=== PATIENT | female | born 1940 | race Caucasian/White ===

== ENCOUNTER 2020-06-11 21:23 | Inpatient (IN) | payer MEDICARE, OTHER, SELFPAY ==
--- NOTE | 2020-06-11 | CT_ITS ---
EXAMINATION: CT HEAD WITHOUT CONTRAST (STROKE PROTOCOL) CLINICAL INFORMATION: Stroke protocol. Facial droop COMPARISON: 05/29/2020 TECHNIQUE: Contiguous axial imaging was performed from the skull base to vertex without intravenous administration of contrast. This CT examination was performed using dose optimization techniques as appropriate, variously including the following: *Automated exposure control *Adjustment of mA and/or kV according to patient size (this includes techniques or standardized protocols for targeted exams where dose is matched to indication/reason for exam; i.e. extremities or head) *Use of iterative reconstruction technique DLP: 617 mGy-cm FINDINGS: There is no intracranial hemorrhage, hematoma, or extra-axial fluid collection. The ventricles are normal in size. There is no hydrocephalus, edema, or mass effect. Churchill-white differentiation is maintained without evidence of acute large vessel territory ischemia.. There is no acute infarct or mass lesion. Again seen are multifocal areas of patchy periventricular and subcortical white matter, consistent with chronic microvascular ischemic changes. There are similar appearing chronic lacunar infarcts in the bilateral thalami and basal ganglia including the right caudate. Small left frontal convexity meningioma again seen, image 38/54. There are intracranial atherosclerotic vascular calcifications. Bilateral senescent basal ganglia calcifications The right mastoid air cells are underpneumatized. No acute sinusitis. Globes and orbits are normal. IMPRESSION: No acute intracranial pathology. Extensive chronic changes unchanged. This critical result was discussed with Veronica Richardson MD by telephone at 06/11/2020 9:45 PM and it was ascertained that the content and urgency of the report was understood at the time of direct communication.
--- NOTE | 2020-06-11 21:27 | ED.NEUROSD ---
HPI - Neuro Symptoms/Deficit General Chief Complaint: Stroke Stated Complaint: stroke Time Seen by Provider: 06/11/20 21:27 History of Present Illness HPI Narrative: This is an 79-year-old female who is brought in via EMS from long-term care facility and according to staff patient was noted to be sitting on the toilet with neurologic deficits last known well was 3:00 p.m. Patient is pleasant and denies any current pain, shortness of breath, chest pain / palpitations, nausea, vomiting, abdominal pain, diarrhea, urinary pain/ burning /frequency. Related Data Home Medications Medication Instructions Recorded Confirmed acetaminophen [Tylenol] 325 mg PO QID PRN 06/12/20 06/12/20 albuterol mcg INHALATION 06/12/20 amlodipine 5 mg PO DAILY 06/12/20 06/12/20 apixaban [Eliquis] 5 mg PO BID 06/12/20 06/12/20 atorvastatin 80 mg PO DAILY 06/12/20 06/12/20 fluticasone propion-salmeterol 1 inh INHALATION BID 06/12/20 06/12/20 [Advair Diskus] folic acid 1 mg PO DAILY 06/12/20 06/12/20 gabapentin PO TID 06/12/20 insulin asp prt-insulin aspart 25 unit SUBCUT BID 06/12/20 06/12/20 [Novolog Mix 70-30 U-100 Insuln] isosorbide mononitrate 60 mg PO DAILY 06/12/20 06/12/20 metoprolol succinate 100 mg PO DAILY 06/12/20 06/12/20 nitroglycerin 0.4 mg SUBLINGUAL Q5M PRN MDD 1.2 06/12/20 06/12/20 oxycodone 5 mg PO BID PRN MDD 15 06/12/20 06/12/20 pantoprazole 40 mg PO DAILY 06/12/20 06/12/20 ropinirole 0.25 mg PO DAILY 06/12/20 06/12/20 Allergies Allergy/AdvReac Type Severity Reaction Status Date / Time phenobarbital [PHENOBARBITAL] Allergy Mild HIVES Verified 06/11/20 21:44 fentanyl [FENTANYL] Allergy Unknown HALLUCINATI Verified 06/11/20 21:44 ONS insulin lispro [From HUMALOG] Allergy Unknown RASH Verified 06/11/20 21:44 morphine [MORPHINE] Allergy Unknown HALLUCINATI Verified 06/11/20 21:44 ON Sulfa (Sulfonamide Allergy Unknown Unknown Verified 06/11/20 21:44 Antibiotics) sulfamethoxazole Allergy Unknown UNKNOWN Verified 06/11/20 21:44 [From BACTRIM] trimethoprim [From BACTRIM] Allergy Unknown UNKNOWN Verified 06/11/20 21:44 diazepam [DIAZEPAM] AdvReac Unknown CRY Verified 06/11/20 21:44 Review of Systems Review of Systems: Pertinent positives and negatives as stated in HPI 10 point review of systems is otherwise negative. PMFSH Past Medical History Source: nursing notes reviewed Medical History (Updated 06/12/20 @ 04:52 by Leyda Aleman MD) Afib Bladder mass CAD (coronary artery disease) COPD (chronic obstructive pulmonary disease) CVA (cerebral vascular accident) Diabetes mellitus type 1 GERD (gastroesophageal reflux disease) Hypercholesteremia Hypertension Obesity Social History Social History Alcohol intake: former Smoking Status: Former smoker Smoked in Last 30 Days: No Advance Directives: No Advance Directives Information Provided: No Physical Exam Vital Signs and I&O and Narrative: Vital Signs and I&O: Vital Signs Temp 98.2 F 06/12/20 07:32 Pulse 81 06/12/20 07:32 Resp 18 06/12/20 07:32 BP 180/68 H 06/12/20 07:32 Pulse Ox 98 06/12/20 04:44 Intake & Output 06/11/20 06/12/20 06/12/20 18:59 06:59 18:59 Intake Total 1050 / 1230 Balance 1050 / 1230 Weight 56.415 kg Intake: Intake, IV Amoun t 1050 / 1050 cefTRIAXone so dium 2 gm In 0.9 50 / 50 % Sodium Chlor jeremiah 50 ml @ 100 mls/hr IV ONCE ONE Rx#: [id number] 0.9 % Sodium C hloride 1,000 ml 1000 / 1000 @ 999 mls/hr I VCONT .Q1H1M RODGER Rx#:[id number] Body Mass Index 25.1 VITAL SIGNS: Reviewed. GENERAL: Well developed, well nourished, in no acute distress. HEAD: Normocephalic/atraumatic, Posterior oropharynx was without edema, erythema or exudate. EYES: PERRLA, Pupils <>, EOMI intact without pain, no nystagmus/pallor/icterus noted EARS: Ext canals without abnormality, TMs non-bulging and non-erythematous NOSE: Nares patent bilateral OROPHARYNX: no oral lesions noted, posterior pharynx clear and non-erythematous without noted tonsillar enlargement/erythema/exudates NECK: Supple, no adenopathy LUNGS: Normal breath sounds. No adventitious sounds or accessory muscle use. SpO2<> CARDIOVASCULAR: Regular rate and rhythm without noted murmurs, no JVD or lower extremity edema. ABDOMEN: Soft, non-tender, non-distended with bowel sounds. No rigidity. No guarding. No palpable masses or hernias noted MUSCULOSKELETAL: No tenderness, deformities, or effusions noted on gross inspection. EXTREMITIES: No cyanosis, clubbing or edema. SKIN: Inspection of the skin reveals no rashes, ulcerations, jaundice, pallor, or petechiae. NEUROLOGIC: Alert and oriented x 3. Strength and sensation to light touch were grossly intact x 4, NIHSS- 1, possible left corner mouth droop, otherwise cranial nerves 2-12 were grossly intact without any pronator drift. Course Course Course Narrative: This is an 79-year-old female with history and clinical presentation unlikely to be acute intracranial ischemia and outside of the window for tPA with an NIH score of 1. Suspect patient may have underlying dehydration and possible infection, although patient is not meeting any SIRS criteria. On review of all lab work and imaging this CT head is negative for any acute findings and there is a mild leukocytosis. Review of urinalysis is significant for evidence of infection with gross pyuria noted on catheterization. Reevaluation(s) Reevaluation #1: There is a noted leukocytosis, however patient still does not meet SIRS criteria. The noted KAIN has likely secondary to observed pyuria that is suspected to be secondary to obstructive symptoms And taken together with CT scan which illustrate bladder mass this is most consistent with the source of the KAIN. The bladder mass is known and patient was schedule to be evaluated. Time: 21:47 Reevaluation #2: This case was discussed with the inpatient hospitalist team who is agreeable for admission. MDM - Neuro Symptoms/Deficit Lab Data Result diagrams: 06/12/20 05:42 06/12/20 05:42 Labs: Lab Results 06/11/20 06/11/2006/11/20 Range/Units 21:35 21:47 21:47 WBC 13.0 H (4.8-10.8) X10*3/uL RBC 3.60 L (4.20-5.50) X10*6/uL Hgb 10.1 L (12.0-16.0) g/dl Hct 31.0 L (37-47) % MCV 86.1 (80-98) fL MCH 28.1 (27.0-33.0) pg MCHC 32.6 (31.0-35.0) g/dl RDW 14.0 (11.0-16.0) % Plt Count 381 (160-400) X10*3/uL MPV 9.9 (9.4-12.3) fL Immature Gran % (Auto) 1.4 H (0.0-0.4) % Neut % (Auto) 75.8 H (45-73) % Lymph % (Auto) 7.2 L (20-40) % [place] % (Auto) 14.6 H (2-11) % Eos % (Auto) 0.5 (0-4) % Baso % (Auto) 0.5 (0-2) % Neut # (Auto) 9.8 H (2.0-8.3) X10*3/uL Lymph # (Auto) 0.9 L (1.2-4.9) X10*3/uL [place] # (Auto) 1.9 H (0.1-1.2) X10*3/uL Eos # (Auto) 0.1 (0.0-0.4) X10*3/uL Baso # (Auto) 0.1 (0.0-0.2) X10*3/uL Abs Immat Gran (auto) 0.18 H (0.00-0.03) X10*3/uL Absolute Nucleated RBC 0.000 (0.0-0.012) X10*3/uL Nucleated RBC % (auto) 0.0 (0.0-0.2) /100WBC Smear Tech's Comments VERIFIED PT (10.8-13.0) SEC INR (0.9-1.1) Sodium 129 L (135-145) mmol/L Potassium 4.2 (3.3-5.1) mmol/l Chloride 97 (96-108) mmol/L Carbon Dioxide 21 L (22-29) mmol/L Anion Gap 15 (12-20) BUN 31 H (9-16) mg/dL Creatinine 2.01 H (0.5-1.4) mg/dL Estim Creat Clear Calc 16.7 Estimated GFR 24 POC Glucose 100 (60-115) mg/dL Random Glucose 104 (60-115) mg/dL Calcium 8.4 (8.4-10.2) mg/dL Total Bilirubin 0.4 (0.0-1.0) mg/dL AST 65 H (5-31) U/L ALT 82 H (0-31) U/L Alkaline Phosphatase 95 (39-117) U/L Total Protein 6.2 L (6.5-8.0) g/dL Albumin 3.1 L (3.5-5.0) g/dL Urine Color Urine Appearance Urine pH (5.0-8.0) Ur Specific Sparkman (1.005-1.025) Urine Protein (NEG-TRACE) MG/DL Urine Glucose (UA) (NEG) MG/DL Urine Ketones (NEG) MG/DL Urine Blood (NEG) Urine Nitrite (NEG) Ur Leukocyte Esterase (NEG) Urine RBC (0) /HPF Urine WBC (0-4) /HPF Ur Squamous Epith Cells /LPF Urine Bacteria /LPF 06/11/20 06/11/20 Range/Units 21:59 22:17 WBC (4.8-10.8) X10*3/uL RBC (4.20-5.50) X10*6/uL Hgb (12.0-16.0) g/dl Hct (37-47) % MCV (80-98) fL MCH (27.0-33.0) pg MCHC (31.0-35.0) g/dl RDW (11.0-16.0) % Plt Count (160-400) X10*3/uL MPV (9.4-12.3) fL Immature Gran % (Auto) (0.0-0.4) % Neut % (Auto) (45-73) % Lymph % (Auto) (20-40) % [place] % (Auto) (2-11) % Eos % (Auto) (0-4) % Baso % (Auto) (0-2) % Neut # (Auto) (2.0-8.3) X10*3/uL Lymph # (Auto) (1.2-4.9) X10*3/uL [place] # (Auto) (0.1-1.2) X10*3/uL Eos # (Auto) (0.0-0.4) X10*3/uL Baso # (Auto) (0.0-0.2) X10*3/uL Abs Immat Gran (auto) (0.00-0.03) X10*3/uL Absolute Nucleated RBC (0.0-0.012) X10*3/uL Nucleated RBC % (auto) (0.0-0.2) /100WBC Smear Tech's Comments PT 24.7 H (10.8-13.0) SEC INR 2.1 H (0.9-1.1) Sodium (135-145) mmol/L Potassium (3.3-5.1) mmol/l Chloride (96-108) mmol/L Carbon Dioxide (22-29) mmol/L Anion Gap (12-20) BUN (9-16) mg/dL Creatinine (0.5-1.4) mg/dL Estim Creat Clear Calc Estimated GFR POC Glucose (60-115) mg/dL Random Glucose (60-115) mg/dL Calcium (8.4-10.2) mg/dL Total Bilirubin (0.0-1.0) mg/dL AST (5-31) U/L ALT (0-31) U/L Alkaline Phosphatase (39-117) U/L Total Protein (6.5-8.0) g/dL Albumin (3.5-5.0) g/dL Urine Color YELLOW Urine Appearance TURBID Urine pH 6.0 (5.0-8.0) Ur Specific [place] 1.020 (1.005-1.025) Urine Protein 2+ H (NEG-TRACE) MG/DL Urine Glucose (UA) NEG (NEG) MG/DL Urine Ketones NEG (NEG) MG/DL Urine Blood 2+ H (NEG) Urine Nitrite NEG (NEG) Ur Leukocyte Esterase 3+ H (NEG) Urine RBC 0 (0) /HPF Urine WBC TNTC H (0-4) /HPF Ur Squamous Epith Cells NONE /LPF Urine Bacteria TRACE /LPF NIH Stroke Scale Internal: Initial- Upon Arrival Level of Consciousness: Alert Level of Consciousness Questions: Answers both questions correctly Level of Consciousness Commands: Performs both tasks correctly Best Gaze: Normal ( 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
--- NOTE | 2020-06-11 21:31 | ECG_ITS ---
Test Reason : ALTERED MENTAL Blood Pressure : / mmHG Vent. Rate : 073 BPM Atrial Rate : 073 BPM P-R Int : 172 ms QRS Dur : 084 ms QT Int : 352 ms P-R-T Axes : 031 -32 119 degrees QTc Int : 387 ms Normal sinus rhythm Left axis deviation Left ventricular hypertrophy with repolarization abnormality Abnormal ECG When compared with ECG of 29-MAY-2020 18:10, Sinus rhythm has replaced Atrial fibrillation Referred By: Veronica Richardson Electronically Signed By:DIAZ VOGT
--- NOTE | 2020-06-11 21:31 | XR_ITS ---
EXAMINATION: XR CHEST CLINICAL INFORMATION: Cough COMPARISON: CT abdomen pelvis 05/29/[address] chest 05/29/2020 TECHNIQUE: Frontal view of the chest was obtained. FINDINGS: The heart and pulmonary vessels appear normal. No infiltrates, effusions or lung masses are seen. A left atrial clip is present. There is no evidence of CHF. IMPRESSION: No acute intrathoracic disease
[2020-06-11 21:36] VITALS: BP 130/71; BP 139/50; PULSE 73; PULSE 76; RESP 18; TEMP 36.9; O2SAT 95; BMI 25.1
[2020-06-11 22:03] LABS: Basophils Absolute Auto 0.1 X10*3/uL (0.0-0.2); Basophils Percent Auto 0.5 % (0-2); Eosinophils Absolute Auto 0.1 X10*3/uL (0.0-0.4); Eosinophils Percent Auto 0.5 % (0-4); Hemoglobin 10.1 g/dl (12.0-16.0); Imm Gran Abs Auto 0.18 X10*3/uL (0.00-0.03); Imm Gran Pct Auto 1.4 % (0.0-0.4); Lymphocytes Absolute Auto 0.9 X10*3/uL (1.2-4.9); Lymphocytes Percent Auto 7.2 % (20-40); MANUAL DIFF FLAG SCAN; Mean Corpuscular HGB Conc 32.6 g/dl (31.0-35.0); Mean Corpuscular Hemoglobin 28.1 pg (27.0-33.0); Mean Corpuscular Volume 86.1 fL (80-98); Mean Platelet Volume 9.9 fL (9.4-12.3); Monocytes Absolute Auto 1.9 X10*3/uL (0.1-1.2); Monocytes Percent Auto 14.6 % (2-11); Neutrophils Absolute Auto 9.8 X10*3/uL (2.0-8.3); Neutrophils Percent Auto 75.8 % (45-73); Platelet Count 381 X10*3/uL (160-400); SCAN SMEAR FLAG 1
[2020-06-11 22:17] LABS: INTERNATIONAL NORM RATIO 2.1 (0.9-1.1); Prothrombin Time 24.7 SEC (10.8-13.0)
--- NOTE | 2020-06-11 22:17 | PC.NURSE ---
Pt found laying in bed, awake, with garbled speech. Blood work obtained and sent. nurse tech at bedside obtaining EKG. UA obtained via straight cath and sent for analysis. Pt resting in bed, continue to monitor.
[2020-06-11 22:26] LABS: SLIDE REVIEW VERIFIED
[2020-06-11 22:30] LABS: Glucose, Whole Blood 100 mg/dL (60-115)
[2020-06-11 22:32] LABS: Alanine Aminotransferase 82 U/L (0-31); Albumin Level 3.1 g/dL (3.5-5.0); Alkaline Phosphatase 95 U/L (39-117); Anion Gap 15 (12-20); Aspartate Amino Transferase 65 U/L (5-31); Bilirubin Total 0.4 mg/dL (0.0-1.0); Blood Urea Nitrogen 31 mg/dL (9-16); Calcium 8.4 mg/dL (8.4-10.2); Carbon Dioxide 21 mmol/L (22-29); Chloride 97 mmol/L (96-108); Creatinine Clr Calc Pharmacy 16.7; Estimated Glomerular Filt Rate 24; Glucose Random 104 mg/dL (60-115); Potassium 4.2 mmol/l (3.3-5.1); Sodium 129 mmol/L (135-145); Total Protein 6.2 g/dL (6.5-8.0)
[2020-06-11 22:38] LABS: Glucose Urine UA NEG (NEG); Leukocyte Esterase Urine 3+ (NEG); Nitrite Urine NEG (NEG); Urine Blood 2+ (NEG); Urine Ketones NEG (NEG); Urine Protein 2+ MG/DL (NEG-TRACE)
[2020-06-11 22:41] VITALS: BP 134/53; PULSE 75; RESP 16; TEMP 37.7; O2SAT 96
[2020-06-11 22:44] LABS: Appearance Urine TURBID; Color Urine YELLOW
--- NOTE | 2020-06-11 22:44 | PC.NURSE ---
Per MD, BCX and lactic not needed prior to ABX admin. Pt medicated per EMAR. VSS. Continue to monitor.
[2020-06-11] MEDS: cefTRIAXone sodium 2 GM in 0.9 % Sodium Chloride 50 ML IV (22:45)
[2020-06-11 22:47] LABS: RBC Urine 0 /HPF (0); WBC Urine TNTC /HPF (0-4)
[2020-06-11 22:48] LABS: Bacteria Urine TRACE /LPF
--- NOTE | 2020-06-11 23:30 | PC.NURSE ---
This RN calling facility attempting to obtain a Med Rec. Per staff, pt is listed as family filled and they do not have a Med Rec on file. Facility trying to obtain a Med Rec, given fax number.
[2020-06-11] MEDS: 0.9 % Sodium Chloride 1,000 ML 999 ML IVCONT (23:34)
--- NOTE | 2020-06-11 23:34 | CT_ITS ---
EXAMINATION: CT ABDOMEN AND PELVIS WITHOUT CONTRAST CLINICAL INFORMATION: Polyuria with acute kidney insufficiency COMPARISON: CT abdomen pelvis 05/29/2020 TECHNIQUE: Multidetector volumetric imaging was performed from the superior aspect of the liver through the pubic symphysis. Sagittal and coronal reformatted images were obtained on the technologist's workstation. This CT examination was performed using dose optimization techniques as appropriate, variously including the following: *Automated exposure control *Adjustment of mA and/or kV according to patient size (this includes techniques or standardized protocols for targeted exams where dose is matched to indication/reason for exam; i.e. extremities or head) *Use of iterative reconstruction technique DLP: 1178 mGy-cm FINDINGS: LUNG BASES: A left atrial clip is present. Bibasilar atelectasis is seen. LIVER, GALLBLADDER, AND BILIARY TREE: Air is present in the biliary tree. Patient status post cholecystectomy. No focal liver mass is seen. PANCREAS: Pancreas is atrophic. SPLEEN: Unremarkable. ADRENAL GLANDS: Unremarkable. KIDNEYS AND URETERS: Again seen is marked right-sided hydroureteronephrosis down to the level of the ureterovesical junction. Compared to the prior study, the collecting system appears slightly more dilated. For example, the ureter at the level of the mid pelvis measures 1.4 cm whereas previously it measured 1.2 cm (series 3 image 61). No renal mass is seen. The left kidney is unremarkable aside from the presence of 2 lower pole renal cysts. No renal calculi are seen on either side. No left-sided hydronephrosis is present. BLADDER: A large lobular soft tissue mass is seen on the right side of the bladder presumably producing the hydronephrosis. The mass measures 8.5 x 3.7 x 6.8 cm. No calculi are seen in the bladder. GASTROINTESTINAL TRACT: The small and large bowel are unremarkable. The appendix is unremarkable. ABDOMINAL WALL: No significant hernia is appreciated. LYMPH NODES: No retroperitoneal lymphadenopathy. VASCULAR: There are very extensive aortoiliofemoral calcific atherosclerotic changes along with marked disease in the SMA origin as well as the renal arteries. PELVIC VISCERA: An anteverted uterus is present with some calcifications suggestive of possible old fibroids. OSSEOUS STRUCTURES: Mild degenerative changes in the spine. IMPRESSION: 1. Marked slightly worsening right-sided hydronephrosis down to the ureterovesical junction where there is a large bladder mass. 2. Air in the biliary tree status post cholecystectomy.
[2020-06-12] VITALS (16 sets, daily range): BP systolic 123–191; BP diastolic 55–94; PULSE 67–82; RESP 16–26; TEMP 36.4–37.4; O2SAT 95–99
--- NOTE | 2020-06-12 01:54 | PC.NURSE ---
This RN again contacting facility regarding med list and an accurate history. Per RN Shannan, , [place] [facility] by [place] due to weakness, pt was unable to get up from the toilet. RN denies fall, states she was lowered to the floor as it is a no lift facility. Per RN, pt has a history of a bladder mass. Daughter was supposed to bring pt for a f/u r/t bladder mass on 06/12. RN unsure what doctor or office is treating pt. Per RN, pt is new to their facility, has only been there less than 2 weeks. RN unsure when bladder mass was diagnosed or by whom. Med list obtained from RN. This RN unable to reach daughter after multiple attempts. MD aware of updates regarding pt condition and history.
--- NOTE | 2020-06-12 02:39 | PC.NURSE ---
Med Rec and history completed via list obtained by RN at facility. Pt sleeping in bed at this time, VSS. Awaiting room assignment. Continue to monitor.
--- NOTE | 2020-06-12 02:59 | PC.NURSE ---
This RN calling [facility] regarding admission.
--- NOTE | 2020-06-12 03:16 | PC.NURSE ---
Report given to HOLLEY Corral. Pt being prepared for transport floor.
--- NOTE | 2020-06-12 04:19 | PM.IMHP ---
History of Present Illness Date of Service: 06/12/20 Chief Complaint: suspected stroke 79 y/o female with an extensive PMHX who presented from assisted living facility due to suspected stroke . Per history provided by ED/Assisted living facility patient was noted to be weak which started around 3 pm, the symptoms described are inespecific. On presentation patient is c/o generalized weakness but no neurologic deficit is identified on evaluation. CT head done by ED showed no evidence of any acute intracranial pathology. This is the second presentation to the ED in 1 month due to same symptoms. On previous admission patient had extensive work up done for a similar presentation and weakness was attribuated to UTI for what was treated accordingly. Now presents with recurrent UTI, Hyponatremia of 129 [address] KAIN of 2.0. [address] abdomen shows known bladder mass with right hydronephrosis which was present on previous admission. Patient was supposed to get cytoscopy done by private urologist Dr Ramirez. In the ED patient was given one dose of Rocephin per ED attending. Decision for admission given. Patient seen and examined at the bedside. ROS unable to be obtained given mental status. Physical exam positive for mild abdominal tenderness in hypogastric region, delirium. Past Medical History: Anemia, Angina, Arthritis, afib, CAD, CHF, COPD, CVA, Dementia, GERD, Headaches, Hiatal hernia, HTN, DM, Sleep apnea, TB PP+ Review of Systems Constitutional: Constitutional: Reports other Comments: unable to be obtained given mental status [facility] Medical History (Updated 06/12/20 @ 04:52 by Leyda Aleman MD) Afib Bladder mass CAD (coronary artery disease) COPD (chronic obstructive pulmonary disease) CVA (cerebral vascular accident) Diabetes mellitus type 1 GERD (gastroesophageal reflux disease) Hypercholesteremia Hypertension Obesity Functional capacity: independent ambulation Family history: reviewed and not pertinent Social History Alcohol intake: former Smoking Status: Former smoker Smoked in Last 30 Days: No Advance Directives: No Advance Directives Information Provided: No Meds Allergies Allergy/AdvReac Type Severity Reaction Status Date / Time phenobarbital [PHENOBARBITAL] Allergy Mild HIVES Verified 06/11/20 21:44 fentanyl [FENTANYL] Allergy Unknown HALLUCINATI Verified 06/11/20 21:44 ONS insulin lispro [From HUMALOG] Allergy Unknown RASH Verified 06/11/20 21:44 morphine [MORPHINE] Allergy Unknown HALLUCINATI Verified 06/11/20 21:44 ON Sulfa (Sulfonamide Allergy Unknown Unknown Verified 06/11/20 21:44 Antibiotics) sulfamethoxazole Allergy Unknown UNKNOWN Verified 06/11/20 21:44 [From BACTRIM] trimethoprim [From BACTRIM] Allergy Unknown UNKNOWN Verified 06/11/20 21:44 diazepam [DIAZEPAM] AdvReac Unknown CRY Verified 06/11/20 21:44 Home Medications Medication Instructions Recorded Confirmed Type acetaminophen [Tylenol] 325 mg PO QID PRN 06/12/20 06/12/20 History albuterol mcg INHALATION 06/12/20 History amlodipine 5 mg PO DAILY 06/12/20 06/12/20 History apixaban [Eliquis] 5 mg PO BID 06/12/20 06/12/20 History atorvastatin 80 mg PO DAILY 06/12/20 06/12/20 History fluticasone propion-salmeterol 1 inh INHALATION BID 06/12/20 06/12/20 History [Advair Diskus] folic acid 1 mg PO DAILY 06/12/20 06/12/20 History gabapentin PO TID 06/12/20 History insulin asp prt-insulin aspart 25 unit SUBCUT BID 06/12/20 06/12/20 History [Novolog Mix 70-30 U-100 Insuln] isosorbide mononitrate 60 mg PO DAILY 06/12/20 06/12/20 History metoprolol succinate 100 mg PO DAILY 06/12/20 06/12/20 History nitroglycerin 0.4 mg SUBLINGUAL Q5M PRN MDD 1.2 06/12/20 06/12/20 History oxycodone 5 mg PO BID PRN MDD 15 06/12/20 06/12/20 History pantoprazole 40 mg PO DAILY 06/12/20 06/12/20 History ropinirole 0.25 mg PO DAILY 06/12/20 06/12/20 History Physical Exam Vital Signs and Narrative: Vital Signs: Last Vital Signs Temp 98.5 F 06/12/20 02:09 Pulse 69 06/12/20 02:39 Resp 16 06/12/20 02:39 BP 148/61 H 06/12/20 02:39 Pulse Ox 96 10/06/20 02:39 Body Mass Index 25.1 Const: General: cooperative and comfortable Orientation/consciousness: oriented to person HENMT: Head: Yes normal to inspection Eyes: General: appearance normal, both eyes and all related structures Neck: Yes normal visual inspection, Yes full ROM and Yes no JVD Chest: Chest palpation & inspection: normal inspection of the chest Resp: Effort & Inspection: normal respiratory effort Cardio: Jugular venous distension: no JVD Rhythm: regular rhythm Heart sounds: S1 normal heart sound present and S2 normal heart sound present GI: Rectal Exam - Female: other (mild tenderness in hypogastric region) Skin: General skin exam: no rashes or lesions noted Neuro: General: oriented to person Psych: Appearance: disheveled Speech and movement: Normal speech and movement present Attitude: cooperative Results Labs Labs: Laboratory Tests 06/11/20 06/11/20 06/11/20 21:35 21:47 21:47 WBC 13.0 H RBC 3.60 L Hgb 10.1 L Hct 31.0 L MCV 86.1 MCH 28.1 MCHC 32.6 RDW 14.0 Plt Count 381 MPV 9.9 Immature Gran % (Auto) 1.4 H Neut % (Auto) 75.8 H Lymph % (Auto) 7.2 L [place] % (Auto) 14.6 H Eos % (Auto) 0.5 Baso % (Auto) 0.5 Neut # (Auto) 9.8 H Lymph # (Auto) 0.9 L [place] # (Auto) 1.9 H Eos # (Auto) 0.1 Baso # (Auto) 0.1 Abs Immat Gran (auto) 0.18 H Absolute Nucleated RBC 0.000 Nucleated RBC % (auto) 0.0 Smear Tech's Comments VERIFIED PT INR Sodium 129 L Potassium 4.2 Chloride 97 Carbon Dioxide 21 L Anion Gap 15 BUN 31 H Creatinine 2.01 H Estim Creat Clear Calc 16.7 Estimated GFR 24 POC Glucose 100 Random Glucose 104 Calcium 8.4 Total Bilirubin 0.4 AST 65 H ALT 82 H Alkaline Phosphatase 95 Total Protein 6.2 L Albumin 3.1 L Urine Color Urine Appearance Urine pH Ur Specific [place] Urine Protein Urine Glucose (UA) Urine Ketones Urine Blood Urine Nitrite Ur Leukocyte Esterase Urine RBC Urine WBC Ur Squamous Epith Cells Urine Bacteria 06/11/20 06/11/20 21:59 22:17 WBC RBC Hgb Hct MCV MCH MCHC RDW Plt Count MPV Immature Gran % (Auto) Neut % (Auto) Lymph % (Auto) [place] % (Auto) Eos % (Auto) Baso % (Auto) Neut # (Auto) Lymph # (Auto) [place] # (Auto) Eos # (Auto) Baso # (Auto) Abs Immat Gran (auto) Absolute Nucleated RBC Nucleated RBC % (auto) Smear Tech's Comments PT 24.7 H INR 2.1 H Sodium Potassium Chloride Carbon Dioxide Anion Gap BUN Creatinine Estim Creat Clear Calc Estimated GFR POC Glucose Random Glucose Calcium Total Bilirubin AST ALT Alkaline Phosphatase Total Protein Albumin Urine Color YELLOW Urine Appearance TURBID Urine pH 6.0 Ur Specific [place] 1.020 Urine Protein 2+ H Urine Glucose (UA) NEG Urine Ketones NEG Urine Blood 2+ H Urine Nitrite NEG Ur Leukocyte Esterase 3+ H Urine RBC 0 Urine WBC TNTC H Ur Squamous Epith Cells NONE Urine Bacteria TRACE Assessment and Plan (1) AMS (altered mental status): Status: Acute likely a combination of underlying dementia with metabolic encephalopathy due to recurrent UTI Continue with IV Rocephin for gram negative coverage Follow up Bcx and Ucx as ordered per ED and monitor mental status closely (2) Urinary tract infection with pyuria: Status: Acute continue with rocephin for gram neg coverage follow up Bcx and Ucx (3) Bladder mass: Status: Acute Causing obstructive uropathy, hydronephrosis in the right Private urologist Dr Ramirez to be contacted in the am in regards to cytoscopy patient was scheduled to have as an outpatient after discharged from previous admission Nephrology consult in am as well as urology consult (4) KAIN (acute kidney injury): Status: Acute creatinine now of 2.0 likely due to obstructive uropathy monitor as of now and monitor electrolytes closely urology consult in am (5) Hyponatremia: Status: Acute Na of 129 which might be in part causing patient's weakness in combination with recurrent UTI IV gently hydration for now Follow up repeat BMP for electrolytes (6) CAD (coronary artery disease): Status: Acute continue with statin home dose (7) Afib: Status: Acute continue with metoprolol home dose for rate control continue with eliquis home dose for anticoagulation (8) Hypertension: Status: Acute continue with amlodipine home dose (9) Diabetes mellitus type 1: Status: Acute Insulin regimen as ordered Diabetic diet (10) GERD (gastroesophageal reflux disease): Status: Acute continue with PPI home dose (11) Parkinson disease: Status: Acute continue with ropirinole home dose
[2020-06-12] MEDS: Heparin Sodium,Porcine 5,000 UNIT/ML VIAL 5000 UNIT SUBCUT (06:27)
[2020-06-12] MEDS: Omeprazole 20 MG CAPSULE.DR PO (06:29)
[2020-06-12 06:50] LABS: Basophils Absolute Auto 0.1 X10*3/uL (0.0-0.2); Basophils Percent Auto 0.4 % (0-2); Eosinophils Absolute Auto 0.1 X10*3/uL (0.0-0.4); Eosinophils Percent Auto 0.7 % (0-4); Hematocrit 32.7 % (37-47); Hemoglobin 10.4 g/dl (12.0-16.0); Imm Gran Abs Auto 0.24 X10*3/uL (0.00-0.03); Imm Gran Pct Auto 1.5 % (0.0-0.4); Lymphocytes Absolute Auto 1.1 X10*3/uL (1.2-4.9); Lymphocytes Percent Auto 6.5 % (20-40); MANUAL DIFF FLAG SCAN; Mean Corpuscular HGB Conc 31.8 g/dl (31.0-35.0); Mean Corpuscular Volume 87.9 fL (80-98); Mean Platelet Volume 10.4 fL (9.4-12.3); Monocytes Absolute Auto 2.3 X10*3/uL (0.1-1.2); Monocytes Percent Auto 14.3 % (2-11); Neutrophils Absolute Auto 12.4 X10*3/uL (2.0-8.3); Neutrophils Percent Auto 76.6 % (45-73); Platelet Count 376 X10*3/uL (160-400); Red Blood Count 3.72 X10*6/uL (4.20-5.50); SCAN SMEAR FLAG 1; White Blood Count 16.1 X10*3/uL (4.8-10.8)
--- NOTE | 2020-06-12 06:52 | PC.NURSE ---
ADMIT TO 453-1--AWAKE...ALERT...VAGUE RESPONSES BUT CONVERSATIONAL...RESPIRATIONS EASY..MONITOR NSR..HR 70'S...INCONTINANT URINE POST-ARRIVAL...DAUGHTER CALLED THIS AM...STATES PATIENT ALLERGIC TO HUMALOG INSULIN AND WILL BRING PATIENTS INSULIN IN FOR PHARMACY...DAUGHTER STATED RECENTLY FOUND BLADDER TUMOR WAS TO BE EVALUATED TODAY IN [place] VIA CYSTOSCOPY..FOLLOWED BY DR ALVARENGA AT [address] IN [place]..PATIENT DENIES/OFFERS NO COMPLAINTS...SWALLOWED AM MED/H20 W/O DIFFICULTY FOLLOWED
[2020-06-12 07:27] LABS: Anion Gap 15 (12-20); Blood Urea Nitrogen 28 mg/dL (9-16); Calcium 8.2 mg/dL (8.4-10.2); Carbon Dioxide 24 mmol/L (22-29); Chloride 100 mmol/L (96-108); Estimated Glomerular Filt Rate 28; Glucose Random 102 mg/dL (60-115); Potassium 4.8 mmol/l (3.3-5.1); Sodium 134 mmol/L (135-145)
[2020-06-12 08:48] LABS: Glucose, Whole Blood 124 mg/dL (60-115)
[2020-06-12] MEDS: Isosorbide Mononitrate 60 MG TAB.ER.24H PO (10:23)
[2020-06-12] MEDS: Metoprolol Succinate ER 100 MG TAB.ER.24H PO ×2 (10:24→20:10)
[2020-06-12] MEDS: Apixaban 5 MG TABLET 2.5 MG PO ×2 (10:24→20:10)
[2020-06-12] MEDS: 0.9 % Sodium Chloride Flush 3 ML SYRINGE 2 ML IVFLUSH ×2 (10:25→20:10)
--- NOTE | 2020-06-12 11:10 | PM.CNNEP ---
History of Present Illness Reason for Consult Consult date: 06/12/20 Reason for consult: KAIN Chief Complaint Chief complaint: stroke History of Present Illness Narrative: PT unable to give info ..info was obtained from EMR notes Readm to hosp fro AMS and gen weakness Noted pyuria c/w UTI KAIN with incr SCr Last adm noted R hydro with renal mass ( repeat CT noted again) ad she was suppose to get urol eval in [place] with her usu urol PMFSH Past Medical History Medical History (Updated 06/12/20 @ 04:52 by Leyda Aleman MD) Afib Bladder mass CAD (coronary artery disease) COPD (chronic obstructive pulmonary disease) CVA (cerebral vascular accident) Diabetes mellitus type 1 GERD (gastroesophageal reflux disease) Hypercholesteremia Hypertension Obesity Functional capacity: independent ambulation Family History Family history: reviewed and not pertinent Social History Social History Alcohol intake: former Smoking Status: Former smoker Smoked in Last 30 Days: No Advance Directives: No Advance Directives Information Provided: No service: No Meds Allergies Allergy/AdvReac Type Severity Reaction Status Date / Time phenobarbital [PHENOBARBITAL] Allergy Mild HIVES Verified 06/11/20 21:44 fentanyl [FENTANYL] Allergy Unknown HALLUCINATI Verified 06/11/20 21:44 ONS insulin lispro [From HUMALOG] Allergy Unknown RASH Verified 06/11/20 21:44 morphine [MORPHINE] Allergy Unknown HALLUCINATI Verified 06/11/20 21:44 ON Sulfa (Sulfonamide Allergy Unknown Unknown Verified 06/11/20 21:44 Antibiotics) sulfamethoxazole Allergy Unknown UNKNOWN Verified 06/11/20 21:44 [From BACTRIM] trimethoprim [From BACTRIM] Allergy Unknown UNKNOWN Verified 06/11/20 21:44 diazepam [DIAZEPAM] AdvReac Unknown CRY Verified 06/11/20 21:44 Home Medications Medication Instructions Recorded Confirmed Type Novolin 70-30 FlexPen U-100 28 units SUBCUT DAILY@1700 06/12/20 06/12/20 History Novolog Mix 70-30FlexPen U-100 24 unit SUBCUT QAM 06/12/20 06/12/20 History acetaminophen [Tylenol] 325 mg PO QID PRN 06/12/20 06/12/20 History albuterol mcg INHALATION 06/12/20 History amlodipine 5 mg PO DAILY 06/12/20 06/12/20 History apixaban [Eliquis] 5 mg PO BID 06/12/20 06/12/20 History atorvastatin 80 mg PO DAILY 06/12/20 06/12/20 History fluticasone propion-salmeterol 1 inh INHALATION BID 06/12/20 06/12/20 History [Advair Diskus] folic acid 1 mg PO DAILY 06/12/20 06/12/20 History gabapentin PO TID 06/12/20 History insulin asp prt-insulin aspart 25 unit SUBCUT BID 06/12/20 06/12/20 History [Novolog Mix 70-30 U-100 Insuln] isosorbide mononitrate 60 mg PO DAILY 06/12/20 06/12/20 History metoprolol succinate 100 mg PO DAILY 06/12/20 06/12/20 History nitroglycerin 0.4 mg SUBLINGUAL Q5M PRN MDD 1.2 06/12/20 06/12/20 History oxycodone 5 mg PO BID PRN MDD 15 06/12/20 06/12/20 History pantoprazole 40 mg PO DAILY 06/12/20 06/12/20 History ropinirole 0.25 mg PO DAILY 06/12/20 06/12/20 History Physical Exam Vital Signs and I&O: Vital Signs Temp 98.2 F 06/12/20 08:00 Pulse 80 06/12/20 10:24 Resp 18 06/12/20 08:00 BP 157/62 H 06/12/20 10:24 Pulse Ox 97 06/12/20 08:00 Intake & Output 06/11/20 06/12/20 06/12/20 18:59 06:59 18:59 Intake Total 1230 / 1230 Balance 1230 / 1230 Weight 56.415 kg Intake: Intake, Oral Amount 180 / 180 Intake, IV Amount 1050 / 1050 cefTRIAXone sodium 2 gm In 0.9 50 / 50 % Sodium Chloride 50 ml @ 100 mls/hr IV ONCE ONE Rx#: [id number] 0.9 % Sodium Chloride 1,000 ml 1000 / 1000 @ 999 mls/hr IVCONT .Q1H1M RODGER Rx#:[id number] Other: Number of Incontinent Voids 1 Body Mass Index 25.1 Laboratory Tests 10/06/19 06/11/20 06/12/20 20:40 21:47 05:42 Creatinine 1.43 H 2.01 H 1.77 H VITAL SIGNS: Reviewed. GENERAL: Well developed, well nourished, in no acute distress. HEAD: Normocephalic/atraumatic, Posterior oropharynx was without edema, erythema or exudate. EYES: PERRLA, Pupils <>, EOMI intact without pain, no nystagmus/pallor/icterus noted EARS: Ext canals without abnormality, TMs non-bulging and non-erythematous NOSE: Nares patent bilateral OROPHARYNX: no oral lesions noted, posterior pharynx clear and non-erythematous without noted tonsillar enlargement/erythema/exudates NECK: Supple, no adenopathy LUNGS: Normal breath sounds. No adventitious sounds or accessory muscle use. SpO2<> CARDIOVASCULAR: Regular rate and rhythm without noted murmurs, no JVD or lower extremity edema. ABDOMEN: Soft, non-tender, non-distended with bowel sounds. No rigidity. No guarding. No palpable masses or hernias noted MUSCULOSKELETAL: No tenderness, deformities, or effusions noted on gross inspection. EXTREMITIES: No cyanosis, clubbing or edema. SKIN: Inspection of the skin reveals no rashes, ulcerations, jaundice, pallor, or petechiae. NEUROLOGIC: Alert and oriented x 3. Strength and sensation to light touch were grossly intact x 4, NIHSS- 1, possible left corner mouth droop, otherwise cranial nerves 2-12 were grossly intact without any pronator drift. Const General: cooperative and comfortable Orientation/consciousness: oriented to person [facility] Head: Yes normal to inspection Eyes General: appearance normal, both eyes and all related structures Neck Neck: Yes normal visual inspection, Yes full ROM and Yes no JVD Chest Chest palpation & inspection: normal inspection of the chest Resp Effort & Inspection: normal respiratory effort Cardio Jugular venous distension: no JVD Rhythm: regular rhythm Heart sounds: S1 normal heart sound present and S2 normal heart sound present GI Rectal Exam - Female: other (mild tenderness in hypogastric region) Skin General skin exam: no rashes or lesions noted Neuro General: oriented to person Psych Appearance: disheveled Speech and movement: Normal speech and movement present Attitude: cooperative Results Lab Results Result Diagrams: 06/12/20 05:42 06/12/20 05:42 Lab results: Chemistry 06/11/20 06/12/20 21:47 05:42 Sodium 129 L 134 L Potassium 4.2 4.8 Carbon Dioxide 21 L 24 BUN 31 H 28 H Creatinine 2.01 H 1.77 H Calcium 8.4 8.2 L Hematology 06/11/20 06/12/20 21:47 05:42 WBC 13.0 H 16.1 H Hgb 10.1 L 10.4 L Plt Count 381 376 Urinalysis 06/11/20 22:17 Urine Color YELLOW Urine Appearance TURBID Urine pH 6.0 Ur Specific [place] 1.020 Urine Protein 2+ H Urine Glucose (UA) NEG Urine Ketones NEG Urine Blood 2+ H Urine Nitrite NEG Ur Leukocyte Esterase 3+ H Urine RBC 0 Urine WBC TNTC H Ur Squamous Epith Cells NONE Laboratory Tests 10/06/19 06/11/20 06/12/20 20:40 21:47 05:42 Creatinine 1.43 H 2.01 H 1.77 H 1. Marked slightly worsening right-sided hydronephrosis down to the ureterovesical junction where there is a large bladder mass. Assessment and Plan (1) Hyponatremia: Status: Acute (2) KAIN (acute kidney injury): Status: Acute (3) Bladder mass: Status: Acute (4) Urinary tract infection with pyuria: Status: Acute (5) AMS (altered mental status): Status: Acute 1. KAIN: multifact including UTI and ? prog R Kidney Obs; SCr grad imporved over past 24 hrs 2. CKD 3: bsl SCr 1.5 3. R hydro w Obs at level of bladder CT scan shows........ Marked slightly worsening right-sided hydronephrosis down to the ureterovesical junction where there is a large bladder mass. 4. DM 5. AMS: multifact with UTI 6. UTI: at risk for Obs pyleo on R kidnye REC: cont IV ABx; avoid NToxins; Urol consult re blader mass and R hydro as may need R PCN tbe and anteiro stenting by IR ( urol to sort out best options) will follow with team
--- NOTE | 2020-06-12 11:20 | MHC.CM.PN ---
met with pts daughter who explins that pt is from the [facility] where in the past she had been receiving servbceis thru [facility] daughter is agreea ble to str if indicated by a physicaltherapy eval she is requestungpt not go to [facility] as hr father there referrals will be made
[2020-06-12 11:33] LABS: Glucose, Whole Blood 209 mg/dL (60-115)
--- NOTE | 2020-06-12 16:54 | P.PNIM_ITS ---
Subjective Subjective Date of Service: 06/12/20 Interval History: Seen and examined reports not feeling well, but unable to state exactly what she means Review of Systems ROS unreliable Physical Exam Vital Signs and I&O and Narrative: Vital Signs and I&O: Vital Signs Temp 98.6 F 06/12/20 15:17 Pulse 74 06/12/20 15:17 Resp 20 06/12/20 15:17 BP 161/84 H 06/12/20 15:17 Pulse Ox 97 06/12/20 15:17 Intake & Output 06/11/20 06/12/20 06/12/20 18:59 06:59 18:59 Intake Total 1230 / 1230 480 / 480 Balance 1230 / 1230 480 / 480 Weight 56.415 kg Intake: Intake, Oral Bel unt 180 / 180 480 / 480 Intake, IV Amoun t 1050 / 1050 cefTRIAXone so dium 2 gm In 0.9 50 / 50 % Sodium Chlor jeremiah 50 ml @ 100 mls/hr IV ONCE ONE Rx#: [id number] 0.9 % Sodium C hloride 1,000 ml 1000 / 1000 @ 999 mls/hr I VCONT .Q1H1M RODGER Rx#:[id number] Other: Number of Incont inent Voids 1 Body Mass Index 25.1 General - no acute distress, appears comfortable Cardiovascular - regular rate and rhythm, S1-S2 Lungs - normal respiratory effort, clear to auscultation bilaterally, no wheez ing Abdomen - soft, nontender, no rebound regarding Extremities - no edema bilaterally Neuro - awake and alert, no focal deficits Objective Data Current Medications Generic Name Dose Route Start Last Admin Trade Name Sony PRN Reason Stop Dose Admin Amlodipine Besylate 5 mg 06/12/20 09:00 06/12/20 10:26 Amlodipine Besylate 5 Mg Tablet PO Not Given DAILY [facility] Protocol Apixaban 2.5 mg 06/12/20 09:00 06/12/20 10:24 Apixaban 5 Mg Tablet PO 2.5 mg BID [facility] Administration Atorvastatin Calcium 80 mg 06/12/20 21:00 Atorvastatin Calcium 80 Mg Tablet PO DAILY@1999 [facility] Fluticasone/Vilanterol 1 puff 06/12/20 09:00 Fluticasone/Vilanterol 100/25 Blst.W.Dev INHALE DAILY [facility] Folic Acid 1 mg 06/13/20 15:00 Folic Acid 1 Mg Tablet PO DAILY@1500 [facility] Ceftriaxone Sodium 1 gm/ 50 mls @ 100 mls/hr 06/12/20 22:00 Sodium Chloride IV Q24H [facility] Isosorbide Mononitrate 60 mg 06/13/20 08:00 Isosorbide Mononitrate 60 Mg Tab.Er.24h PO DAILY@0800 [facility] Protocol Metoprolol Succinate 100 mg 06/12/20 20:00 Metoprolol Succinate Er 100 Mg Tab.Er.24h PO DAILY@2000 [facility] Protocol Nitroglycerin 0.4 mg 06/12/20 03:14 Nitroglycerin 0.4 Mg Tab.Subl SUBLINGUAL Q5M PRN Chest Pain Non-Formulary Medication 20 units 06/12/20 17:00 Novolin 70-30 Flexpen U-100 SUBCUT DAILY@1700 [facility] Omeprazole 20 mg 06/12/20 06:30 06/12/20 06:29 Omeprazole 20 Mg Capsule.Dr PO 20 mg DAILY@0630 [facility] Administration Ropinirole HCl 0.25 mg 06/12/20 20:00 Ropinirole Hcl 0.25 Mg Tablet PO DAILY@1999 [facility] Sodium Chloride 2 ml 06/12/20 08:00 06/12/20 10:25 0.9 % Sodium Chloride Flush 3 Ml Syringe IVFLUSH 2 ml QSHIFT [facility] Administration Labs CBC & Chem 7: 06/12/20 05:42 06/12/20 05:42 Labs: Laboratory Results - last 24 hr 06/11/20 06/11/20 06/11/20 21:35 21:47 21:47 MCV 86.1 MCH 28.1 MCHC 32.6 RDW 14.0 Plt Count 381 MPV 9.9 Immature Gran % (Auto) 1.4 H Neut % (Auto) 75.8 H Lymph % (Auto) 7.2 L [place] % (Auto) 14.6 H Eos % (Auto) 0.5 Baso % (Auto) 0.5 Neut # (Auto) 9.8 H Lymph # (Auto) 0.9 L [place] # (Auto) 1.9 H Eos # (Auto) 0.1 Baso # (Auto) 0.1 Abs Immat Gran (auto) 0.18 H Absolute Nucleated RBC 0.000 Nucleated RBC % (auto) 0.0 Smear Tech's Comments VERIFIED PT INR Anion Gap 15 Estim Creat Clear Calc 16.7 Estimated GFR 24 POC Glucose 100 Random Glucose 104 Calcium 8.4 Total Bilirubin 0.4 AST 65 H ALT 82 H Alkaline Phosphatase 95 Total Protein 6.2 L Albumin 3.1 L Urine Color Urine Appearance Urine pH Ur Specific [place] Urine Protein Urine Glucose (UA) Urine Ketones Urine Blood Urine Nitrite Ur Leukocyte Esterase Urine RBC Urine WBC Ur Squamous Epith Cells Urine Bacteria 06/11/20 06/11/20 06/12/20 21:59 22:17 05:42 MCV 87.9 MCH 28.0 MCHC 31.8 RDW 14.0 Plt Count 376 MPV 10.4 Immature Gran % (Auto) 1.5 H Neut % (Auto) 76.6 H Lymph % (Auto) 6.5 L [place] % (Auto) 14.3 H Eos % (Auto) 0.7 Baso % (Auto) 0.4 Neut # (Auto) 12.4 H Lymph # (Auto) 1.1 L [place] # (Auto) 2.3 H Eos # (Auto) 0.1 Baso # (Auto) 0.1 Abs Immat Gran (auto) 0.24 H Absolute Nucleated RBC 0.000 Nucleated RBC % (auto) 0.0 Smear Tech's Comments PT 24.7 H INR 2.1 H Anion Gap Estim Creat Clear Calc Estimated GFR POC Glucose Random Glucose Calcium Total Bilirubin AST ALT Alkaline Phosphatase Total Protein Albumin Urine Color YELLOW Urine Appearance TURBID Urine pH 6.0 Ur Specific [place] 1.020 Urine Protein 2+ H Urine Glucose (UA) NEG Urine Ketones NEG Urine Blood 2+ H Urine Nitrite NEG Ur Leukocyte Esterase 3+ H Urine RBC 0 Urine WBC TNTC H Ur Squamous Epith Cells NONE Urine Bacteria TRACE 06/12/20 06/12/20 06/12/20 05:42 08:44 11:30 MCV MCH MCHC RDW Plt Count MPV Immature Gran % (Auto) Neut % (Auto) Lymph % (Auto) [place] % (Auto) Eos % (Auto) Baso % (Auto) Neut # (Auto) Lymph # (Auto) [place] # (Auto) Eos # (Auto) Baso # (Auto) Abs Immat Gran (auto) Absolute Nucleated RBC Nucleated RBC % (auto) Smear Tech's Comments PT INR Anion Gap 15 Estim Creat Clear Calc 19.0 Estimated GFR 28 POC Glucose 124 H 209 H Random Glucose 102 Calcium 8.2 L Total Bilirubin AST ALT Alkaline Phosphatase Total Protein Albumin Urine Color Urine Appearance Urine pH Ur Specific [place] Urine Protein Urine Glucose (UA) Urine Ketones Urine Blood Urine Nitrite Ur Leukocyte Esterase Urine RBC Urine WBC Ur Squamous Epith Cells Urine Bacteria Microbiology Microbiology Results: Microbiology 06/11/20 Unknown Urine Catheterized - Straight Catheter Urine Culture - Final Progress Note: A&P (1) Bladder mass: Status: Acute (2) Urinary tract infection with pyuria: Status: Acute Assessment and Plan: This is an 79 yo F who is admitted to the hospital for acute toxic/metabolic encephalopathy secondary to UTI and probable bladder cancer 1. Toxic/Metabolic Encephalopathy multifactorial 2. UTI rocephin 3. KAIN on CKD multifatorial sl. improvement with hydration nephrology on board 4. Bladder Mass urology on board -- d/w Dr. Guadarrama, outpatient w/u likely given acute infe ction 5. DM Novolog 70/30 20 units qPM POC qidac DNR/DNI (as reported by patients daughter) d/w/ the daughter this AM and this afternoon, updates given
[2020-06-12] MEDS: rOPINIRole HCL 0.25 MG TABLET PO (20:09)
[2020-06-12] MEDS: Atorvastatin Calcium 80 MG TABLET PO (20:09)
[2020-06-12 20:45] LABS: Glucose, Whole Blood 243 mg/dL (60-115)
[2020-06-12] MEDS: cefTRIAXone sodium 1 GM in 0.9 % Sodium Chloride 50 ML IV (21:38)
[2020-06-13] VITALS (13 sets, daily range): BP systolic 149–191; BP diastolic 64–84; PULSE 69–82; RESP 17–20; TEMP 36.6–37.1; O2SAT 95–98
[2020-06-13] MEDS: Omeprazole 20 MG CAPSULE.DR PO (06:00)
[2020-06-13 06:54] LABS: Basophils Absolute Auto 0.1 X10*3/uL (0.0-0.2); Basophils Percent Auto 0.5 % (0-2); Eosinophils Percent Auto 0.2 % (0-4); Hematocrit 32.5 % (37-47); Hemoglobin 10.6 g/dl (12.0-16.0); Imm Gran Abs Auto 0.21 X10*3/uL (0.00-0.03); Imm Gran Pct Auto 1.6 % (0.0-0.4); Lymphocytes Absolute Auto 0.9 X10*3/uL (1.2-4.9); Lymphocytes Percent Auto 6.5 % (20-40); MANUAL DIFF FLAG SCAN; Mean Corpuscular HGB Conc 32.6 g/dl (31.0-35.0); Mean Platelet Volume 10.4 fL (9.4-12.3); Monocytes Absolute Auto 1.5 X10*3/uL (0.1-1.2); Monocytes Percent Auto 11.6 % (2-11); Neutrophils Absolute Auto 10.4 X10*3/uL (2.0-8.3); Neutrophils Percent Auto 79.6 % (45-73); Platelet Count 344 X10*3/uL (160-400); Red Blood Count 3.78 X10*6/uL (4.20-5.50); Red Cell Distribution Width 13.7 % (11.0-16.0); SCAN SMEAR FLAG 1; White Blood Count 13.1 X10*3/uL (4.8-10.8)
[2020-06-13 07:11] LABS: Anion Gap 14 (12-20); Blood Urea Nitrogen 23 mg/dL (9-16); Calcium 8.1 mg/dL (8.4-10.2); Carbon Dioxide 22 mmol/L (22-29); Chloride 100 mmol/L (96-108); Creatinine Clr Calc Pharmacy 21.3; Estimated Glomerular Filt Rate 31; Glucose Fasting 195 mg/dL (60-99); Potassium 4.1 mmol/l (3.3-5.1); Sodium 132 mmol/L (135-145)
[2020-06-13 07:21] LABS: SLIDE REVIEW VERIFIED
[2020-06-13 07:36] LABS: Glucose, Whole Blood 180 mg/dL (60-115)
[2020-06-13] MEDS: 0.9 % Sodium Chloride Flush 3 ML SYRINGE 2 ML IVFLUSH ×2 (07:54→16:01)
[2020-06-13] MEDS: amLODIPine Besylate 5 MG TABLET PO (07:56)
[2020-06-13] MEDS: Apixaban 5 MG TABLET 2.5 MG PO ×2 (07:56→20:03)
[2020-06-13] MEDS: Isosorbide Mononitrate 60 MG TAB.ER.24H PO (07:57)
--- NOTE | 2020-06-13 10:51 | PM.PNNEP ---
Subjective Subjective Interval history: Seen and examined Daughter at bedside Physical Exam Vital Signs and I&O and Narrative: Vital Signs and I&O: Vital Signs Temp 98.8 F 06/13/20 07:35 Pulse 76 06/13/20 07:57 Resp 18 06/13/20 07:35 BP 150/68 H 06/13/20 07:57 Pulse Ox 96 06/13/20 07:35 Intake & Output 06/12/20 06/13/20 06/13/20 18:59 06:59 18:59 Intake Total 480 / 890 410 / 890 240 / 240 Output Total 400 / 400 Balance 480 / 490 10 / 490 240 / 240 Urine Output (Aver age ml/kg/hr) 0.59 0.59 Intake: Intake, Oral Oto unt 480 / 840 360 / 840 240 / 240 Intake, IV Amoun t 50 / 50 cefTRIAXone so dium 1 gm In 0.9 50 / 50 % Sodium Chlor jeremiah 50 ml @ 100 mls/hr IV Q24H [facility] Rx#: [id number] Output: Output, Urine Am ount 400 / 400 Other: Meal Refused No NPO No Breakfast % Eate n 25% Dinner % Eaten 50% Number of Incont inent Voids 1 Number of Bowel Movements 1 Number of Incont inent Bowel 1 Movements Last Bowel Movem ent 06/13/20 Stool Bedpan Stool Color Brown Brown Stool Consistenc y Soft Liquid Body Mass Index 25.1 Laboratory Tests 05/29/20 06/11/20 06/12/20 17:06 21:47 05:42 Creatinine 1.59 H 2.01 H 1.77 H 06/13/20 05:43 Creatinine 1.58 H VITAL SIGNS: Reviewed. GENERAL: Well developed, well nourished, in no acute distress. HEAD: Normocephalic/atraumatic, Posterior oropharynx was without edema, erythema or exudate. EYES: PERRLA, Pupils <>, EOMI intact without pain, no nystagmus/pallor/icterus noted EARS: Ext canals without abnormality, TMs non-bulging and non-erythematous NOSE: Nares patent bilateral OROPHARYNX: no oral lesions noted, posterior pharynx clear and non-erythematous without noted tonsillar enlargement/erythema/exudates NECK: Supple, no adenopathy LUNGS: Normal breath sounds. No adventitious sounds or accessory muscle use. SpO2<> CARDIOVASCULAR: Regular rate and rhythm without noted murmurs, no JVD or lower extremity edema. ABDOMEN: Soft, non-tender, non-distended with bowel sounds. No rigidity. No guarding. No palpable masses or hernias noted MUSCULOSKELETAL: No tenderness, deformities, or effusions noted on gross inspection. EXTREMITIES: No cyanosis, clubbing or edema. SKIN: Inspection of the skin reveals no rashes, ulcerations, jaundice, pallor, or petechiae. NEUROLOGIC: Alert and oriented x 3. Strength and sensation to light touch were grossly intact x 4, NIHSS- 1, possible left corner mouth droop, otherwise cranial nerves 2-12 were grossly intact without any pronator drift. Const: General: cooperative and comfortable Orientation/consciousness: oriented to person HENMT: Head: Yes normal to inspection Eyes: General: appearance normal, both eyes and all related structures Neck: Neck: Yes normal visual inspection, Yes full ROM and Yes no JVD Chest: Chest palpation & inspection: normal inspection of the chest Resp: Effort & Inspection: normal respiratory effort Cardio: Jugular venous distension: no JVD Rhythm: regular rhythm Heart sounds: S1 normal heart sound present and S2 normal heart sound present GI: Rectal Exam - Female: other (mild tenderness in hypogastric region) Skin: General skin exam: no rashes or lesions noted Neuro: General: oriented to person Psych: Appearance: disheveled Speech and movement: Normal speech and movement present Attitude: cooperative Assessment & Plan Assessment and plan (1) Hyponatremia: Status: Deleted (2) KAIN (acute kidney injury): Status: Resolved (3) Bladder mass: Status: Acute (4) Urinary tract infection with pyuria: Status: Resolved (5) AMS (altered mental status): Status: Resolved Assessment and Plan: 1. KAIN: multifact including UTI and ? prog R Kidney Obs; SCr cont grad imporved over past 24 hrs 2. CKD 3: bsl SCr 1.5 3. R hydro w Obs at level of bladder CT scan shows........ Marked slightly worsening right-sided hydronephrosis down to the ureterovesical junction where there is a large bladder mass. 4. DM 5. AMS: multifact with UTI 6. UTI: at risk for Obs pyleo on R kidnye REC: cont IV ABx; avoid NToxins; Urol consult re bladder mass and R hydro as may need R PCN tbe and anteiro stenting by IR ( urol to sort out best options)...may want to wait until infection clears before intervention will follow with team Time Spent With Patient Time: Total time spent is greater than 50% in coordination of care (as documented) at patient's floor/unit and/or counseling patient:
--- NOTE | 2020-06-13 13:05 | MHC.CM.PN ---
per rounds possible dc pt being followed by alma hines
[2020-06-13] MEDS: Folic Acid 1 MG TABLET PO (14:08)
[2020-06-13 17:05] LABS: Glucose, Whole Blood 199 mg/dL (60-115)
--- NOTE | 2020-06-13 17:47 | PM.IMPN ---
Subjective Subjective Date of Service: 06/13/20 Interval History: seen and examined reports not feeling well, unable to say exactly what -- just that shes tired denies flank pain Review of Systems unable to ROS Physical Exam Vital Signs and I&O and Narrative: Vital Signs and I&O: Vital Signs Temp 98 F 06/13/20 15:29 Pulse 78 06/13/20 15:29 Resp 18 06/13/20 15:29 BP 149/72 H 06/13/20 15:29 Pulse Ox 96 06/13/20 15:29 Intake & Output 06/12/20 06/13/20 06/13/20 18:59 06:59 18:59 Intake Total 480 / 890 410 / 890 240 / 240 Output Total 400 / 400 150 / 150 Balance 480 / 490 10 / 490 90 / 90 Urine Output (Aver age ml/kg/hr) 0.59 0.22 Intake: Intake, Oral Bel unt 480 / 840 360 / 840 240 / 240 Intake, IV Amoun t 50 / 50 cefTRIAXone so dium 1 gm In 0.9 50 / 50 % Sodium Chlor jeremiah 50 ml @ 100 mls/hr IV Q24H [facility] Rx#: [id number] Output: Output, Urine Am ount 400 / 400 150 / 150 Other: Meal Refused No NPO No Breakfast % Eate n 25% Dinner % Eaten 50% Number of Incont inent Voids 1 Number of Bowel Movements 1 Number of Incont inent Bowel 1 Movements Urine PUREWICK Urine Color Yellow Last Bowel Movem ent 06/13/20 Stool Bedpan Stool Color Brown Brown Stool Consistenc y Soft Liquid Body Mass Index 25.1 General - no acute distress, appears comfortable Cardiovascular - regular rate and rhythm, S1-S2 Lungs - normal respiratory effort, clear to auscultation bilaterally, no wheezing Abdomen - soft, nontender, no rebound regarding Extremities - no edema bilaterally Neuro - awake and alert, no focal deficits Objective Data Current Medications Generic Name Dose Route Start Last Admin Trade Name Freq PRN Reason Stop Dose Admin Amlodipine Besylate 5 mg 06/12/20 09:00 06/13/20 07:56 Amlodipine Besylate 5 Mg Tablet PO 5 mg DAILY RODGER Administration Protocol Apixaban 2.5 mg 06/12/20 09:00 06/13/20 07:56 Apixaban 5 Mg Tablet PO 2.5 mg BID RODGER Administration Atorvastatin Calcium 80 mg 06/12/20 21:00 06/12/20 20:09 Atorvastatin Calcium 80 Mg Tablet PO 80 mg DAILY@1999 [facility] Administration Fluticasone/Vilanterol 1 puff 06/12/20 09:00 06/12/20 17:46 Fluticasone/Vilanterol 100/25 Blst.W.Dev INHALE Not Given DAILY [facility] Folic Acid 1 mg 06/13/20 15:00 06/13/20 14:08 Folic Acid 1 Mg Tablet PO 1 mg DAILY@1500 [facility] Administration Ceftriaxone Sodium 1 gm/ 50 mls @ 100 mls/hr 06/12/20 22:00 06/12/20 22:30 Sodium Chloride IV Infused Q24H [facility] Infusion Isosorbide Mononitrate 60 mg 06/13/20 08:00 06/13/20 07:57 Isosorbide Mononitrate 60 Mg Tab.Er.24h PO 60 mg DAILY@0800 [facility] Administration Protocol Metoprolol Succinate 100 mg 06/12/20 20:00 06/12/20 20:10 Metoprolol Succinate Er 100 Mg Tab.Er.24h PO 100 mg DAILY@1999 [facility] Administration Protocol Nitroglycerin 0.4 mg 06/12/20 03:14 Nitroglycerin 0.4 Mg Tab.Subl SUBLINGUAL Q5M PRN Chest Pain Pt Own Novolog Mix 0 each 06/13/20 17:30 06/13/20 17:12 70/30 Flexpen SUBCUT 20 each DAILY@1730 [facility] Administration Omeprazole 20 mg 06/12/20 06:30 06/13/20 06:00 Omeprazole 20 Mg Capsule.Dr PO 20 mg DAILY@629 [facility] Administration Ropinirole HCl 0.25 mg 06/12/20 20:00 06/12/20 20:09 Ropinirole Hcl 0.25 Mg Tablet PO 0.25 mg DAILY@1999 [facility] Administration Sodium Chloride 2 ml 06/12/20 08:00 06/13/20 16:01 0.9 % Sodium Chloride Flush 3 Ml Syringe IVFLUSH 2 ml QSHIFT [facility] Administration Labs CBC & Chem 7: 06/13/20 05:43 06/13/20 05:43 Labs: Laboratory Results - last 24 hr 06/12/20 06/13/20 06/13/20 20:39 05:43 05:43 MCV 86.0 MCH 28.0 MCHC 32.6 RDW 13.7 Plt Count 344 MPV 10.4 Immature Gran % (Auto) 1.6 H Neut % (Auto) 79.6 H Lymph % (Auto) 6.5 L [place] % (Auto) 11.6 H Eos % (Auto) 0.2 Baso % (Auto) 0.5 Neut # (Auto) 10.4 H Lymph # (Auto) 0.9 L [place] # (Auto) 1.5 H Eos # (Auto) 0.0 Baso # (Auto) 0.1 Abs Immat Gran (auto) 0.21 H Absolute Nucleated RBC 0.000 Nucleated RBC % (auto) 0.0 Smear Tech's Comments VERIFIED Anion Gap 14 Estim Creat Clear Calc 21.3 Estimated GFR 31 POC Glucose 243 H Fasting Glucose 195 H Calcium 8.1 L 06/13/20 06/13/20 07:33 16:59 MCV MCH MCHC RDW Plt Count MPV Immature Gran % (Auto) Neut % (Auto) Lymph % (Auto) [place] % (Auto) Eos % (Auto) Baso % (Auto) Neut # (Auto) Lymph # (Auto) [place] # (Auto) Eos # (Auto) Baso # (Auto) Abs Immat Gran (auto) Absolute Nucleated RBC Nucleated RBC % (auto) Smear Tech's Comments Anion Gap Estim Creat Clear Calc Estimated GFR POC Glucose 180 H 199 H Fasting Glucose Calcium Microbiology Microbiology Results: Microbiology 06/11/20 Unknown Urine Catheterized - Straight Catheter Urine Culture - Final Progress Note: A&P (1) Bladder mass: Status: Acute (2) Urinary tract infection with pyuria: Status: Acute Assessment and Plan: This is an 79 yo F who is admitted to the hospital for acute toxic/metabolic encephalopathy secondary to UTI and probable bladder cancer 1. Toxic/Metabolic Encephalopathy multifactorial significantly improved 2. UTI c&s mixed rocephin, ceftin upon d/c 3. KAIN on CKD improving with hydration, close to baseline 4. Bladder Mass urology on board -- d/w Dr. Guadarrama, outpatient w/u likely given acute infection 5. DM Novolog 70/30 20 units qPM POC qidac 6. asthenia pt eval, may need str DNR/DNI (as reported by patients daughter) d/w daughter bedside during AM rounds
[2020-06-13 18:57] LABS: Glucose, Whole Blood 165 mg/dL (60-115)
[2020-06-13] MEDS: Atorvastatin Calcium 80 MG TABLET PO (19:58)
[2020-06-13] MEDS: Metoprolol Succinate ER 100 MG TAB.ER.24H PO (19:58)
[2020-06-13] MEDS: rOPINIRole HCL 0.25 MG TABLET PO (19:59)
[2020-06-13] MEDS: cefTRIAXone sodium 1 GM in 0.9 % Sodium Chloride 50 ML IV (21:02)
[2020-06-13 21:13] LABS: Glucose, Whole Blood 179 mg/dL (60-115)
--- NOTE | 2020-06-13 23:39 | PC.NURSE ---
blood sugar 182 at dinner time, dr Grossman was contacted and was clarified with him that ok to administer Novolog mix 70/30 20 un its sq. Insulin was administered, pt had < 50 % of her dinner. repeat POC at 7 pm 165. No s/s of hypoglycemia
[2020-06-14] MEDS: 0.9 % Sodium Chloride Flush 3 ML SYRINGE 2 ML IVFLUSH ×3 (00:09→16:03)
[2020-06-14 03:52] VITALS: BP 168/72; PULSE 79; RESP 19; TEMP 36.8; O2SAT 97
[2020-06-14] MEDS: Omeprazole 20 MG CAPSULE.DR PO (05:18)
[2020-06-14 06:56] LABS: Basophils Absolute Auto 0.1 X10*3/uL (0.0-0.2); Basophils Percent Auto 0.4 % (0-2); Eosinophils Absolute Auto 0.1 X10*3/uL (0.0-0.4); Eosinophils Percent Auto 0.4 % (0-4); Hemoglobin 10.8 g/dl (12.0-16.0); Imm Gran Pct Auto 1.5 % (0.0-0.4); Lymphocytes Absolute Auto 0.8 X10*3/uL (1.2-4.9); MANUAL DIFF FLAG SCAN; Mean Corpuscular HGB Conc 32.7 g/dl (31.0-35.0); Mean Corpuscular Hemoglobin 27.7 pg (27.0-33.0); Mean Corpuscular Volume 84.6 fL (80-98); Mean Platelet Volume 10.3 fL (9.4-12.3); Monocytes Absolute Auto 1.6 X10*3/uL (0.1-1.2); Monocytes Percent Auto 11.3 % (2-11); Neutrophils Absolute Auto 11.1 X10*3/uL (2.0-8.3); Neutrophils Percent Auto 80.4 % (45-73); Platelet Count 404 X10*3/uL (160-400); Red Cell Distribution Width 13.3 % (11.0-16.0); SCAN SMEAR FLAG 1; White Blood Count 13.8 X10*3/uL (4.8-10.8)
[2020-06-14 07:20] LABS: Anion Gap 15 (12-20); Blood Urea Nitrogen 18 mg/dL (9-16); Calcium 8.5 mg/dL (8.4-10.2); Carbon Dioxide 23 mmol/L (22-29); Chloride 100 mmol/L (96-108); Creatinine Clr Calc Pharmacy 24.4; Estimated Glomerular Filt Rate 37; Glucose Fasting 155 mg/dL (60-99); Potassium 3.6 mmol/l (3.3-5.1); Sodium 134 mmol/L (135-145)
[2020-06-14 07:27] VITALS: BP 142/78; PULSE 118; RESP 18; TEMP 36.3; O2SAT 95
[2020-06-14 07:54] VITALS: BP 169/62; PULSE 60; O2SAT 94
[2020-06-14 08:08] LABS: Glucose, Whole Blood 172 mg/dL (60-115)
[2020-06-14] MEDS: Apixaban 5 MG TABLET 2.5 MG PO (08:31)
[2020-06-14 08:32] VITALS: BP 142/78; PULSE 118
[2020-06-14] MEDS: amLODIPine Besylate 5 MG TABLET PO (08:32)
[2020-06-14] MEDS: Isosorbide Mononitrate 60 MG TAB.ER.24H PO (08:32)
[2020-06-14 08:38] LABS: SLIDE REVIEW VERIFIED
[2020-06-14] MEDS: Fluticasone/Vilanterol 100/25 BLST.W.DEV 1 PUFF INHALE ×2 (10:19→10:20)
--- NOTE | 2020-06-14 12:14 | PM.PNNEP ---
Subjective Subjective Interval history: seen and examined overall feeling better Physical Exam Vital Signs and I&O and Narrative: Vital Signs and I&O: Vital Signs Temp 97.3 F 06/14/20 07:27 Pulse 118 H 06/14/20 08:32 Resp 18 06/14/20 07:27 BP 142/78 H 06/14/20 08:32 Pulse Ox 94 06/14/20 07:54 Intake & Output 06/13/20 06/14/20 06/14/20 18:59 06:59 18:59 Intake Total 240 / 820.25 580.25 / 820.25 210 / 210 Output Total 150 / 150 2 / 2 Balance 90 / 670.25 580.25 / 670.25 208 / 208 Urine Output (Aver age ml/kg/hr) 0.22 0.22 0.22 Intake: Intake, Oral Bel unt 240 / 720 480 / 720 210 / 210 Intake, IV Amoun t 100.25 / 100.25 Promethazine H CL 6.25 mg In 0.9 50.25 / 50.25 % Sodium Chlor jeremiah 50 ml @ 201 mls/hr IV ONCE ONE Rx#: [id number] cefTRIAXone so dium 1 gm In 0.9 50 / 50 % Sodium Chlor jeremiah 50 ml @ 100 mls/hr IV Q24H [facility] Rx#: [id number] Output: Output, Urine Am ount 150 / 150 Output, Stool Am ount 1 / 1 Output, Urine/St ool Mix Amount 1 / 1 Other: Meal Refused No NPO No Breakfast % Eate n 25% 50% Dinner % Eaten 50% Number of Incont inent Voids 1 2 1 Number of Unmeas ured Voids 2 Number of Bowel Movements 1 Number of Incont inent Bowel 1 1 1 Movements Urine PUREWICK Bedpan Urine Color Yellow Cloudy Last Bowel Movem ent 06/13/20 Stool Bedpan Stool Color Brown Brown Yellow Stool Consistenc y Liquid Loose Loose Body Mass Index 25.1 VITAL SIGNS: Reviewed. GENERAL: Well developed, well nourished, in no acute distress. HEAD: Normocephalic/atraumatic, Posterior oropharynx was without edema, erythema or exudate. EYES: PERRLA, Pupils <>, EOMI intact without pain, no nystagmus/pallor/icterus noted EARS: Ext canals without abnormality, TMs non-bulging and non-erythematous NOSE: Nares patent bilateral OROPHARYNX: no oral lesions noted, posterior pharynx clear and non-erythematous without noted tonsillar enlargement/erythema/exudates NECK: Supple, no adenopathy LUNGS: Normal breath sounds. No adventitious sounds or accessory muscle use. SpO2<> CARDIOVASCULAR: Regular rate and rhythm without noted murmurs, no JVD or lower extremity edema. ABDOMEN: Soft, non-tender, non-distended with bowel sounds. No rigidity. No guarding. No palpable masses or hernias noted MUSCULOSKELETAL: No tenderness, deformities, or effusions noted on gross inspection. EXTREMITIES: No cyanosis, clubbing or edema. SKIN: Inspection of the skin reveals no rashes, ulcerations, jaundice, pallor, or petechiae. NEUROLOGIC: Alert and oriented x 3. Strength and sensation to light touch were grossly intact x 4, NIHSS- 1, possible left corner mouth droop, otherwise cranial nerves 2-12 were grossly intact without any pronator drift. Const: General: cooperative and comfortable Orientation/consciousness: oriented to person HENMT: Head: Yes normal to inspection Eyes: General: appearance normal, both eyes and all related structures Neck: Neck: Yes normal visual inspection, Yes full ROM and Yes no JVD Chest: Chest palpation & inspection: normal inspection of the chest Resp: Effort & Inspection: normal respiratory effort Cardio: Jugular venous distension: no JVD Rhythm: regular rhythm Heart sounds: S1 normal heart sound present and S2 normal heart sound present GI: Rectal Exam - Female: other (mild tenderness in hypogastric region) Skin: General skin exam: no rashes or lesions noted Neuro: General: oriented to person Psych: Appearance: disheveled Speech and movement: Normal speech and movement present Attitude: cooperative Assessment & Plan Assessment and plan (1) Hyponatremia: Status: Acute (2) KAIN (acute kidney injury): Status: Acute (3) Bladder mass: Status: Acute (4) Urinary tract infection with pyuria: Status: Acute (5) AMS (altered mental status): Status: Acute Assessment and Plan: 1. KAIN: resolving w SCr 1.38 today despite OBs R kidney 2. CKD 3: bsl SCr 1.5 3. R hydro w Obs at level of bladder CT scan shows........ Marked slightly worsening right-sided hydronephrosis down to the ureterovesical junction where there is a large bladder mass. 4. DM 5. AMS: multifact with UTI 6. UTI: at risk for Obs pyleo on R kidnye REC: cont IV ABx; avoid NToxins; Urol consult re bladder mass and R hydro as may need R PCN tbe and anteiro stenting by IR vs cysto and Bx and stent ( urol iis to eval as outpt ) will follow with team Time Spent With Patient Time: Total time spent is greater than 50% in coordination of care (as documented) at patient's floor/unit and/or counseling patient:
[2020-06-14 12:53] VITALS: BP 159/83; PULSE 114; RESP 18; TEMP 36.2; O2SAT 95
--- NOTE | 2020-06-14 14:56 | P.DS_ITS ---
DS: Providers Provider Date of admission: 06/12/20 04:17 Primary care physician: Unknown Physician Consults: Urology Nephrology DS: Diagnosis Discharge Diagnosis (1) Urinary tract infection with pyuria: Status: Acute (2) KAIN (acute kidney injury): Status: Acute (3) Toxic metabolic encephalopathy: Status: Inactive (4) Bladder mass: Status: Acute DS: Summary Hospital Course Hospital Course: From the admission H&P -- HPI: 79 y/o female with an extensive PMHX who presented from assisted living facility due to suspected stroke . Per history provided by ED/Assisted living facility patient was noted to be weak which started around 3 pm, the symptoms described are inespecific. On presentation patient is c/o generalized weakness but no neurologic deficit is identified on evaluation. CT head done by ED showed no evidence of any acute intracranial pathology. This is the second presentation to the ED in 1 month due to same symptoms. On previous admission patient had extensive work up done for a similar presentation and weakness was attribuated to UTI for what was treated accordingly. Now presents with recurrent UTI, Hyponatremia of 129 [address] K[address] of 2.0. [address] abdomen shows known bladder mass with right hydronephrosis which was present on previous admission. Patient was supposed to get cytoscopy done by private urologist Dr Ramirez. In the ED patient was given one dose of Rocephin per ED attending. Decision for admission given. Patient seen and examined at the bedside. ROS unable to be obtained given mental status. Physical exam positive for mild abdominal tenderness in hypogastric region, delirium. Patient was treated with gentle hydration and IV antibiotics for her acute on chronic kidney disease and presumed urinary tract infection. With these measures, patient's renal function improved and her encephalopathy did as well. In regards to the patient's bladder mass and hydronephrosis, she was evaluated by Urology who recommended close outpatient follow-up and no intervention in the hospital due to her acute infection. Patient will be seen by Dr. Chiara MALONE ( per preference of the patient's daughter and patient herself) in his office about 1 week after discharge. A bone scan has also been ordered at the request of Dr. Chiara MALONE as there is a high chance of her bladder mass being invasive bladder cancer. Lastly, in regards to the patient's insulin regiment -- she is typically on 70 30 NovoLog twice daily. this has been changed to 20 units with supper once a day. Can be increased to b.i.d. as her diet improved. Patient is seen examined of discharge. Is bedside and has given its above. Time Spent with Patient Time attestation: Total time spent providing and/or coordinating discharge services: Physical Exam Vital Signs and I&O and Narrative: Vital Signs and I&O: Vital Signs Temp 97.1 F 06/14/20 12:53 Pulse 114 H 06/14/20 12:53 Resp 18 06/14/20 12:53 BP 159/83 H 06/14/20 12:53 Pulse Ox 95 06/14/20 12:53 Intake & Output 06/13/20 06/14/20 06/14/20 18:59 06:59 18:59 Intake Total 240 / 820.25 580.25 / 820.25 210 / 210 Output Total 150 / 150 152 / 152 Balance 90 / 670.25 580.25 / 670.25 58 / 58 Urine Output (Aver age ml/kg/hr) 0.22 0.22 0.22 Intake: Intake, Oral [place] unt 240 / 720 480 / 720 210 / 210 Intake, IV Amoun t 100.25 / 100.25 Promethazine H CL 6.25 mg In 0.9 50.25 / 50.25 % Sodium Chlor jeremiah 50 ml @ 201 mls/hr IV ONCE ONE Rx#: [id number] cefTRIAXone so dium 1 gm In 0.9 50 / 50 % Sodium Chlor jeremiah 50 ml @ 100 mls/hr IV Q24H [facility] Rx#: [id number] Output: Output, Urine Am ount 150 / 150 150 / 150 Output, Stool Am ount 1 / 1 Output, Urine/St ool Mix Amount 1 / 1 Other: Meal Refused No NPO No Breakfast % Eate n 25% 50% Dinner % Eaten 50% Number of Incont inent Voids 1 2 1 Number of Unmeas ured Voids 2 Number of Bowel Movements 1 Number of Incont inent Bowel 1 1 1 Movements Urine PUREWICK Bedpan Urine Color Yellow Cloudy Last Bowel Movem ent 06/13/20 Stool Bedpan Stool Color Brown Brown Yellow Stool Consistenc y Liquid Loose Loose Body Mass Index 25.1 General - no acute distress, appears comfortable Cardiovascular - regular rate and rhythm, S1-S2 Lungs - normal respiratory effort, clear to auscultation bilaterally, no wheezing Abdomen - soft, nontender, no rebound regarding Extremities - no edema bilaterally Neuro - awake and alert, no focal deficits DS: Data Data Completed and Pending Labs on day of discharge: Labs from last 24 hours 06/14/20 06/14/20 06/14/20 Unknown 08:04 05:52 WBC RBC Hgb Hct MCV MCH MCHC RDW Plt Count MPV Immature Gran % (Auto) Neut % (Auto) Lymph % (Auto) [place] % (Auto) Eos % (Auto) Baso % (Auto) Lymph # (Auto) [place] # (Auto) Eos # (Auto) Baso # (Auto) Abs Immat Gran (auto) Absolute Neuts (auto) Absolute Nucleated RBC Nucleated RBC % (auto) Smear Tech's Comments Sodium 134 L Potassium 3.6 Chloride 100 Carbon Dioxide 23 Anion Gap 15 BUN 18 H Creatinine 1.38 Estim Creat Clear Calc 24.4 Estimated GFR 37 POC Glucose 172 H Fasting Glucose 155 H Calcium 8.5 Coronavirus (PCR) Pending 06/14/20 06/13/20 06/13/20 05:52 21:09 18:54 WBC 13.8 H RBC 3.90 L Hgb 10.8 L Hct 33.0 L MCV 84.6 MCH 27.7 MCHC 32.7 RDW 13.3 Plt Count 404 H MPV 10.3 Immature Gran % (Auto) 1.5 H Neut % (Auto) 80.4 H Lymph % (Auto) 6.0 L [place] % (Auto) 11.3 H Eos % (Auto) 0.4 Baso % (Auto) 0.4 Lymph # (Auto) 0.8 L [place] # (Auto) 1.6 H Eos # (Auto) 0.1 Baso # (Auto) 0.1 Abs Immat Gran (auto) 0.20 H Absolute Neuts (auto) 11.1 H Absolute Nucleated RBC 0.000 Nucleated RBC % (auto) 0.0 Smear Tech's Comments VERIFIED Sodium Potassium Chloride Carbon Dioxide Anion Gap BUN Creatinine Estim Creat Clear Calc Estimated GFR POC Glucose 179 H 165 H Fasting Glucose Calcium Coronavirus (PCR) 06/13/20 16:59 WBC RBC Hgb Hct MCV MCH MCHC RDW Plt Count MPV Immature Gran % (Auto) Neut % (Auto) Lymph % (Auto) [place] % (Auto) Eos % (Auto) Baso % (Auto) Lymph # (Auto) [place] # (Auto) Eos # (Auto) Baso # (Auto) Abs Immat Gran (auto) Absolute Neuts (auto) Absolute Nucleated RBC Nucleated RBC % (auto) Smear Tech's Comments Sodium Potassium Chloride Carbon Dioxide Anion Gap BUN Creatinine Estim Creat Clear Calc Estimated GFR POC Glucose 199 H Fasting Glucose Calcium Coronavirus (PCR) Discharge Plan Discharge Patient Disposition: er [facility] Referrals: Blair Guadarrama III, MD [Physician] - (for bladder mass. Call clinic and schedule appt for 06/19/2020 or 06/20/2020) Physician,Unknown [Primary Care Provider] - Discharge Medications: New cefuroxime axetil 250 mg tablet 250 mg PO BID Qty: 8 RF: 0 insulin asp prt-insulin aspart [Novolog Mix 70-30 U-100 Insuln] 100 unit/mL (70-30) solution 20 unit subcut QPM Qty: 1 RF: 0 Continued metoprolol succinate 100 mg Tablet Extended Release 24 Hr 100 mg PO DAILY RF: 0 gabapentin 300 mg Capsule 300 mg PO TID RF: 0 atorvastatin 80 mg Tablet 80 mg PO DAILY RF: 0 acetaminophen [Tylenol] 325 mg Tablet 325 mg PO QID PRN (Reason: Pain) RF: 0 amlodipine 5 mg Tablet 5 mg PO Q2D RF: 0 isosorbide mononitrate 60 mg Tablet Extended Release 24 Hr 60 mg PO DAILY RF: 0 ropinirole 0.25 mg Tablet 0.25 mg PO DAILY RF: 0 pantoprazole 40 mg Tablet,Delayed Release (Dr/Ec) 40 mg PO DAILY RF: 0 folic acid 1 mg Tablet 1 mg PO DAILY RF: 0 Eliquis 5 mg Tablet 5 mg PO BID RF: 0 nitroglycerin 0.4 mg Tablet, Sublingual 0.4 mg SUBLINGUAL Q5M MDD 1.2 PRN (Reason: Chest Pain) RF: 0 albuterol 90 mcg/actuation Aerosol 1 mcg INHALATION Q4H PRN (Reason: Shortness Of Breath) RF: 0 fluticasone propion-salmeterol [Advair Diskus] 100-50 mcg/dose Blister With Device 1 inh INHALATION BID RF: 0 Novolog Mix 70-30FlexPen U-100 pen injector 24 unit subcut QAM RF: 0 amlodipine 2.5 mg Tablet 2.5 mg PO Q2D RF: 0 multivitamin Tablet 1 tab PO DAILY RF: 0 cyanocobalamin (vitamin B-12) [Vitamin B-12] 1,000 mcg Tablet 1,000 mcg PO DAILY RF: 0 cholecalciferol (vitamin D3) 50 mcg (2,000 unit) Tablet 50 mcg PO DAILY RF: 0 prednisolone acetate 1 % Drops,Suspension 1 drp ophthalmic-Right TID RF: 0 methenamine hippurate 1 gram Tablet 1 g PO BID RF: 0 Combivent Respimat 20-100 mcg/actuation Mist 1 puff INHALATION QID PRN (Reason: Shortness Of Breath) RF: 0 Novolog Mix 70-30FlexPen U-100 28 units subcut QPM RF: 0 oxycodone 5 mg Capsule 5 mg PO BID MDD 15 PRN (Reason: Pain) Qty: 20 RF: 0 Discontinued insulin asp prt-insulin aspart [Novolog Mix 70-30 U-100 Insuln] 100 unit/mL (70-30) Solution 25 unit SUBCUT BID RF: 0 cefpodoxime 100 mg Tablet 50 mg PO QAM RF: 0 Discharge Orders: Discharge Order (Routine); Ordered 06/14/20 Ordered By: Carmelo Grossman Diet: advance to your usual diet Activity on Discharge: As tolerated Other Ambulatory Orders: NM bone scan whole body (Routine) Timeframe: [id number] Facility: [facility] - Location: Nuclear Medicine Ordered By: Carmelo Grossman Visit Report Forms: Patient Portal Discharge page Care Plan Goals: To get work up for bladder mass. Health Concerns: Bladder Mnass Plan of Treatment: Follow up with Dr. Guadarrama at [facility] for further management of your bladder mass. You also need to do a bone scan on Thursday06/18/2020 At [facility]. For UTI -- finish antibiotics.
[2020-06-14 15:07] LABS: SARS COV2 PCR INHOUSE NEGATIVE (Negative)
[2020-06-14] MEDS: Folic Acid 1 MG TABLET PO (16:03)
== END 2020-06-14 17:51 | disposition skilled nursing facility (03) | DRG 689 ==
LOC: HO.ED 06-12 03:13 → HO.IMC 06-12 04:32
PROVIDERS: Admitting Provider Internal Medicine; Emergency Provider Student in an Organized Health Care Education/Training Program; Visit Provider Family Medicine
DX: N13.6 Pyonephrosis (principal); G92 Toxic encephalopathy; N17.9 Acute kidney failure, unspecified; I25.10 Atherosclerotic heart disease of native coronary artery without angina pectoris; K21.9 Gastro-esophageal reflux disease without esophagitis; E78.00 Pure hypercholesterolemia, unspecified; E86.0 Dehydration; I12.9 Hypertensive chronic kidney disease with stage 1 through stage 4 chronic kidney disease, or unspecified chronic kidney disease; N18.30 Chronic kidney disease, stage 3 unspecified; R53.1 Weakness; G20 Parkinson's disease; E10.22 Type 1 diabetes mellitus with diabetic chronic kidney disease; C67.9 Malignant neoplasm of bladder, unspecified; Z20.828 Contact with and (suspected) exposure to other viral communicable diseases; Z87.891 Personal history of nicotine dependence; Z88.2 Allergy status to sulfonamides; Z79.51 Long term (current) use of inhaled steroids; Z79.891 Long term (current) use of opiate analgesic; Z79.899 Other long term (current) drug therapy; Z66 Do not resuscitate
CPT/HCPCS: 36415; 70450; 71045; 74176; 80048; 80053; 81001; 82947; 85025; 85610; 87086; 87635; 93005; 93010; 96360; 97162; 99233; 99284; 99285

== ENCOUNTER 2020-06-20 13:37 | Inpatient (IN) | payer MEDICARE, OTHER, SELFPAY ==
[2020-06-20 13:47] VITALS: BP 147/63; BP 157/78; PULSE 80; PULSE 85; RESP 20; TEMP 37.5; O2SAT 98; BMI 28.2
--- NOTE | 2020-06-20 13:57 | ECG_ITS ---
Test Reason : CHEST PAIN Blood Pressure : / mmHG Vent. Rate : 082 BPM Atrial Rate : 082 BPM P-R Int : 162 ms QRS Dur : 084 ms QT Int : 378 ms P-R-T Axes : -14 -34 075 degrees QTc Int : 441 ms Normal sinus rhythm Left axis deviation Moderate voltage criteria for LVH, may be normal variant Nonspecific ST and T wave abnormality Abnormal ECG When compared with ECG of 11-JUN-2020 22:03, No significant changes seen Referred By: Cathi Fernando Electronically Signed By:EZRA FRITZ MD
--- NOTE | 2020-06-20 13:57 | XR_ITS ---
EXAMINATION: XR CHEST CLINICAL INFORMATION: Chest pain COMPARISON: Chest x-ray of 06/11/2020 and multiple previous chest x-rays dated back to 03/02/2019. Chest CT of 05/29/2020 TECHNIQUE: Frontal view of the chest was obtained. FINDINGS: The cardiomediastinal silhouette is stable with mild cardiomegaly. Left atrial appendage clip is unchanged in position. Scattered aortic wall calcifications are noted. The lungs are mildly hypoexpanded with bronchovascular crowding. No focal consolidation, changes of overt pulmonary edema or pneumothorax. No significant pleural effusions. IMPRESSION: No evidence of acute intrathoracic process. No significant interval change is noted compared to last chest x-ray of 5 06/11/2020
--- NOTE | 2020-06-20 13:59 | ED_ITS ---
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 Per EMS patient had an N/V after Nitro. Patient denies CP at present. Patient reports abdominal pain. Patient unreliable historian, most of history obtained from daughter due to dementia MD complaint: chest pain Related Data Home Medications Medication Instructions Recorded Confirmed Combivent Respimat 1 puff INHALATION QID PRN 06/12/20 06/12/20 Eliquis 5 mg PO BID 06/12/20 06/12/20 Novolog Mix 70-30FlexPen U-100 24 unit SUBCUT QAM 06/12/20 06/12/20 Novolog Mix 70-30FlexPen U-100 28 units SUBCUT QPM 06/12/20 06/12/20 acetaminophen [Tylenol] 325 mg PO QID PRN 06/12/20 06/12/20 albuterol 1 mcg INHALATION Q4H PRN 06/12/20 06/12/20 amlodipine 2.5 mg PO Q2D 06/12/20 06/12/20 amlodipine 5 mg PO Q2D 06/12/20 06/12/20 atorvastatin 80 mg PO DAILY 06/12/20 06/12/20 cholecalciferol (vitamin D3) 50 mcg PO DAILY 06/12/20 06/12/20 cyanocobalamin (vitamin B-12) 1,000 mcg PO DAILY 06/12/20 06/12/20 [Vitamin B-12] fluticasone propion-salmeterol 1 inh INHALATION BID 06/12/20 06/12/20 [Advair Diskus] folic acid 1 mg PO DAILY 06/12/20 06/12/20 gabapentin 300 mg PO TID 06/12/20 06/12/20 isosorbide mononitrate 60 mg PO DAILY 06/12/20 06/12/20 methenamine hippurate 1 g PO BID 06/12/20 06/12/20 metoprolol succinate 100 mg PO DAILY 06/12/20 06/12/20 multivitamin 1 tab PO DAILY 06/12/20 06/12/20 nitroglycerin 0.4 mg SUBLINGUAL Q5M PRN MDD 1.2 06/12/20 06/12/20 pantoprazole 40 mg PO DAILY 06/12/20 06/12/20 prednisolone acetate 1 drp OPHTHALMIC-RIGHT TID 06/12/20 06/12/20 ropinirole 0.25 mg PO DAILY 06/12/20 06/12/20 Previous Rx's Medication Instructions Recorded cefuroxime axetil 250 mg PO BID #8 tab 06/14/20 insulin asp prt-insulin aspart 20 unit SUBCUT QPM #1 ml 06/14/20 [Novolog Mix 70-30 U-100 Insuln] oxycodone 5 mg PO BID PRN #20 cap MDD 15 06/14/20 nitrofurantoin macrocrystal 100 mg 100 mg PO BEDTIME #30 cap 06/19/20 capsule Allergies Allergy/AdvReac Type Severity Reaction Status Date / Time phenobarbital [PHENOBARBITAL] Allergy Mild HIVES Verified 06/11/20 21:44 fentanyl [FENTANYL] Allergy Unknown HALLUCINATI Verified 06/11/20 21:44 ONS insulin lispro [From HUMALOG] Allergy Unknown RASH Verified 06/11/20 21:44 morphine [MORPHINE] Allergy Unknown HALLUCINATI Verified 06/11/20 21:44 ON Sulfa (Sulfonamide Allergy Unknown Unknown Verified 06/11/20 21:44 Antibiotics) sulfamethoxazole Allergy Unknown UNKNOWN Verified 06/11/20 21:44 [From BACTRIM] trimethoprim [From BACTRIM] Allergy Unknown UNKNOWN Verified 06/11/20 21:44 diazepam [DIAZEPAM] AdvReac Unknown CRY Verified 06/11/20 21:44 Review of Systems Review of Systems: Constitutional: No Weight loss, No Fever, No Chills Cardiovascular: + Chest Pain, + SOB Respiratory: No Cough, No Sputum Gastrointestinal: + Nausea, + Vomiting, + Abdominal pain Skin: No Skin Lesions, No rash history limited due to dementia Yes all other systems are reviewed and are negative PMFSH Past Medical History Source: old records reviewed, obtained from family and nursing notes reviewed Medical History Afib Bladder mass CAD (coronary artery disease) COPD (chronic obstructive pulmonary disease) CVA (cerebral vascular accident) Diabetes mellitus type 1 GERD (gastroesophageal reflux disease) Hypercholesteremia Hypertension Leg swelling Obesity Toxic metabolic encephalopathy Social History Social History Alcohol intake: former Smoking Status: Former smoker Smoked in Last 30 Days: No Use of substances other than those prescribed or required for medical reasons: No Advance Directives: No Advance Directives Information Provided: Yes service: No Physical Exam Vital Signs: Vital Signs: Vital Signs Temp Pulse Resp BP 06/20/20 13:47 99.5 F 85 20 147/63 H Body Mass Index 28.2 Const: General: cooperative and healthy appearing Orientation/consciousness: oriented to person and oriented to place Limitations: no limitations HENMT: Head: Yes normal to inspection Ears: hearing grossly normal bilaterally General nose exam: Normal external nose present Face and sinus: Yes normal facial exam Eyes: General: appearance normal, both eyes and all related structures EOM: EOMs intact bilaterally Neck: Neck: Yes normal visual inspection Resp: Effort & Inspection: normal respiratory effort Auscultation: clear to auscultation bilaterally, no crackles and no rales Cardio: Rate: regular rate Heart sounds: S1 normal heart sound present and S2 normal heart sound present GI: Inspection: Yes normal to inspection Palpation (GI): Soft to palpation, nontender, no guarding and not rigid Skin: Rashes: no rashes Wounds: no wounds Neuro: General: oriented to person and oriented to place Extrem: General: Yes normal to inspection Course Course Course Narrative: -1540-- leukocytosis of 17.8 (low concern for severe sepsis), sodium low 130, KAIN with creatinine 1.83 > likely from dehydration, magnesium low 1.2> IV repletion ordered - troponin 25.5> chronically elevated, BNP 223 - CXR without evidence of acute intrathoracic disease. No interval change Plan for admission MDM - Chest Pain MDM Narrative Medical decision making narrative: 79-year-old female with a past medical history anemia, angina, triple bypass, arthritis, AFib, CAD, CHF, COPD, CVA, dementia, GERD, hiatal hernia, HTN, dm, sleep apnea, recently diagnosed with UTI secondary to bladder mass currently on Macrobid BIBA from SNF for sudden onset chest pain that was relieved with 2 sublingual nitroglycerins PROFESSOR OF COMMUNICATION. On exam VSS, NAD, denies CP at present. Concern for ACS. Rule out infectious etiology. Lower concern for PE/ CHF/ COPD Plan: EKG, labs, CXR, admission Differential Diagnosis Differential diagnosis: Likely stable angina, unstable angina pectoris, atypical chest pain, st elevation myocardial infarction and chest pain Lab Data Result diagrams: 06/20/20 14:31 06/20/20 14:31 Labs: Lab Results 06/20/20 06/20/20 06/20/20 Range/Units 14:31 14:31 14:31 WBC 17.8 H (4.8-10.8) X10*3/uL RBC 3.48 L (4.20-5.50) X10*6/uL Hgb 9.7 L (12.0-16.0) g/dl Hct 29.8 L (37-47) % MCV 85.6 (80-98) fL MCH 27.9 (27.0-33.0) pg MCHC 32.6 (31.0-35.0) g/dl RDW 13.9 (11.0-16.0) % Plt Count 309 (160-400) X10*3/uL MPV 10.1 (9.4-12.3) fL Immature Gran % (Auto) 0.8 H (0.0-0.4) % Neut % (Auto) 87.8 H (45-73) % Lymph % (Auto) 2.8 L (20-40) % [place] % (Auto) 8.3 (2-11) % Eos % (Auto) 0.1 (0-4) % Baso % (Auto) 0.2 (0-2) % Lymph # (Auto) 0.5 L (1.2-4.9) X10*3/uL [place] # (Auto) 1.5 H (0.1-1.2) X10*3/uL Eos # (Auto) 0.0 (0.0-0.4) X10*3/uL Baso # (Auto) 0.0 (0.0-0.2) X10*3/uL Abs Immat Gran (auto) 0.14 H (0.00-0.03) X10*3/uL Absolute Neuts (auto) 15.7 H (2.0-8.3) X10*3/uL Absolute Nucleated RBC 0.000 (0.0-0.012) X10*3/uL Nucleated RBC % (auto) 0.0 (0.0-0.2) /100WBC Smear Tech's Comments VERIFIED Hold Blue Top SEE NOTE Sodium 130 L (135-145) mmol/L Potassium 4.0 (3.3-5.1) mmol/l Chloride 100 (96-108) mmol/L Carbon Dioxide 20 L (22-29) mmol/L Anion Gap 14 (12-20) BUN 23 H (9-16) mg/dL Creatinine 1.83 H (0.5-1.4) mg/dL Estim Creat Clear Calc 18.6 Estimated GFR 26 Random Glucose 361 H* (60-115) mg/dL Calcium 7.9 L (8.4-10.2) mg/dL Magnesium 1.2 L* (1.6-2.6) mg/dL Total Bilirubin 0.6 (0.0-1.0) mg/dL Direct Bilirubin 0.2 (0.0-0.5) mg/dL AST 21 D (5-31) U/L ALT 39 H (0-31) U/L Alkaline Phosphatase 98 (39-117) U/L Troponin I High Sens (<3.5-17.0) ng/L B-Natriuretic Peptide (<100) pg/mL Total Protein 5.8 L (6.5-8.0) g/dL Albumin 2.8 L (3.5-5.0) g/dL Lipase 10 (8-78) U/L 06/20/20 Range/Units 14:31 WBC (4.8-10.8) X10*3/uL RBC (4.20-5.50) X10*6/uL Hgb (12.0-16.0) g/dl Hct (37-47) % MCV (80-98) fL MCH (27.0-33.0) pg MCHC (31.0-35.0) g/dl RDW (11.0-16.0) % Plt Count (160-400) X10*3/uL MPV (9.4-12.3) fL Immature Gran % (Auto) (0.0-0.4) % Neut % (Auto) (45-73) % Lymph % (Auto) (20-40) % [place] % (Auto) (2-11) % Eos % (Auto) (0-4) % Baso % (Auto) (0-2) % Lymph # (Auto) (1.2-4.9) X10*3/uL [place] # (Auto) (0.1-1.2) X10*3/uL Eos # (Auto) (0.0-0.4) X10*3/uL Baso # (Auto) (0.0-0.2) X10*3/uL Abs Immat Gran (auto) (0.00-0.03) X10*3/uL Absolute Neuts (auto) (2.0-8.3) X10*3/uL Absolute Nucleated RBC (0.0-0.012) X10*3/uL Nucleated RBC % (auto) (0.0-0.2) /100WBC Smear Tech's Comments Hold Blue Top Sodium (135-145) mmol/L Potassium (3.3-5.1) mmol/l Chloride (96-108) mmol/L Carbon Dioxide (22-29) mmol/L Anion Gap (12-20) BUN (9-16) mg/dL Creatinine (0.5-1.4) mg/dL Estim Creat Clear Calc Estimated GFR Random Glucose (60-115) mg/dL Calcium (8.4-10.2) mg/dL Magnesium (1.6-2.6) mg/dL Total Bilirubin (0.0-1.0) mg/dL Direct Bilirubin (0.0-0.5) mg/dL AST (5-31) U/L ALT (0-31) U/L Alkaline Phosphatase (39-117) U/L Troponin I High Sens 25.5 H (<3.5-17.0) ng/L B-Natriuretic Peptide 223 H (<100) pg/mL Total Protein (6.5-8.0) g/dL Albumin (3.5-5.0) g/dL Lipase (8-78) U/L Discharge Plan Discharge Clinical Impression: Hypomagnesemia, KAIN (acute kidney injury), Chest pain Patient Disposition: Admitted As Inpatient Prescriptions: No Action metoprolol succinate 100 mg Tablet Extended Release 24 Hr 100 mg PO DAILY RF: 0 gabapentin 300 mg Capsule 300 mg PO TID RF: 0 atorvastatin 80 mg Tablet 80 mg PO DAILY RF: 0 acetaminophen [Tylenol] 325 mg Tablet 325 mg PO QID PRN (Reason: Pain) RF: 0 amlodipine 5 mg Tablet 5 mg PO Q2D RF: 0 isosorbide mononitrate 60 mg Tablet Extended Release 24 Hr 60 mg PO DAILY RF: 0 ropinirole 0.25 mg Tablet 0.25 mg PO DAILY RF: 0 pantoprazole 40 mg Tablet,Delayed Release (Dr/Ec) 40 mg PO DAILY RF: 0 folic acid 1 mg Tablet 1 mg PO DAILY RF: 0 Eliquis 5 mg Tablet 5 mg PO BID RF: 0 nitroglycerin 0.4 mg Tablet, Sublingual 0.4 mg SUBLINGUAL Q5M MDD 1.2 PRN (Reason: Chest Pain) RF: 0 albuterol 90 mcg/actuation Aerosol 1 mcg INHALATION Q4H PRN (Reason: Shortness Of Breath) RF: 0 fluticasone propion-salmeterol [Advair Diskus] 100-50 mcg/dose Blister With Device 1 inh INHALATION BID RF: 0 Novolog Mix 70-30FlexPen U-100 pen injector 24 unit subcut QAM RF: 0 amlodipine 2.5 mg Tablet 2.5 mg PO Q2D RF: 0 multivitamin Tablet 1 tab PO DAILY RF: 0 cyanocobalamin (vitamin B-12) [Vitamin B-12] 1,000 mcg Tablet 1,000 mcg PO DAILY RF: 0 cholecalciferol (vitamin D3) 50 mcg (2,000 unit) Tablet 50 mcg PO DAILY RF: 0 prednisolone acetate 1 % Drops,Suspension 1 drp ophthalmic-Right TID RF: 0 methenamine hippurate 1 gram Tablet 1 g PO BID RF: 0 Combivent Respimat 20-100 mcg/actuation Mist 1 puff INHALATION QID PRN (Reason: Shortness Of Breath) RF: 0 Novolog Mix 70-30FlexPen U-100 28 units subcut QPM RF: 0 cefuroxime axetil 250 mg tablet 250 mg PO BID Qty: 8 RF: 0 insulin asp prt-insulin aspart [Novolog Mix 70-30 U-100 Insuln] 100 unit/mL (70-30) solution 20 unit subcut QPM Qty: 1 RF: 0 oxycodone 5 mg Capsule 5 mg PO BID MDD 15 PRN (Reason: Pain) Qty: 20 RF: 0 nitrofurantoin macrocrystal [Macrodantin] 100 mg capsule 100 mg PO BEDTIME Qty: 30 RF: 0
[2020-06-20 14:44] LABS: Basophils Percent Auto 0.2 % (0-2); Eosinophils Percent Auto 0.1 % (0-4); Hematocrit 29.8 % (37-47); Hemoglobin 9.7 g/dl (12.0-16.0); Imm Gran Abs Auto 0.14 X10*3/uL (0.00-0.03); Imm Gran Pct Auto 0.8 % (0.0-0.4); Lymphocytes Absolute Auto 0.5 X10*3/uL (1.2-4.9); Lymphocytes Percent Auto 2.8 % (20-40); MANUAL DIFF FLAG SCAN; Mean Corpuscular HGB Conc 32.6 g/dl (31.0-35.0); Mean Corpuscular Hemoglobin 27.9 pg (27.0-33.0); Mean Corpuscular Volume 85.6 fL (80-98); Mean Platelet Volume 10.1 fL (9.4-12.3); Monocytes Absolute Auto 1.5 X10*3/uL (0.1-1.2); Monocytes Percent Auto 8.3 % (2-11); Neutrophils Absolute Auto 15.7 X10*3/uL (2.0-8.3); Neutrophils Percent Auto 87.8 % (45-73); Platelet Count 309 X10*3/uL (160-400); Red Blood Count 3.48 X10*6/uL (4.20-5.50); Red Cell Distribution Width 13.9 % (11.0-16.0); SCAN SMEAR FLAG 1; White Blood Count 17.8 X10*3/uL (4.8-10.8)
[2020-06-20 15:11] LABS: SLIDE REVIEW VERIFIED
[2020-06-20 15:25] LABS: B Type Natriuretic Peptide 223 pg/mL (<100); Troponin-I High Sensitivity 25.5 ng/L (<3.5-17.0)
[2020-06-20 15:27] LABS: Alanine Aminotransferase 39 U/L (0-31); Albumin Level 2.8 g/dL (3.5-5.0); Alkaline Phosphatase 98 U/L (39-117); Anion Gap 14 (12-20); Aspartate Amino Transferase 21 U/L (5-31); Bilirubin Direct 0.2 mg/dL (0.0-0.5); Bilirubin Total 0.6 mg/dL (0.0-1.0); Blood Urea Nitrogen 23 mg/dL (9-16); Calcium 7.9 mg/dL (8.4-10.2); Carbon Dioxide 20 mmol/L (22-29); Chloride 100 mmol/L (96-108); Creatinine Clr Calc Pharmacy 18.6; Estimated Glomerular Filt Rate 26; Glucose Random 361 mg/dL (60-115); Lipase 10 U/L (8-78); Magnesium 1.2 mg/dL (1.6-2.6); Sodium 130 mmol/L (135-145); Total Protein 5.8 g/dL (6.5-8.0)
[2020-06-20] MEDS: 0.9 % Sodium Chloride 1,000 ML 999 ML IVCONT (16:17)
[2020-06-20] MEDS: Magnesium Sulfate/H2O 2 GM/50 ML PIGGYBACK IV (16:17)
[2020-06-20 16:24] VITALS: PULSE 75
--- NOTE | 2020-06-20 16:52 | PC.NURSE ---
hospitalist at [facility]
--- NOTE | 2020-06-20 17:13 | P.HPIM_ITS ---
History of Present Illness Date of Service: 06/20/20 Chief Complaint: chest pain 79-year-old female presented with chest pain. Patient was recently admitted for urinary tract infection found to have likely bladder mass causing right hydronephrosis. At that time outside some mild acute kidney injury which improv ed at discharge. Patient was discharged to longterm facility and completed a course of antibiotics, yesterday she was started on Macrobid for prophylaxis of urinary tract infection. At longterm facility patient complained of midsternal chest pain, she was given nitroglycerin which did not improve symptoms. At time of exam patient is resting comfortably and is not in pain. Patient does have a significant coronary history, she is status post CABG, she had a mildly positive stress test about 1 year ago. Initial troponin was on elevated from previous. EKG unremarkable. creatinine is now elevated again. Review of Systems Review of Systems: Constitutional: Chills Eyes: denies blurry vision ENT: denies sore throat CVS: chest pain Respiratory: Denies dyspnea GI: no abdominal pain : denies dysuria MSK: denies neck pain Skin: denies rash Neuro: denies specific motor weakness Psych: denies suicidal ideation Endocrine: denies heat/cold intoleratnce Hematologic: denies easy bleeding Allergy: denies hives [facility] Medical History Afib Bladder mass CAD (coronary artery disease) COPD (chronic obstructive pulmonary disease) CVA (cerebral vascular accident) Diabetes mellitus type 1 GERD (gastroesophageal reflux disease) Hypercholesteremia Hypertension Leg swelling Obesity Toxic metabolic encephalopathy Social History Alcohol intake: former Smoking Status: Former smoker Smoked in Last 30 Days: No Use of substances other than those prescribed or required for medical reasons: No Advance Directives: No Advance Directives Information Provided: Yes service: No Meds Allergies Allergy/AdvReac Type Severity Reaction Status Date / Time phenobarbital [PHENOBARBITAL] Allergy Mild HIVES Verified 06/11/20 21:44 fentanyl [FENTANYL] Allergy Unknown HALLUCINATI Verified 06/11/20 21:44 ONS insulin lispro [From HUMALOG] Allergy Unknown RASH Verified 06/11/20 21:44 morphine [MORPHINE] Allergy Unknown HALLUCINATI Verified 06/11/20 21:44 ON Sulfa (Sulfonamide Allergy Unknown Unknown Verified 06/11/20 21:44 Antibiotics) sulfamethoxazole Allergy Unknown UNKNOWN Verified 06/11/20 21:44 [From BACTRIM] trimethoprim [From BACTRIM] Allergy Unknown UNKNOWN Verified 06/11/20 21:44 diazepam [DIAZEPAM] AdvReac Unknown CRY Verified 06/11/20 21:44 Home Medications Medication Instructions Recorded Confirmed Type Combivent Respimat 1 puff INHALATION QID PRN 06/12/20 06/20/20 History Eliquis 5 mg PO BID 06/12/20 06/20/20 History Novolog Mix 70-30FlexPen U-100 20 units SUBCUT QPM 06/12/20 06/20/20 History acetaminophen [Tylenol] 325 mg PO QID PRN 06/12/20 06/20/20 History albuterol 1 mcg INHALATION Q4H PRN 06/12/20 06/20/20 History amlodipine 2.5 mg PO Q2D 06/12/20 06/20/20 History amlodipine 5 mg PO Q2D 06/12/20 06/20/20 History atorvastatin 80 mg PO DAILY 06/12/20 06/20/20 History cholecalciferol (vitamin D3) 50 mcg PO DAILY 06/12/20 06/20/20 History cyanocobalamin (vitamin B-12) 1,000 mcg PO DAILY 06/12/20 06/20/20 History [Vitamin B-12] fluticasone propion-salmeterol 1 inh INHALATION BID 06/12/20 06/20/20 History [Advair Diskus] folic acid 1 mg PO DAILY 06/12/20 06/20/20 History gabapentin 300 mg PO TID 06/12/20 06/20/20 History isosorbide mononitrate 60 mg PO DAILY 06/12/20 06/20/20 History methenamine hippurate 1 g PO BID 06/12/20 06/20/20 History metoprolol succinate 100 mg PO DAILY 06/12/20 06/20/20 History multivitamin 1 tab PO DAILY 06/12/20 06/20/20 History nitroglycerin 0.4 mg SUBLINGUAL Q5M PRN MDD 1.2 06/12/20 06/20/20 History pantoprazole 40 mg PO DAILY 06/12/20 06/20/20 History prednisolone acetate 1 drp OPHTHALMIC-RIGHT TID 06/12/20 06/20/20 History ropinirole 0.25 mg PO DAILY 06/12/20 06/20/20 History Physical Exam Vital Signs and Narrative: Vital Signs: Last Vital Signs Temp 99.5 F 06/20/20 13:47 Pulse 85 06/20/20 13:47 Resp 20 06/20/20 13:47 BP 147/63 H 06/20/20 13:47 Body Mass Index 28.2 General: no acute distress HEENT: atraumatic Neck: normal to visual inspection CVS: S1, S2, RRR Resp: CTA bilateral Chest: non tender GI: soft, non tender, non distended : no CVA tenderness Skin: no rashes Extremities: no edema Neuro: Oriented X3, grossly intact Psych: cooperative, Results Labs Labs: Laboratory Tests 06/20/20 06/20/20 06/20/20 14:31 14:31 14:31 WBC 17.8 H RBC 3.48 L Hgb 9.7 L Hct 29.8 L MCV 85.6 MCH 27.9 MCHC 32.6 RDW 13.9 Plt Count 309 MPV 10.1 Immature Gran % (Auto) 0.8 H Neut % (Auto) 87.8 H Lymph % (Auto) 2.8 L [place] % (Auto) 8.3 Eos % (Auto) 0.1 Baso % (Auto) 0.2 Lymph # (Auto) 0.5 L [place] # (Auto) 1.5 H Eos # (Auto) 0.0 Baso # (Auto) 0.0 Abs Immat Gran (auto) 0.14 H Absolute Neuts (auto) 15.7 H Absolute Nucleated RBC 0.000 Nucleated RBC % (auto) 0.0 Smear Tech's Comments VERIFIED Hold Blue Top SEE NOTE Sodium 130 L Potassium 4.0 Chloride 100 Carbon Dioxide 20 L Anion Gap 14 BUN 23 H Creatinine 1.83 H Estim Creat Clear Calc 18.6 Estimated GFR 26 Random Glucose 361 H* Calcium 7.9 L Magnesium 1.2 L* Total Bilirubin 0.6 Direct Bilirubin 0.2 AST 21 D ALT 39 H Alkaline Phosphatase 98 Troponin I High Sens B-Natriuretic Peptide Total Protein 5.8 L Albumin 2.8 L Lipase 10 06/20/20 14:31 WBC RBC Hgb Hct MCV MCH MCHC RDW Plt Count MPV Immature Gran % (Auto) Neut % (Auto) Lymph % (Auto) [place] % (Auto) Eos % (Auto) Baso % (Auto) Lymph # (Auto) [place] # (Auto) Eos # (Auto) Baso # (Auto) Abs Immat Gran (auto) Absolute Neuts (auto) Absolute Nucleated RBC Nucleated RBC % (auto) Smear Tech's Comments Hold Blue Top Sodium Potassium Chloride Carbon Dioxide Anion Gap BUN Creatinine Estim Creat Clear Calc Estimated GFR Random Glucose Calcium Magnesium Total Bilirubin Direct Bilirubin AST ALT Alkaline Phosphatase Troponin I High Sens 25.5 H B-Natriuretic Peptide 223 H Total Protein Albumin Lipase Assessment and Plan (1) Hypomagnesemia: Status: Acute (2) KAIN (acute kidney injury): Status: Acute (3) Chest pain: Qualifiers: Chest pain type: unspecified Qualified Code(s): R07.9 - Chest pain, unspecified Status: Acute (4) Hydronephrosis: Problem details: patient only TURBT after Q problems results, can be done as an outpatient Status: Acute (5) Diabetes mellitus type 1: Status: Acute (6) CAD (coronary artery disease): Status: Acute (7) Afib: Status: Acute (8) Hyponatremia: Status: Acute 79F presented with chest pain chest pain in the setting on known CAD and chronic systolic chf follow up repeat troponin continue eliquis, statin, nitrate, beta vish KAIN IVF, monitor hypomagnesemia replace monitor DM lantus for now, allergy to human insulin, will need novolog from home afib eliquis (decrease to 2.5 due to age and renal function), metoprolol htn amlodipine bladder mass o/p follow up, check urine, will hold macrobid nad restart cephalosporing for now
[2020-06-20] MEDS: Insulin Glargine,Hum.rec.anlog 100 UNIT/ML 10 ML VIAL 20 UNIT SUBCUT (17:40)
[2020-06-20 18:12] VITALS: BP 136/78; PULSE 74; RESP 14; TEMP 36.8; O2SAT 96
--- NOTE | 2020-06-20 18:36 | PC.NURSE ---
report given to [facility]
[2020-06-20 19:22] VITALS: BP 156/64; PULSE 83; RESP 22; TEMP 37.6; O2SAT 94
[2020-06-20 20:23] LABS: Troponin-I High Sensitivity 23.6 ng/L (<3.5-17.0)
[2020-06-20 21:05] LABS: Glucose, Whole Blood 249 mg/dL (60-115)
[2020-06-20] MEDS: 0.9 % Sodium Chloride 1,000 ML 75 ML IVCONT (22:42)
[2020-06-20] MEDS: Gabapentin 300 MG CAPSULE PO (22:43)
[2020-06-20] MEDS: Apixaban 5 MG TABLET 2.5 MG PO (22:43)
[2020-06-20] MEDS: prednisoLONE Acetate 1 % Oph Susp 5 ML DRPBTL 1 DROP EYE-RIGHT (22:43)
[2020-06-20] MEDS: 0.9 % Sodium Chloride Flush 3 ML SYRINGE IVFLUSH (22:43)
[2020-06-20] MEDS: Insulin Glargine,Hum.rec.anlog 100 UNIT/ML 10 ML VIAL 7 UNIT SUBCUT (23:12)
[2020-06-20 23:23] VITALS: BP 169/72; PULSE 95; RESP 20; TEMP 37.7; O2SAT 98
[2020-06-21] VITALS (10 sets, daily range): BP systolic 133–177; BP diastolic 60–82; PULSE 71–92; RESP 18–20; TEMP 36.7–37.8; O2SAT 96–98; BMI 31.0
--- NOTE | 2020-06-21 | XR_ITS ---
EXAMINATION: XR CHEST CLINICAL INFORMATION: Shortness of breath COMPARISON: 06/20/2020 TECHNIQUE: Frontal view of the chest was obtained. FINDINGS: Left atrial appendage clip. Cardiac leads overlie the chest. The lungs are well expanded. No consolidation, edema, or effusion. Mild bronchial wall thickening noted. No pneumothorax. The cardiomediastinal silhouette remains prominent, with a calcified aorta. IMPRESSION: No consolidation. Bronchial wall thickening can be seen with a small airways process such as asthma or atypical/viral infection.
[2020-06-21] MEDS: Acetaminophen 325 MG TABLET PO (03:52)
[2020-06-21 05:03] LABS: Basophils Percent Auto 0.3 % (0-2); Eosinophils Percent Auto 0.1 % (0-4); Hematocrit 31.3 % (37-47); Hemoglobin 10.1 g/dl (12.0-16.0); Imm Gran Abs Auto 0.15 X10*3/uL (0.00-0.03); Imm Gran Pct Auto 1.1 % (0.0-0.4); Lymphocytes Absolute Auto 0.7 X10*3/uL (1.2-4.9); Lymphocytes Percent Auto 4.9 % (20-40); MANUAL DIFF FLAG SCAN; Mean Corpuscular HGB Conc 32.3 g/dl (31.0-35.0); Mean Corpuscular Hemoglobin 27.4 pg (27.0-33.0); Mean Corpuscular Volume 85.1 fL (80-98); Mean Platelet Volume 10.4 fL (9.4-12.3); Monocytes Absolute Auto 1.4 X10*3/uL (0.1-1.2); Monocytes Percent Auto 10.9 % (2-11); Neutrophils Absolute Auto 10.9 X10*3/uL (2.0-8.3); Neutrophils Percent Auto 82.7 % (45-73); Platelet Count 310 X10*3/uL (160-400); Red Blood Count 3.68 X10*6/uL (4.20-5.50); Red Cell Distribution Width 13.8 % (11.0-16.0); SCAN SMEAR FLAG 1; White Blood Count 13.2 X10*3/uL (4.8-10.8)
[2020-06-21 05:38] LABS: Anion Gap 13 (12-20); Blood Urea Nitrogen 20 mg/dL (9-16); Calcium 8.1 mg/dL (8.4-10.2); Carbon Dioxide 22 mmol/L (22-29); Chloride 103 mmol/L (96-108); Creatinine Clr Calc Pharmacy 21.2; Estimated Glomerular Filt Rate 29; Glucose Random 179 mg/dL (60-115); Magnesium 1.9 mg/dL (1.6-2.6); Potassium 3.9 mmol/l (3.3-5.1); Sodium 134 mmol/L (135-145)
[2020-06-21 05:40] LABS: SLIDE REVIEW VERIFIED
[2020-06-21] MEDS: Omeprazole 40 MG CAPSULE.DR PO (05:49)
[2020-06-21 05:54] LABS: Glucose Urine UA 100 MG/DL (NEG); Leukocyte Esterase Urine 1+ (NEG); Nitrite Urine POS (NEG); PH 5.5 (5.0-8.0); Specific Gravity - Urine >= 1.030 (1.005-1.025); Urine Blood 3+ (NEG); Urine Ketones NEG (NEG); Urine Protein 3+ MG/DL (NEG-TRACE)
[2020-06-21 05:55] LABS: Appearance Urine CLOUDY; Color Urine YELLOW
[2020-06-21 06:23] LABS: Bacteria Urine 4+ /LPF; RBC Urine 0-2 /HPF (0); Squamous Epithelial Cell Urine 1+ /LPF; WBC Clumps Urine NOTED
[2020-06-21 07:21] LABS: Glucose, Whole Blood 156 mg/dL (60-115)
[2020-06-21] MEDS: cefTRIAXone sodium 1 GM in 0.9 % Sodium Chloride 50 ML IV (08:14)
[2020-06-21] MEDS: amLODIPine Besylate 5 MG TABLET PO (08:21)
[2020-06-21] MEDS: Metoprolol Succinate ER 100 MG TAB.ER.24H PO (08:22)
[2020-06-21] MEDS: Folic Acid 1 MG TABLET PO (08:22)
[2020-06-21] MEDS: Cholecalciferol (Vitamin D3) 25 MCG TABLET 50 MCG PO (08:22)
[2020-06-21] MEDS: rOPINIRole HCL 0.25 MG TABLET PO (08:22)
[2020-06-21] MEDS: Multivitamin TABLET 1 TAB PO (08:23)
[2020-06-21] MEDS: Cyanocobalamin (Vitamin B-12) 1,000 MCG TABLET 1000 MCG PO (08:23)
[2020-06-21] MEDS: Gabapentin 300 MG CAPSULE PO ×3 (08:23→21:25)
[2020-06-21] MEDS: Apixaban 5 MG TABLET 2.5 MG PO ×2 (08:23→21:25)
[2020-06-21] MEDS: Isosorbide Mononitrate 60 MG TAB.ER.24H PO (08:23)
[2020-06-21] MEDS: Atorvastatin Calcium 80 MG TABLET PO (08:23)
[2020-06-21] MEDS: 0.9 % Sodium Chloride Flush 3 ML SYRINGE IVFLUSH ×3 (08:24→21:26)
[2020-06-21] MEDS: prednisoLONE Acetate 1 % Oph Susp 5 ML DRPBTL 1 DROP EYE-RIGHT ×3 (08:43→21:25)
[2020-06-21] MEDS: 0.9 % Sodium Chloride 1,000 ML 75 ML IVCONT (08:45)
--- NOTE | 2020-06-21 09:57 | MHC.CM.PN ---
IMM 06/21/20 FEMALE 79 DX CHEST PAIN. Pt HX UTI Bladder Mass. Multiple admissions within a year. Pt has recently moved to an [facility], [facility]. Last admit to [facility], Pt was DC to STR [facility].. pt returns to [facility] for Chest pain. Met with Pt and Dtr to discuss DP. Pt will not return to [facility].. A referral was made to [facility] at PT/DTR request. The Pt has been to the facility in the past for STR. Pt will return to [facility] after DC from [facility]. HCP Molst and POA on file. CM will follow.
--- NOTE | 2020-06-21 10:43 | HO.PM.IMPN ---
Subjective Subjective Date of Service: 06/21/20 Interval History: no compalints, chest pain resolved Cardiovascular Cardiovascular: Reports no additional cardiovascular complaints Respiratory Respiratory: Reports no additional respiratory complaints Physical Exam Vital Signs: Vital Signs: Vital Signs Temp Pulse Resp BP Pulse Ox 06/21/20 08:23 73 168/70 H 06/21/20 08:22 73 168/70 H 06/21/20 08:21 73 168/70 H 06/21/20 07:07 98.5 F 73 18 168/70 H 96 06/21/20 03:24 100.1 F 06/21/20 03:11 99.2 F 92 20 152/80 H 97 06/20/20 23:23 99.8 F 95 20 169/72 H 98 06/20/20 19:22 99.6 F 83 22 H 156/64 H 94 06/20/20 18:12 98.3 F 74 14 136/78 96 06/20/20 13:47 99.5 F 85 20 147/63 H Body Mass Index 31.0 General: confused, no acute distress Resp: CTA bilateral CVS: S1,S2,RRR GI: soft, non tender, non distended Neuro: motor grossly intact Psych: impaired insight Objective Data Current Medications Generic Name Dose Route Start Last Admin Trade Name Freq PRN Reason Stop Dose Admin Acetaminophen 325 mg 06/20/20 19:52 06/21/20 03:52 Acetaminophen 325 Mg Tablet PO 325 mg QID PRN Administration Pain Albuterol Sulfate 1 puff 06/20/20 20:18 Albuterol Sulfate 90 Mcg 18 Gm Inhaler INHALE Q4H PRN Shortness Of Breath Amlodipine Besylate 5 mg 06/21/20 09:00 06/21/20 08:21 Amlodipine Besylate 5 Mg Tablet PO 5 mg Q2D@0900 [facility] Administration Protocol Apixaban 2.5 mg 06/20/20 21:00 06/21/20 08:23 Apixaban 5 Mg Tablet PO 2.5 mg BID [facility] Administration Atorvastatin Calcium 80 mg 06/21/20 09:00 06/21/20 08:23 Atorvastatin Calcium 80 Mg Tablet PO 80 mg DAILY [facility] Administration Cyanocobalamin 1,000 mcg 06/21/20 09:00 06/21/20 08:23 Cyanocobalamin (Vitamin B-12) 1,000 Mcg Tablet PO 1,000 mcg DAILY [facility] Administration Fluticasone/Vilanterol 1 puff 06/21/20 08:00 06/21/20 10:22 Fluticasone/Vilanterol 100/25 Blst.W.Dev INHALE Not Given RDAILY [facility] Folic Acid 1 mg 06/21/20 09:00 06/21/20 08:22 Folic Acid 1 Mg Tablet PO 1 mg DAILY [facility] Administration Gabapentin 300 mg 06/20/20 21:00 06/21/20 08:23 Gabapentin 300 Mg Capsule PO 300 mg TID [facility] Administration Sodium Chloride 1,000 mls @ 75 mls/hr 06/20/20 19:52 06/21/20 08:45 Ns IVCONT 75 mls/hr .[id number] [facility] Administration Ceftriaxone Sodium 1 gm/ 50 mls @ 100 mls/hr 06/21/20 10:00 06/21/20 08:47 Sodium Chloride IV Infused Q24H [facility] Infusion Insulin Glargine 7 unit 06/20/20 23:00 06/20/20 23:12 Insulin Glargine,Hum.Rec.Anlog 100 Unit/Ml 10 Ml Vial SUBCUT 7 unit BEDTIME [facility] Administration Isosorbide Mononitrate 60 mg 06/21/20 09:00 06/21/20 08:23 Isosorbide Mononitrate 60 Mg Tab.Er.24h PO 60 mg DAILY [facility] Administration Protocol Methenamine Hippurate 1 gm 06/21/20 09:00 Methenamine Hippurate 1 Gm Tablet PO BID [facility] Metoprolol Succinate 100 mg 06/21/20 09:00 06/21/20 08:22 Metoprolol Succinate Er 100 Mg Tab.Er.24h PO 100 mg DAILY [facility] Administration Protocol Multivitamins/Vitamin C 1 tab 06/21/20 09:00 06/21/20 08:23 Multivitamin Tablet PO 1 tab DAILY [facility] Administration Nitroglycerin 0.4 mg 06/20/20 19:52 Nitroglycerin 0.4 Mg Tab.Subl SUBLINGUAL Q5M PRN Chest Pain Non-Formulary Medication 20 units 06/21/20 17:00 Novolog Mix 70-30flexpen U-100 SUBCUT DAILY@1700 [facility] Omeprazole 40 mg 06/21/20 06:30 06/21/20 05:49 Omeprazole 40 Mg Capsule.Dr PO 40 mg DAILY@0630 [facility] Administration Oxycodone HCl 5 mg 06/20/20 20:27 Oxycodone Hcl Immed Release 5 Mg Tablet PO BID PRN Pain Pharmacy Consult 1 each 06/20/20 16:44 Consult Rx Perform Med Rec MISCELLANE ONCE PRN Consult order Prednisolone Acetate 1 drop 06/20/20 21:00 06/21/20 08:43 Prednisolone Acetate 1 % Oph Susp 5 Ml Drpbtl EYE-RIGHT 1 drop TID [facility] Administration Ropinirole HCl 0.25 mg 06/21/20 09:00 06/21/20 08:22 Ropinirole Hcl 0.25 Mg Tablet PO 0.25 mg DAILY [facility] Administration Sodium Chloride 3 ml 06/21/20 00:00 06/21/20 08:24 0.9 % Sodium Chloride Flush 3 Ml Syringe IVFLUSH 3 ml QSHIFT [facility] Administration Vitamin D 50 mcg 06/21/20 09:00 06/21/20 08:22 Cholecalciferol (Vitamin D3) 25 Mcg Tablet PO 50 mcg DAILY [facility] Administration Labs CBC & Chem 7: 06/21/20 04:31 06/21/20 04:31 Assessment and Plan (1) Hypomagnesemia: Status: Acute (2) KAIN (acute kidney injury): Status: Acute (3) Chest pain: Status: Acute (4) Hydronephrosis: Problem details: patient only TURBT after Q problems results, can be done as an outpatient Status: Acute (5) Diabetes mellitus type 1: Status: Acute (6) CAD (coronary artery disease): Status: Acute (7) Afib: Status: Acute (8) Hyponatremia: Status: Acute Assessment and Plan: 79F presented with chest pain chest pain in the setting on known CAD and chronic systolic chf with recovered EF repeat troponin stable continue medical management, eliquis, statin, nitrate, beta vish KAIN IVF, monitor, some improvement hypomagnesemia replaced DM lantus for now, allergy to human insulin, novolog from home afib eliquis (decrease to 2.5 due to age and renal function), metoprolol htn amlodipine UTI ceftriazone, follow up culture bladder mass daughter requesting inpatient follow up from urology
[2020-06-21 11:27] LABS: Glucose, Whole Blood 173 mg/dL (60-115)
--- NOTE | 2020-06-21 11:57 | MHC.CM.PN ---
Spoke with Pts DTR [place] via phone. Informed Enid that Dr Pack has been consulted as requested. She is seeking treatment for Bladder Mass during this hospitalization. A Family meeting is requested pending further assessment. Enid was also notified that [facility] will accept Pt pending Bed availability. Emotional support and encouragement provided.CM will follow.
[2020-06-21 16:57] LABS: Glucose, Whole Blood 262 mg/dL (60-115)
[2020-06-21 21:55] LABS: Glucose, Whole Blood 165 mg/dL (60-115)
[2020-06-22] VITALS (9 sets, daily range): BP systolic 129–190; BP diastolic 60–88; PULSE 62–85; RESP 16–20; TEMP 36.6–37.2; O2SAT 95–97
[2020-06-22] MEDS: Omeprazole 40 MG CAPSULE.DR PO (05:57)
[2020-06-22 06:55] LABS: Eosinophils Percent Auto 0.5 % (0-4); Hematocrit 30.6 % (37-47); Hemoglobin 10.1 g/dl (12.0-16.0); Lymphocytes Percent Auto 7.7 % (20-40); Mean Corpuscular Hemoglobin 28.1 pg (27.0-33.0); Mean Corpuscular Volume 85.2 fL (80-98); Mean Platelet Volume 10.6 fL (9.4-12.3); Monocytes Percent Auto 13.8 % (2-11); Neutrophils Percent Auto 76.6 % (45-73); Platelet Count 293 X10*3/uL (160-400); Red Blood Count 3.59 X10*6/uL (4.20-5.50); Red Cell Distribution Width 13.8 % (11.0-16.0); White Blood Count 11.2 X10*3/uL (4.8-10.8)
[2020-06-22 06:56] LABS: Basophils Absolute Auto 0.1 X10*3/uL (0.0-0.2); Basophils Percent Auto 0.4 % (0-2); Eosinophils Absolute Auto 0.1 X10*3/uL (0.0-0.4); Imm Gran Abs Auto 0.11 X10*3/uL (0.00-0.03); Lymphocytes Absolute Auto 0.9 X10*3/uL (1.2-4.9); MANUAL DIFF FLAG SCAN; Monocytes Absolute Auto 1.5 X10*3/uL (0.1-1.2); Neutrophils Absolute Auto 8.6 X10*3/uL (2.0-8.3); SCAN SMEAR FLAG 1
[2020-06-22 07:12] LABS: Anion Gap 13 (12-20); Blood Urea Nitrogen 20 mg/dL (9-16); Calcium 8.1 mg/dL (8.4-10.2); Carbon Dioxide 19 mmol/L (22-29); Chloride 104 mmol/L (96-108); Creatinine Clr Calc Pharmacy 22.3; Estimated Glomerular Filt Rate 31; Glucose Fasting 105 mg/dL (60-99); Potassium 3.4 mmol/l (3.3-5.1); Sodium 133 mmol/L (135-145)
[2020-06-22] MEDS: 0.9 % Sodium Chloride Flush 3 ML SYRINGE IVFLUSH ×2 (07:37→15:52)
[2020-06-22] MEDS: oxyCODONE HCl Immed Release 5 MG TABLET PO ×2 (07:49→21:04)
[2020-06-22 07:53] LABS: SLIDE REVIEW VERIFIED
[2020-06-22 08:03] LABS: Glucose, Whole Blood 124 mg/dL (60-115)
[2020-06-22] MEDS: Fluticasone/Vilanterol 100/25 BLST.W.DEV 1 PUFF INHALE (08:21)
[2020-06-22] MEDS: Apixaban 5 MG TABLET 2.5 MG PO ×2 (08:35→21:04)
[2020-06-22] MEDS: Metoprolol Succinate ER 100 MG TAB.ER.24H PO (08:36)
[2020-06-22] MEDS: Folic Acid 1 MG TABLET PO (08:37)
[2020-06-22] MEDS: Cyanocobalamin (Vitamin B-12) 1,000 MCG TABLET 1000 MCG PO (08:37)
[2020-06-22] MEDS: Cholecalciferol (Vitamin D3) 25 MCG TABLET 50 MCG PO (08:37)
[2020-06-22] MEDS: rOPINIRole HCL 0.25 MG TABLET PO (08:37)
[2020-06-22] MEDS: amLODIPine Besylate 5 MG TABLET PO (08:38)
[2020-06-22] MEDS: Gabapentin 300 MG CAPSULE PO ×2 (08:38→21:04)
[2020-06-22] MEDS: Isosorbide Mononitrate 60 MG TAB.ER.24H PO (08:38)
[2020-06-22] MEDS: Atorvastatin Calcium 80 MG TABLET PO (08:39)
[2020-06-22] MEDS: Multivitamin TABLET 1 TAB PO (08:39)
--- NOTE | 2020-06-22 08:41 | MHC.CM.PN ---
Fax received from [place], PTs DTR/HCP/POA. Copies made and placed on chart. Dr Laboy notified of FAX from dtr. The info provided is known to care team. Enid called this am. She is requesting consults with ONCOLOGY and ID. She also stated that her mother is in pain, and needs to be medicated. Reported all to the Clinical Coordinator, CALI BABB. She stated that she would F/U with Kasia BABB Pts nurse. Also Dr Martini notified of Enid's requests. He stated that he would F/U w Dr Cast. CM will follow for dc needs.
[2020-06-22] MEDS: prednisoLONE Acetate 1 % Oph Susp 5 ML DRPBTL 1 DROP EYE-RIGHT ×3 (08:42→21:08)
[2020-06-22] MEDS: cefTRIAXone sodium 1 GM in 0.9 % Sodium Chloride 50 ML IV (10:31)
[2020-06-22 11:19] LABS: Glucose, Whole Blood 266 mg/dL (60-115)
--- NOTE | 2020-06-22 11:23 | HO.PM.IMPN ---
Subjective Subjective Date of Service: 06/22/20 Interval History: feels well, no chest pain Cardiovascular Cardiovascular: Reports no additional cardiovascular complaints Respiratory Respiratory: Reports no additional respiratory complaints Physical Exam Vital Signs: Vital Signs: Vital Signs Temp Pulse Resp BP Pulse Ox 06/22/20 08:38 71 176/83 H 06/22/20 08:36 71 176/83 H 06/22/20 07:30 98.9 F 73 20 190/88 H 96 06/22/20 04:39 97.8 F 85 18 180/79 H 96 06/22/20 01:03 160/60 H 06/21/20 23:15 98.8 F 78 18 177/82 H 96 06/21/20 19:10 98.4 F 71 18 148/70 H 97 06/21/20 15:24 98.3 F 77 18 133/60 97 Body Mass Index 31.0 General: alert, confused, no acute distress Resp: CTA bilateral CVS: S1,S2,RRR GI: soft, non tender, non distended Neuro: motor grossly intact Psych: impaired insight Objective Data Current Medications Generic Name Dose Route Start Last Admin Trade Name Freq PRN Reason Stop Dose Admin Acetaminophen 325 mg 06/20/20 19:52 06/21/20 03:52 Acetaminophen 325 Mg Tablet PO 325 mg QID PRN Administration Pain Albuterol Sulfate 1 puff 06/20/20 20:18 Albuterol Sulfate 90 Mcg 18 Gm Inhaler INHALE Q4H PRN Shortness Of Breath Amlodipine Besylate 5 mg 06/22/20 09:00 06/22/20 08:38 Amlodipine Besylate 5 Mg Tablet PO 5 mg DAILY [facility] Administration Protocol Apixaban 2.5 mg 06/20/20 21:00 06/22/20 08:35 Apixaban 5 Mg Tablet PO 2.5 mg BID [facility] Administration Atorvastatin Calcium 80 mg 06/21/20 09:00 06/22/20 08:39 Atorvastatin Calcium 80 Mg Tablet PO 80 mg DAILY [facility] Administration Cyanocobalamin 1,000 mcg 06/21/20 09:00 06/22/20 08:37 Cyanocobalamin (Vitamin B-12) 1,000 Mcg Tablet PO 1,000 mcg DAILY [facility] Administration Fluticasone/Vilanterol 1 puff 06/21/20 08:00 06/22/20 08:21 Fluticasone/Vilanterol 100/25 Blst.W.Dev INHALE 1 puff RDAILY [facility] Administration Folic Acid 1 mg 06/21/20 09:00 06/22/20 08:37 Folic Acid 1 Mg Tablet PO 1 mg DAILY [facility] Administration Gabapentin 300 mg 06/20/20 21:00 06/22/20 08:38 Gabapentin 300 Mg Capsule PO 300 mg TID [facility] Administration Ceftriaxone Sodium 1 gm/ 50 mls @ 100 mls/hr 06/21/20 10:00 06/22/20 11:05 Sodium Chloride IV Infused Q24H [facility] Infusion Insulin Glargine 7 unit 06/20/20 23:00 06/21/20 21:37 Insulin Glargine,Hum.Rec.Anlog 100 Unit/Ml 10 Ml Vial SUBCUT Not Given BEDTIME [facility] Isosorbide Mononitrate 60 mg 06/21/20 09:00 06/22/20 08:38 Isosorbide Mononitrate 60 Mg Tab.Er.24h PO 60 mg DAILY [facility] Administration Protocol Methenamine Hippurate 1 gm 06/21/20 09:00 Methenamine Hippurate 1 Gm Tablet PO BID [facility] Metoprolol Succinate 100 mg 06/21/20 09:00 06/22/20 08:36 Metoprolol Succinate Er 100 Mg Tab.Er.24h PO 100 mg DAILY [facility] Administration Protocol Multivitamins/Vitamin C 1 tab 06/21/20 09:00 06/22/20 08:39 Multivitamin Tablet PO 1 tab DAILY [facility] Administration Nitroglycerin 0.4 mg 06/20/20 19:52 Nitroglycerin 0.4 Mg Tab.Subl SUBLINGUAL Q5M PRN Chest Pain Patient Own 20 each 06/21/20 17:00 06/21/20 17:01 Medication Novolog SUBCUT 20 each Mix 70/30 DAILY@1700 [facility] Administration Omeprazole 40 mg 06/21/20 06:30 06/22/20 05:57 Omeprazole 40 Mg Capsule.Dr PO 40 mg DAILY@0630 [facility] Administration Oxycodone HCl 5 mg 06/20/20 20:27 06/22/20 07:49 Oxycodone Hcl Immed Release 5 Mg Tablet PO 5 mg BID PRN Administration Pain Pharmacy Consult 1 each 06/20/20 16:44 Consult Rx Perform Med Rec MISCELLANE ONCE PRN Consult order Prednisolone Acetate 1 drop 06/20/20 21:00 06/22/20 08:42 Prednisolone Acetate 1 % Oph Susp 5 Ml Drpbtl EYE-RIGHT 1 drop TID [facility] Administration Ropinirole HCl 0.25 mg 06/21/20 09:00 06/22/20 08:37 Ropinirole Hcl 0.25 Mg Tablet PO 0.25 mg DAILY [facility] Administration Sodium Chloride 3 ml 06/21/20 00:00 06/22/20 07:37 0.9 % Sodium Chloride Flush 3 Ml Syringe IVFLUSH 3 ml QSHIFT [facility] Administration Vitamin D 50 mcg 06/21/20 09:00 06/22/20 08:37 Cholecalciferol (Vitamin D3) 25 Mcg Tablet PO 50 mcg DAILY [facility] Administration Labs CBC & Chem 7: 06/22/20 05:50 06/22/20 05:50 Microbiology Microbiology Results: Microbiology 06/21/20 Unknown Urine clean catch - Clean Catch Midstream Urine Culture - Preliminary Gram negative idlan Assessment and Plan (1) Hypomagnesemia: Status: Acute (2) KAIN (acute kidney injury): Status: Acute (3) Chest pain: Status: Acute (4) Hydronephrosis: Problem details: patient only TURBT after Q problems results, can be done as an outpatient Status: Acute (5) Diabetes mellitus type 1: Status: Deleted (6) CAD (coronary artery disease): (7) Afib: (8) Hyponatremia: Status: Deleted Assessment and Plan: 79F presented with chest pain chest pain in the setting on known CAD and chronic systolic chf with recovered EF repeat troponin stable continue medical management, eliquis, statin, nitrate, beta vish KAIN on CKD improved hypomagnesemia replaced DM lantus for now, allergy to human insulin, novolog from home afib eliquis (decrease to 2.5 due to age and renal function), metoprolol htn amlodipine UTI ceftriaxone, follow up culture bladder mass plan for biopsy in 2 weeks
--- NOTE | 2020-06-22 14:32 | MHC.CM.PN ---
Claribel Rasheed came to front services agent. She had medical records with her. She requested a meeting. Lory BABB and this assembly instructions writer spoke with [place] in the patients room. Kasia BABB and Dr Cast came into the room. Pts careplan and out patient follow up were reviewed.
[2020-06-22 16:47] LABS: Glucose, Whole Blood 238 mg/dL (60-115)
--- NOTE | 2020-06-22 18:44 | PC.NURSE ---
PATIENTS DAUGHTER ASKED TO SPEAK TO MD ABOUT CARE, HOSPITALIST BEDSIDE. CASE MANAGEMENT, ÁNGELA RN, PRIMARY RN, AND CLINICAL COORDINATOR ALSO BEDSIDE AND SPOKE WITH DAUGHTER. PT VERBALIZED WANTING INFECTIOUS DISEASE AND RENAL INVOLVED IN CARE. CONSULTS CALLED IN BY THIS RN.
[2020-06-22 20:53] LABS: Glucose, Whole Blood 223 mg/dL (60-115)
[2020-06-23] VITALS (10 sets, daily range): BP systolic 115–163; BP diastolic 70–82; PULSE 63–71; RESP 16–20; TEMP 36.3–36.7; O2SAT 95–100
[2020-06-23] MEDS: 0.9 % Sodium Chloride Flush 3 ML SYRINGE IVFLUSH ×4 (00:12→21:39)
[2020-06-23] MEDS: Omeprazole 40 MG CAPSULE.DR PO (06:13)
[2020-06-23 06:32] LABS: MANUAL DIFF FLAG NO
[2020-06-23 06:53] LABS: Basophils Absolute Auto 0.1 X10*3/uL (0.0-0.2); Basophils Percent Auto 0.5 % (0-2); Eosinophils Absolute Auto 0.1 X10*3/uL (0.0-0.4); Eosinophils Percent Auto 1.2 % (0-4); Hematocrit 31.8 % (37-47); Hemoglobin 10.5 g/dl (12.0-16.0); Imm Gran Abs Auto 0.08 X10*3/uL (0.00-0.03); Imm Gran Pct Auto 0.8 % (0.0-0.4); Lymphocytes Percent Auto 9.5 % (20-40); Mean Corpuscular Hemoglobin 27.9 pg (27.0-33.0); Mean Corpuscular Volume 84.6 fL (80-98); Mean Platelet Volume 10.3 fL (9.4-12.3); Monocytes Absolute Auto 1.4 X10*3/uL (0.1-1.2); Monocytes Percent Auto 13.6 % (2-11); Neutrophils Absolute Auto 7.5 X10*3/uL (2.0-8.3); Neutrophils Percent Auto 74.4 % (45-73); Platelet Count 299 X10*3/uL (160-400); Red Blood Count 3.76 X10*6/uL (4.20-5.50); Red Cell Distribution Width 13.7 % (11.0-16.0); White Blood Count 10.1 X10*3/uL (4.8-10.8)
[2020-06-23 07:15] LABS: Anion Gap 13 (12-20); Blood Urea Nitrogen 24 mg/dL (9-16); Calcium 8.3 mg/dL (8.4-10.2); Carbon Dioxide 21 mmol/L (22-29); Chloride 103 mmol/L (96-108); Creatinine Clr Calc Pharmacy 22.4; Estimated Glomerular Filt Rate 31; Glucose Fasting 102 mg/dL (60-99); Potassium 3.6 mmol/l (3.3-5.1); Sodium 133 mmol/L (135-145)
[2020-06-23 07:21] LABS: Glucose, Whole Blood 111 mg/dL (60-115)
[2020-06-23] MEDS: Fluticasone/Vilanterol 100/25 BLST.W.DEV 1 PUFF INHALE (09:01)
--- NOTE | 2020-06-23 09:13 | P.PNIM_ITS ---
Subjective Subjective Date of Service: 06/23/20 Interval History: appears comfortable only complaining about food being bland Cardiovascular Cardiovascular: Reports no additional cardiovascular complaints Respiratory Respiratory: Reports no additional respiratory complaints Physical Exam Vital Signs: Vital Signs: Vital Signs Temp Pulse Resp BP Pulse Ox 06/23/20 07:12 98.0 F 70 18 160/82 H 95 06/23/20 04:17 69 06/23/20 04:00 97.4 F 16 115/75 100 06/22/20 23:50 98.2 F 77 16 178/80 H 97 06/22/20 19:15 62 16 129/72 96 06/22/20 15:41 98.1 F 65 18 138/63 95 06/22/20 11:41 67 20 133/77 95 Body Mass Index 31.0 General: confused, alert no acute distress Resp: CTA bilateral CVS: S1,S2,RRR GI: soft, non tender, non distended Neuro: motor grossly intact Psych: impaired insight Objective Data Current Medications Generic Name Dose Route Start Last Admin Trade Name Freq PRN Reason Stop Dose Admin Acetaminophen 325 mg 06/20/20 19:52 06/21/20 03:52 Acetaminophen 325 Mg Tablet PO 325 mg QID PRN Administration Pain Albuterol Sulfate 1 puff 06/20/20 20:18 Albuterol Sulfate 90 Mcg 18 Gm Inhaler INHALE Q4H PRN Shortness Of Breath Amlodipine Besylate 5 mg 06/23/20 20:00 Amlodipine Besylate 5 Mg Tablet PO DAILY@1999 [facility] Protocol Apixaban 2.5 mg 06/22/20 20:00 06/22/20 21:04 Apixaban 5 Mg Tablet PO 2.5 mg BID@0800,1999 [facility] Administration Atorvastatin Calcium 80 mg 06/23/20 20:00 Atorvastatin Calcium 80 Mg Tablet PO DAILY@1999 [facility] Cyanocobalamin 2,000 mcg 06/23/20 15:00 Cyanocobalamin (Vitamin B-12) 1,000 Mcg Tablet PO DAILY@1500 [facility] Fluticasone/Vilanterol 1 puff 06/21/20 08:00 06/23/20 09:01 Fluticasone/Vilanterol 100/25 Blst.W.Dev INHALE 1 puff RDAILY [facility] Administration Folic Acid 1 mg 06/23/20 15:00 Folic Acid 1 Mg Tablet PO DAILY@1500 [facility] Gabapentin 300 mg 06/22/20 20:00 06/22/20 21:04 Gabapentin 300 Mg Capsule PO 300 mg TID@08,1499,1999 [facility] Administration Ceftriaxone Sodium 1 gm/ 50 mls @ 100 mls/hr 06/21/20 10:00 06/22/20 11:05 Sodium Chloride IV Infused Q24H [facility] Infusion Insulin Glargine 7 unit 06/20/20 23:00 06/22/20 21:13 Insulin Glargine,Hum.Rec.Anlog 100 Unit/Ml 10 Ml Vial SUBCUT Not Given BEDTIME [facility] Isosorbide Mononitrate 60 mg 06/23/20 08:00 Isosorbide Mononitrate 60 Mg Tab.Er.24h PO DAILY@08 [facility] Protocol Methenamine Hippurate 1 gm 06/21/20 09:00 Methenamine Hippurate 1 Gm Tablet PO BID@ [facility] Metoprolol Succinate 100 mg 06/23/20 20:00 Metoprolol Succinate Er 100 Mg Tab.Er.24h PO DAILY@1999 [facility] Protocol Multivitamins/Vitamin C 1 tab 06/23/20 15:00 Multivitamin Tablet PO DAILY@1499 [facility] Nitroglycerin 0.4 mg 06/20/20 19:52 Nitroglycerin 0.4 Mg Tab.Subl SUBLINGUAL Q5M PRN Chest Pain Patient Own 20 each 06/21/20 17:00 06/22/20 17:04 Medication Novolog SUBCUT 20 each Mix 70/30 DAILY@1700 [facility] Administration Omeprazole 40 mg 06/21/20 06:30 06/23/20 06:13 Omeprazole 40 Mg Capsule.Dr PO 40 mg DAILY@0630 [facility] Administration Oxycodone HCl 5 mg 06/22/20 15:30 06/22/20 21:04 Oxycodone Hcl Immed Release 5 Mg Tablet PO 5 mg BID@ PRN Administration Pain Pharmacy Consult 1 each 06/20/20 16:44 Consult Rx Perform Med Rec MISCELLANE ONCE PRN Consult order Prednisolone Acetate 1 drop 06/20/20 21:00 06/22/20 21:08 Prednisolone Acetate 1 % Oph Susp 5 Ml Drpbtl EYE-RIGHT 1 drop TID [facility] Administration Ropinirole HCl 0.25 mg 06/23/20 20:00 Ropinirole Hcl 0.25 Mg Tablet PO DAILY@1999 [facility] Sodium Chloride 3 ml 06/21/20 00:00 06/23/20 00:12 0.9 % Sodium Chloride Flush 3 Ml Syringe IVFLUSH 3 ml QSHIFT [facility] Administration Vitamin D 50 mcg 06/23/20 15:00 Cholecalciferol (Vitamin D3) 25 Mcg Tablet PO DAILY@1500 [facility] Vitamin D 50 mcg 06/23/20 15:00 Cholecalciferol (Vitamin D3) 25 Mcg Tablet PO DAILY@1500 [facility] Labs CBC & Chem 7: 06/23/20 06:22 06/23/20 06:22 Microbiology Microbiology Results: Microbiology 06/21/20 Unknown Urine clean catch - Clean Catch Midstream Urine Culture - Preliminary Gram negative dilan Assessment and Plan (1) Hypomagnesemia: Status: Acute (2) KAIN (acute kidney injury): Status: Acute (3) Chest pain: Status: Acute (4) Hydronephrosis: Problem details: patient only TURBT after Q problems results, can be done as an outpatient Status: Acute (5) Diabetes mellitus type 1: Status: Deleted (6) CAD (coronary artery disease): (7) Afib: (8) Hyponatremia: Status: Deleted Assessment and Plan: 79F presented with chest pain chest pain in the setting on known CAD and chronic systolic chf with recovered EF repeat troponin stable continue medical management, eliquis, statin, nitrate, beta vish KAIN on CKD improved, nephro eval hypomagnesemia replaced DM lantus for now, allergy to human insulin, novolog from home afib eliquis (decrease to 2.5 due to age and renal function), metoprolol htn amlodipine UTI ceftriaxone, follow up culture bladder mass plan for biopsy in 2 weeks
[2020-06-23] MEDS: Apixaban 5 MG TABLET 2.5 MG PO ×2 (09:50→20:07)
[2020-06-23] MEDS: Isosorbide Mononitrate 60 MG TAB.ER.24H PO (09:50)
[2020-06-23] MEDS: cefTRIAXone sodium 1 GM in 0.9 % Sodium Chloride 50 ML IV (09:51)
[2020-06-23] MEDS: Gabapentin 300 MG CAPSULE PO ×3 (09:57→20:15)
[2020-06-23] MEDS: prednisoLONE Acetate 1 % Oph Susp 5 ML DRPBTL 1 DROP EYE-RIGHT ×3 (09:57→21:36)
[2020-06-23] MEDS: oxyCODONE HCl Immed Release 5 MG TABLET PO (10:01)
[2020-06-23 11:27] LABS: Glucose, Whole Blood 289 mg/dL (60-115)
[2020-06-23] MEDS: Cyanocobalamin (Vitamin B-12) 1,000 MCG TABLET 2000 MCG PO (15:10)
[2020-06-23] MEDS: Multivitamin TABLET 1 TAB PO (15:11)
[2020-06-23] MEDS: Folic Acid 1 MG TABLET PO (15:11)
[2020-06-23] MEDS: Cholecalciferol (Vitamin D3) 25 MCG TABLET 50 MCG PO (15:11)
[2020-06-23] MEDS: Acetaminophen 325 MG TABLET PO (15:11)
[2020-06-23 16:21] LABS: Glucose, Whole Blood 282 mg/dL (60-115)
--- NOTE | 2020-06-23 16:43 | W.PM.IDCN ---
History of Present Illness Data of Consult Service Date: 06/23/20 Requesting physician: Rolando Cast Primary Care Provider: Micah Guerrier MD HPI Reason for consult: chronic pyuria She presents to hospital with SSCP with no nausea,vomiting or diarrhea. Symptoms lasted few minutes according to patient She also although poor historian reported vague abdominal suprapubic discomfort and dysuria She has bladder mass found due to CT for hematuria since at least April when it was 5.6 x 3.4 x5 cm She had urine culture mixed bandar on Jun 11 On June 20 she started with weakness and fatigue and was given Macrobid at [facility] I do not see urine or bladder cultures Now urine is gram negative,culture and sensitivity pending She was started on Ceftriaxone and there is appointment for cystoscopy with Dr Guadarrama Review of Systems Review of Systems: Yes all other systems are reviewed and are negative Gastrointestinal: Comments: [facility] Past Medical History Medical History (Updated 06/23/20 @ 16:52 by Mavis Hoang MD) Afib Bacteriuria Bacteriuria Bladder mass CAD (coronary artery disease) COPD (chronic obstructive pulmonary disease) CVA (cerebral vascular accident) GERD (gastroesophageal reflux disease) Hypercholesteremia Hypertension Leg swelling Obesity Toxic metabolic encephalopathy Social History Social History Alcohol intake: former Smoking Status: Former smoker service: No Current occupational status: retired Meds Allergies Allergy/AdvReac Type Severity Reaction Status Date / Time phenobarbital [PHENOBARBITAL] Allergy Mild HIVES Verified 06/11/20 21:44 fentanyl [FENTANYL] Allergy Unknown HALLUCINATI Verified 06/11/20 21:44 ONS insulin lispro [From HUMALOG] Allergy Unknown RASH Verified 06/11/20 21:44 morphine [MORPHINE] Allergy Unknown HALLUCINATI Verified 06/11/20 21:44 ON Sulfa (Sulfonamide Allergy Unknown Unknown Verified 06/11/20 21:44 Antibiotics) sulfamethoxazole Allergy Unknown UNKNOWN Verified 06/11/20 21:44 [From BACTRIM] trimethoprim [From BACTRIM] Allergy Unknown UNKNOWN Verified 06/11/20 21:44 diazepam [DIAZEPAM] AdvReac Unknown CRY Verified 06/11/20 21:44 Home Medications Medication Instructions Recorded Confirmed Type Combivent Respimat 1 puff INHALATION QID PRN 06/12/20 06/20/20 History Eliquis 5 mg PO BID@0800,199906/12/20 06/22/20 History Novolog Mix 70-30FlexPen U-100 24 units SUBCUT BEDTIME 06/12/20 06/22/20 History acetaminophen [Tylenol] 325 mg PO QID PRN 06/12/20 06/20/20 History albuterol 1 mcg INHALATION Q4H PRN 06/12/20 06/20/20 History amlodipine 2.5 mg PO Q2D@199906/12/20 06/22/20 History amlodipine 5 mg PO Q2D@199906/12/20 06/22/20 History atorvastatin 80 mg PO DAILY@199906/12/20 06/22/20 History cholecalciferol (vitamin D3) 50 mcg PO DAILY@149906/12/20 06/22/20 History cyanocobalamin (vitamin B-12) 2,000 mcg PO DAILY@149906/12/20 06/22/20 History [Vitamin B-12] fluticasone propion-salmeterol 1 inh INHALATION BID 06/12/20 06/20/20 History [Advair Diskus] gabapentin 300 mg PO TID@0800,1500,199906/12/20 06/22/20 History isosorbide mononitrate 60 mg PO DAILY@0800 06/12/20 06/22/20 History methenamine hippurate 1 g PO BID@0800,199906/12/20 06/22/20 History metoprolol succinate 100 mg PO DAILY@199906/12/20 06/22/20 History multivitamin 1 tab PO DAILY@1500 06/12/20 06/22/20 History pantoprazole 40 mg PO DAILY@0630 06/12/20 06/22/20 History prednisolone acetate 1 drp OPHTHALMIC-RIGHT TID 06/12/20 06/20/20 History ropinirole 0.25 mg PO DAILY@199906/12/20 06/22/20 History cefpodoxime 50 mg PO DAILY 06/22/20 06/22/20 History folic acid 0.4 mg PO DAILY@1500 06/22/20 06/22/20 History insulin asp prt-insulin aspart 26 unit SUBCUT DAILY 06/22/20 06/22/20 History [Novolog Mix 70-30FlexPen U-100] oxycodone 5 mg PO BID@0800,199906/22/20 06/22/20 History Physical Exam Vital Signs: Vital Signs: Vital Signs Temp Pulse Resp BP Pulse Ox 06/23/20 15:34 98 F 68 18 163/74 H 97 06/23/20 12:00 97.7 F 70 18 145/71 H 97 06/23/20 09:50 70 160/82 H 06/23/20 07:12 98.0 F 70 18 160/82 H 95 06/23/20 04:17 69 06/23/20 04:00 97.4 F 16 115/75 100 06/22/20 23:50 98.2 F 77 16 178/80 H 97 06/22/20 19:15 62 16 129/72 96 Body Mass Index 31.0 Const: General: cooperative Orientation/consciousness: oriented to person, oriented to place and oriented to time HENMT: Head: Yes normal to inspection Eyes: General: appearance normal, both eyes and all related structures Resp: Effort & Inspection: normal respiratory effort Cardio: Rate: regular rate Rhythm: regular rhythm GI: Inspection: Yes normal to inspection Palpation (GI): No hepatosplenomegaly present : General: Yes no CVA tenderness Back/Spine/Pelvis: Back: no CVA tenderness Skin: General skin exam: no rashes or lesions noted Neuro: General: oriented to person, oriented to place and oriented to time Extrem: Right upper extremity: normal to inspection Right lower extremity: normal to inspection Left lower extremity: normal to inspection Assessment and Plan (1) Bacteriuria: Problem details: She has had bacteriuria Daughter is wondering what to do about this This admission is for chest pain Status: Acute Would continue Ceftriaxone,await urinary culture and blood culture She has been on Macrobid She may likely have bacteriuria associated with bladder mass which will not likely clear until bladder mass addressed so will continue antibiotic Sometimes bacteriuria persists and is not treated unless symptomatic/septic but will treat here as bladder mass workup pending,but dont expect cure or resolution of problems until that is addressed by Urology (2) KAIN (acute kidney injury): Status: Acute (3) Bladder mass: Status: Acute (4) Hydronephrosis: Problem details: patient only TURBT after Q problems results, can be done as an outpatient Status: Acute Results Labs CBC & Chem 7: 06/23/20 06:22 06/23/20 06:22 Labs: Short CBC 06/23/20 Range/Units 06:22 WBC 10.1 (4.8-10.8) X10*3/uL Hgb 10.5 L (12.0-16.0) g/dl Hct 31.8 L (37-47) % Plt Count 299 (160-400) X10*3/uL BMP 06/23/20 06:22 Sodium 133 L Potassium 3.6 Chloride 103 Carbon Dioxide 21 L BUN 24 H Creatinine 1.60 H Calcium 8.3 L Microbiology Microbiology Results: Microbiology 06/21/20 Unknown Urine clean catch - Clean Catch Midstream Urine Culture - Preliminary Gram negative dilan
[2020-06-23] MEDS: ondansetron HCL 4 MG/2 ML VIAL IVPUSH (18:11)
[2020-06-23] MEDS: amLODIPine Besylate 5 MG TABLET PO (20:05)
[2020-06-23] MEDS: Metoprolol Succinate ER 100 MG TAB.ER.24H PO (20:06)
[2020-06-23] MEDS: Atorvastatin Calcium 80 MG TABLET PO (20:06)
[2020-06-23] MEDS: rOPINIRole HCL 0.25 MG TABLET PO (20:07)
[2020-06-23 21:12] LABS: Glucose, Whole Blood 236 mg/dL (60-115)
[2020-06-23] MEDS: Insulin Glargine,Hum.rec.anlog 100 UNIT/ML 10 ML VIAL 7 UNIT SUBCUT (21:34)
--- NOTE | 2020-06-23 23:03 | CONS_ITS ---
DATE OF SERVICE: 06/23/2020 HISTORY OF PRESENT ILLNESS: Karuna is an 79-year-old patient who recently had been an inpatient with urinary tract infection. She was found to have bladder mass causing right hydronephrosis . She had a mild acute kidney injury at that time, which had improved at discharge. She was discharged to a [facility] facility where she completed a course of antibiotics. She was started on Macrobid for prophylaxis for urinary tract infection. At the [facility] facility she developed midsternal chest pain which did not improve with nitroglycerin and was sent over to hospital for further evaluation. Her serum creatinine has gone up marginally from her baseline. Nephrology has been consulted to assist in her clinical care during her current hospital stay. PAST MEDICAL HISTORY: Atrial fibrillation, bladder mass, coronary artery disease, COPD, CVA, diabetes mellitus, GERD, dyslipidemia, hypertension, leg swelling, obesity, toxic metabolic encephalopathy. MEDICATIONS: All her current inpatient medications were reviewed. ALLERGIES: REVIEWED. FAMILY HISTORY: There is no family history of any renal disease. SOCIAL HISTORY: She has been a resident of [facility] facility prior to this hospital admission. She is a former smoker. REVIEW OF SYSTEMS: All other systems have been reviewed and were negative except as mentioned in HPI. PHYSICAL EXAMINATION: GENERAL: Karuna was lying comfortably in bed. VITAL SIGNS: Stable. HEENT: Her head appeared atraumatic and normocephalic. Her oral mucous membranes appear moist. NECK: Supple. LUNG: Air entry was reduced at the bases. HEART: First and second heart sounds were normal. She was normal sinus rhythm. ABDOMEN: Soft and nontender. EXTREMITIES: She did not have any pedal edema. NEUROLOGICAL: She was alert and awake. She was moving all extremities. LABORATORY DATA: Sodium 133, potassium 3.6, chloride 103, BUN 24, creatinine 1.6. ASSESSMENT AND PLAN: Chronic kidney disease. Karuna has baseline chronic kidney disease with a serum creatinine close to 1.5. She has had mild acute kidney injury at the recent hospitalization which resolved prior to her hospital discharge. She presents to hospital with chest pain. Her serum creatinine is currently 1.6. She has been taking antibiotics. Differential diagnosis includes tubular injury as well as interstitial nephritis. Acute interstitial nephritis is unlikely. She is getting antibiotics for urinary tract infection. Her serum creatinine is currently stable. She has a bladder mass and right hydronephrosis. Urology services have seen her and is following her closely. She is due to undergo surgery for the same. Hopefully just with continuing supportive care her serum creatinine will remain stable during her current hospital stay. We will closely monitor, manage her along with our colleagues for optimal continued care. Thank you for giving us an opportunity to participate in the medical management of this patient. MD MIRI Llamas/AVNI / [id number] MTDD
[2020-06-24] VITALS (7 sets, daily range): BP systolic 129–159; BP diastolic 62–87; PULSE 65–83; RESP 18–20; TEMP 36.3–36.8; O2SAT 96–98
[2020-06-24] MEDS: Omeprazole 40 MG CAPSULE.DR PO (05:41)
[2020-06-24 06:26] LABS: MANUAL DIFF FLAG NO
[2020-06-24 06:46] LABS: Basophils Absolute Auto 0.1 X10*3/uL (0.0-0.2); Basophils Percent Auto 0.6 % (0-2); Eosinophils Absolute Auto 0.2 X10*3/uL (0.0-0.4); Eosinophils Percent Auto 1.7 % (0-4); Hematocrit 30.5 % (37-47); Hemoglobin 9.8 g/dl (12.0-16.0); Imm Gran Pct Auto 0.9 % (0.0-0.4); Lymphocytes Absolute Auto 0.9 X10*3/uL (1.2-4.9); Lymphocytes Percent Auto 8.1 % (20-40); Mean Corpuscular HGB Conc 32.1 g/dl (31.0-35.0); Mean Corpuscular Hemoglobin 27.6 pg (27.0-33.0); Mean Corpuscular Volume 85.9 fL (80-98); Mean Platelet Volume 10.5 fL (9.4-12.3); Monocytes Absolute Auto 1.2 X10*3/uL (0.1-1.2); Monocytes Percent Auto 10.8 % (2-11); Neutrophils Absolute Auto 8.4 X10*3/uL (2.0-8.3); Neutrophils Percent Auto 77.9 % (45-73); Platelet Count 291 X10*3/uL (160-400); Red Blood Count 3.55 X10*6/uL (4.20-5.50); Red Cell Distribution Width 13.7 % (11.0-16.0); White Blood Count 10.8 X10*3/uL (4.8-10.8)
[2020-06-24 07:19] LABS: Anion Gap 12 (12-20); Blood Urea Nitrogen 26 mg/dL (9-16); Calcium 8.1 mg/dL (8.4-10.2); Carbon Dioxide 23 mmol/L (22-29); Chloride 103 mmol/L (96-108); Creatinine Clr Calc Pharmacy 20.9; Estimated Glomerular Filt Rate 29; Glucose Fasting 139 mg/dL (60-99); Potassium 3.8 mmol/l (3.3-5.1); Sodium 134 mmol/L (135-145)
[2020-06-24 07:44] LABS: Glucose, Whole Blood 138 mg/dL (60-115)
[2020-06-24] MEDS: Apixaban 5 MG TABLET 2.5 MG PO ×2 (08:01→21:11)
[2020-06-24] MEDS: Isosorbide Mononitrate 60 MG TAB.ER.24H PO (08:02)
[2020-06-24] MEDS: prednisoLONE Acetate 1 % Oph Susp 5 ML DRPBTL 1 DROP EYE-RIGHT ×3 (08:06→21:21)
[2020-06-24] MEDS: Gabapentin 300 MG CAPSULE PO ×3 (08:06→21:21)
[2020-06-24] MEDS: 0.9 % Sodium Chloride Flush 3 ML SYRINGE IVFLUSH ×3 (08:10→23:30)
[2020-06-24] MEDS: oxyCODONE HCl Immed Release 5 MG TABLET PO (09:36)
[2020-06-24] MEDS: Fluticasone/Vilanterol 100/25 BLST.W.DEV 1 PUFF INHALE (09:37)
[2020-06-24] MEDS: cefTRIAXone sodium 1 GM in 0.9 % Sodium Chloride 50 ML IV (09:39)
--- NOTE | 2020-06-24 10:03 | HO.PM.IMPN ---
Subjective Subjective Date of Service: 06/24/20 Interval History: no complaints, had suprapubic pain reported yesterday, but today denies. Cardiovascular Cardiovascular: Reports no additional cardiovascular complaints Respiratory Respiratory: Reports no additional respiratory complaints Physical Exam Vital Signs: Vital Signs: Vital Signs Temp Pulse Resp BP Pulse Ox 06/24/20 08:02 68 159/87 H 06/24/20 07:40 97.7 F 68 18 159/87 H 97 06/24/20 03:29 98.2 F 65 20 150/62 H 97 06/23/20 23:35 97.9 F 71 20 148/71 H 98 06/23/20 20:06 63 161/70 H 06/23/20 20:05 63 161/70 H 06/23/20 19:18 97.7 F 63 20 161/70 H 97 06/23/20 15:34 98 F 68 18 163/74 H 97 06/23/20 12:00 97.7 F 70 18 145/71 H 97 Body Mass Index 31.0 General: confused, alert no acute distress Resp: CTA bilateral CVS: S1,S2,RRR GI: soft, non tender, non distended Neuro: motor grossly intact Psych: impaired insight Objective Data Current Medications Generic Name Dose Route Start Last Admin Trade Name Freq PRN Reason Stop Dose Admin Acetaminophen 325 mg 06/20/20 19:52 06/23/20 15:11 Acetaminophen 325 Mg Tablet PO 325 mg QID PRN Administration Pain Albuterol Sulfate 1 puff 06/20/20 20:18 Albuterol Sulfate 90 Mcg 18 Gm Inhaler INHALE Q4H PRN Shortness Of Breath Amlodipine Besylate 5 mg 06/23/20 20:00 06/23/20 20:05 Amlodipine Besylate 5 Mg Tablet PO 5 mg DAILY@1999 [facility] Administration Protocol Apixaban 2.5 mg 06/22/20 20:00 06/24/20 08:01 Apixaban 5 Mg Tablet PO 2.5 mg BID@08 [facility] Administration Atorvastatin Calcium 80 mg 06/23/20 20:00 06/23/20 20:06 Atorvastatin Calcium 80 Mg Tablet PO 80 mg DAILY@1999 [facility] Administration Cyanocobalamin 2,000 mcg 06/23/20 15:00 06/23/20 15:10 Cyanocobalamin (Vitamin B-12) 1,000 Mcg Tablet PO 2,000 mcg DAILY@1500 [facility] Administration Fluticasone/Vilanterol 1 puff 06/21/20 08:00 06/24/20 09:37 Fluticasone/Vilanterol 100/25 Blst.W.Dev INHALE 1 puff RDAILY [facility] Administration Folic Acid 1 mg 06/23/20 15:00 06/23/20 15:11 Folic Acid 1 Mg Tablet PO 1 mg DAILY@1500 [facility] Administration Gabapentin 300 mg 06/22/20 20:00 06/24/20 08:06 Gabapentin 300 Mg Capsule PO 300 mg TID@0800,1499,1999 [facility] Administration Meropenem 1 gm/ Sodium 100 mls @ 100 mls/hr 06/24/20 10:00 Chloride IV Q12H [facility] Insulin Glargine 7 unit 06/20/20 23:00 06/23/20 21:34 Insulin Glargine,Hum.Rec.Anlog 100 Unit/Ml 10 Ml Vial SUBCUT 7 unit BEDTIME [facility] Administration Isosorbide Mononitrate 60 mg 06/23/20 08:00 06/24/20 08:02 Isosorbide Mononitrate 60 Mg Tab.Er.24h PO 60 mg DAILY@0800 [facility] Administration Protocol Methenamine Hippurate 1 gm 06/21/20 09:00 Methenamine Hippurate 1 Gm Tablet PO BID@799,1999 [facility] Metoprolol Succinate 100 mg 06/23/20 20:00 06/23/20 20:06 Metoprolol Succinate Er 100 Mg Tab.Er.24h PO 100 mg DAILY@1999 [facility] Administration Protocol Multivitamins/Vitamin C 1 tab 06/23/20 15:00 06/23/20 15:11 Multivitamin Tablet PO 1 tab DAILY@1500 [facility] Administration Nitroglycerin 0.4 mg 06/20/20 19:52 Nitroglycerin 0.4 Mg Tab.Subl SUBLINGUAL Q5M PRN Chest Pain Patient Own 20 each 06/21/20 17:00 06/23/20 16:40 Medication Novolog SUBCUT 20 each Mix 70/30 DAILY@1700 [facility] Administration Omeprazole 40 mg 06/21/20 06:30 06/24/20 05:41 Omeprazole 40 Mg Capsule.Dr PO 40 mg DAILY@0630 [facility] Administration Ondansetron HCl 4 mg 06/23/20 17:43 06/23/20 18:11 Ondansetron Hcl 4 Mg/2 Ml Vial IVPUSH 4 mg Q6H PRN Administration nausea Oxycodone HCl 5 mg 06/22/20 15:30 06/24/20 09:36 Oxycodone Hcl Immed Release 5 Mg Tablet PO 5 mg BID@0800,1999 PRN Administration Pain Pharmacy Consult 1 each 06/20/20 16:44 Consult Rx Perform Med Rec MISCELLANE ONCE PRN Consult order Prednisolone Acetate 1 drop 06/20/20 21:00 06/24/20 08:06 Prednisolone Acetate 1 % Oph Susp 5 Ml Drpbtl EYE-RIGHT 1 drop TID [facility] Administration Ropinirole HCl 0.25 mg 06/23/20 20:00 06/23/20 20:07 Ropinirole Hcl 0.25 Mg Tablet PO 0.25 mg DAILY@2000 [facility] Administration Sodium Chloride 3 ml 06/21/20 00:00 06/24/20 08:10 0.9 % Sodium Chloride Flush 3 Ml Syringe IVFLUSH 3 ml QSHIFT [facility] Administration Vitamin D 50 mcg 06/23/20 15:00 06/23/20 15:11 Cholecalciferol (Vitamin D3) 25 Mcg Tablet PO 50 mcg DAILY@1500 [facility] Administration Labs CBC & Chem 7: 06/24/20 06:00 06/24/20 06:00 Microbiology Microbiology Results: Microbiology 06/21/20 Unknown Urine clean catch - Clean Catch Midstream Urine Culture - Final Escherichia coli Assessment and Plan (1) Hypomagnesemia: Status: Acute (2) KAIN (acute kidney injury): Status: Acute (3) Chest pain: Status: Acute (4) Hydronephrosis: Problem details: patient only TURBT after Q problems results, can be done as an outpatient Status: Acute (5) Diabetes mellitus type 1: Status: Deleted (6) CAD (coronary artery disease): (7) Afib: (8) Hyponatremia: Status: Deleted Assessment and Plan: 79F presented with chest pain chest pain in the setting on known CAD and chronic systolic chf with recovered EF repeat troponin stable continue medical management, eliquis, statin, nitrate, beta vish KAIN on CKD improved, nephro appreciated, close to baseline hypomagnesemia replaced DM lantus for now, allergy to human insulin, novolog from home afib eliquis (decreased to 2.5 due to age and renal function), metoprolol htn amlodipine UTI urine culture growing ESBL ecoli, changed to meropenem today, follow up ID, follow up Bcx, plan for picc and 10day course bladder mass plan for biopsy in 2 weeks
--- NOTE | 2020-06-24 11:17 | PM.PNNEP ---
Subjective Subjective Interval history: no complaints, had suprapubic pain reported yesterday, but today denies. Physical Exam Vital Signs: Vital Signs: Vital Signs Temp Pulse Resp BP Pulse Ox 06/24/20 08:02 68 159/87 H 06/24/20 07:40 97.7 F 68 18 159/87 H 97 06/24/20 03:29 98.2 F 65 20 150/62 H 97 06/23/20 23:35 97.9 F 71 20 148/71 H 98 06/23/20 20:06 63 161/70 H 06/23/20 20:05 63 161/70 H 06/23/20 19:18 97.7 F 63 20 161/70 H 97 06/23/20 15:34 98 F 68 18 163/74 H 97 06/23/20 12:00 97.7 F 70 18 145/71 H 97 Body Mass Index 31.0 Const: General: no acute distress Neck: Neck: Yes no JVD Resp: Auscultation: diminished lung sounds Cardio: Heart sounds: S1 normal heart sound present and S2 normal heart sound present GI: Palpation (GI): Soft to palpation Neuro: General: moves all extremities Assessment & Plan Assessment and plan (1) KAIN (acute kidney injury): Problem details: Serum creatinine close to baseline Needs re imaging of kidney if creatinine goes up Continue current supportive care for now Urology closely following Status: Acute (2) Bladder mass: Status: Acute (3) Hydronephrosis: Problem details: patient only TURBT after Q problems results, can be done as an outpatient Status: Acute Time Spent With Patient Time: Total time spent is greater than 50% in coordination of care (as documented) at patient's floor/unit and/or counseling patient:
[2020-06-24 11:20] LABS: Glucose, Whole Blood 274 mg/dL (60-115)
[2020-06-24] MEDS: Acetaminophen 325 MG TABLET PO (12:39)
[2020-06-24] MEDS: Cyanocobalamin (Vitamin B-12) 1,000 MCG TABLET 2000 MCG PO (15:36)
[2020-06-24] MEDS: Cholecalciferol (Vitamin D3) 25 MCG TABLET 50 MCG PO (15:36)
[2020-06-24] MEDS: Folic Acid 1 MG TABLET PO (15:36)
[2020-06-24] MEDS: Multivitamin TABLET 1 TAB PO (15:36)
[2020-06-24 16:53] LABS: Glucose, Whole Blood 345 mg/dL (60-115)
[2020-06-24 21:09] LABS: Glucose, Whole Blood 230 mg/dL (60-115)
[2020-06-24] MEDS: amLODIPine Besylate 5 MG TABLET PO (21:11)
[2020-06-24] MEDS: Insulin Glargine,Hum.rec.anlog 100 UNIT/ML 10 ML VIAL 7 UNIT SUBCUT (21:11)
[2020-06-24] MEDS: Atorvastatin Calcium 80 MG TABLET PO (21:12)
[2020-06-24] MEDS: rOPINIRole HCL 0.25 MG TABLET PO (21:12)
[2020-06-24] MEDS: Metoprolol Succinate ER 100 MG TAB.ER.24H PO (21:12)
[2020-06-25] VITALS (10 sets, daily range): BP systolic 142–172; BP diastolic 63–75; PULSE 69–81; RESP 18–20; TEMP 36.4–37; O2SAT 94–98
[2020-06-25] MEDS: Omeprazole 40 MG CAPSULE.DR PO (05:43)
[2020-06-25 06:39] LABS: MANUAL DIFF FLAG NO
[2020-06-25 07:14] LABS: Basophils Absolute Auto 0.1 X10*3/uL (0.0-0.2); Basophils Percent Auto 0.4 % (0-2); Eosinophils Absolute Auto 0.2 X10*3/uL (0.0-0.4); Eosinophils Percent Auto 1.1 % (0-4); Hematocrit 30.2 % (37-47); Hemoglobin 9.6 g/dl (12.0-16.0); Imm Gran Abs Auto 0.12 X10*3/uL (0.00-0.03); Imm Gran Pct Auto 0.9 % (0.0-0.4); Lymphocytes Absolute Auto 0.8 X10*3/uL (1.2-4.9); Lymphocytes Percent Auto 5.5 % (20-40); Mean Corpuscular HGB Conc 31.8 g/dl (31.0-35.0); Mean Corpuscular Hemoglobin 27.4 pg (27.0-33.0); Mean Corpuscular Volume 86.3 fL (80-98); Mean Platelet Volume 10.8 fL (9.4-12.3); Monocytes Absolute Auto 1.1 X10*3/uL (0.1-1.2); Monocytes Percent Auto 8.2 % (2-11); Neutrophils Absolute Auto 11.6 X10*3/uL (2.0-8.3); Neutrophils Percent Auto 83.9 % (45-73); Platelet Count 308 X10*3/uL (160-400); Red Cell Distribution Width 13.8 % (11.0-16.0); White Blood Count 13.9 X10*3/uL (4.8-10.8)
[2020-06-25 07:31] LABS: Anion Gap 15 (12-20); Blood Urea Nitrogen 31 mg/dL (9-16); Calcium 8.1 mg/dL (8.4-10.2); Carbon Dioxide 20 mmol/L (22-29); Chloride 101 mmol/L (96-108); Creatinine Clr Calc Pharmacy 19.9; Estimated Glomerular Filt Rate 27; Glucose Fasting 238 mg/dL (60-99); Potassium 3.5 mmol/l (3.3-5.1); Sodium 132 mmol/L (135-145)
[2020-06-25 07:48] LABS: Glucose, Whole Blood 258 mg/dL (60-115)
[2020-06-25] MEDS: Apixaban 5 MG TABLET 2.5 MG PO ×2 (07:50→20:45)
[2020-06-25] MEDS: Gabapentin 300 MG CAPSULE PO ×3 (07:50→21:06)
[2020-06-25] MEDS: Isosorbide Mononitrate 60 MG TAB.ER.24H PO (07:50)
[2020-06-25] MEDS: 0.9 % Sodium Chloride Flush 3 ML SYRINGE IVFLUSH ×3 (07:51→23:53)
[2020-06-25] MEDS: prednisoLONE Acetate 1 % Oph Susp 5 ML DRPBTL 1 DROP EYE-RIGHT ×3 (07:51→21:57)
--- NOTE | 2020-06-25 08:51 | PM.PNNEP ---
Subjective Subjective Interval history: complains of bilateral hypogastric discomfort, no flank pain; no hematuria Physical Exam Vital Signs: Vital Signs: Vital Signs Temp Pulse Resp BP Pulse Ox 06/25/20 07:50 75 168/67 H 06/25/20 05:02 172/69 H 06/25/20 03:12 98.0 F 81 18 97 06/24/20 23:52 97.8 F 76 18 146/73 H 96 06/24/20 19:04 97.4 F 83 18 129/68 98 06/24/20 15:44 97.4 F 72 18 132/66 97 06/24/20 11:19 98.2 F 69 18 137/63 98 Body Mass Index 31.0 General: confused, alert no acute distress Resp: CTA bilateral CVS: S1,S2,RRR GI: soft, non tender, non distended Neuro: motor grossly intact Psych: impaired insight Const: General: cooperative, healthy appearing, comfortable and no acute distress Nutritional Appearance: average body habitus Orientation/consciousness: oriented to person, oriented to place and oriented to time Limitations: no limitations HENMT: Head: Yes normal to inspection Ears: hearing grossly normal bilaterally General nose exam: Normal external nose present Face and sinus: Yes normal facial exam Eyes: General: appearance normal, both eyes and all related structures EOM: EOMs intact bilaterally Neck: Neck: Yes normal visual inspection and Yes no JVD Chest: Chest palpation & inspection: normal inspection of the chest Resp: Effort & Inspection: normal respiratory effort Auscultation: clear to auscultation bilaterally, no crackles, no rales and diminished lung sounds Cardio: Rate: regular rate Rhythm: regular rhythm Heart sounds: S1 normal heart sound present and S2 normal heart sound present GI: Inspection: Yes normal to inspection Palpation (GI): Soft to palpation, nontender, no guarding, not rigid and No hepatosplenomegaly present : General: Yes no CVA tenderness Back/Spine/Pelvis: Back: no CVA tenderness Skin: General skin exam: no rashes or lesions noted Rashes: no rashes Wounds: no wounds Hair: normal Neuro: General: oriented to person, oriented to place, oriented to time and moves all extremities Extrem: General: Yes normal to inspection Right upper extremity: normal to inspection Right lower extremity: normal to inspection Left lower extremity: normal to inspection Assessment & Plan Assessment and plan (1) KAIN (acute kidney injury): Problem details: KAIN on CKD with unilateral hydronephrosis due to bladder tumor obstructing at Uv junction. If hydronephrosis persists and is new, recommend PCN on that side until tumor can be treated to regain renal function. Hyponatremia: monitor; would hold diuretics Mild metabolic acidosis: monitor for now off bicarb Bladder tumor Recommend: Renal US today: if hydro persists, discuss with urology and IR getting PCN tube placed Status: Acute (2) Bladder mass: Status: Acute (3) Hydronephrosis: Problem details: Obstructing tumor-repeat US and consider PCN tube placement-discuss with urology Status: Acute
[2020-06-25] MEDS: Fluticasone/Vilanterol 100/25 BLST.W.DEV 1 PUFF INHALE (10:34)
[2020-06-25] MEDS: oxyCODONE HCl Immed Release 5 MG TABLET PO (10:50)
[2020-06-25 11:48] LABS: Glucose, Whole Blood 234 mg/dL (60-115)
--- NOTE | 2020-06-25 13:23 | PM.IDPN ---
Subjective Subjective Date of Service: 06/25/20 Interval History: she has no complaints she is eating she has no Samuel Objective Data Labs CBC & Chem 7: 06/25/20 05:55 06/25/20 05:55 Labs: Laboratory Results - last 24 hr 06/24/20 06/24/20 06/25/20 16:42 20:59 05:55 WBC 13.9 H RBC 3.50 L Hgb 9.6 L Hct 30.2 L MCV 86.3 MCH 27.4 MCHC 31.8 RDW 13.8 Plt Count 308 MPV 10.8 Immature Gran % (Auto) 0.9 H Neut % (Auto) 83.9 H Lymph % (Auto) 5.5 L Mellette % (Auto) 8.2 Eos % (Auto) 1.1 Baso % (Auto) 0.4 Lymph # (Auto) 0.8 L Mellette # (Auto) 1.1 Eos # (Auto) 0.2 Baso # (Auto) 0.1 Abs Immat Gran (auto) 0.12 H Absolute Neuts (auto) 11.6 H Absolute Nucleated RBC 0.000 Nucleated RBC % (auto) 0.0 Sodium Potassium Chloride Carbon Dioxide Anion Gap BUN Creatinine Estim Creat Clear Calc Estimated GFR POC Glucose 345 H 230 H Fasting Glucose Calcium 06/25/20 06/25/20 06/25/20 05:55 07:39 11:41 WBC RBC Hgb Hct MCV MCH MCHC RDW Plt Count MPV Immature Gran % (Auto) Neut % (Auto) Lymph % (Auto) Mellette % (Auto) Eos % (Auto) Baso % (Auto) Lymph # (Auto) Mellette # (Auto) Eos # (Auto) Baso # (Auto) Abs Immat Gran (auto) Absolute Neuts (auto) Absolute Nucleated RBC Nucleated RBC % (auto) Sodium 132 L Potassium 3.5 Chloride 101 Carbon Dioxide 20 L Anion Gap 15 BUN 31 H Creatinine 1.80 H Estim Creat Clear Calc 19.9 Estimated GFR 27 POC Glucose 258 H 234 H Fasting Glucose 238 H D Calcium 8.1 L Microbiology Microbiology Results: Microbiology 06/23/20 17:16 Blood - Venous Blood Culture - Preliminary No growth after 24 hours. 06/23/20 17:10 Blood - Venous Blood Culture - Preliminary No growth after 24 hours. 06/21/20 Unknown Urine clean catch - Clean Catch Midstream Urine Culture - Final Escherichia coli Physical Exam Vital Signs: Vital Signs: Vital Signs Temp Pulse Resp BP Pulse Ox 06/25/20 11:23 97.6 F 70 20 168/66 H 95 06/25/20 08:00 97.6 F 75 20 168/67 H 96 06/25/20 07:50 75 168/67 H 06/25/20 05:02 172/69 H 06/25/20 03:12 98.0 F 81 18 97 06/24/20 23:52 97.8 F 76 18 146/73 H 96 06/24/20 19:04 97.4 F 83 18 129/68 98 06/24/20 15:44 97.4 F 72 18 132/66 97 Body Mass Index 31.0 Const: General: healthy appearing Orientation/consciousness: oriented to person and oriented to place HENMT: Head: Yes normal to inspection Eyes: General: appearance normal, both eyes and all related structures Resp: Effort & Inspection: normal respiratory effort Cardio: Rate: regular rate Rhythm: regular rhythm GI: Inspection: Yes normal to inspection : General: Yes no CVA tenderness Back/Spine/Pelvis: Back: no CVA tenderness Skin: General skin exam: no rashes or lesions noted Neuro: General: oriented to person and oriented to place Assessment and Plan Assessment and plan (1) UTI due to extended-spectrum beta lactamase (ESBL) producing Escherichia coli: Problem details: She has resistant UTI She has current symptoms of discomfort and lethargy but is improving Status: Acute Assessment and Plan: Would continue as outpatient Merem or preferably Ertapenem if covered for 14 days IV .5 mg IV Ertapenem No urinary recheck as may remain colonized Time Spent With Patient Time: Total time spent is greater than 50% in coordination of care (as documented) at patient's floor/unit and/or counseling patient: Time with patient: 15 - 24 minutes
--- NOTE | 2020-06-25 13:30 | P.PNIM_ITS ---
Subjective Subjective Date of Service: 06/25/20 Interval History: patient seen and examined at bedside patient reported being tired and patient is confused Physical Exam Vital Signs: Vital Signs: Vital Signs Temp Pulse Resp BP Pulse Ox 06/25/20 11:23 97.6 F 70 20 168/66 H 95 06/25/20 08:00 97.6 F 75 20 168/67 H 96 06/25/20 07:50 75 168/67 H 06/25/20 05:02 172/69 H 06/25/20 03:12 98.0 F 81 18 97 06/24/20 23:52 97.8 F 76 18 146/73 H 96 06/24/20 19:04 97.4 F 83 18 129/68 98 06/24/20 15:44 97.4 F 72 18 132/66 97 Body Mass Index 31.0 General: confused, alert no acute distress Resp: CTA bilateral CVS: S1,S2,RRR GI: soft, non tender, non distended Neuro: motor grossly intact Psych: impaired insight Objective Data Current Medications Generic Name Dose Route Start Last Admin Trade Name Freq PRN Reason Stop Dose Admin Acetaminophen 325 mg 06/20/20 19:52 06/24/20 12:39 Acetaminophen 325 Mg Tablet PO 325 mg QID PRN Administration Pain Albuterol Sulfate 1 puff 06/20/20 20:18 Albuterol Sulfate 90 Mcg 18 Gm Inhaler INHALE Q4H PRN Shortness Of Breath Amlodipine Besylate 5 mg 06/23/20 20:00 06/24/20 21:11 Amlodipine Besylate 5 Mg Tablet PO 5 mg DAILY@1999 [facility] Administration Protocol Apixaban 2.5 mg 06/22/20 20:00 06/25/20 07:50 Apixaban 5 Mg Tablet PO 2.5 mg BID@0800,1999 [facility] Administration Atorvastatin Calcium 80 mg 06/23/20 20:00 06/24/20 21:12 Atorvastatin Calcium 80 Mg Tablet PO 80 mg DAILY@1999 [facility] Administration Cyanocobalamin 2,000 mcg 06/23/20 15:00 06/24/20 15:36 Cyanocobalamin (Vitamin B-12) 1,000 Mcg Tablet PO 2,000 mcg DAILY@1500 [facility] Administration Fluticasone/Vilanterol 1 puff 06/21/20 08:00 06/25/20 10:34 Fluticasone/Vilanterol 100/25 Blst.W.Dev INHALE 1 puff RDAILY [facility] Administration Folic Acid 1 mg 06/23/20 15:00 06/24/20 15:36 Folic Acid 1 Mg Tablet PO 1 mg DAILY@1500 [facility] Administration Gabapentin 300 mg 06/22/20 20:00 06/25/20 07:50 Gabapentin 300 Mg Capsule PO 300 mg TID@0800,1499,1999 [facility] Administration Meropenem 500 mg/ Sodium 100 mls @ 200 mls/hr 06/24/20 11:00 06/25/20 11:53 Chloride IV Infused Q12H [facility] Infusion Insulin Glargine 7 unit 06/20/20 23:00 06/24/20 21:11 Insulin Glargine,Hum.Rec.Anlog 100 Unit/Ml 10 Ml Vial SUBCUT 7 unit BEDTIME [facility] Administration Isosorbide Mononitrate 60 mg 06/23/20 08:00 06/25/20 07:50 Isosorbide Mononitrate 60 Mg Tab.Er.24h PO 60 mg DAILY@08 [facility] Administration Protocol Methenamine Hippurate 1 gm 06/21/20 09:00 Methenamine Hippurate 1 Gm Tablet PO BID@799,1999 [facility] Metoprolol Succinate 100 mg 06/23/20 20:00 06/24/20 21:12 Metoprolol Succinate Er 100 Mg Tab.Er.24h PO 100 mg DAILY@1999 [facility] Administration Protocol Multivitamins/Vitamin C 1 tab 06/23/20 15:00 06/24/20 15:36 Multivitamin Tablet PO 1 tab DAILY@1500 [facility] Administration Nitroglycerin 0.4 mg 06/20/20 19:52 Nitroglycerin 0.4 Mg Tab.Subl SUBLINGUAL Q5M PRN Chest Pain Patient Own 20 each 06/21/20 17:00 06/24/20 16:47 Medication Novolog SUBCUT 20 each Mix 70/30 DAILY@1700 [facility] Administration Non-Formulary Medication 24 unit 06/25/20 16:30 Insulin Asp Prt-Insulin Aspart [Novolog Mix 70-30flexpen U-100] SUBCUT BIDAC [facility] Omeprazole 40 mg 06/21/20 06:30 06/25/20 05:43 Omeprazole 40 Mg Capsule.Dr PO 40 mg DAILY@0630 [facility] Administration Ondansetron HCl 4 mg 06/23/20 17:43 06/23/20 18:11 Ondansetron Hcl 4 Mg/2 Ml Vial IVPUSH 4 mg Q6H PRN Administration nausea Oxycodone HCl 5 mg 06/22/20 15:30 06/25/20 10:50 Oxycodone Hcl Immed Release 5 Mg Tablet PO 5 mg BID@0800,2000 PRN Administration Pain Pharmacy Consult 1 each 06/20/20 16:44 Consult Rx Perform Med Rec MISCELLANE ONCE PRN Consult order Prednisolone Acetate 1 drop 06/20/20 21:00 06/25/20 07:51 Prednisolone Acetate 1 % Oph Susp 5 Ml Drpbtl EYE-RIGHT 1 drop TID [facility] Administration Ropinirole HCl 0.25 mg 06/23/20 20:00 06/24/20 21:12 Ropinirole Hcl 0.25 Mg Tablet PO 0.25 mg DAILY@2000 [facility] Administration Sodium Chloride 3 ml 06/21/20 00:00 06/25/20 07:51 0.9 % Sodium Chloride Flush 3 Ml Syringe IVFLUSH 3 ml QSHIFT [facility] Administration Vitamin D 50 mcg 06/23/20 15:00 06/24/20 15:36 Cholecalciferol (Vitamin D3) 25 Mcg Tablet PO 50 mcg DAILY@1500 [facility] Administration Labs CBC & Chem 7: 06/25/20 05:55 06/25/20 05:55 Microbiology Microbiology Results: Microbiology 06/23/20 17:16 Blood - Venous Blood Culture - Preliminary No growth after 24 hours. 06/23/20 17:10 Blood - Venous Blood Culture - Preliminary No growth after 24 hours. 06/21/20 Unknown Urine clean catch - Clean Catch Midstream Urine Culture - Final Escherichia coli Assessment and Plan (1) Hypomagnesemia: Status: Acute (2) KAIN (acute kidney injury): Problem details: KAIN on CKD with unilateral hydronephrosis due to bladder tumor obstructing at Uv junction. If hydronephrosis persists and is new, recommend PCN on that side until tumor can be treated to regain renal function. Hyponatremia: monitor; would hold diuretics Mild metabolic acidosis: monitor for now off bicarb Bladder tumor Recommend: Renal US today: if hydro persists, discuss with urology and IR getting PCN tube placed Status: Acute (3) Chest pain: Status: Acute (4) Hydronephrosis: Problem details: Obstructing tumor-repeat US and consider PCN tube placement-discuss with urology Status: Acute (5) Diabetes mellitus type 1: Status: Deleted (6) Hyponatremia: Status: Deleted Assessment and Plan: 79F presented with chest pain UTI urine culture growing ESBL ecoli blood culture pending continue IV meropenem id follow-up requested chest pain in the setting on known CAD and chronic systolic chf with recovered E F no chest pain now repeat troponin stable continue medical management, eliquis, statin, nitrate, beta vish KAIN on CKD improved, nephro appreciated, close to baseline hypomagnesemia replaced DM continue home novalog 70/30 bid 24 units afib eliquis (decreased to 2.5 due to age and renal function), metoprolol htn amlodipine bladder mass plan for biopsy in 2 weeks will get whole body scan to rule out metastatic since DVT prophylaxis Eliquis
[2020-06-25] MEDS: Folic Acid 1 MG TABLET PO (15:23)
[2020-06-25] MEDS: Cyanocobalamin (Vitamin B-12) 1,000 MCG TABLET 2000 MCG PO (15:23)
[2020-06-25] MEDS: Cholecalciferol (Vitamin D3) 25 MCG TABLET 50 MCG PO (15:23)
[2020-06-25] MEDS: Multivitamin TABLET 1 TAB PO (15:23)
--- NOTE | 2020-06-25 16:10 | MHC.CM.PN ---
DP [facility] Care [facility]. CM will follow. transport will be [facility]
[2020-06-25 16:31] LABS: Glucose, Whole Blood 334 mg/dL (60-115)
[2020-06-25] MEDS: Albuterol/Iprat 2.5/0.5MG 3 ML AMPUL.NEB INHALE (17:16)
--- NOTE | 2020-06-25 17:21 | PC.NURSE ---
1630- PT NOTED TO BE MORE SOB. BREAK IN SPEECH WHEN TALKING. LUNG SOUNDS DIMINISHED WITH FINE CRACKLES IN BASES. 02 94% RA. DR. ARZATE MADE AWARE. NEBULIZER TREATMENTS ORDERED. PT GIVEN TREATMENT AT 1720. WILL CONTINUE TO MONITOR.
[2020-06-25] MEDS: Atorvastatin Calcium 80 MG TABLET PO (20:45)
[2020-06-25] MEDS: amLODIPine Besylate 5 MG TABLET PO (20:46)
[2020-06-25] MEDS: rOPINIRole HCL 0.25 MG TABLET PO (20:46)
[2020-06-25 20:49] LABS: Glucose, Whole Blood 305 mg/dL (60-115)
[2020-06-25] MEDS: Metoprolol Succinate ER 100 MG TAB.ER.24H PO (20:50)
[2020-06-25] MEDS: Insulin Glargine,Hum.rec.anlog 100 UNIT/ML 10 ML VIAL 7 UNIT SUBCUT (20:52)
[2020-06-26] VITALS (8 sets, daily range): BP systolic 122–169; BP diastolic 60–79; PULSE 67–96; RESP 16–20; TEMP 35.9–37.3; O2SAT 94–97
[2020-06-26] MEDS: Omeprazole 40 MG CAPSULE.DR PO (06:21)
[2020-06-26] MEDS: Isosorbide Mononitrate 60 MG TAB.ER.24H PO (07:16)
[2020-06-26] MEDS: oxyCODONE HCl Immed Release 5 MG TABLET PO (07:18)
[2020-06-26] MEDS: Gabapentin 300 MG CAPSULE PO ×3 (07:18→22:40)
[2020-06-26 07:22] LABS: Glucose, Whole Blood 154 mg/dL (60-115)
[2020-06-26] MEDS: 0.9 % Sodium Chloride Flush 3 ML SYRINGE IVFLUSH ×3 (07:24→23:34)
[2020-06-26] MEDS: prednisoLONE Acetate 1 % Oph Susp 5 ML DRPBTL 1 DROP EYE-RIGHT ×3 (07:25→22:40)
[2020-06-26] MEDS: Fluticasone/Vilanterol 100/25 BLST.W.DEV 1 PUFF INHALE (07:30)
--- NOTE | 2020-06-26 09:48 | NM_ITS ---
EXAMINATION: NM BONE SCAN OF THE WHOLE BODY CLINICAL INFORMATION: Bladder cancer. COMPARISON: No previous bone scan is available for comparison. A radiograph of the chest dated 06/21/2020 is available for comparison. The diagnostic CT scan of the abdomen and pelvis, dated 06/11/2020, is available for comparison. TECHNIQUE: Multiple gamma scintillation camera images of the whole body were performed 3 hours following the intravenous administration of 25 mCi Tc-99m MDP. FINDINGS: In the head, no significant abnormalities are present. In the thoracic cage and upper extremities, there is minimally increased activity acromioclavicular and sternoclavicular joints bilaterally. In the spine, no significant abnormalities are present. In the pelvis, no significant abnormalities are present. In the lower extremities, there is mildly increased activity in both knees, most prominently in the medial compartment of the right knee. No other definite bony abnormalities are noted. The urinary bladder and faint visualization of both kidneys are noted. The urinary bladder is distorted consistent with a large bladder mass visible on the 06/11/2020 CT scan. IMPRESSION: A few mild nonspecific abnormalities are noted as described above and these are all likely arthritic or traumatic in etiology. None of these abnormalities is strongly suspicious for metastatic disease.
[2020-06-26 10:06] LABS: Anion Gap 12 (12-20); Blood Urea Nitrogen 31 mg/dL (9-16); Carbon Dioxide 22 mmol/L (22-29); Chloride 104 mmol/L (96-108); Creatinine Clr Calc Pharmacy 19.4; Estimated Glomerular Filt Rate 26; Glucose Random 204 mg/dL (60-115); Potassium 3.8 mmol/l (3.3-5.1); Sodium 134 mmol/L (135-145)
[2020-06-26 11:33] LABS: Glucose, Whole Blood 339 mg/dL (60-115)
--- NOTE | 2020-06-26 12:21 | P.CDIC_ITS ---
CDI Concurrent Query Service Date: 06/26/20 Documentation Clarification: Please clarify if you are treating a proba ble/suspected/likely or confirmed: CKD, please specify stage 1 - 5 ESRD Provider Response: CKD Stage 3 PLEASE DO NOT DELETE/MODIFY EXISTING CONTENT Additional information is needed in order to code to the highest accuracy and appropriate Severity of Illness (SOI). Please clarify the information noted below in your progress notes and discharge summary. Risk Factors/Clinical Indicators/Treatments 79 year old female admitted with chest pain Admission BUN/Creatinine: 23/1.83 Seen by Nephrology and has baseline CKD Per prior Nephrology note on 06/12/20, CKD stage 3 Plan for Bladder Mass is biopsy in 2 weeks, and body scan CDS: Estelle Velazquez RN Contact Number: [phone] Please Review the information above and exercise your independent professional judgment in responding to the query. If you concur, pleas document in the PROGRESS NOTES and DISCHARGE SUMMARY. If you do not agree with the query, please document in the query above. THIS QUERY IS PART OF THE PERMANENT MEDICAL RECORD
--- NOTE | 2020-06-26 13:54 | HO.PM.IMPN ---
Subjective Subjective Date of Service: 06/26/20 Interval History: Patient seen and examined at bedside patient reported a rash in the groin Constitutional Constitutional: Reports weakness Cardiovascular Cardiovascular: Reports dyspnea Respiratory Respiratory: Reports dyspnea Neurologic Neurologic: Reports weakness Physical Exam Vital Signs: Vital Signs: Vital Signs Temp Pulse Resp BP Pulse Ox 06/26/20 12:03 97.1 F 72 20 169/79 H 97 06/26/20 08:11 96.7 F L 67 20 122/62 97 06/26/20 07:16 67 06/26/20 03:44 98.4 F 96 20 157/67 H 94 06/25/20 23:43 98.6 F 72 18 142/63 H 97 06/25/20 20:50 72 157/75 H 06/25/20 20:46 72 157/75 H 06/25/20 19:35 98.1 F 75 18 145/69 H 98 06/25/20 15:07 97.9 F 69 20 145/67 H 94 Body Mass Index 31.0 General: confused, alert no acute distress Resp: CTA bilateral CVS: S1,S2,RRR GI: soft, non tender, non distended Neuro: motor grossly intact Psych: impaired insight Objective Data Current Medications Generic Name Dose Route Start Last Admin Trade Name Freq PRN Reason Stop Dose Admin Acetaminophen 325 mg 06/20/20 19:52 06/24/20 12:39 Acetaminophen 325 Mg Tablet PO 325 mg QID PRN Administration Pain Albuterol Sulfate 1 puff 06/20/20 20:18 Albuterol Sulfate 90 Mcg 18 Gm Inhaler INHALE Q4H PRN Shortness Of Breath Albuterol/Ipratropium 3 ml 06/25/20 16:37 06/25/20 17:16 Albuterol/Iprat 2.5/0.5mg 3 Ml Ampul.Neb INHALE 3 ml RQ6H PRN Administration Shortness of Breath/Wheezing Amlodipine Besylate 5 mg 06/23/20 20:00 06/25/20 20:46 Amlodipine Besylate 5 Mg Tablet PO 5 mg DAILY@1999 [facility] Administration Protocol Atorvastatin Calcium 80 mg 06/23/20 20:00 06/25/20 20:45 Atorvastatin Calcium 80 Mg Tablet PO 80 mg DAILY@1999 [facility] Administration Cyanocobalamin 2,000 mcg 06/23/20 15:00 06/25/20 15:23 Cyanocobalamin (Vitamin B-12) 1,000 Mcg Tablet PO 2,000 mcg DAILY@1500 [facility] Administration Fluticasone/Vilanterol 1 puff 06/21/20 08:00 06/26/20 07:30 Fluticasone/Vilanterol 100/25 Blst.W.Dev INHALE 1 puff RDAILY [facility] Administration Folic Acid 1 mg 06/23/20 15:00 06/25/20 15:23 Folic Acid 1 Mg Tablet PO 1 mg DAILY@1500 [facility] Administration Gabapentin 300 mg 06/22/20 20:00 06/26/20 07:18 Gabapentin 300 Mg Capsule PO 300 mg TID@0800,1499,1999 [facility] Administration Meropenem 500 mg/ Sodium 100 mls @ 200 mls/hr 06/24/20 11:00 06/26/20 13:29 Chloride IV Infused Q12H [facility] Infusion Isosorbide Mononitrate 60 mg 06/23/20 08:00 06/26/20 07:16 Isosorbide Mononitrate 60 Mg Tab.Er.24h PO 60 mg DAILY@0800 [facility] Administration Protocol Metoprolol Succinate 100 mg 06/23/20 20:00 06/25/20 20:50 Metoprolol Succinate Er 100 Mg Tab.Er.24h PO 100 mg DAILY@1999 [facility] Administration Protocol Multivitamins/Vitamin C 1 tab 06/23/20 15:00 06/25/20 15:23 Multivitamin Tablet PO 1 tab DAILY@1500 [facility] Administration Nitroglycerin 0.4 mg 06/20/20 19:52 Nitroglycerin 0.4 Mg Tab.Subl SUBLINGUAL Q5M PRN Chest Pain Patient Own 24 each 06/25/20 17:00 06/26/20 07:21 Medication Novolog SUBCUT 24 each Mix 70/30 DAILY@0800,1700 [facility] Administration Omeprazole 40 mg 06/21/20 06:30 06/26/20 06:21 Omeprazole 40 Mg Capsule.Dr PO 40 mg DAILY@0630 [facility] Administration Ondansetron HCl 4 mg 06/23/20 17:43 06/23/20 18:11 Ondansetron Hcl 4 Mg/2 Ml Vial IVPUSH 4 mg Q6H PRN Administration nausea Oxycodone HCl 5 mg 06/22/20 15:30 06/26/20 07:18 Oxycodone Hcl Immed Release 5 Mg Tablet PO 5 mg BID@0800,1999 PRN Administration Pain Pharmacy Consult 1 each 06/20/20 16:44 Consult Rx Perform Med Rec MISCELLANE ONCE PRN Consult order Prednisolone Acetate 1 drop 06/20/20 21:00 06/26/20 07:25 Prednisolone Acetate 1 % Oph Susp 5 Ml Drpbtl EYE-RIGHT 1 drop TID [facility] Administration Ropinirole HCl 0.25 mg 06/23/20 20:00 06/25/20 20:46 Ropinirole Hcl 0.25 Mg Tablet PO 0.25 mg DAILY@1999 [facility] Administration Sodium Chloride 3 ml 06/21/20 00:00 06/26/20 07:24 0.9 % Sodium Chloride Flush 3 Ml Syringe IVFLUSH 3 ml QSHIFT [facility] Administration Vitamin D 50 mcg 06/23/20 15:00 06/25/20 15:23 Cholecalciferol (Vitamin D3) 25 Mcg Tablet PO 50 mcg DAILY@1500 [facility] Administration Labs CBC & Chem 7: 06/25/20 05:55 06/26/20 09:10 Microbiology Microbiology Results: Microbiology 06/23/20 17:16 Blood - Venous Blood Culture - Preliminary No growth after 48 hours. 06/23/20 17:10 Blood - Venous Blood Culture - Preliminary No growth after 48 hours. 06/21/20 Unknown Urine clean catch - Clean Catch Midstream Urine Culture - Final Escherichia coli Assessment and Plan (1) Hypomagnesemia: Status: Acute (2) KAIN (acute kidney injury): Problem details: Status: Acute (3) Chest pain: Status: Acute (4) Hydronephrosis: Status: Acute (5) Diabetes mellitus type 1: Status: Deleted (6) Hyponatremia: Status: Deleted Assessment and Plan: 79F presented with chest pain UTI urine culture growing ESBL ecoli blood culture pending continue IV meropenem id follow-up requested chest pain in the setting on known CAD and chronic systolic chf with recovered EF no chest pain now repeat troponin stable continue medical management, statin, nitrate, beta vish KAIN on CKD improved, nephro appreciated, close to baseline hypomagnesemia replaced and resolved DM continue home novalog 70/30 bid 24 units afib continue metoprolol hold Eliquis for TURP on htn amlodipine bladder mass with hydronephrosis seen by Urology plan for TURP on DVT prophylaxis Eliquis on hold for surgery on will start patient on Venodyne boot
[2020-06-26] MEDS: Multivitamin TABLET 1 TAB PO (15:15)
[2020-06-26] MEDS: Cholecalciferol (Vitamin D3) 25 MCG TABLET 50 MCG PO (15:15)
[2020-06-26] MEDS: Folic Acid 1 MG TABLET PO (15:15)
[2020-06-26] MEDS: Cyanocobalamin (Vitamin B-12) 1,000 MCG TABLET 2000 MCG PO (15:15)
--- NOTE | 2020-06-26 16:05 | MHC.CM.PN ---
RASHAD Met with AKILAH Rossi. Bone scan scheduled for today. Urological procedure 06/28/20. Update sent to [facility].
[2020-06-26 16:16] LABS: Glucose, Whole Blood 358 mg/dL (60-115)
--- NOTE | 2020-06-26 20:08 | PM.PNNEP ---
Subjective Subjective Interval history: Patient seen and examined at bedside No specific c/o's Physical Exam Vital Signs: Vital Signs: Vital Signs Temp Pulse Resp BP Pulse Ox 06/26/20 19:37 97.3 F 76 16 140/65 H 96 06/26/20 15:41 97.1 F 71 16 130/60 96 06/26/20 12:03 97.1 F 72 20 169/79 H 97 06/26/20 08:11 96.7 F L 67 20 122/62 97 06/26/20 07:16 67 06/26/20 03:44 98.4 F 96 20 157/67 H 94 06/25/20 23:43 98.6 F 72 18 142/63 H 97 06/25/20 20:50 72 157/75 H 06/25/20 20:46 72 157/75 H Body Mass Index 31.0 General: confused, alert no acute distress Resp: CTA bilateral CVS: S1,S2,RRR GI: soft, non tender, non distended Neuro: motor grossly intact Psych: impaired insight Const: General: cooperative, healthy appearing, comfortable and no acute distress Nutritional Appearance: average body habitus Orientation/consciousness: oriented to person, oriented to place and oriented to time Limitations: no limitations HENMT: Head: Yes normal to inspection Ears: hearing grossly normal bilaterally General nose exam: Normal external nose present Face and sinus: Yes normal facial exam Eyes: General: appearance normal, both eyes and all related structures EOM: EOMs intact bilaterally Neck: Neck: Yes normal visual inspection and Yes no JVD Chest: Chest palpation & inspection: normal inspection of the chest Resp: Effort & Inspection: normal respiratory effort Auscultation: clear to auscultation bilaterally, no crackles, no rales and diminished lung sounds Cardio: Rate: regular rate Rhythm: regular rhythm Heart sounds: S1 normal heart sound present and S2 normal heart sound present GI: Inspection: Yes normal to inspection Palpation (GI): Soft to palpation, nontender, no guarding, not rigid and No hepatosplenomegaly present : General: Yes no CVA tenderness Back/Spine/Pelvis: Back: no CVA tenderness Skin: General skin exam: no rashes or lesions noted Rashes: no rashes Wounds: no wounds Hair: normal Neuro: General: oriented to person, oriented to place, oriented to time and moves all extremities Extrem: General: Yes normal to inspection Right upper extremity: normal to inspection Right lower extremity: normal to inspection Left lower extremity: normal to inspection Assessment & Plan Assessment and plan (1) Hypomagnesemia: Status: Acute (2) KAIN (acute kidney injury): Problem details: Status: Acute (3) Chest pain: Status: Acute (4) Hydronephrosis: Status: Acute (5) Diabetes mellitus type 1: Status: Deleted (6) Hyponatremia: Status: Deleted Assessment and Plan: 79F presented with chest pain and CKD 3/4 in setting of chronic R hydro with bladder mass KAIN: c/w OBs R kidney ..suspect at new bsl CKD 3/4: Obs and recurrent KAIN and Obs of R kidney UTI: on Abx R Obs with bladder mass: scheduled cysto; unclear if R Obs can be unobstructed from cysto vs need for R Ntube/antegrade stentiing HTN REC: cont tot track renal func/UOP; avoid NToxins Time Spent With Patient Time: Total time spent is greater than 50% in coordination of care (as documented) at patient's floor/unit and/or counseling patient:
[2020-06-26 21:04] LABS: Glucose, Whole Blood 246 mg/dL (60-115)
[2020-06-26] MEDS: Metoprolol Succinate ER 100 MG TAB.ER.24H PO (22:35)
[2020-06-26] MEDS: amLODIPine Besylate 5 MG TABLET PO (22:35)
[2020-06-26] MEDS: Atorvastatin Calcium 80 MG TABLET PO (22:36)
[2020-06-26] MEDS: rOPINIRole HCL 0.25 MG TABLET PO (22:36)
[2020-06-27] VITALS (8 sets, daily range): BP systolic 126–167; BP diastolic 60–78; PULSE 70–77; RESP 16–20; TEMP 36.6–37.3; O2SAT 96–98
[2020-06-27] MEDS: Omeprazole 40 MG CAPSULE.DR PO (05:52)
[2020-06-27 06:28] LABS: MANUAL DIFF FLAG NO
[2020-06-27 06:45] LABS: Basophils Absolute Auto 0.1 X10*3/uL (0.0-0.2); Basophils Percent Auto 0.6 % (0-2); Eosinophils Absolute Auto 0.2 X10*3/uL (0.0-0.4); Eosinophils Percent Auto 1.6 % (0-4); Hemoglobin 9.4 g/dl (12.0-16.0); Imm Gran Abs Auto 0.22 X10*3/uL (0.00-0.03); Imm Gran Pct Auto 1.6 % (0.0-0.4); Lymphocytes Absolute Auto 1.2 X10*3/uL (1.2-4.9); Lymphocytes Percent Auto 8.8 % (20-40); Mean Corpuscular HGB Conc 32.4 g/dl (31.0-35.0); Mean Corpuscular Hemoglobin 27.6 pg (27.0-33.0); Mean Platelet Volume 10.7 fL (9.4-12.3); Monocytes Absolute Auto 1.4 X10*3/uL (0.1-1.2); Monocytes Percent Auto 9.6 % (2-11); Neutrophils Percent Auto 77.8 % (45-73); Platelet Count 340 X10*3/uL (160-400); Red Blood Count 3.41 X10*6/uL (4.20-5.50); Red Cell Distribution Width 13.9 % (11.0-16.0); White Blood Count 14.1 X10*3/uL (4.8-10.8)
[2020-06-27 07:37] LABS: Glucose, Whole Blood 142 mg/dL (60-115)
[2020-06-27] MEDS: Isosorbide Mononitrate 60 MG TAB.ER.24H PO (07:39)
[2020-06-27] MEDS: prednisoLONE Acetate 1 % Oph Susp 5 ML DRPBTL 1 DROP EYE-RIGHT ×3 (07:40→21:09)
[2020-06-27] MEDS: Gabapentin 300 MG CAPSULE PO ×3 (07:40→21:11)
[2020-06-27] MEDS: Acetaminophen 325 MG TABLET PO ×2 (08:50→21:25)
[2020-06-27] MEDS: Fluticasone/Vilanterol 100/25 BLST.W.DEV 1 PUFF INHALE (09:08)
[2020-06-27 11:33] LABS: Glucose, Whole Blood 236 mg/dL (60-115)
--- NOTE | 2020-06-27 12:45 | MHC.CM.PN ---
Patient has not yet been medically cleared for dc. The goal for dc is STR @ [facility]. will continue to follow.
[2020-06-27] MEDS: 0.9 % Sodium Chloride Flush 3 ML SYRINGE IVFLUSH ×2 (13:07→15:49)
[2020-06-27] MEDS: Cyanocobalamin (Vitamin B-12) 1,000 MCG TABLET 2000 MCG PO (14:08)
[2020-06-27] MEDS: Cholecalciferol (Vitamin D3) 25 MCG TABLET 50 MCG PO (14:08)
[2020-06-27] MEDS: Multivitamin TABLET 1 TAB PO (14:08)
[2020-06-27] MEDS: Folic Acid 1 MG TABLET PO (14:08)
--- NOTE | 2020-06-27 14:57 | P.PNIM_ITS ---
Subjective Subjective Interval History: Patient seen and examined at bedside patient reported weakness Constitutional Constitutional: Reports weakness Cardiovascular Cardiovascular: Reports no additional cardiovascular complaints Neurologic Neurologic: Reports weakness Physical Exam Vital Signs: Vital Signs: Vital Signs Temp Pulse Resp BP Pulse Ox 06/27/20 11:18 98.2 F 70 19 130/60 97 06/27/20 07:12 98.1 F 74 19 146/66 H 98 06/27/20 04:00 98.9 F 74 20 126/74 96 06/26/20 23:27 99.2 F 72 20 148/70 H 94 06/26/20 22:35 80 06/26/20 19:37 97.3 F 76 16 140/65 H 96 06/26/20 15:41 97.1 F 71 16 130/60 96 Body Mass Index 31.0 General: confused, alert no acute distress Resp: CTA bilateral CVS: S1,S2,RRR GI: soft, non tender, non distended Neuro: motor grossly intact Psych: impaired insight Objective Data Current Medications Generic Name Dose Route Start Last Admin Trade Name Freq PRN Reason Stop Dose Admin Acetaminophen 325 mg 06/20/20 19:52 06/27/20 08:50 Acetaminophen 325 Mg Tablet PO 325 mg QID PRN Administration Pain Albuterol Sulfate 1 puff 06/20/20 20:18 Albuterol Sulfate 90 Mcg 18 Gm Inhaler INHALE Q4H PRN Shortness Of Breath Albuterol/Ipratropium 3 ml 06/25/20 16:37 06/25/20 17:16 Albuterol/Iprat 2.5/0.5mg 3 Ml Ampul.Neb INHALE 3 ml RQ6H PRN Administration Shortness of Breath/Wheezing Amlodipine Besylate 5 mg 06/23/20 20:00 06/26/20 22:35 Amlodipine Besylate 5 Mg Tablet PO 5 mg DAILY@1999 [facility] Administration Protocol Atorvastatin Calcium 80 mg 06/23/20 20:00 06/26/20 22:36 Atorvastatin Calcium 80 Mg Tablet PO 80 mg DAILY@1999 [facility] Administration Cyanocobalamin 2,000 mcg 06/23/20 15:00 06/27/20 14:08 Cyanocobalamin (Vitamin B-12) 1,000 Mcg Tablet PO 2,000 mcg DAILY@1500 [facility] Administration Fluticasone/Vilanterol 1 puff 06/21/20 08:00 06/27/20 09:08 Fluticasone/Vilanterol 100/25 Blst.W.Dev INHALE 1 puff RDAILY [facility] Administration Folic Acid 1 mg 06/23/20 15:00 06/27/20 14:08 Folic Acid 1 Mg Tablet PO 1 mg DAILY@1500 [facility] Administration Gabapentin 300 mg 06/22/20 20:00 06/27/20 14:10 Gabapentin 300 Mg Capsule PO 300 mg TID@0800,1499,1999 [facility] Administration Meropenem 500 mg/ Sodium 100 mls @ 200 mls/hr 06/24/20 11:00 06/27/20 12:56 Chloride IV Infused Q12H [facility] Infusion Isosorbide Mononitrate 60 mg 06/23/20 08:00 06/27/20 07:39 Isosorbide Mononitrate 60 Mg Tab.Er.24h PO 60 mg DAILY@08 [facility] Administration Protocol Metoprolol Succinate 100 mg 06/23/20 20:00 06/26/20 22:35 Metoprolol Succinate Er 100 Mg Tab.Er.24h PO 100 mg DAILY@1999 [facility] Administration Protocol Multivitamins/Vitamin C 1 tab 06/23/20 15:00 06/27/20 14:08 Multivitamin Tablet PO 1 tab DAILY@1500 [facility] Administration Nitroglycerin 0.4 mg 06/20/20 19:52 Nitroglycerin 0.4 Mg Tab.Subl SUBLINGUAL Q5M PRN Chest Pain Patient Own 24 each 06/25/20 17:00 06/27/20 08:52 Medication Novolog SUBCUT 24 each Mix 70/30 DAILY@0800,1700 [facility] Administration Nystatin 1 appl 06/27/20 21:00 Nystatin Ointment 15 Gm Tube TOPICAL BID [facility] Protocol Omeprazole 40 mg 06/21/20 06:30 06/27/20 05:52 Omeprazole 40 Mg Capsule.Dr PO 40 mg DAILY@0630 [facility] Administration Ondansetron HCl 4 mg 06/23/20 17:43 06/23/20 18:11 Ondansetron Hcl 4 Mg/2 Ml Vial IVPUSH 4 mg Q6H PRN Administration nausea Oxycodone HCl 5 mg 06/22/20 15:30 06/26/20 07:18 Oxycodone Hcl Immed Release 5 Mg Tablet PO 5 mg BID@799,1999 PRN Administration Pain Pharmacy Consult 1 each 06/20/20 16:44 Consult Rx Perform Med Rec MISCELLANE ONCE PRN Consult order Prednisolone Acetate 1 drop 06/20/20 21:00 06/27/20 14:09 Prednisolone Acetate 1 % Oph Susp 5 Ml Drpbtl EYE-RIGHT 1 drop TID [facility] Administration Ropinirole HCl 0.25 mg 06/23/20 20:00 06/26/20 22:36 Ropinirole Hcl 0.25 Mg Tablet PO 0.25 mg DAILY@2000 [facility] Administration Sodium Chloride 3 ml 06/21/20 00:00 06/27/20 13:07 0.9 % Sodium Chloride Flush 3 Ml Syringe IVFLUSH 3 ml QSHIFT [facility] Administration Vitamin D 50 mcg 06/23/20 15:00 06/27/20 14:08 Cholecalciferol (Vitamin D3) 25 Mcg Tablet PO 50 mcg DAILY@1500 [facility] Administration Labs CBC & Chem 7: 06/27/20 05:46 06/26/20 09:10 Microbiology Microbiology Results: Microbiology 06/23/20 17:16 Blood - Venous Blood Culture - Preliminary No growth after 48 hours. 06/23/20 17:10 Blood - Venous Blood Culture - Preliminary No growth after 48 hours. 06/21/20 Unknown Urine clean catch - Clean Catch Midstream Urine Culture - Final Escherichia coli Assessment and Plan (1) Hypomagnesemia: Status: Acute (2) KAIN (acute kidney injury): Problem details: Status: Acute (3) Chest pain: Status: Acute (4) Hydronephrosis: Status: Acute (5) Diabetes mellitus type 1: Status: Deleted (6) Hyponatremia: Status: Deleted Assessment and Plan: 79F presented with chest pain UTI urine culture growing ESBL ecoli blood culture pending continue IV meropenem D 12/15 id follow-up requested chest pain in the setting on known CAD and chronic systolic chf with recovered EF no chest pain now repeat troponin stable continue medical management, statin, nitrate, beta vish KAIN on CKD improved, nephro appreciated, close to baseline hypomagnesemia replaced and resolved DM continue home novalog 70/30 bid 24 units afib continue metoprolol hold Eliquis for TURP on htn amlodipine bladder mass with hydronephrosis seen by Urology plan for TURP on Will get Cardiology consult for preop clearance per urology DVT prophylaxis Eliquis on hold for surgery on will start patient on Venodyne boot
[2020-06-27 16:27] LABS: Glucose, Whole Blood 189 mg/dL (60-115)
--- NOTE | 2020-06-27 18:11 | P.PNNP_ITS ---
Subjective Subjective Interval history: Patient seen and examined at bedside gen weakness Physical Exam Vital Signs: Vital Signs: Vital Signs Temp Pulse Resp BP Pulse Ox 06/27/20 15:24 99.1 F 70 16 155/68 H 96 06/27/20 11:18 98.2 F 70 19 130/60 97 06/27/20 07:12 98.1 F 74 19 146/66 H 98 06/27/20 04:00 98.9 F 74 20 126/74 96 06/26/20 23:27 99.2 F 72 20 148/70 H 94 06/26/20 22:35 80 06/26/20 19:37 97.3 F 76 16 140/65 H 96 Body Mass Index 31.0 General: confused, alert no acute distress Resp: CTA bilateral CVS: S1,S2,RRR GI: soft, non tender, non distended Neuro: motor grossly intact Psych: impaired insight Const: General: cooperative, healthy appearing, comfortable and no acute distress Nutritional Appearance: average body habitus Or ientation/consciousness: oriented to person, oriented to place and oriented to time Limitations: no limitations HENMT: Head: Yes normal to inspection Ears: hearing grossly normal bilaterally General nose exam: Normal external nose present Face and sinus: Yes normal facial exam Eyes: General: appearance normal, both eyes and all related structures EOM: EOMs intact bilaterally Neck: Neck: Yes normal visual inspection and Yes no JVD Chest: Chest palpation & inspection: normal inspection of the chest Resp: Effort & Inspection: normal respiratory effort Auscultation: clear to auscultation bilaterally, no crackles, no rales and diminished lung sounds Cardio: Rate: regular rate Rhythm: regular rhythm Heart sounds: S1 normal heart sound present and S2 normal heart sound present GI: Inspection: Yes normal to inspection Palpation (GI): Soft to palpation, nontender, no guarding, not rigid and No hepatosplenomegaly present : General: Yes no CVA tenderness Back/Spine/Pelvis: Back: no CVA tenderness Skin: General skin exam: no rashes or lesions noted Rashes: no rashes Wounds: no wounds Hair: normal Neuro: General: oriented to person, oriented to place, oriented to time and moves all extremities Extrem: General: Yes normal to inspection Right upper extremity: normal to inspection Right lower extremity: normal to inspection Left lower extremity: normal to inspection Assessment & Plan Assessment and plan (1) Hypomagnesemia: Status: Acute (2) KAIN (acute kidney injury): Problem details: Status: Acute (3) Chest pain: Status: Acute (4) Hydronephrosis: Status: Acute (5) Diabetes mellitus type 1: Status: Deleted (6) Hyponatremia: Status: Deleted Assessment and Plan: 79F presented with chest pain and CKD 3/4 in setting of chronic R hydro with bladder mass KAIN: c/w OBs R kidney ..suspect at new bsl CKD 3/4: Obs and recurrent KAIN and Obs of R kidney UTI: on Abx R Obs with bladder mass: scheduled cysto; unclear if R Obs can be unobstructed from cysto vs need for R Ntube/antegrade stentiing HTN REC: cont to track renal func/UOP; avoid NToxins; if renal func worsens may need to re-eval pros/cons intervention to unobstruct R Kidney Time Spent With Patient Time: Total time spent is greater than 50% in coordination of care (as documented) at patient's floor/unit and/or counseling patient:
[2020-06-27 20:04] LABS: Glucose, Whole Blood 173 mg/dL (60-115)
[2020-06-27] MEDS: amLODIPine Besylate 5 MG TABLET PO (21:07)
[2020-06-27] MEDS: Atorvastatin Calcium 80 MG TABLET PO (21:08)
[2020-06-27] MEDS: Metoprolol Succinate ER 100 MG TAB.ER.24H PO (21:08)
[2020-06-27] MEDS: rOPINIRole HCL 0.25 MG TABLET PO (21:09)
[2020-06-27] MEDS: Nystatin Ointment 15 GM TUBE 1 APPL TOPICAL (21:09)
[2020-06-27] MEDS: oxyCODONE HCl Immed Release 5 MG TABLET PO (21:49)
[2020-06-28] VITALS (10 sets, daily range): BP systolic 126–184; BP diastolic 62–79; PULSE 62–90; RESP 18–20; TEMP 36.1–37.1; O2SAT 94–99
[2020-06-28] MEDS: 0.9 % Sodium Chloride Flush 3 ML SYRINGE IVFLUSH ×3 (01:16→20:00)
[2020-06-28 07:47] LABS: Glucose, Whole Blood 98 mg/dL (60-115)
[2020-06-28] MEDS: Fluticasone/Vilanterol 100/25 BLST.W.DEV 1 PUFF INHALE (07:49)
[2020-06-28] MEDS: Isosorbide Mononitrate 60 MG TAB.ER.24H PO (08:41)
--- NOTE | 2020-06-28 08:42 | PM.UROPN ---
Subjective Subjective Patient reports: no new complaints Interval history: seen Doing fine Planning on TURBT this afternoon Physical Exam Vital Signs: Vital Signs: Vital Signs Temp Pulse Resp BP Pulse Ox 06/28/20 08:25 98.7 F 63 18 126/62 95 06/28/20 03:46 97.8 F 62 18 170/75 H 95 06/27/20 23:43 98.7 F 73 18 167/73 H 97 06/27/20 21:08 77 139/78 06/27/20 21:07 77 139/78 06/27/20 18:59 97.8 F 77 16 139/78 96 06/27/20 15:24 99.1 F 70 16 155/68 H 96 06/27/20 11:18 98.2 F 70 19 130/60 97 Body Mass Index 31.0 Const: General: cooperative, healthy appearing, comfortable and no acute distress Nutritional Appearance: average body habitus Orientation/consciousness: oriented to person, oriented to place and oriented to time Eyes: General: appearance normal, both eyes and all related structures Chest: Chest palpation & inspection: normal inspection of the chest Resp: Effort & Inspection: normal respiratory effort Cardio: Rate: regular rate GI: Inspection: Yes normal to inspection Skin: Hair: normal Neuro: General: oriented to person, oriented to place and oriented to time Extrem: General: Yes normal to inspection Progress Note: A&P Assessment and plan (1) Bladder mass: Status: Acute Assessment and Plan: plan for OR today. TURBT with possible stenting. Fall Risk Details Current Medications: Current Medications Generic Name Dose Route Start Last Admin Trade Name Freq PRN Reason Stop Dose Admin Acetaminophen 325 mg 06/20/20 19:52 06/27/20 21:25 Acetaminophen 325 Mg Tablet PO 325 mg QID PRN Administration Pain Albuterol Sulfate 1 puff 06/20/20 20:18 Albuterol Sulfate 90 Mcg 18 Gm Inhaler INHALE Q4H PRN Shortness Of Breath Albuterol/Ipratropium 3 ml 06/25/20 16:37 06/25/20 17:16 Albuterol/Iprat 2.5/0.5mg 3 Ml Ampul.Neb INHALE 3 ml RQ6H PRN Administration Shortness of Breath/Wheezing Amlodipine Besylate 5 mg 06/23/20 20:00 06/27/20 21:07 Amlodipine Besylate 5 Mg Tablet PO 5 mg DAILY@1999 [facility] Administration Protocol Atorvastatin Calcium 80 mg 06/23/20 20:00 06/27/20 21:08 Atorvastatin Calcium 80 Mg Tablet PO 80 mg DAILY@1999 [facility] Administration Cyanocobalamin 2,000 mcg 06/23/20 15:00 06/27/20 14:08 Cyanocobalamin (Vitamin B-12) 1,000 Mcg Tablet PO 2,000 mcg DAILY@1500 [facility] Administration Fluticasone/Vilanterol 1 puff 06/21/20 08:00 06/28/20 07:49 Fluticasone/Vilanterol 100/25 Blst.W.Dev INHALE 1 puff RDAILY [facility] Administration Folic Acid 1 mg 06/23/20 15:00 06/27/20 14:08 Folic Acid 1 Mg Tablet PO 1 mg DAILY@1500 [facility] Administration Gabapentin 300 mg 06/22/20 20:00 06/27/20 21:11 Gabapentin 300 Mg Capsule PO 300 mg TID@0800,1499,1999 [facility] Administration Meropenem 500 mg/ Sodium 100 mls @ 200 mls/hr 06/24/20 11:00 06/28/20 01:16 Chloride IV Infused Q12H [facility] Infusion Isosorbide Mononitrate 60 mg 06/23/20 08:00 06/27/20 07:39 Isosorbide Mononitrate 60 Mg Tab.Er.24h PO 60 mg DAILY@08 [facility] Administration Protocol Metoprolol Succinate 100 mg 06/23/20 20:00 06/27/20 21:08 Metoprolol Succinate Er 100 Mg Tab.Er.24h PO 100 mg DAILY@1999 [facility] Administration Protocol Multivitamins/Vitamin C 1 tab 06/23/20 15:00 06/27/20 14:08 Multivitamin Tablet PO 1 tab DAILY@1500 [facility] Administration Nitroglycerin 0.4 mg 06/20/20 19:52 Nitroglycerin 0.4 Mg Tab.Subl SUBLINGUAL Q5M PRN Chest Pain Patient Own 24 each 06/25/20 17:00 06/27/20 16:53 Medication Novolog SUBCUT 24 each Mix 70/30 DAILY@0800,1700 [facility] Administration Nystatin 1 appl 06/27/20 21:00 06/27/20 21:09 Nystatin Ointment 15 Gm Tube TOPICAL 1 appl BID [facility] Administration Protocol Omeprazole 40 mg 06/21/20 06:30 06/28/20 06:32 Omeprazole 40 Mg Capsule.Dr PO Not Given DAILY@0630 [facility] Ondansetron HCl 4 mg 06/23/20 17:43 06/23/20 18:11 Ondansetron Hcl 4 Mg/2 Ml Vial IVPUSH 4 mg Q6H PRN Administration nausea Pharmacy Consult 1 each 06/20/20 16:44 Consult Rx Perform Med Rec MISCELLANE ONCE PRN Consult order Prednisolone Acetate 1 drop 06/20/20 21:00 06/27/20 21:09 Prednisolone Acetate 1 % Oph Susp 5 Ml Drpbtl EYE-RIGHT 1 drop TID [facility] Administration Ropinirole HCl 0.25 mg 06/23/20 20:00 06/27/20 21:09 Ropinirole Hcl 0.25 Mg Tablet PO 0.25 mg DAILY@2000 [facility] Administration Sodium Chloride 3 ml 06/21/20 00:00 06/28/20 01:16 0.9 % Sodium Chloride Flush 3 Ml Syringe IVFLUSH 3 ml QSHIFT [facility] Administration Vitamin D 50 mcg 06/23/20 15:00 06/27/20 14:08 Cholecalciferol (Vitamin D3) 25 Mcg Tablet PO 50 mcg DAILY@1500 [facility] Administration Time Spent With Patient Time: Total time spent is greater than 50% in coordination of care (as documented) at patient's floor/unit and/or counseling patient: Time with patient: less than 15 minutes
[2020-06-28] MEDS: Nystatin Ointment 15 GM TUBE 1 APPL TOPICAL ×2 (08:43→20:02)
[2020-06-28] MEDS: Gabapentin 300 MG CAPSULE PO ×2 (08:43→19:57)
[2020-06-28] MEDS: prednisoLONE Acetate 1 % Oph Susp 5 ML DRPBTL 1 DROP EYE-RIGHT ×2 (08:44→20:02)
--- NOTE | 2020-06-28 09:58 | PM.CNCAR ---
History of Present Illness History of Present Illness Date of Consult: June 28, 2020 Requesting physician: Luis Fernando Frias Chief complaint: perioperative cardiovascular risk assessment Narrative: 79-year-old female who has a background history of coronary artery disease with coronary artery bypass surgery x3. She had bypass surgery in February [address] Smith and had MITCHELL to LAD and saphenous vein graft to RPDA and OM 1. she also had left atrial appendage clip ligation. She has atrial fibrillation and has been on chronic Eliquis. She also has hypertension, hyperlipidemia, diabetes, bilateral carotid stenosis, stroke and frequent UTIs. 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 she is here with the ESBL UTI and has been found to have a mass in the bladder. She is being assessed for TURBT. She is quite confused currently and could not give much history. She is denying chest discomfort, shortness of breath. Her main complaint right now is lower abdominal pain. No other symptoms right now. Review of Systems Review of Systems: Abdominal pain Yes all other systems are reviewed and are negative Constitutional: Constitutional: Reports weakness Neurologic: Reports weakness [facility] Past Medical History Medical History (Updated 06/28/20 @ 10:08 by Aleksandar Strauss MD) Afib Bacteriuria Bacteriuria Bladder mass CAD (coronary artery disease) Chronic diastolic heart failure COPD (chronic obstructive pulmonary disease) CVA (cerebral vascular accident) GERD (gastroesophageal reflux disease) Hypercholesteremia Hypertension Leg swelling Obesity Toxic metabolic encephalopathy Social History Social History Alcohol intake: former Smoking Status: Former smoker service: No Current occupational status: retired Meds Allergies Allergy/AdvReac Type Severity Reaction Status Date / Time phenobarbital [PHENOBARBITAL] Allergy Mild HIVES Verified 06/11/20 21:44 fentanyl [FENTANYL] Allergy Unknown HALLUCINATI Verified 06/11/20 21:44 ONS insulin lispro [From HUMALOG] Allergy Unknown RASH Verified 06/11/20 21:44 morphine [MORPHINE] Allergy Unknown HALLUCINATI Verified 06/11/20 21:44 ON Sulfa (Sulfonamide Allergy Unknown Unknown Verified 06/11/20 21:44 Antibiotics) sulfamethoxazole Allergy Unknown UNKNOWN Verified 06/11/20 21:44 [From BACTRIM] trimethoprim [From BACTRIM] Allergy Unknown UNKNOWN Verified 06/11/20 21:44 diazepam [DIAZEPAM] AdvReac Unknown CRY Verified 06/11/20 21:44 Home Medications Medication Instructions Recorded Confirmed Type Combivent Respimat 1 puff INHALATION QID PRN 06/12/20 06/20/20 History Eliquis 5 mg PO BID@0800,199906/12/20 06/22/20 History Novolog Mix 70-30FlexPen U-100 24 units SUBCUT BEDTIME 06/12/20 06/22/20 History acetaminophen [Tylenol] 325 mg PO QID PRN 06/12/20 06/20/20 History albuterol 1 mcg INHALATION Q4H PRN 06/12/20 06/20/20 History amlodipine 2.5 mg PO Q2D@199906/12/20 06/22/20 History amlodipine 5 mg PO Q2D@199906/12/20 06/22/20 History atorvastatin 80 mg PO DAILY@199906/12/20 06/22/20 History cholecalciferol (vitamin D3) 50 mcg PO DAILY@149906/12/20 06/22/20 History cyanocobalamin (vitamin B-12) 2,000 mcg PO DAILY@149906/12/20 06/22/20 History [Vitamin B-12] fluticasone propion-salmeterol 1 inh INHALATION BID 06/12/20 06/20/20 History [Advair Diskus] gabapentin 300 mg PO TID@0800,1499,199906/12/20 06/22/20 History isosorbide mononitrate 60 mg PO DAILY@0800 06/12/20 06/22/20 History methenamine hippurate 1 g PO BID@0800,199906/12/20 06/22/20 History metoprolol succinate 100 mg PO DAILY@199906/12/20 06/22/20 History multivitamin 1 tab PO DAILY@149906/12/20 06/22/20 History pantoprazole 40 mg PO DAILY@0630 06/12/20 06/22/20 History prednisolone acetate 1 drp OPHTHALMIC-RIGHT TID 06/12/20 06/20/20 History ropinirole 0.25 mg PO DAILY@199906/12/20 06/22/20 History cefpodoxime 50 mg PO DAILY 06/22/20 06/22/20 History folic acid 0.4 mg PO DAILY@1500 06/22/20 06/22/20 History insulin asp prt-insulin aspart 26 unit SUBCUT DAILY 06/22/20 06/22/20 History [Novolog Mix 70-30FlexPen U-100] oxycodone 5 mg PO BID@0800,2000 06/22/20 06/22/20 History Physical Exam Vital Signs: Vital Signs: Vital Signs Temp Pulse Resp BP Pulse Ox 06/28/20 08:25 98.7 F 63 18 126/62 95 06/28/20 03:46 97.8 F 62 18 170/75 H 95 06/27/20 23:43 98.7 F 73 18 167/73 H 97 06/27/20 21:08 77 139/78 06/27/20 21:07 77 139/78 06/27/20 18:59 97.8 F 77 16 139/78 96 06/27/20 15:24 99.1 F 70 16 155/68 H 96 06/27/20 11:18 98.2 F 70 19 130/60 97 Body Mass Index 31.0 GENERAL APPEARANCE: somewhat distressed due to abdominal pain, frail, confused. HEENT: unremarkable. HEAD: normocephalic, atraumatic. NECK/THYROID: no jugular venous distention. SKIN: no suspicious lesions, warm and dry. HEART: no murmurs, S1, S2 normal. LUNGS: clear to auscultation bilaterally. ABDOMEN: normal, suprapubic tenderness. EXTREMITIES: no clubbing, cyanosis, or edema. PERIPHERAL PULSES: equal. NEUROLOGIC: Oriented to self. Following simple commands. PSYCH: mood/affect full range. Results Labs and Meds Result diagrams: 06/27/20 05:46 06/26/20 09:10 Lab results: Laboratory Results - last 24 hr 06/27/20 06/27/20 06/27/20 11:21 16:21 19:55 POC Glucose 236 H 189 H 173 H 06/28/20 07:38 POC Glucose 98 Cardiology Testing Echo: report reviewed ( Echocardiogram report from July 2017 reviewed which showed normal left ventricular systolic function between 55-60% and grade 2 diastolic dysfunction.) EKG Interpretation EKG Comments: ECG from 06/20/2020 showing sinus rhythm, left axis deviation, left ventricular hypertrophy, QTC of 441 milliseconds Assessment and Plan (1) Chronic diastolic heart failure: Status: Acute (2) Hydronephrosis: Status: Acute (3) Bladder mass: Status: Acute (4) Afib: Problem details: Eliquis Status: Inactive (5) Preoperative cardiovascular examination: Status: Acute pleasant 79-year-old female who presented with the UTI and is growing ESBL in the urine. She also has been found to have a mass in the bladder. She is being assessed for TURBT. We have been asked to assess her perioperative cardiovascular risk. The patient is currently confused but is denying any chest discomfort or shortness of breath. Her cardiac enzymes on admission did not show any upward trend. EKG did not show any ischemic changes. Clinically she is not in heart failure. She does have known coronary artery disease with previous bypass surgery. Currently she does not have any anginal complaints or dyspnea and her main complaint is abdominal pain. I think she is intermediate risk for perioperative cardiovascular complications. She is on Eliquis for atrial fibrillation. As she goes to the procedure and if there are no bleeding concerns then Eliquis should be resumed as soon as possible. Currently euvolemic by my exam but we will keep a close eye on her after the procedure to make sure she does not go into heart failure. Thank you for allowing me to participate in the care of your patient. Please feel free to contact me if you have any questions.
[2020-06-28 11:05] LABS: MANUAL DIFF FLAG NO
[2020-06-28 11:10] LABS: Basophils Absolute Auto 0.1 X10*3/uL (0.0-0.2); Basophils Percent Auto 0.8 % (0-2); Eosinophils Absolute Auto 0.2 X10*3/uL (0.0-0.4); Eosinophils Percent Auto 1.5 % (0-4); Hematocrit 31.3 % (37-47); Imm Gran Abs Auto 0.25 X10*3/uL (0.00-0.03); Lymphocytes Absolute Auto 1.4 X10*3/uL (1.2-4.9); Mean Corpuscular HGB Conc 31.9 g/dl (31.0-35.0); Mean Corpuscular Hemoglobin 27.4 pg (27.0-33.0); Mean Corpuscular Volume 85.8 fL (80-98); Mean Platelet Volume 10.2 fL (9.4-12.3); Monocytes Absolute Auto 1.3 X10*3/uL (0.1-1.2); Monocytes Percent Auto 10.6 % (2-11); Neutrophils Absolute Auto 9.2 X10*3/uL (2.0-8.3); Neutrophils Percent Auto 74.1 % (45-73); Platelet Count 399 X10*3/uL (160-400); Red Blood Count 3.65 X10*6/uL (4.20-5.50); Red Cell Distribution Width 14.2 % (11.0-16.0); White Blood Count 12.4 X10*3/uL (4.8-10.8)
[2020-06-28 11:13] LABS: Glucose, Whole Blood 99 mg/dL (60-115)
[2020-06-28 11:39] LABS: Anion Gap 16 (12-20); Blood Urea Nitrogen 28 mg/dL (9-16); Carbon Dioxide 22 mmol/L (22-29); Chloride 103 mmol/L (96-108); Creatinine Clr Calc Pharmacy 23.5; Estimated Glomerular Filt Rate 33; Glucose Random 98 mg/dL (60-115); Potassium 4.5 mmol/l (3.3-5.1); Sodium 136 mmol/L (135-145)
[2020-06-28 11:50] LABS: Calcium 8.8 mg/dL (8.4-10.2)
--- NOTE | 2020-06-28 12:04 | MHC.CLN ---
F/U PO INTAKE 75% AVG DIET RX: NPO PT IN SURGERY TODAY RECOMMEND 1500 2GM NA WHEN DIET RESUMED FOLLOWING
--- NOTE | 2020-06-28 13:47 | HO.PM.IMPN ---
Subjective Subjective Interval History: Patient seen and examined at bedside patient denies any complain Physical Exam Vital Signs: Vital Signs: Vital Signs Temp Pulse Resp BP Pulse Ox 06/28/20 12:20 97.0 F 90 18 164/75 H 94 06/28/20 08:25 98.7 F 63 18 126/62 95 06/28/20 03:46 97.8 F 62 18 170/75 H 95 06/27/20 23:43 98.7 F 73 18 167/73 H 97 06/27/20 21:08 77 139/78 06/27/20 21:07 77 139/78 06/27/20 18:59 97.8 F 77 16 139/78 96 06/27/20 15:24 99.1 F 70 16 155/68 H 96 Body Mass Index 31.0 General: confused, alert no acute distress Resp: CTA bilateral CVS: S1,S2,RRR GI: soft, non tender, non distended Neuro: motor grossly intact Psych: impaired insight Objective Data Current Medications Generic Name Dose Route Start Last Admin Trade Name Freq PRN Reason Stop Dose Admin Acetaminophen 325 mg 06/20/20 19:52 06/27/20 21:25 Acetaminophen 325 Mg Tablet PO 325 mg QID PRN Administration Pain Albuterol Sulfate 1 puff 06/20/20 20:18 Albuterol Sulfate 90 Mcg 18 Gm Inhaler INHALE Q4H PRN Shortness Of Breath Albuterol/Ipratropium 3 ml 06/25/20 16:37 06/25/20 17:16 Albuterol/Iprat 2.5/0.5mg 3 Ml Ampul.Neb INHALE 3 ml RQ6H PRN Administration Shortness of Breath/Wheezing Amlodipine Besylate 5 mg 06/23/20 20:00 06/27/20 21:07 Amlodipine Besylate 5 Mg Tablet PO 5 mg DAILY@1999 [facility] Administration Protocol Atorvastatin Calcium 80 mg 06/23/20 20:00 06/27/20 21:08 Atorvastatin Calcium 80 Mg Tablet PO 80 mg DAILY@1999 [facility] Administration Cyanocobalamin 2,000 mcg 06/23/20 15:00 06/28/20 13:21 Cyanocobalamin (Vitamin B-12) 1,000 Mcg Tablet PO Not Given DAILY@1500 [facility] Fluticasone/Vilanterol 1 puff 06/21/20 08:00 06/28/20 07:49 Fluticasone/Vilanterol 100/25 Blst.W.Dev INHALE 1 puff RDAILY [facility] Administration Folic Acid 1 mg 06/23/20 15:00 06/28/20 13:21 Folic Acid 1 Mg Tablet PO Not Given DAILY@1500 [facility] Gabapentin 300 mg 06/22/20 20:00 06/28/20 13:21 Gabapentin 300 Mg Capsule PO Not Given TID@0800,1500,1999 [facility] Meropenem 500 mg/ Sodium 100 mls @ 200 mls/hr 06/24/20 11:00 06/28/20 13:22 Chloride IV Infused Q12H [facility] Infusion Isosorbide Mononitrate 60 mg 06/23/20 08:00 06/28/20 08:41 Isosorbide Mononitrate 60 Mg Tab.Er.24h PO 60 mg DAILY@0800 [facility] Administration Protocol Metoprolol Succinate 100 mg 06/23/20 20:00 06/27/20 21:08 Metoprolol Succinate Er 100 Mg Tab.Er.24h PO 100 mg DAILY@2000 [facility] Administration Protocol Multivitamins/Vitamin C 1 tab 06/23/20 15:00 06/28/20 13:22 Multivitamin Tablet PO Not Given DAILY@1500 [facility] Nitroglycerin 0.4 mg 06/20/20 19:52 Nitroglycerin 0.4 Mg Tab.Subl SUBLINGUAL Q5M PRN Chest Pain Patient Own 24 each 06/25/20 17:00 06/28/20 10:25 Medication Novolog SUBCUT Not Given Mix 70/30 DAILY@0800,1700 [facility] Nystatin 1 appl 06/27/20 21:00 06/28/20 08:43 Nystatin Ointment 15 Gm Tube TOPICAL 1 appl BID [facility] Administration Protocol Omeprazole 40 mg 06/21/20 06:30 06/28/20 06:32 Omeprazole 40 Mg Capsule.Dr PO Not Given DAILY@0630 [facility] Ondansetron HCl 4 mg 06/23/20 17:43 06/23/20 18:11 Ondansetron Hcl 4 Mg/2 Ml Vial IVPUSH 4 mg Q6H PRN Administration nausea Pharmacy Consult 1 each 06/20/20 16:44 Consult Rx Perform Med Rec MISCELLANE ONCE PRN Consult order Prednisolone Acetate 1 drop 06/20/20 21:00 06/28/20 08:44 Prednisolone Acetate 1 % Oph Susp 5 Ml Drpbtl EYE-RIGHT 1 drop TID [facility] Administration Ropinirole HCl 0.25 mg 06/23/20 20:00 06/27/20 21:09 Ropinirole Hcl 0.25 Mg Tablet PO 0.25 mg DAILY@2000 [facility] Administration Sodium Chloride 3 ml 06/21/20 00:00 06/28/20 08:41 0.9 % Sodium Chloride Flush 3 Ml Syringe IVFLUSH 3 ml QSHIFT [facility] Administration Vitamin D 50 mcg 06/23/20 15:00 06/28/20 13:21 Cholecalciferol (Vitamin D3) 25 Mcg Tablet PO Not Given DAILY@1500 [facility] Labs CBC & Chem 7: 06/28/20 10:49 06/28/20 10:49 Microbiology Microbiology Results: Microbiology 06/23/20 17:16 Blood - Venous Blood Culture - Preliminary No growth after 48 hours. 06/23/20 17:10 Blood - Venous Blood Culture - Preliminary No growth after 48 hours. 06/21/20 Unknown Urine clean catch - Clean Catch Midstream Urine Culture - Final Escherichia coli Assessment and Plan (1) Hypomagnesemia: Status: Acute (2) KAIN (acute kidney injury): Problem details: Status: Acute (3) Chest pain: Status: Acute (4) Hydronephrosis: Status: Acute (5) Diabetes mellitus type 1: Status: Deleted (6) Hyponatremia: Status: Deleted Assessment and Plan: 79F presented with chest pain UTI urine culture growing ESBL ecoli blood culture pending continue IV meropenem D 5/10 id following Bladder mass with hydronephrosis seen by Urology plan for TURBT today per Cardiology patient intermediate risk for the procedure chest pain in the setting on known CAD and chronic systolic chf with recovered EF no chest pain now repeat troponin stable continue medical management, statin, nitrate, beta vish KAIN on CKD improved, nephro appreciated, close to baseline hypomagnesemia replaced and resolved DM on novalog 70/30 bid 24 units blood sugar on lower side morning dose of NovoLog was held monitor blood glucose afib continue metoprolol hold Eliquis for TURPBT htn amlodipine DVT prophylaxis Eliquis on hold for surgery on will start patient on Venodyne boot
--- NOTE | 2020-06-28 16:17 | MHC.SHP ---
Pre-Procedural Eval Section A The patient is an INPATIENT: Yes Changes since office visit: No Cold of Flu in the past 2 weeks, No New Medical Problems, No Changes in Medication and No Patient answered all questions The History & Physical has been completed within 30 days and I have reviewed it.: Yes Section B Chief Complaint: perioperative cardiovascular risk assessment Allergies: Allergies Allergy/AdvReac Type Severity Reaction Status Date / Time phenobarbital [PHENOBARBITAL] Allergy Mild HIVES Verified 06/11/20 21:44 fentanyl [FENTANYL] Allergy Unknown HALLUCINATI Verified 06/11/20 21:44 ONS insulin lispro [From HUMALOG] Allergy Unknown RASH Verified 06/11/20 21:44 morphine [MORPHINE] Allergy Unknown HALLUCINATI Verified 06/11/20 21:44 ON Sulfa (Sulfonamide Allergy Unknown Unknown Verified 06/11/20 21:44 Antibiotics) sulfamethoxazole Allergy Unknown UNKNOWN Verified 06/11/20 21:44 [From BACTRIM] trimethoprim [From BACTRIM] Allergy Unknown UNKNOWN Verified 06/11/20 21:44 diazepam [DIAZEPAM] AdvReac Unknown CRY Verified 06/11/20 21:44 Plan Patient has been examined and remains a candidate for the planned procedure
[2020-06-28 16:26] LABS: Glucose, Whole Blood 92 mg/dL (60-115)
--- NOTE | 2020-06-28 17:28 | PM.OP ---
Brief Operative Note Date of procedure: 06/28/20 Pre-op diagnosis: bladder mass Post-op diagnosis: same Procedure: TURBT large Surgeon: Roni Gray MD Anesthesia: GLMA Estimated blood loss (mL): 0 Pathology: other (bladder) Condition: stable Disposition: floor
--- NOTE | 2020-06-28 17:33 | W.PM.OPN ---
Operative Note Operative Note Narrative: PreOperative Diagnosis: Bladder cancer Post Operative Diagnosis: bladder cancer- extensive right side, obliterating right ureteric orifice Procedure: TURBT large Surgeon: Dr Roni Gray Anesthesia: general Indications for procedure: 79-year-old female. [address] in right bladder pelvis. Hydronephrosis on right side. The daughter is aware probably invasive. This has been discussed. Procedure: After informed consent was verified patient brought to the operating room placed in a supine position. Anesthesia administered per protocol. Safety pause time-out, antibiotics have been given. Patient prepped and draped in a sterile fashion. Resection cystoscope inserted per urethra. There was a large amount of debris from bladder tumor on the right side wall. Bladder was irrigated to remove all of debris. Resection was performed to shape the wall. It was clear there was invasive bladder cancer into the sidewall. The sidewall contained bladder cancer running from the 7 o'clock position up to the 11 o'clock position. The right ureteric orifice was never seen. Upon resection mucinous material extruded into the bladder. The left ureteric orifices in normal position. The tumor was cleaned up. It was a large tumor. Debris was sent for analysis. At the completion of the procedure Samuel catheter was placed She tolerated the procedure and was transferred in stable condition to the recovery area Specimens as above bladder cancer Case was discussed with daughter. Emphasis was placed on invasive nature. CT scan was reviewed and it does seem to be confined at this point in time. PCN tube recommended for right side.
[2020-06-28] MEDS: amLODIPine Besylate 5 MG TABLET PO (19:54)
[2020-06-28] MEDS: Ketorolac Tromethamine 15 MG/ML VIAL IVPUSH (19:54)
[2020-06-28] MEDS: rOPINIRole HCL 0.25 MG TABLET PO (19:54)
[2020-06-28] MEDS: Atorvastatin Calcium 80 MG TABLET PO (19:54)
[2020-06-28] MEDS: amLODIPine Besylate 2.5 MG TABLET PO (19:55)
[2020-06-28] MEDS: Metoprolol Succinate ER 100 MG TAB.ER.24H PO (19:55)
[2020-06-28 21:23] LABS: Glucose, Whole Blood 130 mg/dL (60-115)
[2020-06-29] VITALS (12 sets, daily range): BP systolic 136–179; BP diastolic 63–81; PULSE 65–80; RESP 16–19; TEMP 35.9–37.1; O2SAT 95–100
--- NOTE | 2020-06-29 | IR_ITS ---
EXAMINATION: FLUOROSCOPY NEPHROSTOGRAM CLINICAL INFORMATION: Right-sided bladder tumor with right hydronephrosis and hydroureter. COMPARISON: CT scan of 06/11/2020 TECHNIQUE: Nephroureteral stent placement with ultrasound and fluoroscopy. FINDINGS: Informed consent was obtained from the patient's daughter prior to the procedure. During this process, the procedure and potential alternatives were explained, along with the intended outcome and benefits. The risks of the procedure, as well as the risk of not doing the procedure, were discussed. The patient's daughter was given the opportunity to ask questions regarding the procedure and appeared competent to make medical decisions. A signed consent form which documents this discussion was placed in the medical record. Using ultrasound guidance and sterile technique a 22-gauge needle was directed from a posterolateral approach into a posterior mid pole calyx. Guidewire was then directed down into the right ureter and AccuStick catheter placed with tip lying within the proximal right ureter. Following this a stiff Glidewire was placed through the catheter and following multiple manipulations the Glidewire eventually passed into the urinary bladder. At this point over the guidewire a 9 Spanish peel-away sheath was placed and through the peel-away sheath over guidewire a 5 Spanish glide hockey-stick catheter was directed down into the urinary bladder. The Glidewire was removed and an Amplatz superstiff wire was coiled within the urinary bladder. An 8.5 Spanish x 26 cm nephroureteral stent was then placed with distal loop formed in the urinary bladder and proximal loop formed within the right upper collecting system. A sample of urine was obtained for culture due to its being purulent in appearance. Patient tolerated procedure without difficulty. FLUOROSCOPY TIME: 4.2 minutes DOSE AREA PRODUCT: 1227 cGy-cm2 (microgray-meter squared) IR/IR nephrostomy IMPRESSION: Placement of right 8 Spanish by 26 cm nephroureteral stent which was left to external drainage and recommended to keep on external drainage until clot's clear and urinary tract infection is improved.
[2020-06-29 02:48] LABS: Magnesium 1.6 mg/dL (1.6-2.6)
[2020-06-29] MEDS: Magnesium Sulfate/D5W 1 GM/100 ML PIGGYBACK IV (03:06)
--- NOTE | 2020-06-29 03:19 | PC.NURSE ---
15 BEAT VTACH OVERNIGHT. ASYMPTOMATIC. MAG DRAWN=1.6. MD AWARE. 1GM IV MAG ADMINISTERED.
[2020-06-29 05:38] LABS: Glucose, Whole Blood 128 mg/dL (60-115)
[2020-06-29 06:16] LABS: MANUAL DIFF FLAG NO
[2020-06-29 06:30] LABS: Basophils Absolute Auto 0.1 X10*3/uL (0.0-0.2); Basophils Percent Auto 0.7 % (0-2); Eosinophils Absolute Auto 0.1 X10*3/uL (0.0-0.4); Eosinophils Percent Auto 0.9 % (0-4); Hematocrit 29.8 % (37-47); Hemoglobin 9.7 g/dl (12.0-16.0); Imm Gran Abs Auto 0.21 X10*3/uL (0.00-0.03); Lymphocytes Percent Auto 9.6 % (20-40); Mean Corpuscular HGB Conc 32.6 g/dl (31.0-35.0); Mean Corpuscular Hemoglobin 27.9 pg (27.0-33.0); Mean Corpuscular Volume 85.6 fL (80-98); Mean Platelet Volume 10.3 fL (9.4-12.3); Monocytes Absolute Auto 1.1 X10*3/uL (0.1-1.2); Monocytes Percent Auto 10.5 % (2-11); Neutrophils Percent Auto 76.3 % (45-73); Platelet Count 383 X10*3/uL (160-400); Red Blood Count 3.48 X10*6/uL (4.20-5.50); Red Cell Distribution Width 14.2 % (11.0-16.0); White Blood Count 10.5 X10*3/uL (4.8-10.8)
[2020-06-29 06:55] LABS: Anion Gap 14 (12-20); Blood Urea Nitrogen 28 mg/dL (9-16); Calcium 8.3 mg/dL (8.4-10.2); Carbon Dioxide 23 mmol/L (22-29); Chloride 102 mmol/L (96-108); Creatinine Clr Calc Pharmacy 23.4; Estimated Glomerular Filt Rate 33; Glucose Random 130 mg/dL (60-115); Potassium 4.4 mmol/l (3.3-5.1); Sodium 135 mmol/L (135-145)
[2020-06-29 07:33] LABS: Glucose, Whole Blood 92 mg/dL (60-115)
[2020-06-29 08:05] LABS: Glucose, Whole Blood 119 mg/dL (60-115)
[2020-06-29] MEDS: Isosorbide Mononitrate 60 MG TAB.ER.24H PO (08:33)
[2020-06-29] MEDS: 0.9 % Sodium Chloride Flush 3 ML SYRINGE IVFLUSH ×2 (08:33→16:08)
[2020-06-29] MEDS: prednisoLONE Acetate 1 % Oph Susp 5 ML DRPBTL 1 DROP EYE-RIGHT ×3 (08:33→21:25)
[2020-06-29] MEDS: Nystatin Ointment 15 GM TUBE 1 APPL TOPICAL ×2 (08:33→21:25)
[2020-06-29] MEDS: Gabapentin 300 MG CAPSULE PO ×3 (08:35→21:25)
--- NOTE | 2020-06-29 08:35 | P.PNNP_ITS ---
Subjective Subjective Interval history: patient seen and examined at bedside patient reported weakness scheduled NTube today Physical Exam Vital Signs: Vital Signs: Vital Signs Temp Pulse Resp BP Pulse Ox 06/29/20 23:00 98.7 F 76 19 138/63 96 06/29/20 21:23 80 150/64 H 06/29/20 21:22 80 150/64 H 06/29/20 18:50 96.6 F L 76 19 148/63 H 95 06/29/20 17:31 97 06/29/20 17:00 98.3 F 74 18 154/68 H 95 06/29/20 16:00 97.6 F 66 16 136/63 99 06/29/20 15:42 97.6 F 66 16 136/63 99 06/29/20 15:08 98.1 F 06/29/20 08:33 69 179/81 H 06/29/20 08:00 98.2 F 65 18 175/72 H 100 06/29/20 03:07 97.7 F 69 18 179/81 H 96 Body Mass Index 31.0 General: confused, alert no acute distress Resp: CTA bilateral CVS: S1,S2,RRR GI: soft, non tender, non distended Neuro: motor grossly intact Psych: impaired insight Const: General: cooperative, healthy appearing, comfortable and no acute distress Nutritional Appearance: average body habitus Orientation/consciousness: oriented to person, oriented to place and oriented to time Limitations: no limitations HENMT: Head: Yes normal to inspection Ears: hearing grossly normal bilaterally General nose exam: Normal external nose present Face and sinus: Yes normal facial exam Eyes: General: appearance normal, both eyes and all related structures EOM: EOMs intact bilaterally Neck: Neck: Yes normal visual inspection and Yes no JVD Chest: Chest palpation & inspection: normal inspection of the chest Resp: Effort & Inspection: normal respiratory effort Auscultation: clear to auscultation bilaterally, no crackles, no rales and diminished lung sounds Cardio: Rate: regular rate Rhythm: regular rhythm Heart sounds: S1 norm al heart sound present and S2 normal heart sound present GI: Inspection: Yes normal to inspection Palpation (GI): Soft to palpation, nontender, no guarding, not rigid and No hepatosplenomegaly present : General: Yes no CVA tenderness Back/Spine/Pelvis: Back: no CVA tenderness Skin: General skin exam: no rashes or lesions noted Rashes: no rashes Wounds: no wounds Hair: normal Neuro: General: oriented to person, oriented to place, oriented to time and moves all extremities Extrem: General: Yes normal to inspection Right upper extremity: normal to inspection Right lower extremity: normal to inspection Left lower extremit y: normal to inspection Assessment & Plan Assessment and plan (1) Hypomagnesemia: Status: Acute (2) KAIN (acute kidney injury): Problem details: Status: Acute (3) Chest pain: Status: Acute (4) Hydronephrosis: Status: Acute Assessment and Plan: 79F presented with chest pain and CKD 3 in setting of chronic R hydro with bladder mass KAIN: c/w OBs R kidney ..suspect at new bsl CKD 3: Obs and recurrent KAIN and Obs of R kidney,s/p cysto and now schdueked R Ntube UTI: on Abx R Obs with bladder mass: HTN REC: cont to track renal func/UOP; avoid NToxins Time Spent With Patient Time: Total time spent is greater than 50% in coordination of care (as documented) at patient's floor/unit and/or counseling patient:
[2020-06-29] MEDS: Acetaminophen 325 MG TABLET PO (09:55)
[2020-06-29 10:24] LABS: INTERNATIONAL NORM RATIO 1.3 (0.9-1.1); Prothrombin Time 15.6 SEC (10.8-13.0)
[2020-06-29] MEDS: oxyCODONE HCl Immed Release 5 MG TABLET PO ×4 (10:55→19:35)
--- NOTE | 2020-06-29 11:30 | HO.ANESPROP2 ---
HPI - Anesthesia Eval Consult details Narrative: Here for Right nephrostomy tube placement PMFSH Past Medical History Medical History (Updated 06/29/20 @ 12:34 by Ernestina Wilkinson) Afib Bladder mass CAD (coronary artery disease) Chronic diastolic heart failure COPD (chronic obstructive pulmonary disease) CVA (cerebral vascular accident) GERD (gastroesophageal reflux disease) Hypercholesteremia Hypertension Leg swelling Obesity Toxic metabolic encephalopathy Cognitive capacity: Memory deficit Functional capacity: uses cane/walker Family History Family history of problems with anesthesia: No Surgical History History of Problems with Anesthesia: Yes (?hallucinations with fentanyl) Social History Social History Alcohol intake: former Smoking Status: Former smoker Advance Directives: Yes Advance Directives Information Provided: No Advance Directives on File: Yes Advance Directives Date on File: 06/28/20 service: No Current occupational status: retired Meds Allergies Allergy/AdvReac Type Severity Reaction Status Date / Time phenobarbital [PHENOBARBITAL] Allergy Mild HIVES Verified 06/11/20 21:44 fentanyl [FENTANYL] Allergy Unknown HALLUCINATI Verified 06/11/20 21:44 ONS insulin lispro [From HUMALOG] Allergy Unknown RASH Verified 06/11/20 21:44 morphine [MORPHINE] Allergy Unknown HALLUCINATI Verified 06/11/20 21:44 ON Sulfa (Sulfonamide Allergy Unknown Unknown Verified 06/11/20 21:44 Antibiotics) sulfamethoxazole Allergy Unknown UNKNOWN Verified 06/11/20 21:44 [From BACTRIM] trimethoprim [From BACTRIM] Allergy Unknown UNKNOWN Verified 06/11/20 21:44 diazepam [DIAZEPAM] AdvReac Unknown CRY Verified 06/11/20 21:44 Home Medications Medication Instructions Recorded Confirmed Type Combivent Respimat 1 puff INHALATION QID PRN 06/12/20 06/20/20 History Eliquis 5 mg PO BID@0800,199906/12/20 06/22/20 History Novolog Mix 70-30FlexPen U-100 24 units SUBCUT BEDTIME 06/12/20 06/22/20 History acetaminophen [Tylenol] 325 mg PO QID PRN 06/12/20 06/20/20 History albuterol 1 mcg INHALATION Q4H PRN 06/12/20 06/20/20 History amlodipine 2.5 mg PO Q2D@199906/12/20 06/22/20 History amlodipine 5 mg PO Q2D@199906/12/20 06/22/20 History atorvastatin 80 mg PO DAILY@199906/12/20 06/22/20 History cholecalciferol (vitamin D3) 50 mcg PO DAILY@1500 06/12/20 06/22/20 History cyanocobalamin (vitamin B-12) 2,000 mcg PO DAILY@1500 06/12/20 06/22/20 History [Vitamin B-12] fluticasone propion-salmeterol 1 inh INHALATION BID 06/12/20 06/20/20 History [Advair Diskus] gabapentin 300 mg PO TID@0800,1500,199906/12/20 06/22/20 History isosorbide mononitrate 60 mg PO DAILY@0800 06/12/20 06/22/20 History methenamine hippurate 1 g PO BID@0800,199906/12/20 06/22/20 History metoprolol succinate 100 mg PO DAILY@199906/12/20 06/22/20 History multivitamin 1 tab PO DAILY@149906/12/20 06/22/20 History pantoprazole 40 mg PO DAILY@0630 06/12/20 06/22/20 History prednisolone acetate 1 drp OPHTHALMIC-RIGHT TID 06/12/20 06/20/20 History ropinirole 0.25 mg PO DAILY@199906/12/20 06/22/20 History cefpodoxime 50 mg PO DAILY 06/22/20 06/22/20 History folic acid 0.4 mg PO DAILY@149906/22/20 06/22/20 History insulin asp prt-insulin aspart 26 unit SUBCUT DAILY 06/22/20 06/22/20 History [Novolog Mix 70-30FlexPen U-100] oxycodone 5 mg PO BID@0800,199906/22/20 06/22/20 History Exam Exam Date and Time: June 29, 2020 1130 Height,Weight and Vital Signs: Vital Signs Temp Pulse Resp BP Pulse Ox 06/29/20 08:33 69 179/81 H 06/29/20 08:00 98.2 F 65 18 175/72 H 100 06/29/20 03:07 97.7 F 69 18 179/81 H 96 06/28/20 23:32 98.2 F 70 18 170/75 H 99 06/28/20 22:00 97.9 F 78 18 160/70 H 98 06/28/20 21:00 97.5 F 74 18 164/68 H 98 06/28/20 20:00 84 20 184/79 H 96 06/28/20 19:55 84 184/79 H 06/28/20 19:54 84 184/79 H 06/28/20 19:30 84 20 184/79 H 96 06/28/20 12:20 97.0 F 90 18 164/75 H 94 Height 4 ft 10 in Weight 67.4 kg Last Vital Signs Temp 98.2 F 06/29/20 08:00 Pulse 69 06/29/20 08:33 Resp 18 06/29/20 08:00 BP 179/81 H 06/29/20 08:33 Pulse Ox 100 06/29/20 08:00 Pertinent Lab Results Pertinent Lab Results: Lab Results 06/20/20 06/20/20 06/20/20 Range/Units 14:31 14:31 14:31 WBC 17.8 H (4.8-10.8) X10*3/uL RBC 3.48 L (4.20-5.50) X10*6/uL Hgb 9.7 L (12.0-16.0) g/dl Hct 29.8 L (37-47) % MCV 85.6 (80-98) fL MCH 27.9 (27.0-33.0) pg MCHC 32.6 (31.0-35.0) g/dl RDW 13.9 (11.0-16.0) % Plt Count 309 (160-400) X10*3/uL MPV 10.1 (9.4-12.3) fL Immature Gran % (Auto) 0.8 H (0.0-0.4) % Neut % (Auto) 87.8 H (45-73) % Lymph % (Auto) 2.8 L (20-40) % [place] % (Auto) 8.3 (2-11) % Eos % (Auto) 0.1 (0-4) % Baso % (Auto) 0.2 (0-2) % Lymph # (Auto) 0.5 L (1.2-4.9) X10*3/uL [place] # (Auto) 1.5 H (0.1-1.2) X10*3/uL Eos # (Auto) 0.0 (0.0-0.4) X10*3/uL Baso # (Auto) 0.0 (0.0-0.2) X10*3/uL Abs Immat Gran (auto) 0.14 H (0.00-0.03) X10*3/uL Absolute Neuts (auto) 15.7 H (2.0-8.3) X10*3/uL Absolute Nucleated RBC 0.000 (0.0-0.012) X10*3/uL Nucleated RBC % (auto) 0.0 (0.0-0.2) /100WBC Smear Tech's Comments VERIFIED PT (10.8-13.0) SEC INR (0.9-1.1) Hold Blue Top SEE NOTE Sodium 130 L (135-145) mmol/L Potassium 4.0 (3.3-5.1) mmol/l Chloride 100 (96-108) mmol/L Carbon Dioxide 20 L (22-29) mmol/L Anion Gap 14 (12-20) BUN 23 H (9-16) mg/dL Creatinine 1.83 H (0.5-1.4) mg/dL Estim Creat Clear Calc 18.6 Estimated GFR 26 POC Glucose (60-115) mg/dL Random Glucose 361 H* (60-115) mg/dL Fasting Glucose (60-99) mg/dL Calcium 7.9 L (8.4-10.2) mg/dL Magnesium 1.2 L* (1.6-2.6) mg/dL Total Bilirubin 0.6 (0.0-1.0) mg/dL Direct Bilirubin 0.2 (0.0-0.5) mg/dL AST 21 D (5-31) U/L ALT 39 H (0-31) U/L Alkaline Phosphatase 98 (39-117) U/L Troponin I High Sens (<3.5-17.0) ng/L B-Natriuretic Peptide (<100) pg/mL Total Protein 5.8 L (6.5-8.0) g/dL Albumin 2.8 L (3.5-5.0) g/dL Lipase 10 (8-78) U/L Urine Color Urine Appearance Urine pH (5.0-8.0) Ur Specific [place] (1.005-1.025) Urine Protein (NEG-TRACE) MG/DL Urine Glucose (UA) (NEG) MG/DL Urine Ketones (NEG) MG/DL Urine Blood (NEG) Urine Nitrite (NEG) Ur Leukocyte Esterase (NEG) Urine RBC (0) /HPF Urine WBC (0-4) /HPF Urine WBC Clumps Ur Squamous Epith Cells /LPF Urine Bacteria /LPF 06/20/20 06/20/20 06/20/20 Range/Units 14:31 19:32 21:02 WBC (4.8-10.8) X10*3/uL RBC (4.20-5.50) X10*6/uL Hgb (12.0-16.0) g/dl Hct (37-47) % MCV (80-98) fL MCH (27.0-33.0) pg MCHC (31.0-35.0) g/dl RDW (11.0-16.0) % Plt Count (160-400) X10*3/uL MPV (9.4-12.3) fL Immature Gran % (Auto) (0.0-0.4) % Neut % (Auto) (45-73) % Lymph % (Auto) (20-40) % [place] % (Auto) (2-11) % Eos % (Auto) (0-4) % Baso % (Auto) (0-2) % Lymph # (Auto) (1.2-4.9) X10*3/uL [place] # (Auto) (0.1-1.2) X10*3/uL Eos # (Auto) (0.0-0.4) X10*3/uL Baso # (Auto) (0.0-0.2) X10*3/uL Abs Immat Gran (auto) (0.00-0.03) X10*3/uL Absolute Neuts (auto) (2.0-8.3) X10*3/uL Absolute Nucleated RBC (0.0-0.012) X10*3/uL Nucleated RBC % (auto) (0.0-0.2) /100WBC Smear Tech's Comments PT (10.8-13.0) SEC INR (0.9-1.1) Hold Blue Top Sodium (135-145) mmol/L Potassium (3.3-5.1) mmol/l Chloride (96-108) mmol/L Carbon Dioxide (22-29) mmol/L Anion Gap (12-20) BUN (9-16) mg/dL Creatinine (0.5-1.4) mg/dL Estim Creat Clear Calc Estimated GFR POC Glucose 249 H (60-115) mg/dL Random Glucose (60-115) mg/dL Fasting Glucose (60-99) mg/dL Calcium (8.4-10.2) mg/dL Magnesium (1.6-2.6) mg/dL Total Bilirubin (0.0-1.0) mg/dL Direct Bilirubin (0.0-0.5) mg/dL AST (5-31) U/L ALT (0-31) U/L Alkaline Phosphatase (39-117) U/L Troponin I High Sens 25.5 H 23.6 H (<3.5-17.0) ng/L B-Natriuretic Peptide 223 H (<100) pg/mL Total Protein (6.5-8.0) g/dL Albumin (3.5-5.0) g/dL Lipase (8-78) U/L Urine Color Urine Appearance Urine pH (5.0-8.0) Ur Specific [place] (1.005-1.025) Urine Protein (NEG-TRACE) MG/DL Urine Glucose (UA) (NEG) MG/DL Urine Ketones (NEG) MG/DL Urine Blood (NEG) Urine Nitrite (NEG) Ur Leukocyte Esterase (NEG) Urine RBC (0) /HPF Urine WBC (0-4) /HPF Urine WBC Clumps Ur Squamous Epith Cells /LPF Urine Bacteria /LPF 06/21/20 06/21/20 06/21/20 Range/Units 04:31 04:31 05:35 WBC 13.2 H (4.8-10.8) X10*3/uL RBC 3.68 L (4.20-5.50) X10*6/uL Hgb 10.1 L (12.0-16.0) g/dl Hct 31.3 L (37-47) % MCV 85.1 (80-98) fL MCH 27.4 (27.0-33.0) pg MCHC 32.3 (31.0-35.0) g/dl RDW 13.8 (11.0-16.0) % Plt Count 310 (160-400) X10*3/uL MPV 10.4 (9.4-12.3) fL Immature Gran % (Auto) 1.1 H (0.0-0.4) % Neut % (Auto) 82.7 H (45-73) % Lymph % (Auto) 4.9 L (20-40) % [place] % (Auto) 10.9 (2-11) % Eos % (Auto) 0.1 (0-4) % Baso % (Auto) 0.3 (0-2) % Lymph # (Auto) 0.7 L (1.2-4.9) X10*3/uL [place] # (Auto) 1.4 H (0.1-1.2) X10*3/uL Eos # (Auto) 0.0 (0.0-0.4) X10*3/uL Baso # (Auto) 0.0 (0.0-0.2) X10*3/uL Abs Immat Gran (auto) 0.15 H (0.00-0.03) X10*3/uL Absolute Neuts (auto) 10.9 H (2.0-8.3) X10*3/uL Absolute Nucleated RBC 0.000 (0.0-0.012) X10*3/uL Nucleated RBC % (auto) 0.0 (0.0-0.2) /100WBC Smear Tech's Comments VERIFIED PT (10.8-13.0) SEC INR (0.9-1.1) Hold Blue Top Sodium 134 L (135-145) mmol/L Potassium 3.9 (3.3-5.1) mmol/l Chloride 103 (96-108) mmol/L Carbon Dioxide 22 (22-29) mmol/L Anion Gap 13 (12-20) BUN 20 H (9-16) mg/dL Creatinine 1.69 H (0.5-1.4) mg/dL Estim Creat Clear Calc 21.2 Estimated GFR 29 POC Glucose (60-115) mg/dL Random Glucose 179 H D (60-115) mg/dL Fasting Glucose (60-99) mg/dL Calcium 8.1 L (8.4-10.2) mg/dL Magnesium 1.9 (1.6-2.6) mg/dL Total Bilirubin (0.0-1.0) mg/dL Direct Bilirubin (0.0-0.5) mg/dL AST (5-31) U/L ALT (0-31) U/L Alkaline Phosphatase (39-117) U/L Troponin I High Sens (<3.5-17.0) ng/L B-Natriuretic Peptide (<100) pg/mL Total Protein (6.5-8.0) g/dL Albumin (3.5-5.0) g/dL Lipase (8-78) U/L Urine Color YELLOW Urine Appearance CLOUDY Urine pH 5.5 (5.0-8.0) Ur Specific [place] >= 1.030 H (1.005-1.025) Urine Protein 3+ H (NEG-TRACE) MG/DL Urine Glucose (UA) 100 H (NEG) MG/DL Urine Ketones NEG (NEG) MG/DL Urine Blood 3+ H (NEG) Urine Nitrite POS H (NEG) Ur Leukocyte Esterase 1+ H (NEG) Urine RBC 0-2 (0) /HPF Urine WBC 76-150 H (0-4) /HPF Urine WBC Clumps NOTED Ur Squamous Epith Cells 1+ /LPF Urine Bacteria 4+ /LPF 06/21/20 06/21/20 06/21/20 Range/Units 07:09 11:14 16:53 WBC (4.8-10.8) X10*3/uL RBC (4.20-5.50) X10*6/uL Hgb (12.0-16.0) g/dl Hct (37-47) % MCV (80-98) fL MCH (27.0-33.0) pg MCHC (31.0-35.0) g/dl RDW (11.0-16.0) % Plt Count (160-400) X10*3/uL MPV (9.4-12.3) fL Immature Gran % (Auto) (0.0-0.4) % Neut % (Auto) (45-73) % Lymph % (Auto) (20-40) % [place] % (Auto) (2-11) % Eos % (Auto) (0-4) % Baso % (Auto) (0-2) % Lymph # (Auto) (1.2-4.9) X10*3/uL [place] # (Auto) (0.1-1.2) X10*3/uL Eos # (Auto) (0.0-0.4) X10*3/uL Baso # (Auto) (0.0-0.2) X10*3/uL Abs Immat Gran (auto) (0.00-0.03) X10*3/uL Absolute Neuts (auto) (2.0-8.3) X10*3/uL Absolute Nucleated RBC (0.0-0.012) X10*3/uL Nucleated RBC % (auto) (0.0-0.2) /100WBC Smear Tech's Comments PT (10.8-13.0) SEC INR (0.9-1.1) Hold Blue Top Sodium (135-145) mmol/L Potassium (3.3-5.1) mmol/l Chloride (96-108) mmol/L Carbon Dioxide (22-29) mmol/L Anion Gap (12-20) BUN (9-16) mg/dL Creatinine (0.5-1.4) mg/dL Estim Creat Clear Calc Estimated GFR POC Glucose 156 H 173 H 262 H (60-115) mg/dL Random Glucose (60-115) mg/dL Fasting Glucose (60-99) mg/dL Calcium (8.4-10.2) mg/dL Magnesium (1.6-2.6) mg/dL Total Bilirubin (0.0-1.0) mg/dL Direct Bilirubin (0.0-0.5) mg/dL AST (5-31) U/L ALT (0-31) U/L Alkaline Phosphatase (39-117) U/L Troponin I High Sens (<3.5-17.0) ng/L B-Natriuretic Peptide (<100) pg/mL Total Protein (6.5-8.0) g/dL Albumin (3.5-5.0) g/dL Lipase (8-78) U/L Urine Color Urine Appearance Urine pH (5.0-8.0) Ur Specific [place] (1.005-1.025) Urine Protein (NEG-TRACE) MG/DL Urine Glucose (UA) (NEG) MG/DL Urine Ketones (NEG) MG/DL Urine Blood (NEG) Urine Nitrite (NEG) Ur Leukocyte Esterase (NEG) Urine RBC (0) /HPF Urine WBC (0-4) /HPF Urine WBC Clumps Ur Squamous Epith Cells /LPF Urine Bacteria /LPF 06/21/20 06/22/20 06/22/20 Range/Units 21:05 05:50 05:50 WBC 11.2 H (4.8-10.8) X10*3/uL RBC 3.59 L (4.20-5.50) X10*6/uL Hgb 10.1 L (12.0-16.0) g/dl Hct 30.6 L (37-47) % MCV 85.2 (80-98) fL MCH 28.1 (27.0-33.0) pg MCHC 33.0 (31.0-35.0) g/dl RDW 13.8 (11.0-16.0) % Plt Count 293 (160-400) X10*3/uL MPV 10.6 (9.4-12.3) fL Immature Gran % (Auto) 1.0 H (0.0-0.4) % Neut % (Auto) 76.6 H (45-73) % Lymph % (Auto) 7.7 L (20-40) % [place] % (Auto) 13.8 H (2-11) % Eos % (Auto) 0.5 (0-4) % Baso % (Auto) 0.4 (0-2) % Lymph # (Auto) 0.9 L (1.2-4.9) X10*3/uL [place] # (Auto) 1.5 H (0.1-1.2) X10*3/uL Eos # (Auto) 0.1 (0.0-0.4) X10*3/uL Baso # (Auto) 0.1 (0.0-0.2) X10*3/uL Abs Immat Gran (auto) 0.11 H (0.00-0.03) X10*3/uL Absolute Neuts (auto) 8.6 H (2.0-8.3) X10*3/uL Absolute Nucleated RBC 0.000 (0.0-0.012) X10*3/uL Nucleated RBC % (auto) 0.0 (0.0-0.2) /100WBC Smear Tech's Comments VERIFIED PT (10.8-13.0) SEC INR (0.9-1.1) Hold Blue Top Sodium 133 L (135-145) mmol/L Potassium 3.4 (3.3-5.1) mmol/l Chloride 104 (96-108) mmol/L Carbon Dioxide 19 L (22-29) mmol/L Anion Gap 13 (12-20) BUN 20 H (9-16) mg/dL Creatinine 1.61 H (0.5-1.4) mg/dL Estim Creat Clear Calc 22.3 Estimated GFR 31 POC Glucose 165 H (60-115) mg/dL Random Glucose (60-115) mg/dL Fasting Glucose 105 H (60-99) mg/dL Calcium 8.1 L (8.4-10.2) mg/dL Magnesium (1.6-2.6) mg/dL Total Bilirubin (0.0-1.0) mg/dL Direct Bilirubin (0.0-0.5) mg/dL AST (5-31) U/L ALT (0-31) U/L Alkaline Phosphatase (39-117) U/L Troponin I High Sens (<3.5-17.0) ng/L B-Natriuretic Peptide (<100) pg/mL Total Protein (6.5-8.0) g/dL Albumin (3.5-5.0) g/dL Lipase (8-78) U/L Urine Color Urine Appearance Urine pH (5.0-8.0) Ur Specific [place] (1.005-1.025) Urine Protein (NEG-TRACE) MG/DL Urine Glucose (UA) (NEG) MG/DL Urine Ketones (NEG) MG/DL Urine Blood (NEG) Urine Nitrite (NEG) Ur Leukocyte Esterase (NEG) Urine RBC (0) /HPF Urine WBC (0-4) /HPF Urine WBC Clumps Ur Squamous Epith Cells /LPF Urine Bacteria /LPF 06/22/20 06/22/20 06/22/20 Range/Units 07:38 11:04 16:42 WBC (4.8-10.8) X10*3/uL RBC (4.20-5.50) X10*6/uL Hgb (12.0-16.0) g/dl Hct (37-47) % MCV (80-98) fL MCH (27.0-33.0) pg MCHC (31.0-35.0) g/dl RDW (11.0-16.0) % Plt Count (160-400) X10*3/uL MPV (9.4-12.3) fL Immature Gran % (Auto) (0.0-0.4) % Neut % (Auto) (45-73) % Lymph % (Auto) (20-40) % [place] % (Auto) (2-11) % Eos % (Auto) (0-4) % Baso % (Auto) (0-2) % Lymph # (Auto) (1.2-4.9) X10*3/uL [place] # (Auto) (0.1-1.2) X10*3/uL Eos # (Auto) (0.0-0.4) X10*3/uL Baso # (Auto) (0.0-0.2) X10*3/uL Abs Immat Gran (auto) (0.00-0.03) X10*3/uL Absolute Neuts (auto) (2.0-8.3) X10*3/uL Absolute Nucleated RBC (0.0-0.012) X10*3/uL Nucleated RBC % (auto) (0.0-0.2) /100WBC Smear Tech's Comments PT (10.8-13.0) SEC INR (0.9-1.1) Hold Blue Top Sodium (135-145) mmol/L Potassium (3.3-5.1) mmol/l Chloride (96-108) mmol/L Carbon Dioxide (22-29) mmol/L Anion Gap (12-20) BUN (9-16) mg/dL Creatinine (0.5-1.4) mg/dL Estim Creat Clear Calc Estimated GFR POC Glucose 124 H 266 H 238 H (60-115) mg/dL Random Glucose (60-115) mg/dL Fasting Glucose (60-99) mg/dL Calcium (8.4-10.2) mg/dL Magnesium (1.6-2.6) mg/dL Total Bilirubin (0.0-1.0) mg/dL Direct Bilirubin (0.0-0.5) mg/dL AST (5-31) U/L ALT (0-31) U/L Alkaline Phosphatase (39-117) U/L Troponin I High Sens (<3.5-17.0) ng/L B-Natriuretic Peptide (<100) pg/mL Total Protein (6.5-8.0) g/dL Albumin (3.5-5.0) g/dL Lipase (8-78) U/L Urine Color Urine Appearance Urine pH (5.0-8.0) Ur Specific [place] (1.005-1.025) Urine Protein (NEG-TRACE) MG/DL Urine Glucose (UA) (NEG) MG/DL Urine Ketones (NEG) MG/DL Urine Blood (NEG) Urine Nitrite (NEG) Ur Leukocyte Esterase (NEG) Urine RBC (0) /HPF Urine WBC (0-4) /HPF Urine WBC Clumps Ur Squamous Epith Cells /LPF Urine Bacteria /LPF 06/22/20 06/23/20 06/23/20 Range/Units 20:50 06:22 06:22 WBC 10.1 (4.8-10.8) X10*3/uL RBC 3.76 L (4.20-5.50) X10*6/uL Hgb 10.5 L (12.0-16.0) g/dl Hct 31.8 L (37-47) % MCV 84.6 (80-98) fL MCH 27.9 (27.0-33.0) pg MCHC 33.0 (31.0-35.0) g/dl RDW 13.7 (11.0-16.0) % Plt Count 299 (160-400) X10*3/uL MPV 10.3 (9.4-12.3) fL Immature Gran % (Auto) 0.8 H (0.0-0.4) % Neut % (Auto) 74.4 H (45-73) % Lymph % (Auto) 9.5 L (20-40) % [place] % (Auto) 13.6 H (2-11) % Eos % (Auto) 1.2 (0-4) % Baso % (Auto) 0.5 (0-2) % Lymph # (Auto) 1.0 L (1.2-4.9) X10*3/uL [place] # (Auto) 1.4 H (0.1-1.2) X10*3/uL Eos # (Auto) 0.1 (0.0-0.4) X10*3/uL Baso # (Auto) 0.1 (0.0-0.2) X10*3/uL Abs Immat Gran (auto) 0.08 H (0.00-0.03) X10*3/uL Absolute Neuts (auto) 7.5 (2.0-8.3) X10*3/uL Absolute Nucleated RBC 0.000 (0.0-0.012) X10*3/uL Nucleated RBC % (auto) 0.0 (0.0-0.2) /100WBC Smear Tech's Comments PT (10.8-13.0) SEC INR (0.9-1.1) Hold Blue Top Sodium 133 L (135-145) mmol/L Potassium 3.6 (3.3-5.1) mmol/l Chloride 103 (96-108) mmol/L Carbon Dioxide 21 L (22-29) mmol/L Anion Gap 13 (12-20) BUN 24 H (9-16) mg/dL Creatinine 1.60 H (0.5-1.4) mg/dL Estim Creat Clear Calc 22.4 Estimated GFR 31 POC Glucose 223 H (60-115) mg/dL Random Glucose (60-115) mg/dL Fasting Glucose 102 H (60-99) mg/dL Calcium 8.3 L (8.4-10.2) mg/dL Magnesium (1.6-2.6) mg/dL Total Bilirubin (0.0-1.0) mg/dL Direct Bilirubin (0.0-0.5) mg/dL AST (5-31) U/L ALT (0-31) U/L Alkaline Phosphatase (39-117) U/L Troponin I High Sens (<3.5-17.0) ng/L B-Natriuretic Peptide (<100) pg/mL Total Protein (6.5-8.0) g/dL Albumin (3.5-5.0) g/dL Lipase (8-78) U/L Urine Color Urine Appearance Urine pH (5.0-8.0) Ur Specific [place] (1.005-1.025) Urine Protein (NEG-TRACE) MG/DL Urine Glucose (UA) (NEG) MG/DL Urine Ketones (NEG) MG/DL Urine Blood (NEG) Urine Nitrite (NEG) Ur Leukocyte Esterase (NEG) Urine RBC (0) /HPF Urine WBC (0-4) /HPF Urine WBC Clumps Ur Squamous Epith Cells /LPF Urine Bacteria /LPF 06/23/20 06/23/20 06/23/20 Range/Units 07:10 11:23 16:12 WBC (4.8-10.8) X10*3/uL RBC (4.20-5.50) X10*6/uL Hgb (12.0-16.0) g/dl Hct (37-47) % MCV (80-98) fL MCH (27.0-33.0) pg MCHC (31.0-35.0) g/dl RDW (11.0-16.0) % Plt Count (160-400) X10*3/uL MPV (9.4-12.3) fL Immature Gran % (Auto) (0.0-0.4) % Neut % (Auto) (45-73) % Lymph % (Auto) (20-40) % [place] % (Auto) (2-11) % Eos % (Auto) (0-4) % Baso % (Auto) (0-2) % Lymph # (Auto) (1.2-4.9) X10*3/uL [place] # (Auto) (0.1-1.2) X10*3/uL Eos # (Auto) (0.0-0.4) X10*3/uL Baso # (Auto) (0.0-0.2) X10*3/uL Abs Immat Gran (auto) (0.00-0.03) X10*3/uL Absolute Neuts (auto) (2.0-8.3) X10*3/uL Absolute Nucleated RBC (0.0-0.012) X10*3/uL Nucleated RBC % (auto) (0.0-0.2) /100WBC Smear Tech's Comments PT (10.8-13.0) SEC INR (0.9-1.1) Hold Blue Top Sodium (135-145) mmol/L Potassium (3.3-5.1) mmol/l Chloride (96-108) mmol/L Carbon Dioxide (22-29) mmol/L Anion Gap (12-20) BUN (9-16) mg/dL Creatinine (0.5-1.4) mg/dL Estim Creat Clear Calc Estimated GFR POC Glucose 111 289 H 282 H (60-115) mg/dL Random Glucose (60-115) mg/dL Fasting Glucose (60-99) mg/dL Calcium (8.4-10.2) mg/dL Magnesium (1.6-2.6) mg/dL Total Bilirubin (0.0-1.0) mg/dL Direct Bilirubin (0.0-0.5) mg/dL AST (5-31) U/L ALT (0-31) U/L Alkaline Phosphatase (39-117) U/L Troponin I High Sens (<3.5-17.0) ng/L B-Natriuretic Peptide (<100) pg/mL Total Protein (6.5-8.0) g/dL Albumin (3.5-5.0) g/dL Lipase (8-78) U/L Urine Color Urine Appearance Urine pH (5.0-8.0) Ur Specific [place] (1.005-1.025) Urine Protein (NEG-TRACE) MG/DL Urine Glucose (UA) (NEG) MG/DL Urine Ketones (NEG) MG/DL Urine Blood (NEG) Urine Nitrite (NEG) Ur Leukocyte Esterase (NEG) Urine RBC (0) /HPF Urine WBC (0-4) /HPF Urine WBC Clumps Ur Squamous Epith Cells /LPF Urine Bacteria /LPF 06/23/20 06/24/20 06/24/20 Range/Units 21:06 06:00 06:00 WBC 10.8 (4.8-10.8) X10*3/uL RBC 3.55 L (4.20-5.50) X10*6/uL Hgb 9.8 L (12.0-16.0) g/dl Hct 30.5 L (37-47) % MCV 85.9 (80-98) fL MCH 27.6 (27.0-33.0) pg MCHC 32.1 (31.0-35.0) g/dl RDW 13.7 (11.0-16.0) % Plt Count 291 (160-400) X10*3/uL MPV 10.5 (9.4-12.3) fL Immature Gran % (Auto) 0.9 H (0.0-0.4) % Neut % (Auto) 77.9 H (45-73) % Lymph % (Auto) 8.1 L (20-40) % [place] % (Auto) 10.8 (2-11) % Eos % (Auto) 1.7 (0-4) % Baso % (Auto) 0.6 (0-2) % Lymph # (Auto) 0.9 L (1.2-4.9) X10*3/uL [place] # (Auto) 1.2 (0.1-1.2) X10*3/uL Eos # (Auto) 0.2 (0.0-0.4) X10*3/uL Baso # (Auto) 0.1 (0.0-0.2) X10*3/uL Abs Immat Gran (auto) 0.10 H (0.00-0.03) X10*3/uL Absolute Neuts (auto) 8.4 H (2.0-8.3) X10*3/uL Absolute Nucleated RBC 0.000 (0.0-0.012) X10*3/uL Nucleated RBC % (auto) 0.0 (0.0-0.2) /100WBC Smear Tech's Comments PT (10.8-13.0) SEC INR (0.9-1.1) Hold Blue Top Sodium 134 L (135-145) mmol/L Potassium 3.8 (3.3-5.1) mmol/l Chloride 103 (96-108) mmol/L Carbon Dioxide 23 (22-29) mmol/L Anion Gap 12 (12-20) BUN 26 H (9-16) mg/dL Creatinine 1.71 H (0.5-1.4) mg/dL Estim Creat Clear Calc 20.9 Estimated GFR 29 POC Glucose 236 H (60-115) mg/dL Random Glucose (60-115) mg/dL Fasting Glucose 139 H D (60-99) mg/dL Calcium 8.1 L (8.4-10.2) mg/dL Magnesium (1.6-2.6) mg/dL Total Bilirubin (0.0-1.0) mg/dL Direct Bilirubin (0.0-0.5) mg/dL AST (5-31) U/L ALT (0-31) U/L Alkaline Phosphatase (39-117) U/L Troponin I High Sens (<3.5-17.0) ng/L B-Natriuretic Peptide (<100) pg/mL Total Protein (6.5-8.0) g/dL Albumin (3.5-5.0) g/dL Lipase (8-78) U/L Urine Color Urine Appearance Urine pH (5.0-8.0) Ur Specific [place] (1.005-1.025) Urine Protein (NEG-TRACE) MG/DL Urine Glucose (UA) (NEG) MG/DL Urine Ketones (NEG) MG/DL Urine Blood (NEG) Urine Nitrite (NEG) Ur Leukocyte Esterase (NEG) Urine RBC (0) /HPF Urine WBC (0-4) /HPF Urine WBC Clumps Ur Squamous Epith Cells /LPF Urine Bacteria /LPF 06/24/20 06/24/20 06/24/20 Range/Units 07:39 11:17 16:42 WBC (4.8-10.8) X10*3/uL RBC (4.20-5.50) X10*6/uL Hgb (12.0-16.0) g/dl Hct (37-47) % MCV (80-98) fL MCH (27.0-33.0) pg MCHC (31.0-35.0) g/dl RDW (11.0-16.0) % Plt Count (160-400) X10*3/uL MPV (9.4-12.3) fL Immature Gran % (Auto) (0.0-0.4) % Neut % (Auto) (45-73) % Lymph % (Auto) (20-40) % [place] % (Auto) (2-11) % Eos % (Auto) (0-4) % Baso % (Auto) (0-2) % Lymph # (Auto) (1.2-4.9) X10*3/uL [place] # (Auto) (0.1-1.2) X10*3/uL Eos # (Auto) (0.0-0.4) X10*3/uL Baso # (Auto) (0.0-0.2) X10*3/uL Abs Immat Gran (auto) (0.00-0.03) X10*3/uL Absolute Neuts (auto) (2.0-8.3) X10*3/uL Absolute Nucleated RBC (0.0-0.012) X10*3/uL Nucleated RBC % (auto) (0.0-0.2) /100WBC Smear Tech's Comments PT (10.8-13.0) SEC INR (0.9-1.1) Hold Blue Top Sodium (135-145) mmol/L Potassium (3.3-5.1) mmol/l Chloride (96-108) mmol/L Carbon Dioxide (22-29) mmol/L Anion Gap (12-20) BUN (9-16) mg/dL Creatinine (0.5-1.4) mg/dL Estim Creat Clear Calc Estimated GFR POC Glucose 138 H 274 H 345 H (60-115) mg/dL Random Glucose (60-115) mg/dL Fasting Glucose (60-99) mg/dL Calcium (8.4-10.2) mg/dL Magnesium (1.6-2.6) mg/dL Total Bilirubin (0.0-1.0) mg/dL Direct Bilirubin (0.0-0.5) mg/dL AST (5-31) U/L ALT (0-31) U/L Alkaline Phosphatase (39-117) U/L Troponin I High Sens (<3.5-17.0) ng/L B-Natriuretic Peptide (<100) pg/mL Total Protein (6.5-8.0) g/dL Albumin (3.5-5.0) g/dL Lipase (8-78) U/L Urine Color Urine Appearance Urine pH (5.0-8.0) Ur Specific [place] (1.005-1.025) Urine Protein (NEG-TRACE) MG/DL Urine Glucose (UA) (NEG) MG/DL Urine Ketones (NEG) MG/DL Urine Blood (NEG) Urine Nitrite (NEG) Ur Leukocyte Esterase (NEG) Urine RBC (0) /HPF Urine WBC (0-4) /HPF Urine WBC Clumps Ur Squamous Epith Cells /LPF Urine Bacteria /LPF 06/24/20 06/25/20 06/25/20 Range/Units 20:59 05:55 05:55 WBC 13.9 H (4.8-10.8) X10*3/uL RBC 3.50 L (4.20-5.50) X10*6/uL Hgb 9.6 L (12.0-16.0) g/dl Hct 30.2 L (37-47) % MCV 86.3 (80-98) fL MCH 27.4 (27.0-33.0) pg MCHC 31.8 (31.0-35.0) g/dl RDW 13.8 (11.0-16.0) % Plt Count 308 (160-400) X10*3/uL MPV 10.8 (9.4-12.3) fL Immature Gran % (Auto) 0.9 H (0.0-0.4) % Neut % (Auto) 83.9 H (45-73) % Lymph % (Auto) 5.5 L (20-40) % [place] % (Auto) 8.2 (2-11) % Eos % (Auto) 1.1 (0-4) % Baso % (Auto) 0.4 (0-2) % Lymph # (Auto) 0.8 L (1.2-4.9) X10*3/uL [place] # (Auto) 1.1 (0.1-1.2) X10*3/uL Eos # (Auto) 0.2 (0.0-0.4) X10*3/uL Baso # (Auto) 0.1 (0.0-0.2) X10*3/uL Abs Immat Gran (auto) 0.12 H (0.00-0.03) X10*3/uL Absolute Neuts (auto) 11.6 H (2.0-8.3) X10*3/uL Absolute Nucleated RBC 0.000 (0.0-0.012) X10*3/uL Nucleated RBC % (auto) 0.0 (0.0-0.2) /100WBC Smear Tech's Comments PT (10.8-13.0) SEC INR (0.9-1.1) Hold Blue Top Sodium 132 L (135-145) mmol/L Potassium 3.5 (3.3-5.1) mmol/l Chloride 101 (96-108) mmol/L Carbon Dioxide 20 L (22-29) mmol/L Anion Gap 15 (12-20) BUN 31 H (9-16) mg/dL Creatinine 1.80 H (0.5-1.4) mg/dL Estim Creat Clear Calc 19.9 Estimated GFR 27 POC Glucose 230 H (60-115) mg/dL Random Glucose (60-115) mg/dL Fasting Glucose 238 H D (60-99) mg/dL Calcium 8.1 L (8.4-10.2) mg/dL Magnesium (1.6-2.6) mg/dL Total Bilirubin (0.0-1.0) mg/dL Direct Bilirubin (0.0-0.5) mg/dL AST (5-31) U/L ALT (0-31) U/L Alkaline Phosphatase (39-117) U/L Troponin I High Sens (<3.5-17.0) ng/L B-Natriuretic Peptide (<100) pg/mL Total Protein (6.5-8.0) g/dL Albumin (3.5-5.0) g/dL Lipase (8-78) U/L Urine Color Urine Appearance Urine pH (5.0-8.0) Ur Specific [place] (1.005-1.025) Urine Protein (NEG-TRACE) MG/DL Urine Glucose (UA) (NEG) MG/DL Urine Ketones (NEG) MG/DL Urine Blood (NEG) Urine Nitrite (NEG) Ur Leukocyte Esterase (NEG) Urine RBC (0) /HPF Urine WBC (0-4) /HPF Urine WBC Clumps Ur Squamous Epith Cells /LPF Urine Bacteria /LPF 06/25/20 06/25/20 06/25/20 Range/Units 07:39 11:41 16:28 WBC (4.8-10.8) X10*3/uL RBC (4.20-5.50) X10*6/uL Hgb (12.0-16.0) g/dl Hct (37-47) % MCV (80-98) fL MCH (27.0-33.0) pg MCHC (31.0-35.0) g/dl RDW (11.0-16.0) % Plt Count (160-400) X10*3/uL MPV (9.4-12.3) fL Immature Gran % (Auto) (0.0-0.4) % Neut % (Auto) (45-73) % Lymph % (Auto) (20-40) % [place] % (Auto) (2-11) % Eos % (Auto) (0-4) % Baso % (Auto) (0-2) % Lymph # (Auto) (1.2-4.9) X10*3/uL [place] # (Auto) (0.1-1.2) X10*3/uL Eos # (Auto) (0.0-0.4) X10*3/uL Baso # (Auto) (0.0-0.2) X10*3/uL Abs Immat Gran (auto) (0.00-0.03) X10*3/uL Absolute Neuts (auto) (2.0-8.3) X10*3/uL Absolute Nucleated RBC (0.0-0.012) X10*3/uL Nucleated RBC % (auto) (0.0-0.2) /100WBC Smear Tech's Comments PT (10.8-13.0) SEC INR (0.9-1.1) Hold Blue Top Sodium (135-145) mmol/L Potassium (3.3-5.1) mmol/l Chloride (96-108) mmol/L Carbon Dioxide (22-29) mmol/L Anion Gap (12-20) BUN (9-16) mg/dL Creatinine (0.5-1.4) mg/dL Estim Creat Clear Calc Estimated GFR POC Glucose 258 H 234 H 334 H (60-115) mg/dL Random Glucose (60-115) mg/dL Fasting Glucose (60-99) mg/dL Calcium (8.4-10.2) mg/dL Magnesium (1.6-2.6) mg/dL Total Bilirubin (0.0-1.0) mg/dL Direct Bilirubin (0.0-0.5) mg/dL AST (5-31) U/L ALT (0-31) U/L Alkaline Phosphatase (39-117) U/L Troponin I High Sens (<3.5-17.0) ng/L B-Natriuretic Peptide (<100) pg/mL Total Protein (6.5-8.0) g/dL Albumin (3.5-5.0) g/dL Lipase (8-78) U/L Urine Color Urine Appearance Urine pH (5.0-8.0) Ur Specific [place] (1.005-1.025) Urine Protein (NEG-TRACE) MG/DL Urine Glucose (UA) (NEG) MG/DL Urine Ketones (NEG) MG/DL Urine Blood (NEG) Urine Nitrite (NEG) Ur Leukocyte Esterase (NEG) Urine RBC (0) /HPF Urine WBC (0-4) /HPF Urine WBC Clumps Ur Squamous Epith Cells /LPF Urine Bacteria /LPF 06/25/20 06/26/20 06/26/20 Range/Units 20:36 07:17 09:10 WBC (4.8-10.8) X10*3/uL RBC (4.20-5.50) X10*6/uL Hgb (12.0-16.0) g/dl Hct (37-47) % MCV (80-98) fL MCH (27.0-33.0) pg MCHC (31.0-35.0) g/dl RDW (11.0-16.0) % Plt Count (160-400) X10*3/uL MPV (9.4-12.3) fL Immature Gran % (Auto) (0.0-0.4) % Neut % (Auto) (45-73) % Lymph % (Auto) (20-40) % [place] % (Auto) (2-11) % Eos % (Auto) (0-4) % Baso % (Auto) (0-2) % Lymph # (Auto) (1.2-4.9) X10*3/uL [place] # (Auto) (0.1-1.2) X10*3/uL Eos # (Auto) (0.0-0.4) X10*3/uL Baso # (Auto) (0.0-0.2) X10*3/uL Abs Immat Gran (auto) (0.00-0.03) X10*3/uL Absolute Neuts (auto) (2.0-8.3) X10*3/uL Absolute Nucleated RBC (0.0-0.012) X10*3/uL Nucleated RBC % (auto) (0.0-0.2) /100WBC Smear Tech's Comments PT (10.8-13.0) SEC INR (0.9-1.1) Hold Blue Top Sodium 134 L (135-145) mmol/L Potassium 3.8 (3.3-5.1) mmol/l Chloride 104 (96-108) mmol/L Carbon Dioxide 22 (22-29) mmol/L Anion Gap 12 (12-20) BUN 31 H (9-16) mg/dL Creatinine 1.85 H (0.5-1.4) mg/dL Estim Creat Clear Calc 19.4 Estimated GFR 26 POC Glucose 305 H 154 H (60-115) mg/dL Random Glucose 204 H (60-115) mg/dL Fasting Glucose (60-99) mg/dL Calcium 8.0 L (8.4-10.2) mg/dL Magnesium (1.6-2.6) mg/dL Total Bilirubin (0.0-1.0) mg/dL Direct Bilirubin (0.0-0.5) mg/dL AST (5-31) U/L ALT (0-31) U/L Alkaline Phosphatase (39-117) U/L Troponin I High Sens (<3.5-17.0) ng/L B-Natriuretic Peptide (<100) pg/mL Total Protein (6.5-8.0) g/dL Albumin (3.5-5.0) g/dL Lipase (8-78) U/L Urine Color Urine Appearance Urine pH (5.0-8.0) Ur Specific [place] (1.005-1.025) Urine Protein (NEG-TRACE) MG/DL Urine Glucose (UA) (NEG) MG/DL Urine Ketones (NEG) MG/DL Urine Blood (NEG) Urine Nitrite (NEG) Ur Leukocyte Esterase (NEG) Urine RBC (0) /HPF Urine WBC (0-4) /HPF Urine WBC Clumps Ur Squamous Epith Cells /LPF Urine Bacteria /LPF 06/26/20 06/26/2006/26/20 Range/Units 11:25 15:44 20:59 WBC (4.8-10.8) X10*3/uL RBC (4.20-5.50) X10*6/uL Hgb (12.0-16.0) g/dl Hct (37-47) % MCV (80-98) fL MCH (27.0-33.0) pg MCHC (31.0-35.0) g/dl RDW (11.0-16.0) % Plt Count (160-400) X10*3/uL MPV (9.4-12.3) fL Immature Gran % (Auto) (0.0-0.4) % Neut % (Auto) (45-73) % Lymph % (Auto) (20-40) % [place] % (Auto) (2-11) % Eos % (Auto) (0-4) % Baso % (Auto) (0-2) % Lymph # (Auto) (1.2-4.9) X10*3/uL [place] # (Auto) (0.1-1.2) X10*3/uL Eos # (Auto) (0.0-0.4) X10*3/uL Baso # (Auto) (0.0-0.2) X10*3/uL Abs Immat Gran (auto) (0.00-0.03) X10*3/uL Absolute Neuts (auto) (2.0-8.3) X10*3/uL Absolute Nucleated RBC (0.0-0.012) X10*3/uL Nucleated RBC % (auto) (0.0-0.2) /100WBC Smear Tech's Comments PT (10.8-13.0) SEC INR (0.9-1.1) Hold Blue Top Sodium (135-145) mmol/L Potassium (3.3-5.1) mmol/l Chloride (96-108) mmol/L Carbon Dioxide (22-29) mmol/L Anion Gap (12-20) BUN (9-16) mg/dL Creatinine (0.5-1.4) mg/dL Estim Creat Clear Calc Estimated GFR POC Glucose 339 H 358 H* 246 H (60-115) mg/dL Random Glucose (60-115) mg/dL Fasting Glucose (60-99) mg/dL Calcium (8.4-10.2) mg/dL Magnesium (1.6-2.6) mg/dL Total Bilirubin (0.0-1.0) mg/dL Direct Bilirubin (0.0-0.5) mg/dL AST (5-31) U/L ALT (0-31) U/L Alkaline Phosphatase (39-117) U/L Troponin I High Sens (<3.5-17.0) ng/L B-Natriuretic Peptide (<100) pg/mL Total Protein (6.5-8.0) g/dL Albumin (3.5-5.0) g/dL Lipase (8-78) U/L Urine Color Urine Appearance Urine pH (5.0-8.0) Ur Specific [place] (1.005-1.025) Urine Protein (NEG-TRACE) MG/DL Urine Glucose (UA) (NEG) MG/DL Urine Ketones (NEG) MG/DL Urine Blood (NEG) Urine Nitrite (NEG) Ur Leukocyte Esterase (NEG) Urine RBC (0) /HPF Urine WBC (0-4) /HPF Urine WBC Clumps Ur Squamous Epith Cells /LPF Urine Bacteria /LPF 06/27/20 06/27/20 06/27/20 Range/Units 05:46 07:15 11:21 WBC 14.1 H (4.8-10.8) X10*3/uL RBC 3.41 L (4.20-5.50) X10*6/uL Hgb 9.4 L (12.0-16.0) g/dl Hct 29.0 L (37-47) % MCV 85.0 (80-98) fL MCH 27.6 (27.0-33.0) pg MCHC 32.4 (31.0-35.0) g/dl RDW 13.9 (11.0-16.0) % Plt Count 340 (160-400) X10*3/uL MPV 10.7 (9.4-12.3) fL Immature Gran % (Auto) 1.6 H (0.0-0.4) % Neut % (Auto) 77.8 H (45-73) % Lymph % (Auto) 8.8 L (20-40) % [place] % (Auto) 9.6 (2-11) % Eos % (Auto) 1.6 (0-4) % Baso % (Auto) 0.6 (0-2) % Lymph # (Auto) 1.2 (1.2-4.9) X10*3/uL [place] # (Auto) 1.4 H (0.1-1.2) X10*3/uL Eos # (Auto) 0.2 (0.0-0.4) X10*3/uL Baso # (Auto) 0.1 (0.0-0.2) X10*3/uL Abs Immat Gran (auto) 0.22 H (0.00-0.03) X10*3/uL Absolute Neuts (auto) 11.0 H (2.0-8.3) X10*3/uL Absolute Nucleated RBC 0.000 (0.0-0.012) X10*3/uL Nucleated RBC % (auto) 0.0 (0.0-0.2) /100WBC Smear Tech's Comments PT (10.8-13.0) SEC INR (0.9-1.1) Hold Blue Top Sodium (135-145) mmol/L Potassium (3.3-5.1) mmol/l Chloride (96-108) mmol/L Carbon Dioxide (22-29) mmol/L Anion Gap (12-20) BUN (9-16) mg/dL Creatinine (0.5-1.4) mg/dL Estim Creat Clear Calc Estimated GFR POC Glucose 142 H 236 H (60-115) mg/dL Random Glucose (60-115) mg/dL Fasting Glucose (60-99) mg/dL Calcium (8.4-10.2) mg/dL Magnesium (1.6-2.6) mg/dL Total Bilirubin (0.0-1.0) mg/dL Direct Bilirubin (0.0-0.5) mg/dL AST (5-31) U/L ALT (0-31) U/L Alkaline Phosphatase (39-117) U/L Troponin I High Sens (<3.5-17.0) ng/L B-Natriuretic Peptide (<100) pg/mL Total Protein (6.5-8.0) g/dL Albumin (3.5-5.0) g/dL Lipase (8-78) U/L Urine Color Urine Appearance Urine pH (5.0-8.0) Ur Specific [place] (1.005-1.025) Urine Protein (NEG-TRACE) MG/DL Urine Glucose (UA) (NEG) MG/DL Urine Ketones (NEG) MG/DL Urine Blood (NEG) Urine Nitrite (NEG) Ur Leukocyte Esterase (NEG) Urine RBC (0) /HPF Urine WBC (0-4) /HPF Urine WBC Clumps Ur Squamous Epith Cells /LPF Urine Bacteria /LPF 06/27/20 06/27/20 06/28/20 Range/Units 16:21 19:55 07:38 WBC (4.8-10.8) X10*3/uL RBC (4.20-5.50) X10*6/uL Hgb (12.0-16.0) g/dl Hct (37-47) % MCV (80-98) fL MCH (27.0-33.0) pg MCHC (31.0-35.0) g/dl RDW (11.0-16.0) % Plt Count (160-400) X10*3/uL MPV (9.4-12.3) fL Immature Gran % (Auto) (0.0-0.4) % Neut % (Auto) (45-73) % Lymph % (Auto) (20-40) % [place] % (Auto) (2-11) % Eos % (Auto) (0-4) % Baso % (Auto) (0-2) % Lymph # (Auto) (1.2-4.9) X10*3/uL [place] # (Auto) (0.1-1.2) X10*3/uL Eos # (Auto) (0.0-0.4) X10*3/uL Baso # (Auto) (0.0-0.2) X10*3/uL Abs Immat Gran (auto) (0.00-0.03) X10*3/uL Absolute Neuts (auto) (2.0-8.3) X10*3/uL Absolute Nucleated RBC (0.0-0.012) X10*3/uL Nucleated RBC % (auto) (0.0-0.2) /100WBC Smear Tech's Comments PT (10.8-13.0) SEC INR (0.9-1.1) Hold Blue Top Sodium (135-145) mmol/L Potassium (3.3-5.1) mmol/l Chloride (96-108) mmol/L Carbon Dioxide (22-29) mmol/L Anion Gap (12-20) BUN (9-16) mg/dL Creatinine (0.5-1.4) mg/dL Estim Creat Clear Calc Estimated GFR POC Glucose 189 H 173 H 98 (60-115) mg/dL Random Glucose (60-115) mg/dL Fasting Glucose (60-99) mg/dL Calcium (8.4-10.2) mg/dL Magnesium (1.6-2.6) mg/dL Total Bilirubin (0.0-1.0) mg/dL Direct Bilirubin (0.0-0.5) mg/dL AST (5-31) U/L ALT (0-31) U/L Alkaline Phosphatase (39-117) U/L Troponin I High Sens (<3.5-17.0) ng/L B-Natriuretic Peptide (<100) pg/mL Total Protein (6.5-8.0) g/dL Albumin (3.5-5.0) g/dL Lipase (8-78) U/L Urine Color Urine Appearance Urine pH (5.0-8.0) Ur Specific [place] (1.005-1.025) Urine Protein (NEG-TRACE) MG/DL Urine Glucose (UA) (NEG) MG/DL Urine Ketones (NEG) MG/DL Urine Blood (NEG) Urine Nitrite (NEG) Ur Leukocyte Esterase (NEG) Urine RBC (0) /HPF Urine WBC (0-4) /HPF Urine WBC Clumps Ur Squamous Epith Cells /LPF Urine Bacteria /LPF 06/28/20 06/28/20 06/28/20 Range/Units 10:49 10:49 11:02 WBC 12.4 H (4.8-10.8) X10*3/uL RBC 3.65 L (4.20-5.50) X10*6/uL Hgb 10.0 L (12.0-16.0) g/dl Hct 31.3 L (37-47) % MCV 85.8 (80-98) fL MCH 27.4 (27.0-33.0) pg MCHC 31.9 (31.0-35.0) g/dl RDW 14.2 (11.0-16.0) % Plt Count 399 (160-400) X10*3/uL MPV 10.2 (9.4-12.3) fL Immature Gran % (Auto) 2.0 H (0.0-0.4) % Neut % (Auto) 74.1 H (45-73) % Lymph % (Auto) 11.0 L (20-40) % [place] % (Auto) 10.6 (2-11) % Eos % (Auto) 1.5 (0-4) % Baso % (Auto) 0.8 (0-2) % Lymph # (Auto) 1.4 (1.2-4.9) X10*3/uL [place] # (Auto) 1.3 H (0.1-1.2) X10*3/uL Eos # (Auto) 0.2 (0.0-0.4) X10*3/uL Baso # (Auto) 0.1 (0.0-0.2) X10*3/uL Abs Immat Gran (auto) 0.25 H (0.00-0.03) X10*3/uL Absolute Neuts (auto) 9.2 H (2.0-8.3) X10*3/uL Absolute Nucleated RBC 0.000 (0.0-0.012) X10*3/uL Nucleated RBC % (auto) 0.0 (0.0-0.2) /100WBC Smear Tech's Comments PT (10.8-13.0) SEC INR (0.9-1.1) Hold Blue Top Sodium 136 (135-145) mmol/L Potassium 4.5 (3.3-5.1) mmol/l Chloride 103 (96-108) mmol/L Carbon Dioxide 22 (22-29) mmol/L Anion Gap 16 (12-20) BUN 28 H (9-16) mg/dL Creatinine 1.52 H (0.5-1.4) mg/dL Estim Creat Clear Calc 23.5 Estimated GFR 33 POC Glucose 99 (60-115) mg/dL Random Glucose 98 D (60-115) mg/dL Fasting Glucose (60-99) mg/dL Calcium 8.8 (8.4-10.2) mg/dL Magnesium (1.6-2.6) mg/dL Total Bilirubin (0.0-1.0) mg/dL Direct Bilirubin (0.0-0.5) mg/dL AST (5-31) U/L ALT (0-31) U/L Alkaline Phosphatase (39-117) U/L Troponin I High Sens (<3.5-17.0) ng/L B-Natriuretic Peptide (<100) pg/mL Total Protein (6.5-8.0) g/dL Albumin (3.5-5.0) g/dL Lipase (8-78) U/L Urine Color Urine Appearance Urine pH (5.0-8.0) Ur Specific [place] (1.005-1.025) Urine Protein (NEG-TRACE) MG/DL Urine Glucose (UA) (NEG) MG/DL Urine Ketones (NEG) MG/DL Urine Blood (NEG) Urine Nitrite (NEG) Ur Leukocyte Esterase (NEG) Urine RBC (0) /HPF Urine WBC (0-4) /HPF Urine WBC Clumps Ur Squamous Epith Cells /LPF Urine Bacteria /LPF 06/28/20 06/28/20 06/28/20 Range/Units 16:17 16:17 21:13 WBC (4.8-10.8) X10*3/uL RBC (4.20-5.50) X10*6/uL Hgb (12.0-16.0) g/dl Hct (37-47) % MCV (80-98) fL MCH (27.0-33.0) pg MCHC (31.0-35.0) g/dl RDW (11.0-16.0) % Plt Count (160-400) X10*3/uL MPV (9.4-12.3) fL Immature Gran % (Auto) (0.0-0.4) % Neut % (Auto) (45-73) % Lymph % (Auto) (20-40) % [place] % (Auto) (2-11) % Eos % (Auto) (0-4) % Baso % (Auto) (0-2) % Lymph # (Auto) (1.2-4.9) X10*3/uL [place] # (Auto) (0.1-1.2) X10*3/uL Eos # (Auto) (0.0-0.4) X10*3/uL Baso # (Auto) (0.0-0.2) X10*3/uL Abs Immat Gran (auto) (0.00-0.03) X10*3/uL Absolute Neuts (auto) (2.0-8.3) X10*3/uL Absolute Nucleated RBC (0.0-0.012) X10*3/uL Nucleated RBC % (auto) (0.0-0.2) /100WBC Smear Tech's Comments PT (10.8-13.0) SEC INR (0.9-1.1) Hold Blue Top Sodium (135-145) mmol/L Potassium (3.3-5.1) mmol/l Chloride (96-108) mmol/L Carbon Dioxide (22-29) mmol/L Anion Gap (12-20) BUN (9-16) mg/dL Creatinine (0.5-1.4) mg/dL Estim Creat Clear Calc Estimated GFR POC Glucose 92 92 130 H (60-115) mg/dL Random Glucose (60-115) mg/dL Fasting Glucose (60-99) mg/dL Calcium (8.4-10.2) mg/dL Magnesium (1.6-2.6) mg/dL Total Bilirubin (0.0-1.0) mg/dL Direct Bilirubin (0.0-0.5) mg/dL AST (5-31) U/L ALT (0-31) U/L Alkaline Phosphatase (39-117) U/L Troponin I High Sens (<3.5-17.0) ng/L B-Natriuretic Peptide (<100) pg/mL Total Protein (6.5-8.0) g/dL Albumin (3.5-5.0) g/dL Lipase (8-78) U/L Urine Color Urine Appearance Urine pH (5.0-8.0) Ur Specific [place] (1.005-1.025) Urine Protein (NEG-TRACE) MG/DL Urine Glucose (UA) (NEG) MG/DL Urine Ketones (NEG) MG/DL Urine Blood (NEG) Urine Nitrite (NEG) Ur Leukocyte Esterase (NEG) Urine RBC (0) /HPF Urine WBC (0-4) /HPF Urine WBC Clumps Ur Squamous Epith Cells /LPF Urine Bacteria /LPF 06/29/20 06/29/20 06/29/20 Range/Units 02:08 05:31 05:31 WBC 10.5 (4.8-10.8) X10*3/uL RBC 3.48 L (4.20-5.50) X10*6/uL Hgb 9.7 L (12.0-16.0) g/dl Hct 29.8 L (37-47) % MCV 85.6 (80-98) fL MCH 27.9 (27.0-33.0) pg MCHC 32.6 (31.0-35.0) g/dl RDW 14.2 (11.0-16.0) % Plt Count 383 (160-400) X10*3/uL MPV 10.3 (9.4-12.3) fL Immature Gran % (Auto) 2.0 H (0.0-0.4) % Neut % (Auto) 76.3 H (45-73) % Lymph % (Auto) 9.6 L (20-40) % [place] % (Auto) 10.5 (2-11) % Eos % (Auto) 0.9 (0-4) % Baso % (Auto) 0.7 (0-2) % Lymph # (Auto) 1.0 L (1.2-4.9) X10*3/uL [place] # (Auto) 1.1 (0.1-1.2) X10*3/uL Eos # (Auto) 0.1 (0.0-0.4) X10*3/uL Baso # (Auto) 0.1 (0.0-0.2) X10*3/uL Abs Immat Gran (auto) 0.21 H (0.00-0.03) X10*3/uL Absolute Neuts (auto) 8.0 (2.0-8.3) X10*3/uL Absolute Nucleated RBC 0.000 (0.0-0.012) X10*3/uL Nucleated RBC % (auto) 0.0 (0.0-0.2) /100WBC Smear Tech's Comments PT (10.8-13.0) SEC INR (0.9-1.1) Hold Blue Top Sodium 135 (135-145) mmol/L Potassium 4.4 (3.3-5.1) mmol/l Chloride 102 (96-108) mmol/L Carbon Dioxide 23 (22-29) mmol/L Anion Gap 14 (12-20) BUN 28 H (9-16) mg/dL Creatinine 1.53 H (0.5-1.4) mg/dL Estim Creat Clear Calc 23.4 Estimated GFR 33 POC Glucose (60-115) mg/dL Random Glucose 130 H (60-115) mg/dL Fasting Glucose (60-99) mg/dL Calcium 8.3 L (8.4-10.2) mg/dL Magnesium 1.6 (1.6-2.6) mg/dL Total Bilirubin (0.0-1.0) mg/dL Direct Bilirubin (0.0-0.5) mg/dL AST (5-31) U/L ALT (0-31) U/L Alkaline Phosphatase (39-117) U/L Troponin I High Sens (<3.5-17.0) ng/L B-Natriuretic Peptide (<100) pg/mL Total Protein (6.5-8.0) g/dL Albumin (3.5-5.0) g/dL Lipase (8-78) U/L Urine Color Urine Appearance Urine pH (5.0-8.0) Ur Specific [place] (1.005-1.025) Urine Protein (NEG-TRACE) MG/DL Urine Glucose (UA) (NEG) MG/DL Urine Ketones (NEG) MG/DL Urine Blood (NEG) Urine Nitrite (NEG) Ur Leukocyte Esterase (NEG) Urine RBC (0) /HPF Urine WBC (0-4) /HPF Urine WBC Clumps Ur Squamous Epith Cells /LPF Urine Bacteria /LPF 06/29/20 06/29/20 06/29/20 Range/Units 05:33 07:45 09:47 WBC (4.8-10.8) X10*3/uL RBC (4.20-5.50) X10*6/uL Hgb (12.0-16.0) g/dl Hct (37-47) % MCV (80-98) fL MCH (27.0-33.0) pg MCHC (31.0-35.0) g/dl RDW (11.0-16.0) % Plt Count (160-400) X10*3/uL MPV (9.4-12.3) fL Immature Gran % (Auto) (0.0-0.4) % Neut % (Auto) (45-73) % Lymph % (Auto) (20-40) % [place] % (Auto) (2-11) % Eos % (Auto) (0-4) % Baso % (Auto) (0-2) % Lymph # (Auto) (1.2-4.9) X10*3/uL [place] # (Auto) (0.1-1.2) X10*3/uL Eos # (Auto) (0.0-0.4) X10*3/uL Baso # (Auto) (0.0-0.2) X10*3/uL Abs Immat Gran (auto) (0.00-0.03) X10*3/uL Absolute Neuts (auto) (2.0-8.3) X10*3/uL Absolute Nucleated RBC (0.0-0.012) X10*3/uL Nucleated RBC % (auto) (0.0-0.2) /100WBC Smear Tech's Comments PT 15.6 H D (10.8-13.0) SEC INR 1.3 H (0.9-1.1) Hold Blue Top Sodium (135-145) mmol/L Potassium (3.3-5.1) mmol/l Chloride (96-108) mmol/L Carbon Dioxide (22-29) mmol/L Anion Gap (12-20) BUN (9-16) mg/dL Creatinine (0.5-1.4) mg/dL Estim Creat Clear Calc Estimated GFR POC Glucose 128 H 119 H (60-115) mg/dL Random Glucose (60-115) mg/dL Fasting Glucose (60-99) mg/dL Calcium (8.4-10.2) mg/dL Magnesium (1.6-2.6) mg/dL Total Bilirubin (0.0-1.0) mg/dL Direct Bilirubin (0.0-0.5) mg/dL AST (5-31) U/L ALT (0-31) U/L Alkaline Phosphatase (39-117) U/L Troponin I High Sens (<3.5-17.0) ng/L B-Natriuretic Peptide (<100) pg/mL Total Protein (6.5-8.0) g/dL Albumin (3.5-5.0) g/dL Lipase (8-78) U/L Urine Color Urine Appearance Urine pH (5.0-8.0) Ur Specific [place] (1.005-1.025) Urine Protein (NEG-TRACE) MG/DL Urine Glucose (UA) (NEG) MG/DL Urine Ketones (NEG) MG/DL Urine Blood (NEG) Urine Nitrite (NEG) Ur Leukocyte Esterase (NEG) Urine RBC (0) /HPF Urine WBC (0-4) /HPF Urine WBC Clumps Ur Squamous Epith Cells /LPF Urine Bacteria /LPF 06/29/20 Range/Units 11:38 WBC (4.8-10.8) X10*3/uL RBC (4.20-5.50) X10*6/uL Hgb (12.0-16.0) g/dl Hct (37-47) % MCV (80-98) fL MCH (27.0-33.0) pg MCHC (31.0-35.0) g/dl RDW (11.0-16.0) % Plt Count (160-400) X10*3/uL MPV (9.4-12.3) fL Immature Gran % (Auto) (0.0-0.4) % Neut % (Auto) (45-73) % Lymph % (Auto) (20-40) % [place] % (Auto) (2-11) % Eos % (Auto) (0-4) % Baso % (Auto) (0-2) % Lymph # (Auto) (1.2-4.9) X10*3/uL [place] # (Auto) (0.1-1.2) X10*3/uL Eos # (Auto) (0.0-0.4) X10*3/uL Baso # (Auto) (0.0-0.2) X10*3/uL Abs Immat Gran (auto) (0.00-0.03) X10*3/uL Absolute Neuts (auto) (2.0-8.3) X10*3/uL Absolute Nucleated RBC (0.0-0.012) X10*3/uL Nucleated RBC % (auto) (0.0-0.2) /100WBC Smear Tech's Comments PT (10.8-13.0) SEC INR (0.9-1.1) Hold Blue Top Sodium (135-145) mmol/L Potassium (3.3-5.1) mmol/l Chloride (96-108) mmol/L Carbon Dioxide (22-29) mmol/L Anion Gap (12-20) BUN (9-16) mg/dL Creatinine (0.5-1.4) mg/dL Estim Creat Clear Calc Estimated GFR POC Glucose 111 (60-115) mg/dL Random Glucose (60-115) mg/dL Fasting Glucose (60-99) mg/dL Calcium (8.4-10.2) mg/dL Magnesium (1.6-2.6) mg/dL Total Bilirubin (0.0-1.0) mg/dL Direct Bilirubin (0.0-0.5) mg/dL AST (5-31) U/L ALT (0-31) U/L Alkaline Phosphatase (39-117) U/L Troponin I High Sens (<3.5-17.0) ng/L B-Natriuretic Peptide (<100) pg/mL Total Protein (6.5-8.0) g/dL Albumin (3.5-5.0) g/dL Lipase (8-78) U/L Urine Color Urine Appearance Urine pH (5.0-8.0) Ur Specific [place] (1.005-1.025) Urine Protein (NEG-TRACE) MG/DL Urine Glucose (UA) (NEG) MG/DL Urine Ketones (NEG) MG/DL Urine Blood (NEG) Urine Nitrite (NEG) Ur Leukocyte Esterase (NEG) Urine RBC (0) /HPF Urine WBC (0-4) /HPF Urine WBC Clumps Ur Squamous Epith Cells /LPF Urine Bacteria /LPF
[2020-06-29 11:44] LABS: Glucose, Whole Blood 111 mg/dL (60-115)
--- NOTE | 2020-06-29 12:59 | PC.NURSE ---
Back time note to 1000. PTs daughter Cory at bedside. pt alert and oriented x 2 ths morning, calm & coopertive prior to daughter being present. Pt then very anxious, in pain and restelss. pt daughter requesting pain meds, pt only had prn tylenol, medicated. Dr Krueger notified, come to find out per pts daughter coyr, pt takes oxycodone 5mg po bid @ home as well as as needed, but medication automatically dc'd in pharmacy. pt daughter cory extreemly agitated that this happened, scenario explained multiple times and Cory notified that Dr Krueger has been notified and medicaiton will be re-ordered. Cory was unhappy with the time it took for medication to be ordered, processed in pharmacy and ordered, requesting to speak to dr krueger in person. Dr Krueger currently in an emergency response situation, Cory notfiied and stated she was very understanding of that
--- NOTE | 2020-06-29 13:10 | HO.ANESPROP2 ---
HPI - Anesthesia Eval Consult details Narrative: Here for right nephrostomy tube placement PMFSH Past Medical History Medical History (Updated 06/29/20 @ 12:34 by Ernestina Wilkinson) Afib Bladder mass CAD (coronary artery disease) Chronic diastolic heart failure COPD (chronic obstructive pulmonary disease) CVA (cerebral vascular accident) GERD (gastroesophageal reflux disease) Hypercholesteremia Hypertension Leg swelling Obesity Toxic metabolic encephalopathy Family History Family history of problems with anesthesia: No Surgical History Surgical History (Updated 06/29/20 @ 13:15 by Ernestina Wilkinson) S/P CABG (coronary artery bypass graft) Status post surgical removal and fulguration of bladder neoplasm History of Problems with Anesthesia: Yes (?hallucinations with fentanyl) Social History Social History Alcohol intake: former Smoking Status: Former smoker Advance Directives: Yes Advance Directives Information Provided: No Advance Directives on File: Yes Advance Directives Date on File: 06/28/20 service: No Current occupational status: retired Meds Allergies Allergy/AdvReac Type Severity Reaction Status Date / Time phenobarbital [PHENOBARBITAL] Allergy Mild HIVES Verified 06/11/20 21:44 fentanyl [FENTANYL] Allergy Unknown HALLUCINATI Verified 06/11/20 21:44 ONS insulin lispro [From HUMALOG] Allergy Unknown RASH Verified 06/11/20 21:44 morphine [MORPHINE] Allergy Unknown HALLUCINATI Verified 06/11/20 21:44 ON Sulfa (Sulfonamide Allergy Unknown Unknown Verified 06/11/20 21:44 Antibiotics) sulfamethoxazole Allergy Unknown UNKNOWN Verified 06/11/20 21:44 [From BACTRIM] trimethoprim [From BACTRIM] Allergy Unknown UNKNOWN Verified 06/11/20 21:44 diazepam [DIAZEPAM] AdvReac Unknown CRY Verified 06/11/20 21:44 Home Medications Medication Instructions Recorded Confirmed Type Combivent Respimat 1 puff INHALATION QID PRN 06/12/20 06/20/20 History Eliquis 5 mg PO BID@0800,2000 06/12/20 06/22/20 History Novolog Mix 70-30FlexPen U-100 24 units SUBCUT BEDTIME 06/12/20 06/22/20 History acetaminophen [Tylenol] 325 mg PO QID PRN 06/12/20 06/20/20 History albuterol 1 mcg INHALATION Q4H PRN 06/12/20 06/20/20 History amlodipine 2.5 mg PO Q2D@199906/12/20 06/22/20 History amlodipine 5 mg PO Q2D@199906/12/20 06/22/20 History atorvastatin 80 mg PO DAILY@199906/12/20 06/22/20 History cholecalciferol (vitamin D3) 50 mcg PO DAILY@1500 06/12/20 06/22/20 History cyanocobalamin (vitamin B-12) 2,000 mcg PO DAILY@1500 06/12/20 06/22/20 History [Vitamin B-12] fluticasone propion-salmeterol 1 inh INHALATION BID 06/12/20 06/20/20 History [Advair Diskus] gabapentin 300 mg PO TID@0800,1499,199906/12/20 06/22/20 History isosorbide mononitrate 60 mg PO DAILY@0800 06/12/20 06/22/20 History methenamine hippurate 1 g PO BID@0800,199906/12/20 06/22/20 History metoprolol succinate 100 mg PO DAILY@199906/12/20 06/22/20 History multivitamin 1 tab PO DAILY@149906/12/20 06/22/20 History pantoprazole 40 mg PO DAILY@0630 06/12/20 06/22/20 History prednisolone acetate 1 drp OPHTHALMIC-RIGHT TID 06/12/20 06/20/20 History ropinirole 0.25 mg PO DAILY@199906/12/20 06/22/20 History cefpodoxime 50 mg PO DAILY 06/22/20 06/22/20 History folic acid 0.4 mg PO DAILY@149906/22/20 06/22/20 History insulin asp prt-insulin aspart 26 unit SUBCUT DAILY 06/22/20 06/22/20 History [Novolog Mix 70-30FlexPen U-100] oxycodone 5 mg PO BID@0800,199906/22/20 06/22/20 History Exam Exam Date and Time: June 29, 2020 1310 Height,Weight and Vital Signs: Height 4 ft 10 in Weight 67.4 kg Last Vital Signs Temp 98.2 F 06/29/20 08:00 Pulse 69 06/29/20 08:33 Resp 18 06/29/20 08:00 BP 179/81 H 06/29/20 08:33 Pulse Ox 100 06/29/20 08:00 Pertinent Lab Results Pertinent Lab Results: Poc 111 Airway Mallampati Class: II TM Dist: >3cm Neck ROM: Full Denture: Upper and Lower Heart: RRR Lungs: CTAB Assessment and Plan Assessment Anesthesia Assessment: Anesthesia Plan Discussed and Chart Reviewed Final Anesthetic Review NPO: Yes ASA Class: III Final Preanesthetic Review: No Changes in Pt Med Stat, Meds/Allgs Chart Reviewed, Consent Obtained/Reviewed and Anes Risks/Benef Reviewed Patient Risk: High Procedure Risk: Intermediate Anesthetic Plan Anesthetic Plan: MAC: Disposition: Standard PACU
--- NOTE | 2020-06-29 13:21 | P.PNIM_ITS ---
Subjective Subjective Date of Service: 06/29/20 Interval History: patient seen and examined at bedside patient reported weakness Constitutional Constitutional: Reports weakness Cardiovascular Cardiovascular: Denies chest pain Respiratory Respiratory: Denies cough Neurologic Neurologic: Reports weakness Physical Exam Vital Signs: Vital Signs: Vital Signs Temp Pulse Resp BP Pulse Ox 06/29/20 08:33 69 179/81 H 06/29/20 08:00 98.2 F 65 18 175/72 H 100 06/29/20 03:07 97.7 F 69 18 179/81 H 96 06/28/20 23:32 98.2 F 70 18 170/75 H 99 06/28/20 22:00 97.9 F 78 18 160/70 H 98 06/28/20 21:00 97.5 F 74 18 164/68 H 98 06/28/20 20:00 84 20 184/79 H 96 06/28/20 19:55 84 184/79 H 06/28/20 19:54 84 184/79 H 06/28/20 19:30 84 20 184/79 H 96 Body Mass Index 31.0 General: confused, alert no acute distress Resp: CTA bilateral CVS: S1,S2,RRR GI: soft, non tender, non distended Neuro: motor grossly intact Psych: impaired insight Objective Data Current Medications Generic Name Dose Route Start Last Admin Trade Name Jeromeq PRN Reason Stop Dose Admin Acetaminophen 325 mg 06/20/20 19:52 06/29/20 09:55 Acetaminophen 325 Mg Tablet PO 325 mg QID PRN Administration Pain Albuterol Sulfate 1 puff 06/20/20 20:18 Albuterol Sulfate 90 Mcg 18 Gm Inhaler INHALE Q4H PRN Shortness Of Breath Albuterol/Ipratropium 3 ml 06/25/20 16:37 06/25/20 17:16 Albuterol/Iprat 2.5/0.5mg 3 Ml Ampul.Neb INHALE 3 ml RQ6H PRN Administration Shortness of Breath/Wheezing Amlodipine Besylate 5 mg 06/23/20 20:00 06/28/20 19:54 Amlodipine Besylate 5 Mg Tablet PO 5 mg DAILY@1999 [facility] Administration Protocol Amlodipine Besylate 2.5 mg 06/28/20 20:00 06/28/20 19:55 Amlodipine Besylate 2.5 Mg Tablet PO 2.5 mg Q2D@1999 [facility] Administration Protocol Atorvastatin Calcium 80 mg 06/23/20 20:00 06/28/20 19:54 Atorvastatin Calcium 80 Mg Tablet PO 80 mg DAILY@1999 [facility] Administration Cyanocobalamin 2,000 mcg 06/23/20 15:00 06/28/20 13:21 Cyanocobalamin (Vitamin B-12) 1,000 Mcg Tablet PO Not Given DAILY@1500 [facility] Fluticasone/Vilanterol 1 puff 06/21/20 08:00 06/29/20 12:49 Fluticasone/Vilanterol 100/25 Blst.W.Dev INHALE Not Given RDAILY [facility] Folic Acid 1 mg 06/23/20 15:00 06/28/20 13:21 Folic Acid 1 Mg Tablet PO Not Given DAILY@1500 [facility] Gabapentin 300 mg 06/22/20 20:00 06/29/20 08:35 Gabapentin 300 Mg Capsule PO 300 mg TID@0800,1499,1999 [facility] Administration Meropenem 500 mg/ Sodium 100 mls @ 200 mls/hr 06/24/20 11:00 06/29/20 12:49 Chloride IV Not Given Q12H [facility] Lactated Ringer's 1,000 mls @ 50 mls/hr 06/29/20 13:00 Lr IVCONT .Q20H [facility] Isosorbide Mononitrate 60 mg 06/23/20 08:00 06/29/20 08:33 Isosorbide Mononitrate 60 Mg Tab.Er.24h PO 60 mg DAILY@0800 [facility] Administration Protocol Labetalol HCl 20 mg 06/28/20 17:36 Labetalol Hcl 100 Mg/20 Ml Vial IVPUSH Q20M PRN SBP > 160 Metoprolol Succinate 100 mg 06/23/20 20:00 06/28/20 19:55 Metoprolol Succinate Er 100 Mg Tab.Er.24h PO 100 mg DAILY@1999 [facility] Administration Protocol Multivitamins/Vitamin C 1 tab 06/23/20 15:00 06/28/20 13:22 Multivitamin Tablet PO Not Given DAILY@1500 [facility] Nitroglycerin 0.4 mg 06/20/20 19:52 Nitroglycerin 0.4 Mg Tab.Subl SUBLINGUAL Q5M PRN Chest Pain Patient Own 24 each 06/25/20 17:00 06/29/20 08:35 Medication Novolog SUBCUT Not Given Mix 70/30 DAILY@0800,1700 [facility] Nystatin 1 appl 06/27/20 21:00 06/29/20 08:33 Nystatin Ointment 15 Gm Tube TOPICAL 1 appl BID [facility] Administration Protocol Omeprazole 40 mg 06/21/20 06:30 06/29/20 05:32 Omeprazole 40 Mg Capsule.Dr PO Not Given DAILY@0630 [facility] Ondansetron HCl 4 mg 06/23/20 17:43 06/23/20 18:11 Ondansetron Hcl 4 Mg/2 Ml Vial IVPUSH 4 mg Q6H PRN Administration nausea Ondansetron HCl 4 mg 06/28/20 17:32 Ondansetron Hcl 4 Mg/2 Ml Vial IVPUSH ONCE PRN Nausea and Vomiting Oxycodone HCl 5 mg 06/29/20 20:00 06/29/20 10:55 Oxycodone Hcl Immed Release 5 Mg Tablet PO 5 mg BID@0800,2000 [facility] Administration Pharmacy Consult 1 each 06/20/20 16:44 Consult Rx Perform Med Rec MISCELLANE ONCE PRN Consult order Prednisolone Acetate 1 drop 06/20/20 21:00 06/29/20 08:33 Prednisolone Acetate 1 % Oph Susp 5 Ml Drpbtl EYE-RIGHT 1 drop TID [facility] Administration Ropinirole HCl 0.25 mg 06/23/20 20:00 06/28/20 19:54 Ropinirole Hcl 0.25 Mg Tablet PO 0.25 mg DAILY@2000 [facility] Administration Sodium Chloride 3 ml 06/21/20 00:00 06/29/20 08:33 0.9 % Sodium Chloride Flush 3 Ml Syringe IVFLUSH 3 ml QSHIFT [facility] Administration Vitamin D 50 mcg 06/23/20 15:00 06/28/20 13:21 Cholecalciferol (Vitamin D3) 25 Mcg Tablet PO Not Given DAILY@1500 [facility] Labs CBC & Chem 7: 06/29/20 05:31 06/29/20 05:31 Microbiology Microbiology Results: Microbiology 06/23/20 17:16 Blood - Venous Blood Culture - Final No growth after 5 days. 06/23/20 17:10 Blood - Venous Blood Culture - Final No growth after 5 days. 06/21/20 Unknown Urine clean catch - Clean Catch Midstream Urine Culture - Final Escherichia coli Assessment and Plan (1) Hypomagnesemia: Status: Acute (2) KAIN (acute kidney injury): Problem details: Status: Acute (3) Chest pain: Status: Acute (4) Hydronephrosis: Status: Acute (5) Diabetes mellitus type 1: Status: Deleted (6) Hyponatremia: Status: Deleted Assessment and Plan: 79F presented with chest pain UTI urine culture growing ESBL ecoli blood culture pending continue IV meropenem D id following Bladder mass with hydronephrosis status post TURBT with partial resection of tumor oncology consult requested plan for nephrostomy tube on right side for hydronephrosis today chest pain in the setting on known CAD and chronic systolic chf with recovered EF resolved repeat troponin stable continue medical management, statin, nitrate, beta vish KAIN on CKD improved, nephro appreciated, close to baseline hypomagnesemia replaced and resolved DM on novalog 70/30 bid 24 units blood sugar on lower side will hold insulin today given patient NPO monitor blood glucose afib continue metoprolol Eliquis on hold for nephrostomy tube htn amlodipine DVT prophylaxis Eliquis on hold for for nephrostomy tube placement continue Venodyne boot
[2020-06-29] MEDS: iohexoL 300 MG/ML 50 ML INFUS..BTL 20 ML IV (13:31)
[2020-06-29] MEDS: Lidocaine HCl 1 % 20 ML VIAL 10 ML SUBCUT (13:34)
--- NOTE | 2020-06-29 15:50 | PM.HEMONCCN ---
Subjective - Subjective Chief complaint: Pelvic and back pain Consult date: 06/29/20 Requesting Physician: Tanisha Frias MD Primary Care Provider: Micah Guerrier MD HPI - Consult Narrative Reason for consult: Probable bladder cancer Narrative: Karuna Anthony is a 79 year old female patient who is admitted for generalized weakness and pelvic pain. She was recently diagnosed with a bladder mass, CT abdomen demonstrated right-sided hydroureteronephrosis along with bladder neoplasm. Patient underwent nephrostomy tube placement on 06/29/2020. She underwent TURBT with partial resection of tumor on the same day. Pathology is pending. Patient was seen at the bedside in the presence of both her daughters. They have many questions about further management of her cancer. Patient has been quite weak and bed ridden for the most part. They are planning to have her admitted to rehabilitation. Review of Systems - Constitutional Reports fatigue, Reports lack of energy, Reports malaise, Reports poor appetite - Cardiovascular Denies chest pain - Respiratory Denies cough - Gastrointestinal Reports cramping, Reports nausea - Genitourinary Reports difficulty urinating, Reports painful urination - Musculoskeletal Reports no additional musculoskeletal complaints - Neurologic Reports abnormal speech, Reports weakness PMFSH Medical History: Medical History (Last Reviewed 07/02/20 @ 14:58 by Tamela Kaminski, PT) Afib Bladder mass CAD (coronary artery disease) Chronic diastolic heart failure COPD (chronic obstructive pulmonary disease) CVA (cerebral vascular accident) GERD (gastroesophageal reflux disease) Hypercholesteremia Hypertension Leg swelling Obesity Toxic metabolic encephalopathy Surgical History: Surgical History (Last Reviewed 07/02/20 @ 14:58 by Tamela Kaminski, PT) S/P CABG (coronary artery bypass graft) Status post surgical removal and fulguration of bladder neoplasm Smoking status: Former smoker Home Medications and Allergies Current Medications: Current Medications Generic Name Dose Route Start Last Admin Trade Name Freq PRN Reason Stop Dose Admin Acetaminophen 325 mg 06/20/20 19:52 06/29/20 09:55 Acetaminophen 325 Mg Tablet PO 325 mg QID PRN Administration Pain Acetaminophen 650 mg 06/29/20 13:35 Acetaminophen 325 Mg Tablet PO ONCE PRN Pain, Mild (Pain Scale 1-3) Albuterol Sulfate 1 puff 06/20/20 20:18 Albuterol Sulfate 90 Mcg 18 Gm Inhaler INHALE Q4H PRN Shortness Of Breath Albuterol/Ipratropium 3 ml 06/25/20 16:37 06/25/20 17:16 Albuterol/Iprat 2.5/0.5mg 3 Ml Ampul.Neb INHALE 3 ml RQ6H PRN Administration Shortness of Breath/Wheezing Amlodipine Besylate 5 mg 06/23/20 20:00 06/28/20 19:54 Amlodipine Besylate 5 Mg Tablet PO 5 mg DAILY@1999 [facility] Administration Protocol Amlodipine Besylate 2.5 mg 06/28/20 20:00 06/28/20 19:55 Amlodipine Besylate 2.5 Mg Tablet PO 2.5 mg Q2D@1999 [facility] Administration Protocol Atorvastatin Calcium 80 mg 06/23/20 20:00 06/28/20 19:54 Atorvastatin Calcium 80 Mg Tablet PO 80 mg DAILY@1999 [facility] Administration Cyanocobalamin 2,000 mcg 06/23/20 15:00 06/28/20 13:21 Cyanocobalamin (Vitamin B-12) 1,000 Mcg Tablet PO Not Given DAILY@1500 [facility] Fluticasone/Vilanterol 1 puff 06/21/20 08:00 06/29/20 12:49 Fluticasone/Vilanterol 100/25 Blst.W.Dev INHALE Not Given RDAILY [facility] Folic Acid 1 mg 06/23/20 15:00 06/28/20 13:21 Folic Acid 1 Mg Tablet PO Not Given DAILY@1500 [facility] Gabapentin 300 mg 06/22/20 20:00 06/29/20 08:35 Gabapentin 300 Mg Capsule PO 300 mg TID@0800,1499,1999 [facility] Administration Meropenem 500 mg/ Sodium 100 mls @ 200 mls/hr 06/24/20 11:00 06/29/20 12:49 Chloride IV Not Given Q12H [facility] Lactated Ringer's 1,000 mls @ 50 mls/hr 06/29/20 13:00 Lr IVCONT .Q20H [facility] Sodium Chloride 500 mls @ 50 mls/hr 06/29/20 13:30 Ns IV 06/29/20 23:29 .Q10H [facility] Isosorbide Mononitrate 60 mg 06/23/20 08:00 06/29/20 08:33 Isosorbide Mononitrate 60 Mg Tab.Er.24h PO 60 mg DAILY@0800 [facility] Administration Protocol Labetalol HCl 20 mg 10/22/20 17:36 Labetalol Hcl 100 Mg/20 Ml Vial IVPUSH Q20M PRN SBP > 160 Metoprolol Succinate 100 mg 06/23/20 20:00 06/28/20 19:55 Metoprolol Succinate Er 100 Mg Tab.Er.24h PO 100 mg DAILY@1999 [facility] Administration Protocol Multivitamins/Vitamin C 1 tab 06/23/20 15:00 06/28/20 13:22 Multivitamin Tablet PO Not Given DAILY@1500 [facility] Nitroglycerin 0.4 mg 06/20/20 19:52 Nitroglycerin 0.4 Mg Tab.Subl SUBLINGUAL Q5M PRN Chest Pain Patient Own 24 each 06/25/20 17:00 06/29/20 08:35 Medication Novolog SUBCUT Not Given Mix 70/30 DAILY@0800,1700 [facility] Nystatin 1 appl 06/27/20 21:00 06/29/20 08:33 Nystatin Ointment 15 Gm Tube TOPICAL 1 appl BID [facility] Administration Protocol Omeprazole 40 mg 06/21/20 06:30 06/29/20 05:32 Omeprazole 40 Mg Capsule.Dr PO Not Given DAILY@0630 [facility] Ondansetron HCl 4 mg 06/23/20 17:43 06/23/20 18:11 Ondansetron Hcl 4 Mg/2 Ml Vial IVPUSH 4 mg Q6H PRN Administration nausea Ondansetron HCl 4 mg 06/28/20 17:32 Ondansetron Hcl 4 Mg/2 Ml Vial IVPUSH ONCE PRN Nausea and Vomiting Ondansetron HCl 4 mg 06/29/20 13:35 Ondansetron Hcl 4 Mg/2 Ml Vial IVPUSH ONCE PRN Nausea and Vomiting Oxycodone HCl 5 mg 06/29/20 20:00 06/29/20 10:55 Oxycodone Hcl Immed Release 5 Mg Tablet PO 5 mg BID@0800,1999 [facility] Administration Pharmacy Consult 1 each 06/20/20 16:44 Consult Rx Perform Med Rec MISCELLANE ONCE PRN Consult order Prednisolone Acetate 1 drop 06/20/20 21:00 06/29/20 08:33 Prednisolone Acetate 1 % Oph Susp 5 Ml Drpbtl EYE-RIGHT 1 drop TID [facility] Administration Ropinirole HCl 0.25 mg 06/23/20 20:00 06/28/20 19:54 Ropinirole Hcl 0.25 Mg Tablet PO 0.25 mg DAILY@1999 [facility] Administration Sodium Chloride 3 ml 06/21/20 00:00 06/29/20 08:33 0.9 % Sodium Chloride Flush 3 Ml Syringe IVFLUSH 3 ml QSHIFT [facility] Administration Vitamin D 50 mcg 06/23/20 15:00 06/28/20 13:21 Cholecalciferol (Vitamin D3) 25 Mcg Tablet PO Not Given DAILY@1500 [facility] Home Medications Medication Instructions Recorded Confirmed Type Combivent Respimat 1 puff INHALATION QID PRN 06/12/20 06/20/20 History Eliquis 5 mg PO BID@0800,199906/12/20 06/22/20 History Novolog Mix 70-30FlexPen U-100 24 units SUBCUT BEDTIME 06/12/20 06/22/20 History acetaminophen [Tylenol] 325 mg PO QID PRN 06/12/20 06/20/20 History albuterol 1 mcg INHALATION Q4H PRN 06/12/20 06/20/20 History amlodipine 2.5 mg PO Q2D@199906/12/20 06/22/20 History amlodipine 5 mg PO Q2D@199906/12/20 06/22/20 History atorvastatin 80 mg PO DAILY@199906/12/20 06/22/20 History cholecalciferol (vitamin D3) 50 mcg PO DAILY@1500 06/12/20 06/22/20 History cyanocobalamin (vitamin B-12) 2,000 mcg PO DAILY@1500 06/12/20 06/22/20 History [Vitamin B-12] fluticasone propion-salmeterol 1 inh INHALATION BID 06/12/20 06/20/20 History [Advair Diskus] gabapentin 300 mg PO TID@0800,1499,199906/12/20 06/22/20 History isosorbide mononitrate 60 mg PO DAILY@0800 06/12/20 06/22/20 History methenamine hippurate 1 g PO BID@0800,199906/12/20 06/22/20 History metoprolol succinate 100 mg PO DAILY@199906/12/20 06/22/20 History multivitamin 1 tab PO DAILY@149906/12/20 06/22/20 History pantoprazole 40 mg PO DAILY@06 06/12/20 06/22/20 History prednisolone acetate 1 drp OPHTHALMIC-RIGHT TID 06/12/20 06/20/20 History ropinirole 0.25 mg PO DAILY@199906/12/20 06/22/20 History cefpodoxime 50 mg PO DAILY 06/22/20 06/22/20 History folic acid 0.4 mg PO DAILY@1500 06/22/20 06/22/20 History insulin asp prt-insulin aspart 26 unit SUBCUT DAILY 06/22/20 06/22/20 History [Novolog Mix 70-30FlexPen U-100] oxycodone 5 mg PO BID@0800,199906/22/20 06/22/20 History Allergies Allergy/AdvReac Type Severity Reaction Status Date / Time phenobarbital [PHENOBARBITAL] Allergy Mild HIVES Verified 06/11/20 21:44 fentanyl [FENTANYL] Allergy Unknown HALLUCINATI Verified 06/11/20 21:44 ONS insulin lispro [From HUMALOG] Allergy Unknown RASH Verified 06/11/20 21:44 morphine [MORPHINE] Allergy Unknown HALLUCINATI Verified 06/11/20 21:44 ON Sulfa (Sulfonamide Allergy Unknown Unknown Verified 06/11/20 21:44 Antibiotics) sulfamethoxazole Allergy Unknown UNKNOWN Verified 06/11/20 21:44 [From BACTRIM] trimethoprim [From BACTRIM] Allergy Unknown UNKNOWN Verified 06/11/20 21:44 diazepam [DIAZEPAM] AdvReac Unknown CRY Verified 06/11/20 21:44 Physical Exam Vital signs: Vital Signs Temp 97.6 F 06/29/20 15:42 Pulse 66 06/29/20 15:42 Resp 16 06/29/20 15:42 BP 136/63 06/29/20 15:42 Pulse Ox 99 06/29/20 15:42 Intake & Output 06/28/20 06/29/20 06/29/20 18:59 06:59 18:59 Intake Total 100 / 300 200 / 300 Balance 100 / 300 200 / 300 Intake: Intake, Oral Amount 0 / 0 Intake, IV Amount 100 / 300 200 / 300 Magnesium Sulfate/D5W 1 gm In 100 / 100 100 ml @ 100 mls/hr IV ONCE ONE Rx#:[id number] Meropenem 500 mg In 0.9 % 100 / 200 100 / 200 Sodium Chloride 100 ml @ 200 mls/hr IV Q12H [facility] Rx#: [id number] Other: NPO Yes Yes Urine Samuel Urine Color Robertson Tinged Continuous Bladder Irrigation Fluid - Amount Instilled Urethral 400 Weight 67.4 kg - Constitutional Present: mild distress - Routine HEENT Exam Head: Present: normal inspection Eye: Present: EOMI - Routine Neck Exam Present: supple. Absent: lymphadenopathy - Routine Respiratory Exam Absent: rhonchi, wheezes - Routine Cardiovascular Exam Cardiovascular: Present: S1, S2 - Routine Abdominal Exam Present: soft. Absent: guarding Hem/Onc Consult Result - Labs CBC & Chem 7: 07/03/20 05:47 07/03/20 05:47 Labs: Short CBC 06/29/20 Range/Units 05:31 WBC 10.5 (4.8-10.8) X10*3/uL Hgb 9.7 L (12.0-16.0) g/dl Hct 29.8 L (37-47) % Plt Count 383 (160-400) X10*3/uL BMP 06/29/20 05:31 Sodium 135 Potassium 4.4 Chloride 102 Carbon Dioxide 23 BUN 28 H Creatinine 1.53 H Calcium 8.3 L - Imaging CT scan - abdomen Radiologist's impression: Significant right hydroureteronephrosis secondary to obstruction at the level of right ureterovesical junction. Assessment and Plan (1) Bladder mass Problem details: TURBT Dr. Burks 06/2020 Status: Acute 1. This is 79-year-old woman with bladder neoplasm, probable malignancy, she has undergone TURBT with partial resection of tumor and right nephrostomy tube placement. On cystoscopy tumor appeared to be invasive bladder cancer into the sidewall. The sidewall contained bladder cancer running from the 7 o'clock position up to the 11 o'clock position. The right ureteric orifice was never seen. Pathology is awaited. Patient has deteriorated fairly rapidly in the last few weeks, her performance status is rather poor. I discussed further management with patient and her 2 daughters. She is not candidate for any aggressive approach such as cystectomy or multi agent cis-grayling based chemotherapy. Palliative radiotherapy is an option. She does not have metastatic disease but has unresectable disease by TURBT. Palliative chemotherapy/immunotherapy is an option depending on final pathology report and molecular studies. Family is considering palliative options including hospice care. Further recommendations to follow. I thank you very much for this consultation.
[2020-06-29] MEDS: Folic Acid 1 MG TABLET PO (16:04)
[2020-06-29] MEDS: Cholecalciferol (Vitamin D3) 25 MCG TABLET 50 MCG PO (16:04)
[2020-06-29] MEDS: Cyanocobalamin (Vitamin B-12) 1,000 MCG TABLET 2000 MCG PO (16:05)
[2020-06-29] MEDS: Multivitamin TABLET 1 TAB PO (16:05)
[2020-06-29 17:01] LABS: Glucose, Whole Blood 134 mg/dL (60-115)
[2020-06-29] MEDS: Acetaminophen 325 MG TABLET 650 MG PO (19:35)
[2020-06-29 20:20] LABS: Glucose, Whole Blood 207 mg/dL (60-115)
[2020-06-29] MEDS: Atorvastatin Calcium 80 MG TABLET PO (21:22)
[2020-06-29] MEDS: amLODIPine Besylate 5 MG TABLET PO (21:22)
[2020-06-29] MEDS: rOPINIRole HCL 0.25 MG TABLET PO (21:23)
[2020-06-29] MEDS: Metoprolol Succinate ER 100 MG TAB.ER.24H PO (21:23)
[2020-06-30] VITALS (12 sets, daily range): BP systolic 117–189; BP diastolic 59–80; PULSE 61–72; RESP 16–20; TEMP 36.1–37.1; O2SAT 94–97
[2020-06-30] MEDS: oxyCODONE HCl Immed Release 5 MG TABLET PO ×4 (06:28→21:02)
[2020-06-30] MEDS: Omeprazole 40 MG CAPSULE.DR PO (06:28)
[2020-06-30 07:47] LABS: Glucose, Whole Blood 149 mg/dL (60-115)
[2020-06-30] MEDS: Lactated Ringers 1,000 ML 50 ML IVCONT (08:19)
[2020-06-30] MEDS: 0.9 % Sodium Chloride Flush 3 ML SYRINGE IVFLUSH ×3 (08:19→16:16)
[2020-06-30] MEDS: Isosorbide Mononitrate 60 MG TAB.ER.24H PO (08:20)
[2020-06-30] MEDS: Gabapentin 300 MG CAPSULE PO ×3 (08:20→21:05)
[2020-06-30] MEDS: prednisoLONE Acetate 1 % Oph Susp 5 ML DRPBTL 1 DROP EYE-RIGHT ×3 (08:21→21:27)
[2020-06-30] MEDS: Nystatin Ointment 15 GM TUBE 1 APPL TOPICAL ×2 (08:22→21:27)
[2020-06-30 10:26] LABS: MANUAL DIFF FLAG NO
[2020-06-30 10:50] LABS: Basophils Absolute Auto 0.1 X10*3/uL (0.0-0.2); Basophils Percent Auto 0.6 % (0-2); Eosinophils Absolute Auto 0.1 X10*3/uL (0.0-0.4); Eosinophils Percent Auto 1.1 % (0-4); Hematocrit 31.4 % (37-47); Imm Gran Abs Auto 0.19 X10*3/uL (0.00-0.03); Imm Gran Pct Auto 1.6 % (0.0-0.4); Lymphocytes Absolute Auto 0.9 X10*3/uL (1.2-4.9); Lymphocytes Percent Auto 7.2 % (20-40); Mean Corpuscular HGB Conc 31.8 g/dl (31.0-35.0); Mean Corpuscular Hemoglobin 27.6 pg (27.0-33.0); Mean Corpuscular Volume 86.7 fL (80-98); Monocytes Absolute Auto 1.3 X10*3/uL (0.1-1.2); Monocytes Percent Auto 10.3 % (2-11); Neutrophils Absolute Auto 9.6 X10*3/uL (2.0-8.3); Neutrophils Percent Auto 79.2 % (45-73); Platelet Count 386 X10*3/uL (160-400); Red Blood Count 3.62 X10*6/uL (4.20-5.50); Red Cell Distribution Width 14.3 % (11.0-16.0); White Blood Count 12.2 X10*3/uL (4.8-10.8)
[2020-06-30 11:25] LABS: Anion Gap 15 (12-20); Blood Urea Nitrogen 32 mg/dL (9-16); Calcium 8.7 mg/dL (8.4-10.2); Carbon Dioxide 23 mmol/L (22-29); Chloride 103 mmol/L (96-108); Creatinine Clr Calc Pharmacy 24.4; Estimated Glomerular Filt Rate 34; Glucose Random 273 mg/dL (60-115); Potassium 4.1 mmol/l (3.3-5.1); Sodium 137 mmol/L (135-145)
[2020-06-30 11:35] LABS: Glucose, Whole Blood 309 mg/dL (60-115)
--- NOTE | 2020-06-30 14:16 | P.PNIM_ITS ---
Subjective Subjective Date of Service: 06/30/20 Interval History: patient seen and examined at bedside patient was reporting pain at surgical site Constitutional Constitutional: Reports weakness Cardiovascular Cardiovascular: Denies chest pain and Denies dyspnea Respiratory Respiratory: Denies dyspnea Gastrointestinal Gastrointestinal: Denies vomiting Neurologic Neurologic: Reports weakness Physical Exam Vital Signs: Vital Signs: Vital Signs Temp Pulse Resp BP Pulse Ox 06/30/20 13:35 94 06/30/20 12:40 18 06/30/20 11:20 98.8 F 64 20 164/71 H 96 06/30/20 08:20 72 189/80 H 06/30/20 07:42 97.0 F 72 20 189/80 H 97 06/30/20 03:01 98.0 F 61 19 133/66 97 06/30/20 00:05 98.2 F 71 16 153/70 H 95 06/29/20 23:00 98.7 F 76 19 138/63 96 06/29/20 21:23 80 150/64 H 06/29/20 21:22 80 150/64 H 06/29/20 18:50 96.6 F L 76 19 148/63 H 95 06/29/20 17:31 97 06/29/20 17:00 98.3 F 74 18 154/68 H 95 06/29/20 16:00 97.6 F 66 16 136/63 99 06/29/20 15:42 97.6 F 66 16 136/63 99 06/29/20 15:08 98.1 F Body Mass Index 31.0 General: confused, alert no acute distress Resp: CTA bilateral CVS: S1,S2,RRR GI: soft, non tender, non distended Neuro: motor grossly intact Psych: impaired insight Objective Data Current Medications Generic Name Dose Route Start Last Admin Trade Name Freq PRN Reason Stop Dose Admin Acetaminophen 325 mg 06/20/20 19:52 06/29/20 09:55 Acetaminophen 325 Mg Tablet PO 325 mg QID PRN Administration Pain Albuterol Sulfate 1 puff 06/20/20 20:18 Albuterol Sulfate 90 Mcg 18 Gm Inhaler INHALE Q4H PRN Shortness Of Breath Albuterol/Ipratropium 3 ml 06/25/20 16:37 06/25/20 17:16 Albuterol/Iprat 2.5/0.5mg 3 Ml Ampul.Neb INHALE 3 ml RQ6H PRN Administration Shortness of Breath/Wheezing Amlodipine Besylate 5 mg 06/23/20 20:00 06/29/20 21:22 Amlodipine Besylate 5 Mg Tablet PO 5 mg DAILY@1999 [facility] Administration Protocol Amlodipine Besylate 2.5 mg 06/28/20 20:00 06/28/20 19:55 Amlodipine Besylate 2.5 Mg Tablet PO 2.5 mg Q2D@1999 [facility] Administration Protocol Atorvastatin Calcium 80 mg 06/23/20 20:00 06/29/20 21:22 Atorvastatin Calcium 80 Mg Tablet PO 80 mg DAILY@1999 [facility] Administration Cyanocobalamin 2,000 mcg 06/23/20 15:00 06/29/20 16:05 Cyanocobalamin (Vitamin B-12) 1,000 Mcg Tablet PO 2,000 mcg DAILY@1499 [facility] Administration Fluticasone/Vilanterol 1 puff 06/21/20 08:00 06/30/20 08:29 Fluticasone/Vilanterol 100/25 Blst.W.Dev INHALE Not Given RDAILY [facility] Folic Acid 1 mg 06/23/20 15:00 06/29/20 16:04 Folic Acid 1 Mg Tablet PO 1 mg DAILY@1500 [facility] Administration Gabapentin 300 mg 06/22/20 20:00 06/30/20 08:20 Gabapentin 300 Mg Capsule PO 300 mg TID@0800,1499,1999 [facility] Administration Meropenem 500 mg/ Sodium 100 mls @ 200 mls/hr 06/24/20 11:00 06/30/20 12:52 Chloride IV Infused Q12H [facility] Infusion Lactated Ringer's 1,000 mls @ 50 mls/hr 06/29/20 13:00 06/30/20 08:19 Lr IVCONT 50 mls/hr .Q20H [facility] Administration Isosorbide Mononitrate 60 mg 06/23/20 08:00 06/30/20 08:20 Isosorbide Mononitrate 60 Mg Tab.Er.24h PO 60 mg DAILY@0800 [facility] Administration Protocol Labetalol HCl 20 mg 06/28/20 17:36 Labetalol Hcl 100 Mg/20 Ml Vial IVPUSH Q20M PRN SBP > 160 Metoprolol Succinate 100 mg 06/23/20 20:00 06/29/20 21:23 Metoprolol Succinate Er 100 Mg Tab.Er.24h PO 100 mg DAILY@1999 [facility] Administration Protocol Multivitamins/Vitamin C 1 tab 06/23/20 15:00 06/29/20 16:05 Multivitamin Tablet PO 1 tab DAILY@1500 [facility] Administration Nitroglycerin 0.4 mg 06/20/20 19:52 Nitroglycerin 0.4 Mg Tab.Subl SUBLINGUAL Q5M PRN Chest Pain Patient Own 24 each 06/25/20 17:00 06/30/20 08:20 Medication Novolog SUBCUT Not Given Mix 70/30 DAILY@0800,1700 [facility] Nystatin 1 appl 06/27/20 21:00 06/30/20 08:22 Nystatin Ointment 15 Gm Tube TOPICAL 1 appl BID [facility] Administration Protocol Omeprazole 40 mg 06/21/20 06:30 06/30/20 06:28 Omeprazole 40 Mg Capsule.Dr PO 40 mg DAILY@0630 [facility] Administration Ondansetron HCl 4 mg 06/23/20 17:43 06/23/20 18:11 Ondansetron Hcl 4 Mg/2 Ml Vial IVPUSH 4 mg Q6H PRN Administration nausea Ondansetron HCl 4 mg 06/28/20 17:32 Ondansetron Hcl 4 Mg/2 Ml Vial IVPUSH ONCE PRN Nausea and Vomiting Ondansetron HCl 4 mg 06/29/20 13:35 Ondansetron Hcl 4 Mg/2 Ml Vial IVPUSH ONCE PRN Nausea and Vomiting Oxycodone HCl 5 mg 06/30/20 10:26 06/30/20 11:42 Oxycodone Hcl Immed Release 5 Mg Tablet PO 5 mg Q4H PRN Administration Pain, Moderate (Pain Scale 4-6 Pharmacy Consult 1 each 06/20/20 16:44 Consult Rx Perform Med Rec MISCELLANE ONCE PRN Consult order Prednisolone Acetate 1 drop 06/20/20 21:00 06/30/20 08:21 Prednisolone Acetate 1 % Oph Susp 5 Ml Drpbtl EYE-RIGHT 1 drop TID [facility] Administration Ropinirole HCl 0.25 mg 06/23/20 20:00 06/29/20 21:23 Ropinirole Hcl 0.25 Mg Tablet PO 0.25 mg DAILY@1999 [facility] Administration Sodium Chloride 3 ml 06/21/20 00:00 06/30/20 08:19 0.9 % Sodium Chloride Flush 3 Ml Syringe IVFLUSH 3 ml QSHIFT [facility] Administration Vitamin D 50 mcg 06/23/20 15:00 06/29/20 16:04 Cholecalciferol (Vitamin D3) 25 Mcg Tablet PO 50 mcg DAILY@1500 [facility] Administration Labs CBC & Chem 7: 06/30/20 10:11 06/30/20 10:11 Microbiology Microbiology Results: Microbiology 06/23/20 17:16 Blood - Venous Blood Culture - Final No growth after 5 days. 06/23/20 17:10 Blood - Venous Blood Culture - Final No growth after 5 days. 06/21/20 Unknown Urine clean catch - Clean Catch Midstream Urine Culture - Final Escherichia coli Assessment and Plan (1) Hypomagnesemia: Status: Acute (2) KAIN (acute kidney injury): Problem details: Status: Acute (3) Chest pain: Status: Acute (4) Hydronephrosis: Status: Acute (5) Diabetes mellitus type 1: Status: Deleted (6) Hyponatremia: Status: Deleted Assessment and Plan: 79F presented with chest pain UTI urine culture growing ESBL ecoli blood culture pending continue IV meropenem D id following Bladder mass with hydronephrosis status post TURBT with partial resection of tumor oncology consult requested status post nephrostomy tube on right side for hydronephrosis on 06/29/2020 continue branham catheter continue pain management noticed to have some hematuria urology following monitor CBC, hemoglobin stable so far chest pain in the setting on known CAD and chronic systolic chf with recovered EF resolved repeat troponin stable continue medical management, statin, nitrate, beta vish KAIN on CKD improved, nephro appreciated, close to baseline hypomagnesemia replaced and resolved DM on novalog 70/30 bid 24 units blood sugar on lower side will hold insulin today given patient NPO monitor blood glucose afib continue metoprolol Eliquis on hold for nephrostomy tube htn amlodipine DVT prophylaxis Eliquis on hold for hematuria continue Venodyne boot
[2020-06-30] MEDS: Multivitamin TABLET 1 TAB PO (16:16)
[2020-06-30] MEDS: Cyanocobalamin (Vitamin B-12) 1,000 MCG TABLET 2000 MCG PO (16:16)
[2020-06-30] MEDS: Folic Acid 1 MG TABLET PO (16:16)
[2020-06-30] MEDS: Cholecalciferol (Vitamin D3) 25 MCG TABLET 50 MCG PO (16:16)
[2020-06-30 16:44] LABS: Glucose, Whole Blood 160 mg/dL (60-115)
[2020-06-30] MEDS: Atorvastatin Calcium 80 MG TABLET PO (21:02)
[2020-06-30] MEDS: amLODIPine Besylate 5 MG TABLET PO (21:02)
[2020-06-30] MEDS: rOPINIRole HCL 0.25 MG TABLET PO (21:02)
[2020-06-30] MEDS: Metoprolol Succinate ER 100 MG TAB.ER.24H PO (21:03)
[2020-06-30] MEDS: amLODIPine Besylate 2.5 MG TABLET PO (21:03)
--- NOTE | 2020-06-30 21:31 | PM.PNNEP ---
Subjective Subjective Interval history: patient seen and examined at bedside pt is fatigued No CP Mild pain at the site Physical Exam Vital Signs: Vital Signs: Vital Signs Temp Pulse Resp BP Pulse Ox 06/30/20 21:03 68 117/59 L 06/30/20 21:02 68 117/59 L 06/30/20 20:00 98.2 F 68 18 117/59 L 94 06/30/20 17:00 95 06/30/20 16:00 98.2 F 65 18 152/66 H 95 06/30/20 13:35 94 06/30/20 12:40 18 06/30/20 11:20 98.8 F 64 20 164/71 H 96 06/30/20 08:20 72 189/80 H 06/30/20 07:42 97.0 F 72 20 189/80 H 97 06/30/20 03:01 98.0 F 61 19 133/66 97 06/30/20 00:05 98.2 F 71 16 153/70 H 95 06/29/20 23:00 98.7 F 76 19 138/63 96 Body Mass Index 31.0 Const: General: cooperative and comfortable Orientation/consciousness: oriented to person and patient oriented x3 HENMT: Head: Yes normal to inspection Eyes: General: appearance normal, both eyes and all related structures Pupils: Equal, round and reactive pupils present Neck: Neck: Yes normal visual inspection Chest: Chest palpation & inspection: normal inspection of the chest Resp: Effort & Inspection: normal respiratory effort and decreased respiratory effort Cardio: Jugular venous distension: no JVD Rate: regular rate Heart sounds: S1 normal heart sound present and S2 normal heart sound present GI: Inspection: Yes normal to inspection Palpation (GI): Soft to palpation Auscultation: normal bowel sounds Neuro: General: oriented to person and patient oriented x3 Cranial nerves: Yes Equal, round and reactive pupils present Assessment & Plan Assessment and plan (1) KAIN (acute kidney injury): Problem details: KAIN: c/w OBs R kidney ..suspect at new bsl-- Cr 1.47 CKD 3: Obs and recurrent KAIN and Obs of R kidney,s/p cysto and R Ntube UTI: on Abx REC: cont to track renal func/UOP; avoid NToxins IVF at same rate Antibiotics as ordered Status: Acute (2) Hydronephrosis: Problem details: As above Status: Acute (3) Hypomagnesemia: Problem details: F/u and replace as needed Status: Acute (4) Chronic diastolic heart failure: Status: Acute Time Spent With Patient Time: Total time spent is greater than 50% in coordination of care (as documented) at patient's floor/unit and/or counseling patient:
[2020-06-30 21:39] LABS: Glucose, Whole Blood 76 mg/dL (60-115)
[2020-07-01] VITALS (13 sets, daily range): BP systolic 132–179; BP diastolic 58–81; PULSE 62–109; RESP 18–20; TEMP 36.3–37.1; O2SAT 93–98
[2020-07-01] MEDS: Lactated Ringers 1,000 ML 50 ML IVCONT ×2 (03:46→23:09)
[2020-07-01] MEDS: oxyCODONE HCl Immed Release 5 MG TABLET PO ×2 (03:47→07:51)
[2020-07-01] MEDS: Omeprazole 40 MG CAPSULE.DR PO (06:28)
[2020-07-01] MEDS: Fluticasone/Vilanterol 100/25 BLST.W.DEV 1 PUFF INHALE (07:48)
[2020-07-01] MEDS: Nystatin Ointment 15 GM TUBE 1 APPL TOPICAL ×2 (07:50→20:51)
[2020-07-01] MEDS: prednisoLONE Acetate 1 % Oph Susp 5 ML DRPBTL 1 DROP EYE-RIGHT ×3 (07:50→20:51)
[2020-07-01] MEDS: 0.9 % Sodium Chloride Flush 3 ML SYRINGE IVFLUSH ×3 (07:50→20:46)
[2020-07-01] MEDS: Isosorbide Mononitrate 60 MG TAB.ER.24H PO (07:51)
[2020-07-01] MEDS: Gabapentin 300 MG CAPSULE PO ×3 (07:51→20:53)
[2020-07-01 08:01] LABS: Glucose, Whole Blood 88 mg/dL (60-115)
[2020-07-01 09:12] LABS: MANUAL DIFF FLAG NO
[2020-07-01 09:14] LABS: Basophils Absolute Auto 0.1 X10*3/uL (0.0-0.2); Basophils Percent Auto 0.6 % (0-2); Eosinophils Absolute Auto 0.2 X10*3/uL (0.0-0.4); Eosinophils Percent Auto 1.8 % (0-4); Hematocrit 30.2 % (37-47); Hemoglobin 9.5 g/dl (12.0-16.0); Imm Gran Abs Auto 0.27 X10*3/uL (0.00-0.03); Imm Gran Pct Auto 2.2 % (0.0-0.4); Lymphocytes Absolute Auto 1.1 X10*3/uL (1.2-4.9); Lymphocytes Percent Auto 8.9 % (20-40); Mean Corpuscular HGB Conc 31.5 g/dl (31.0-35.0); Mean Corpuscular Hemoglobin 27.5 pg (27.0-33.0); Mean Corpuscular Volume 87.3 fL (80-98); Mean Platelet Volume 9.6 fL (9.4-12.3); Monocytes Absolute Auto 1.1 X10*3/uL (0.1-1.2); Monocytes Percent Auto 9.1 % (2-11); Neutrophils Absolute Auto 9.6 X10*3/uL (2.0-8.3); Neutrophils Percent Auto 77.4 % (45-73); Platelet Count 369 X10*3/uL (160-400); Red Blood Count 3.46 X10*6/uL (4.20-5.50); Red Cell Distribution Width 14.3 % (11.0-16.0); White Blood Count 12.4 X10*3/uL (4.8-10.8)
[2020-07-01 09:37] LABS: Anion Gap 14 (12-20); Blood Urea Nitrogen 26 mg/dL (9-16); Calcium 8.4 mg/dL (8.4-10.2); Carbon Dioxide 23 mmol/L (22-29); Chloride 102 mmol/L (96-108); Estimated Glomerular Filt Rate 47; Glucose Random 101 mg/dL (60-115); Potassium 3.6 mmol/l (3.3-5.1); Sodium 135 mmol/L (135-145)
[2020-07-01 10:52] LABS: Glucose, Whole Blood 129 mg/dL (60-115)
--- NOTE | 2020-07-01 13:13 | HO.PM.IMPN ---
Subjective Subjective Date of Service: 07/01/20 Interval History: patient seen and examined at bedside patient reported pain in her back Constitutional Constitutional: Reports fatigue and Reports weakness Cardiovascular Cardiovascular: Denies dyspnea Respiratory Respiratory: Denies dyspnea Gastrointestinal Gastrointestinal: Denies vomiting Neurologic Neurologic: Reports weakness Endocrine Endocrine: Reports fatigue Physical Exam Vital Signs: Vital Signs: Vital Signs Temp Pulse Resp BP Pulse Ox 07/01/20 13:00 95 07/01/20 12:00 98 F 88 20 144/74 H 93 07/01/20 11:45 97.6 F 66 20 150/61 H 98 07/01/20 07:51 76 132/74 07/01/20 07:39 98.7 F 70 18 138/72 94 07/01/20 03:44 98.6 F 109 H 18 149/70 H 93 07/01/20 00:00 98.2 F 71 20 133/71 96 06/30/20 21:03 68 117/59 L 06/30/20 21:02 68 117/59 L 06/30/20 20:00 98.2 F 68 18 117/59 L 94 06/30/20 17:00 95 06/30/20 16:00 98.2 F 65 18 152/66 H 95 06/30/20 13:35 94 Body Mass Index 31.0 General: confused, alert no acute distress Resp: CTA bilateral CVS: S1,S2,RRR GI: soft, non tender, non distended Neuro: motor grossly intact Psych: impaired insight nephrostomy tube in place draining urine pink in color Objective Data Current Medications Generic Name Dose Route Start Last Admin Trade Name Freq PRN Reason Stop Dose Admin Acetaminophen 325 mg 06/20/20 19:52 06/29/20 09:55 Acetaminophen 325 Mg Tablet PO 325 mg QID PRN Administration Pain Albuterol Sulfate 1 puff 06/20/20 20:18 Albuterol Sulfate 90 Mcg 18 Gm Inhaler INHALE Q4H PRN Shortness Of Breath Albuterol/Ipratropium 3 ml 06/25/20 16:37 06/25/20 17:16 Albuterol/Iprat 2.5/0.5mg 3 Ml Ampul.Neb INHALE 3 ml RQ6H PRN Administration Shortness of Breath/Wheezing Amlodipine Besylate 5 mg 06/23/20 20:00 06/30/20 21:02 Amlodipine Besylate 5 Mg Tablet PO 5 mg DAILY@1999 [facility] Administration Protocol Amlodipine Besylate 2.5 mg 06/28/20 20:00 06/30/20 21:03 Amlodipine Besylate 2.5 Mg Tablet PO 2.5 mg Q2D@1999 [facility] Administration Protocol Atorvastatin Calcium 80 mg 06/23/20 20:00 06/30/20 21:02 Atorvastatin Calcium 80 Mg Tablet PO 80 mg DAILY@1999 [facility] Administration Cyanocobalamin 2,000 mcg 06/23/20 15:00 06/30/20 16:16 Cyanocobalamin (Vitamin B-12) 1,000 Mcg Tablet PO 2,000 mcg DAILY@1500 [facility] Administration Fluticasone/Vilanterol 1 puff 06/21/20 08:00 07/01/20 07:48 Fluticasone/Vilanterol 100/25 Blst.W.Dev INHALE 1 puff RDAILY [facility] Administration Folic Acid 1 mg 06/23/20 15:00 06/30/20 16:16 Folic Acid 1 Mg Tablet PO 1 mg DAILY@1499 [facility] Administration Gabapentin 300 mg 06/22/20 20:00 07/01/20 07:51 Gabapentin 300 Mg Capsule PO 300 mg TID@0800,1499,1999 [facility] Administration Hydromorphone HCl 0.5 mg 07/01/20 11:35 Hydromorphone Hcl 2 Mg Tablet PO Q4H PRN Pain, Moderate (Pain Scale 4-6 Lactated Ringer's 1,000 mls @ 50 mls/hr 06/29/20 13:00 07/01/20 03:46 Lr IVCONT 50 mls/hr .Q20H [facility] Administration Meropenem 500 mg/ Sodium 100 mls @ 200 mls/hr 07/01/20 12:00 07/01/20 13:08 Chloride IV Infused Q12H [facility] Infusion Isosorbide Mononitrate 60 mg 06/23/20 08:00 07/01/20 07:51 Isosorbide Mononitrate 60 Mg Tab.Er.24h PO 60 mg DAILY@0800 [facility] Administration Protocol Labetalol HCl 20 mg 06/28/20 17:36 Labetalol Hcl 100 Mg/20 Ml Vial IVPUSH Q20M PRN SBP > 160 Metoprolol Succinate 100 mg 06/23/20 20:00 06/30/20 21:03 Metoprolol Succinate Er 100 Mg Tab.Er.24h PO 100 mg DAILY@1999 [facility] Administration Protocol Multivitamins/Vitamin C 1 tab 06/23/20 15:00 06/30/20 16:16 Multivitamin Tablet PO 1 tab DAILY@1500 [facility] Administration Nitroglycerin 0.4 mg 06/20/20 19:52 Nitroglycerin 0.4 Mg Tab.Subl SUBLINGUAL Q5M PRN Chest Pain Patient Own 24 each 06/25/20 17:00 07/01/20 07:52 Medication Novolog SUBCUT 24 each Mix 70/30 DAILY@0800,1700 [facility] Administration Nystatin 1 appl 06/27/20 21:00 07/01/20 07:50 Nystatin Ointment 15 Gm Tube TOPICAL 1 appl BID [facility] Administration Protocol Omeprazole 40 mg 06/21/20 06:30 07/01/20 06:28 Omeprazole 40 Mg Capsule.Dr PO 40 mg DAILY@0630 [facility] Administration Ondansetron HCl 4 mg 06/23/20 17:43 06/23/20 18:11 Ondansetron Hcl 4 Mg/2 Ml Vial IVPUSH 4 mg Q6H PRN Administration nausea Ondansetron HCl 4 mg 06/28/20 17:32 Ondansetron Hcl 4 Mg/2 Ml Vial IVPUSH ONCE PRN Nausea and Vomiting Ondansetron HCl 4 mg 06/29/20 13:35 Ondansetron Hcl 4 Mg/2 Ml Vial IVPUSH ONCE PRN Nausea and Vomiting Pharmacy Consult 1 each 06/20/20 16:44 Consult Rx Perform Med Rec MISCELLANE ONCE PRN Consult order Prednisolone Acetate 1 drop 06/20/20 21:00 07/01/20 07:50 Prednisolone Acetate 1 % Oph Susp 5 Ml Drpbtl EYE-RIGHT 1 drop TID [facility] Administration Ropinirole HCl 0.25 mg 06/23/20 20:00 06/30/20 21:02 Ropinirole Hcl 0.25 Mg Tablet PO 0.25 mg DAILY@1999 [facility] Administration Sodium Chloride 3 ml 06/21/20 00:00 07/01/20 07:50 0.9 % Sodium Chloride Flush 3 Ml Syringe IVFLUSH 3 ml QSHIFT [facility] Administration Vitamin D 50 mcg 06/23/20 15:00 06/30/20 16:16 Cholecalciferol (Vitamin D3) 25 Mcg Tablet PO 50 mcg DAILY@1500 [facility] Administration Labs CBC & Chem 7: 07/01/20 09:04 07/01/20 09:04 Microbiology Microbiology Results: Microbiology 06/23/20 17:16 Blood - Venous Blood Culture - Final No growth after 5 days. 06/23/20 17:10 Blood - Venous Blood Culture - Final No growth after 5 days. 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 oncology consult status post nephrostomy tube on right side for hydronephrosis on 06/29/2020 continue branham catheter continue pain management noticed to have some hematuria urology following monitor CBC, hemoglobin stable so far chest pain in the setting on known CAD and chronic systolic chf with recovered EF resolved repeat troponin stable continue medical management, statin, nitrate, beta vish KAIN on CKD improved, nephro appreciated, close to baseline hypomagnesemia replaced and resolved DM on novalog 70/30 bid 24 units monitor blood glucose afib continue metoprolol Eliquis on hold for nephrostomy tube htn amlodipine DVT prophylaxis Eliquis on hold for hematuria continue Venodyne boot
[2020-07-01] MEDS: HYDROmorphone HCl 2 MG TABLET 0.5 MG PO ×2 (13:16→20:45)
--- NOTE | 2020-07-01 16:19 | PC.NURSE ---
At 0730 patient stating that she feels she needs to void with branham cath in place. Branham bag with minimal urine. Nurse flushed branham and was unable to get return. Patient pulling on branham and asking for it to be removed. Branham removed. Hospitalist notified and urologist. Per urology can see how patient does without branham. Patient incontinent of large amount of urine x 2. Once at 9 am and again at 2:30 pm. Urine pink tinged on bed pad.
[2020-07-01] MEDS: Folic Acid 1 MG TABLET PO (16:22)
[2020-07-01] MEDS: Multivitamin TABLET 1 TAB PO (16:22)
[2020-07-01] MEDS: Cyanocobalamin (Vitamin B-12) 1,000 MCG TABLET 2000 MCG PO (16:22)
[2020-07-01] MEDS: Cholecalciferol (Vitamin D3) 25 MCG TABLET 50 MCG PO (16:23)
[2020-07-01 16:31] LABS: Glucose, Whole Blood 224 mg/dL (60-115)
[2020-07-01] MEDS: Atorvastatin Calcium 80 MG TABLET PO (20:44)
[2020-07-01] MEDS: Metoprolol Succinate ER 100 MG TAB.ER.24H PO (20:44)
[2020-07-01] MEDS: rOPINIRole HCL 0.25 MG TABLET PO (20:45)
[2020-07-01] MEDS: amLODIPine Besylate 5 MG TABLET PO (20:45)
[2020-07-01 21:01] LABS: Glucose, Whole Blood 121 mg/dL (60-115)
--- NOTE | 2020-07-01 22:17 | PM.PNNEP ---
Subjective Subjective Interval history: patient seen and examined at bedside patient c/o abd pain Physical Exam Vital Signs: Vital Signs: Vital Signs Temp Pulse Resp BP Pulse Ox 07/01/20 20:45 62 179/81 H 07/01/20 20:44 62 179/81 H 07/01/20 19:13 98.2 F 62 18 179/81 H 93 07/01/20 17:00 96 07/01/20 16:32 97.4 F 70 18 157/58 H 98 07/01/20 14:15 18 07/01/20 13:00 95 07/01/20 12:00 98 F 88 20 144/74 H 93 07/01/20 11:45 97.6 F 66 20 150/61 H 98 07/01/20 07:51 76 132/74 07/01/20 07:39 98.7 F 70 18 138/72 94 07/01/20 03:44 98.6 F 109 H 18 149/70 H 93 07/01/20 00:00 98.2 F 71 20 133/71 96 Body Mass Index 31.0 Const: General: awake HENMT: Head: Yes normal to inspection Eyes: General: appearance normal, both eyes and all related structures Neck: Neck: Yes normal visual inspection Chest: Chest palpation & inspection: normal inspection of the chest Resp: Effort & Inspection: normal respiratory effort Auscultation: clear to auscultation bilaterally Cardio: Jugular venous distension: no JVD Rate: regular rate Heart sounds: S1 normal heart sound present and S2 normal heart sound present GI: Inspection: Yes distended Palpation (GI): Soft to palpation and Other GI palpation findings present (Tendet in the suprapubic area) Extrem: General: Yes normal to inspection Assessment & Plan Assessment and plan (1) KAIN (acute kidney injury): Problem details: KAIN: c/w OBs R kidney ..suspect at new bsl-- Cr 1.47 CKD 3: Obs and recurrent KAIN and Obs of R kidney,s/p cysto and R Ntube UTI: on Abx REC: Creat is better cont to track renal func/UOP; avoid NToxins IVF at same rate Antibiotics as ordered Status: Acute (2) Hydronephrosis: Problem details: As above Status: Acute (3) Bladder mass: Problem details: TURBT Dr. Burks 06/2020 Status: Acute Time Spent With Patient Time: Total time spent is greater than 50% in coordination of care (as documented) at patient's floor/unit and/or counseling patient:
[2020-07-02] VITALS (13 sets, daily range): BP systolic 140–183; BP diastolic 62–77; PULSE 62–73; RESP 19–20; TEMP 36.6–37.2; O2SAT 93–97
[2020-07-02] MEDS: Omeprazole 40 MG CAPSULE.DR PO (06:22)
--- NOTE | 2020-07-02 06:33 | PC.NURSE ---
WHILE REPOSITIONING PATIENT THIS AM HER NEPHROSTOMY TUBE WAS FOUND TO BE LEAKING. THE SIDE VALVE WAS OPEN AND A LARGE AMOUNT OF URINE DRAINED ALL OVER THE BED. PT OTHER OTERO HAD 150CC PINK TINGED URINE IN THE DRAINAGE BAG. VALVE CLOSED AND TUBE IS PATENT AND DRAINING APPROPRIATELY. WILL CONTINUE TO MONITOR.
[2020-07-02] MEDS: Gabapentin 300 MG CAPSULE PO ×3 (07:55→20:32)
[2020-07-02] MEDS: Isosorbide Mononitrate 60 MG TAB.ER.24H PO (07:55)
[2020-07-02 07:56] LABS: Glucose, Whole Blood 113 mg/dL (60-115)
[2020-07-02] MEDS: 0.9 % Sodium Chloride Flush 3 ML SYRINGE IVFLUSH ×3 (07:56→20:33)
[2020-07-02] MEDS: Nystatin Ointment 15 GM TUBE 1 APPL TOPICAL ×2 (08:00→20:31)
[2020-07-02] MEDS: prednisoLONE Acetate 1 % Oph Susp 5 ML DRPBTL 1 DROP EYE-RIGHT ×3 (08:01→20:31)
[2020-07-02] MEDS: HYDROmorphone HCl 2 MG TABLET 0.5 MG PO ×2 (08:21→14:01)
[2020-07-02 08:51] LABS: MANUAL DIFF FLAG NO
[2020-07-02 09:00] LABS: Basophils Absolute Auto 0.1 X10*3/uL (0.0-0.2); Basophils Percent Auto 0.6 % (0-2); Eosinophils Absolute Auto 0.2 X10*3/uL (0.0-0.4); Eosinophils Percent Auto 1.6 % (0-4); Hematocrit 33.1 % (37-47); Hemoglobin 10.3 g/dl (12.0-16.0); Imm Gran Abs Auto 0.24 X10*3/uL (0.00-0.03); Imm Gran Pct Auto 1.7 % (0.0-0.4); Lymphocytes Absolute Auto 1.1 X10*3/uL (1.2-4.9); Lymphocytes Percent Auto 7.5 % (20-40); Mean Corpuscular HGB Conc 31.1 g/dl (31.0-35.0); Mean Corpuscular Hemoglobin 27.2 pg (27.0-33.0); Mean Corpuscular Volume 87.6 fL (80-98); Mean Platelet Volume 10.1 fL (9.4-12.3); Monocytes Absolute Auto 0.9 X10*3/uL (0.1-1.2); Monocytes Percent Auto 6.4 % (2-11); Neutrophils Absolute Auto 11.6 X10*3/uL (2.0-8.3); Neutrophils Percent Auto 82.2 % (45-73); Platelet Count 380 X10*3/uL (160-400); Red Blood Count 3.78 X10*6/uL (4.20-5.50); Red Cell Distribution Width 13.9 % (11.0-16.0); White Blood Count 14.1 X10*3/uL (4.8-10.8)
[2020-07-02 10:04] LABS: Anion Gap 16 (12-20); Blood Urea Nitrogen 19 mg/dL (9-16); Calcium 9.3 mg/dL (8.4-10.2); Carbon Dioxide 27 mmol/L (22-29); Chloride 99 mmol/L (96-108); Creatinine Clr Calc Pharmacy 39.4; Estimated Glomerular Filt Rate 59; Glucose Random 162 mg/dL (60-115); Potassium 3.9 mmol/l (3.3-5.1); Sodium 138 mmol/L (135-145)
--- NOTE | 2020-07-02 11:02 | PM.PNNEP ---
Subjective Subjective Interval history: patient seen and examined at bedside Feeling better Physical Exam Vital Signs: Vital Signs: Vital Signs Temp Pulse Resp BP Pulse Ox 07/02/20 07:55 62 150/62 H 07/02/20 07:42 150/62 H 07/02/20 07:18 98 F 72 20 183/77 H 94 07/02/20 03:33 98.3 F 68 19 144/65 H 97 07/02/20 00:00 97.8 F 73 19 153/67 H 97 07/01/20 20:45 62 179/81 H 07/01/20 20:44 62 179/81 H 07/01/20 19:13 98.2 F 62 18 179/81 H 93 07/01/20 17:00 96 07/01/20 16:32 97.4 F 70 18 157/58 H 98 07/01/20 14:15 18 07/01/20 13:00 95 07/01/20 12:00 98 F 88 20 144/74 H 93 07/01/20 11:45 97.6 F 66 20 150/61 H 98 Body Mass Index 31.0 Const: Other: General: awake Eyes: General: appearance normal, both eyes and all related structures Neck: Neck: Yes supple Chest: Chest palpation & inspection: normal inspection of the chest Cardio: Palpation: no palpable S3 Heart sounds: no rubs Neuro: Motor exam (neuro): No Asterixis during motor activity present Assessment & Plan Assessment and plan (1) KAIN (acute kidney injury): Status: Acute Time Spent With Patient Time: Total time spent is greater than 50% in coordination of care (as documented) at patient's floor/unit and/or counseling patient:
--- NOTE | 2020-07-02 11:59 | MHC.CM.PN ---
Female DX Bladder mass S/P surgery 06/28 Oncology consult scheduled for today. PT eval scheduled. DP STR @ [facility] via S. CM will follow..
[2020-07-02 12:07] LABS: Glucose, Whole Blood 174 mg/dL (60-115)
[2020-07-02] MEDS: Multivitamin TABLET 1 TAB PO (14:02)
[2020-07-02] MEDS: Cyanocobalamin (Vitamin B-12) 1,000 MCG TABLET 2000 MCG PO (14:02)
[2020-07-02] MEDS: Cholecalciferol (Vitamin D3) 25 MCG TABLET 50 MCG PO (14:02)
[2020-07-02] MEDS: Folic Acid 1 MG TABLET PO (14:02)
[2020-07-02] MEDS: rOPINIRole HCL 0.25 MG TABLET PO (14:14)
--- NOTE | 2020-07-02 14:29 | P.PNIM_ITS ---
Subjective Subjective Interval History: patient seen and examined at bedside patient reported pain in her back Physical Exam Vital Signs: Vital Signs: Vital Signs Temp Pulse Resp BP Pulse Ox 07/02/20 13:00 97 07/02/20 12:00 98.1 F 65 20 163/70 H 97 07/02/20 07:55 62 150/62 H 07/02/20 07:42 150/62 H 07/02/20 07:18 98 F 72 20 183/77 H 94 07/02/20 03:33 98.3 F 68 19 144/65 H 97 07/02/20 00:00 97.8 F 73 19 153/67 H 97 07/01/20 20:45 62 179/81 H 07/01/20 20:44 62 179/81 H 07/01/20 19:13 98.2 F 62 18 179/81 H 93 07/01/20 17:00 96 07/01/20 16:32 97.4 F 70 18 157/58 H 98 Body Mass Index 31.0 General: confused, alert no acute distress Resp: CTA bilateral CVS: S1,S2,RRR GI: soft, non tender, non distended Neuro: motor grossly intact Psych: impaired insight nephrostomy tube in place draining urine pink in color Objective Data Current Medications Generic Name Dose Route Start Last Admin Trade Name Freq PRN Reason Stop Dose Admin Acetaminophen 325 mg 06/20/20 19:52 06/29/20 09:55 Acetaminophen 325 Mg Tablet PO 325 mg QID PRN Administration Pain Albuterol Sulfate 1 puff 06/20/20 20:18 Albuterol Sulfate 90 Mcg 18 Gm Inhaler INHALE Q4H PRN Shortness Of Breath Albuterol/Ipratropium 3 ml 06/25/20 16:37 06/25/20 17:16 Albuterol/Iprat 2.5/0.5mg 3 Ml Ampul.Neb INHALE 3 ml RQ6H PRN Administration Shortness of Breath/Wheezing Amlodipine Besylate 5 mg 06/23/20 20:00 07/01/20 20:45 Amlodipine Besylate 5 Mg Tablet PO 5 mg DAILY@1999 [facility] Administration Protocol Amlodipine Besylate 2.5 mg 06/28/20 20:00 06/30/20 21:03 Amlodipine Besylate 2.5 Mg Tablet PO 2.5 mg Q2D@1999 [facility] Administration Protocol Atorvastatin Calcium 80 mg 10/17/20 20:00 07/01/20 20:44 Atorvastatin Calcium 80 Mg Tablet PO 80 mg DAILY@1999 [facility] Administration Cyanocobalamin 2,000 mcg 06/23/20 15:00 07/02/20 14:02 Cyanocobalamin (Vitamin B-12) 1,000 Mcg Tablet PO 2,000 mcg DAILY@1500 [facility] Administration Fluticasone/Vilanterol 1 puff 06/21/20 08:00 07/01/20 07:48 Fluticasone/Vilanterol / Blst.W.Dev INHALE 1 puff RDAILY [facility] Administration Folic Acid 1 mg 06/23/20 15:00 07/02/20 14:02 Folic Acid 1 Mg Tablet PO 1 mg DAILY@1499 [facility] Administration Gabapentin 300 mg 06/22/20 20:00 07/02/20 14:07 Gabapentin 300 Mg Capsule PO 300 mg TID@0800,1499,1999 [facility] Administration Hydromorphone HCl 0.5 mg 07/01/20 11:35 07/02/20 14:01 Hydromorphone Hcl 2 Mg Tablet PO 0.5 mg Q4H PRN Administration Pain, Moderate (Pain Scale 4-6 Meropenem 500 mg/ Sodium 100 mls @ 200 mls/hr 07/01/20 12:00 07/02/20 13:57 Chloride IV Infused Q12H [facility] Infusion Isosorbide Mononitrate 60 mg 06/23/20 08:00 07/02/20 07:55 Isosorbide Mononitrate 60 Mg Tab.Er.24h PO 60 mg DAILY@08 [facility] Administration Protocol Labetalol HCl 20 mg 06/28/20 17:36 Labetalol Hcl 100 Mg/20 Ml Vial IVPUSH Q20M PRN SBP > 160 Metoprolol Succinate 100 mg 06/23/20 20:00 07/01/20 20:44 Metoprolol Succinate Er 100 Mg Tab.Er.24h PO 100 mg DAILY@1999 [facility] Administration Protocol Multivitamins/Vitamin C 1 tab 06/23/20 15:00 07/02/20 14:02 Multivitamin Tablet PO 1 tab DAILY@1500 [facility] Administration Nitroglycerin 0.4 mg 06/20/20 19:52 Nitroglycerin 0.4 Mg Tab.Subl SUBLINGUAL Q5M PRN Chest Pain Patient Own 24 each 06/25/20 17:00 07/02/20 07:57 Medication Novolog SUBCUT 24 each Mix 70/30 DAILY@0800,1700 [facility] Administration Nystatin 1 appl 06/27/20 21:00 07/02/20 08:00 Nystatin Ointment 15 Gm Tube TOPICAL 1 appl BID [facility] Administration Protocol Omeprazole 40 mg 06/21/20 06:30 07/02/20 06:22 Omeprazole 40 Mg Capsule.Dr PO 40 mg DAILY@0630 [facility] Administration Ondansetron HCl 4 mg 06/23/20 17:43 06/23/20 18:11 Ondansetron Hcl 4 Mg/2 Ml Vial IVPUSH 4 mg Q6H PRN Administration nausea Ondansetron HCl 4 mg 06/28/20 17:32 Ondansetron Hcl 4 Mg/2 Ml Vial IVPUSH ONCE PRN Nausea and Vomiting Ondansetron HCl 4 mg 06/29/20 13:35 Ondansetron Hcl 4 Mg/2 Ml Vial IVPUSH ONCE PRN Nausea and Vomiting Pharmacy Consult 1 each 06/20/20 16:44 Consult Rx Perform Med Rec MISCELLANE ONCE PRN Consult order Prednisolone Acetate 1 drop 06/20/20 21:00 07/02/20 14:07 Prednisolone Acetate 1 % Oph Susp 5 Ml Drpbtl EYE-RIGHT 1 drop TID [facility] Administration Ropinirole HCl 0.25 mg 07/02/20 14:15 07/02/20 14:14 Ropinirole Hcl 0.25 Mg Tablet PO 0.25 mg DAILY@1400 [facility] Administration Sodium Chloride 3 ml 06/21/20 00:00 07/02/20 14:14 0.9 % Sodium Chloride Flush 3 Ml Syringe IVFLUSH 3 ml QSHIFT [facility] Administration Vitamin D 50 mcg 06/23/20 15:00 07/02/20 14:02 Cholecalciferol (Vitamin D3) 25 Mcg Tablet PO 50 mcg DAILY@1500 [facility] Administration Labs CBC & Chem 7: 07/02/20 08:37 07/02/20 08:37 Microbiology Microbiology Results: Microbiology 06/23/20 17:16 Blood - Venous Blood Culture - Final No growth after 5 days. 06/23/20 17:10 Blood - Venous Blood Culture - Final No growth after 5 days. 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 oncology consulted status post nephrostomy tube on right side for hydronephrosis on 06/29/2020 continue pain management hematuria clearing up pathology pending urology following monitor CBC, hemoglobin stable so far chest pain in the setting on known CAD and chronic systolic chf with recovered EF resolved repeat troponin stable continue medical management, statin, nitrate, beta vish KAIN on CKD improved, nephro appreciated, close to baseline hypomagnesemia replaced and resolved DM on novalog 70/30 bid 24 units monitor blood glucose afib continue metoprolol Eliquis on hold for nephrostomy tube htn amlodipine DVT prophylaxis Eliquis on hold for hematuria continue Venodyne boot debility weakness will get PT evaluation possible discharge tomorrow once patient finish antibiotic and pathology is back
--- NOTE | 2020-07-02 15:39 | PM.UROPN ---
Subjective Subjective Patient reports: no new complaints Interval history: TURBT last week Pathology pending No Samuel catheter in place Right nephro tube was placed on Thursday and good drainage significant improvement in creatinine dropped from 1.5-0.8 can DC and follow-up with urology next week Physical Exam Vital Signs: Vital Signs: Vital Signs Temp Pulse Resp BP Pulse Ox 07/02/20 15:21 98.5 F 72 20 140/65 H 97 07/02/20 14:53 97 07/02/20 13:00 97 07/02/20 12:00 98.1 F 65 20 163/70 H 97 07/02/20 07:55 62 150/62 H 07/02/20 07:42 150/62 H 07/02/20 07:18 98 F 72 20 183/77 H 94 07/02/20 03:33 98.3 F 68 19 144/65 H 97 07/02/20 00:00 97.8 F 73 19 153/67 H 97 07/01/20 20:45 62 179/81 H 07/01/20 20:44 62 179/81 H 07/01/20 19:13 98.2 F 62 18 179/81 H 93 07/01/20 17:00 96 07/01/20 16:32 97.4 F 70 18 157/58 H 98 Body Mass Index 31.0 Const: General: cooperative, healthy appearing, comfortable and no acute distress Nutritional Appearance: average body habitus Orientation/consciousness: oriented to person, oriented to place and oriented to time Eyes: General: appearance normal, both eyes and all related structures Chest: Chest palpation & inspection: normal inspection of the chest Resp: Effort & Inspection: normal respiratory effort Cardio: Rate: regular rate GI: Inspection: Yes normal to inspection Skin: Hair: normal Neuro: General: oriented to person, oriented to place and oriented to time Extrem: General: Yes normal to inspection Progress Note: A&P Assessment and plan (1) Status post surgical removal and fulguration of bladder neoplasm: Status: Acute Assessment and Plan: doing well DC home Follow-up as planned Fall Risk Details Current Medications: Current Medications Generic Name Dose Route Start Last Admin Trade Name Freq PRN Reason Stop Dose Admin Acetaminophen 325 mg 06/20/20 19:52 06/29/20 09:55 Acetaminophen 325 Mg Tablet PO 325 mg QID PRN Administration Pain Albuterol Sulfate 1 puff 10/14/20 20:18 Albuterol Sulfate 90 Mcg 18 Gm Inhaler INHALE Q4H PRN Shortness Of Breath Albuterol/Ipratropium 3 ml 06/25/20 16:37 06/25/20 17:16 Albuterol/Iprat 2.5/0.5mg 3 Ml Ampul.Neb INHALE 3 ml RQ6H PRN Administration Shortness of Breath/Wheezing Amlodipine Besylate 5 mg 06/23/20 20:00 07/01/20 20:45 Amlodipine Besylate 5 Mg Tablet PO 5 mg DAILY@1999 [facility] Administration Protocol Amlodipine Besylate 2.5 mg 06/28/20 20:00 06/30/20 21:03 Amlodipine Besylate 2.5 Mg Tablet PO 2.5 mg Q2D@1999 [facility] Administration Protocol Atorvastatin Calcium 80 mg 06/23/20 20:00 07/01/20 20:44 Atorvastatin Calcium 80 Mg Tablet PO 80 mg DAILY@1999 [facility] Administration Cyanocobalamin 2,000 mcg 06/23/20 15:00 07/02/20 14:02 Cyanocobalamin (Vitamin B-12) 1,000 Mcg Tablet PO 2,000 mcg DAILY@1500 [facility] Administration Fluticasone/Vilanterol 1 puff 06/21/20 08:00 07/01/20 07:48 Fluticasone/Vilanterol 100/25 Blst.W.Dev INHALE 1 puff RDAILY [facility] Administration Folic Acid 1 mg 06/23/20 15:00 07/02/20 14:02 Folic Acid 1 Mg Tablet PO 1 mg DAILY@1500 [facility] Administration Gabapentin 300 mg 06/22/20 20:00 07/02/20 14:07 Gabapentin 300 Mg Capsule PO 300 mg TID@08,1499,1999 [facility] Administration Hydromorphone HCl 0.5 mg 07/01/20 11:35 07/02/20 14:01 Hydromorphone Hcl 2 Mg Tablet PO 0.5 mg Q4H PRN Administration Pain, Moderate (Pain Scale 4-6 Meropenem 500 mg/ Sodium 100 mls @ 200 mls/hr 07/01/20 12:00 07/02/20 13:57 Chloride IV Infused Q12H [facility] Infusion Isosorbide Mononitrate 60 mg 06/23/20 08:00 07/02/20 07:55 Isosorbide Mononitrate 60 Mg Tab.Er.24h PO 60 mg DAILY@0800 [facility] Administration Protocol Labetalol HCl 20 mg 06/28/20 17:36 Labetalol Hcl 100 Mg/20 Ml Vial IVPUSH Q20M PRN SBP > 160 Metoprolol Succinate 100 mg 06/23/20 20:00 07/01/20 20:44 Metoprolol Succinate Er 100 Mg Tab.Er.24h PO 100 mg DAILY@2000 [facility] Administration Protocol Multivitamins/Vitamin C 1 tab 06/23/20 15:00 07/02/20 14:02 Multivitamin Tablet PO 1 tab DAILY@1500 [facility] Administration Nitroglycerin 0.4 mg 06/20/20 19:52 Nitroglycerin 0.4 Mg Tab.Subl SUBLINGUAL Q5M PRN Chest Pain Patient Own 24 each 06/25/20 17:00 07/02/20 07:57 Medication Novolog SUBCUT 24 each Mix 70/30 DAILY@0800,1700 [facility] Administration Nystatin 1 appl 06/27/20 21:00 07/02/20 08:00 Nystatin Ointment 15 Gm Tube TOPICAL 1 appl BID [facility] Administration Protocol Omeprazole 40 mg 06/21/20 06:30 07/02/20 06:22 Omeprazole 40 Mg Capsule.Dr PO 40 mg DAILY@0630 [facility] Administration Ondansetron HCl 4 mg 06/23/20 17:43 06/23/20 18:11 Ondansetron Hcl 4 Mg/2 Ml Vial IVPUSH 4 mg Q6H PRN Administration nausea Ondansetron HCl 4 mg 06/28/20 17:32 Ondansetron Hcl 4 Mg/2 Ml Vial IVPUSH ONCE PRN Nausea and Vomiting Ondansetron HCl 4 mg 06/29/20 13:35 Ondansetron Hcl 4 Mg/2 Ml Vial IVPUSH ONCE PRN Nausea and Vomiting Pharmacy Consult 1 each 06/20/20 16:44 Consult Rx Perform Med Rec MISCELLANE ONCE PRN Consult order Prednisolone Acetate 1 drop 06/20/20 21:00 07/02/20 14:07 Prednisolone Acetate 1 % Oph Susp 5 Ml Drpbtl EYE-RIGHT 1 drop TID [facility] Administration Ropinirole HCl 0.25 mg 07/02/20 14:15 07/02/20 14:14 Ropinirole Hcl 0.25 Mg Tablet PO 0.25 mg DAILY@1400 [facility] Administration Sodium Chloride 3 ml 06/21/20 00:00 07/02/20 14:14 0.9 % Sodium Chloride Flush 3 Ml Syringe IVFLUSH 3 ml QSHIFT [facility] Administration Vitamin D 50 mcg 06/23/20 15:00 07/02/20 14:02 Cholecalciferol (Vitamin D3) 25 Mcg Tablet PO 50 mcg DAILY@1500 [facility] Administration Time Spent With Patient Time: Total time spent is greater than 50% in coordination of care (as documented) at patient's floor/unit and/or counseling patient: Time with patient: less than 15 minutes
[2020-07-02 16:28] LABS: Glucose, Whole Blood 213 mg/dL (60-115)
[2020-07-02] MEDS: Atorvastatin Calcium 80 MG TABLET PO (20:32)
[2020-07-02] MEDS: amLODIPine Besylate 5 MG TABLET PO (20:32)
[2020-07-02] MEDS: amLODIPine Besylate 2.5 MG TABLET PO (20:32)
[2020-07-02] MEDS: Metoprolol Succinate ER 100 MG TAB.ER.24H PO (20:32)
[2020-07-02 21:45] LABS: Glucose, Whole Blood 115 mg/dL (60-115)
[2020-07-03] VITALS (11 sets, daily range): BP systolic 140–155; BP diastolic 58–76; PULSE 60–79; RESP 18–20; TEMP 35.6–36.8; O2SAT 94–100
[2020-07-03] MEDS: Omeprazole 40 MG CAPSULE.DR PO (05:33)
[2020-07-03 06:35] LABS: MANUAL DIFF FLAG NO
[2020-07-03 07:09] LABS: Basophils Absolute Auto 0.1 X10*3/uL (0.0-0.2); Basophils Percent Auto 0.6 % (0-2); Eosinophils Absolute Auto 0.2 X10*3/uL (0.0-0.4); Eosinophils Percent Auto 1.8 % (0-4); Hematocrit 31.4 % (37-47); Hemoglobin 10.1 g/dl (12.0-16.0); Imm Gran Abs Auto 0.22 X10*3/uL (0.00-0.03); Imm Gran Pct Auto 1.6 % (0.0-0.4); Lymphocytes Absolute Auto 1.3 X10*3/uL (1.2-4.9); Lymphocytes Percent Auto 9.7 % (20-40); Mean Corpuscular HGB Conc 32.2 g/dl (31.0-35.0); Mean Corpuscular Hemoglobin 27.4 pg (27.0-33.0); Mean Corpuscular Volume 85.3 fL (80-98); Monocytes Absolute Auto 1.3 X10*3/uL (0.1-1.2); Monocytes Percent Auto 9.8 % (2-11); Neutrophils Absolute Auto 10.3 X10*3/uL (2.0-8.3); Neutrophils Percent Auto 76.5 % (45-73); Platelet Count 379 X10*3/uL (160-400); Red Blood Count 3.68 X10*6/uL (4.20-5.50); Red Cell Distribution Width 13.9 % (11.0-16.0); White Blood Count 13.4 X10*3/uL (4.8-10.8)
[2020-07-03 07:18] LABS: Anion Gap 15 (12-20); Blood Urea Nitrogen 17 mg/dL (9-16); Calcium 8.9 mg/dL (8.4-10.2); Carbon Dioxide 28 mmol/L (22-29); Chloride 99 mmol/L (96-108); Creatinine Clr Calc Pharmacy 43.7; Estimated Glomerular Filt Rate > 60; Glucose Random 98 mg/dL (60-115); Potassium 3.6 mmol/l (3.3-5.1); Sodium 138 mmol/L (135-145)
[2020-07-03] MEDS: Fluticasone/Vilanterol 100/25 BLST.W.DEV 1 PUFF INHALE (07:40)
[2020-07-03] MEDS: Isosorbide Mononitrate 60 MG TAB.ER.24H PO (07:45)
[2020-07-03] MEDS: Gabapentin 300 MG CAPSULE PO ×3 (07:45→21:12)
[2020-07-03] MEDS: 0.9 % Sodium Chloride Flush 3 ML SYRINGE IVFLUSH ×2 (07:46→14:36)
[2020-07-03 07:53] LABS: Glucose, Whole Blood 120 mg/dL (60-115)
[2020-07-03] MEDS: HYDROmorphone HCl 2 MG TABLET 0.5 MG PO ×2 (08:35→12:51)
[2020-07-03] MEDS: prednisoLONE Acetate 1 % Oph Susp 5 ML DRPBTL 1 DROP EYE-RIGHT ×3 (08:36→21:09)
[2020-07-03] MEDS: Nystatin Ointment 15 GM TUBE 1 APPL TOPICAL ×2 (08:36→21:12)
--- NOTE | 2020-07-03 11:03 | PM.PNNEP ---
Subjective Subjective Interval history: Events noted Physical Exam Vital Signs: Vital Signs: Vital Signs Temp Pulse Resp BP Pulse Ox 07/03/20 08:13 64 152/68 H 98 07/03/20 07:51 98.3 F 64 18 152/68 H 98 07/03/20 07:45 64 152/68 H 07/03/20 02:55 98.1 F 60 19 153/58 H 94 07/02/20 23:45 99.0 F 68 19 160/70 H 93 07/02/20 20:32 71 144/72 H 07/02/20 19:12 98.7 F 71 20 144/72 H 94 07/02/20 17:00 94 07/02/20 15:21 98.5 F 72 20 140/65 H 97 07/02/20 14:53 97 07/02/20 13:00 97 07/02/20 12:00 98.1 F 65 20 163/70 H 97 Body Mass Index 31.0 Const: Other: General: awake Eyes: General: appearance normal, both eyes and all related structures Neck: Neck: Yes supple Chest: Chest palpation & inspection: normal inspection of the chest Cardio: Palpation: no palpable S3 Heart sounds: no rubs Neuro: Motor exam (neuro): No Asterixis during motor activity present Assessment & Plan Assessment and plan (1) KAIN (acute kidney injury): Problem details: REsolved Shall stop following actively Thanks you Status: Acute
[2020-07-03 11:09] LABS: Glucose, Whole Blood 159 mg/dL (60-115)
--- NOTE | 2020-07-03 12:17 | MHC.CM.PN ---
DP STR VIA BLS. Info sent to [facility] today. Request status of bed availability. No confirmation of acceptance, has not been received at this time. Informed Dtr of referral status and need for 2nd and 3rd choice of facilities. Dtr will provide addition choices for STR if 1st choice is not available @ [place]. CM will follow.
[2020-07-03] MEDS: Folic Acid 1 MG TABLET PO (14:33)
[2020-07-03] MEDS: Cholecalciferol (Vitamin D3) 25 MCG TABLET 50 MCG PO (14:33)
[2020-07-03] MEDS: Multivitamin TABLET 1 TAB PO (14:33)
[2020-07-03] MEDS: Cyanocobalamin (Vitamin B-12) 1,000 MCG TABLET 2000 MCG PO (14:33)
[2020-07-03] MEDS: rOPINIRole HCL 0.25 MG TABLET PO (14:33)
--- NOTE | 2020-07-03 15:58 | P.PNIM_ITS ---
Subjective Subjective Date of Service: 07/03/20 Interval History: patient complaining of right upper thigh discomfort ,otherwise offers no other acute complaints, no acute issues overnight. Review of Systems General no headache , no dizziness, no fever chills. CVS no chest pain, no palpitation. Respiratory no cough, no sputum production, no respiratory distress. Physical Exam Vital Signs: Vital Signs: Vital Signs Temp Pulse Resp BP Pulse Ox 07/03/20 15:33 97.1 F 76 20 150/76 H 95 07/03/20 13:00 98 07/03/20 12:01 70 155/74 H 98 07/03/20 11:44 97.3 F 70 18 155/74 H 98 07/03/20 08:13 64 152/68 H 98 07/03/20 07:51 98.3 F 64 18 152/68 H 98 07/03/20 07:45 64 152/68 H 07/03/20 02:55 98.1 F 60 19 153/58 H 94 07/02/20 23:45 99.0 F 68 19 160/70 H 93 07/02/20 20:32 71 144/72 H 07/02/20 19:12 98.7 F 71 20 144/72 H 94 07/02/20 17:00 94 Body Mass Index 31.0 General patient resting comfortably in no acute distress. Neck is supple no JVD. CVS regular rate rhythm, Respiratory lungs clear to auscultation, no respiratory distress, Gastrointestinal abdomen soft, nontender, bowel sounds audible Extremities no clubbing cyanosis or edema. Neuro nonfocal right nephrostomy tube with clear urine Objective Data Current Medications Generic Name Dose Route Start Last Admin Trade Name Jeromeq PRN Reason Stop Dose Admin Acetaminophen 325 mg 06/20/20 19:52 06/29/20 09:55 Acetaminophen 325 Mg Tablet PO 325 mg QID PRN Administration Pain Albuterol Sulfate 1 puff 06/20/20 20:18 Albuterol Sulfate 90 Mcg 18 Gm Inhaler INHALE Q4H PRN Shortness Of Breath Albuterol/Ipratropium 3 ml 07/02/20 16:36 Albuterol/Iprat 2.5/0.5mg 3 Ml Ampul.Neb INHALE RQ6H PRN Shortness of Breath/Wheezing Amlodipine Besylate 5 mg 06/23/20 20:00 07/02/20 20:32 Amlodipine Besylate 5 Mg Tablet PO 5 mg DAILY@1999 [facility] Administration Protocol Atorvastatin Calcium 80 mg 06/23/20 20:00 07/02/20 20:32 Atorvastatin Calcium 80 Mg Tablet PO 80 mg DAILY@1999 [facility] Administration Cyanocobalamin 2,000 mcg 06/23/20 15:00 07/03/20 14:33 Cyanocobalamin (Vitamin B-12) 1,000 Mcg Tablet PO 2,000 mcg DAILY@1500 [facility] Administration Fluticasone/Vilanterol 1 puff 06/21/20 08:00 07/03/20 07:40 Fluticasone/Vilanterol 100/25 Blst.W.Dev INHALE 1 puff RDAILY [facility] Administration Folic Acid 1 mg 06/23/20 15:00 07/03/20 14:33 Folic Acid 1 Mg Tablet PO 1 mg DAILY@1499 [facility] Administration Gabapentin 300 mg 06/22/20 20:00 07/03/20 14:36 Gabapentin 300 Mg Capsule PO 300 mg TID@0800,1499,1999 [facility] Administration Hydromorphone HCl 0.5 mg 07/01/20 11:35 07/03/20 12:51 Hydromorphone Hcl 2 Mg Tablet PO 0.5 mg Q4H PRN Administration Pain, Moderate (Pain Scale 4-6 Meropenem 500 mg/ Sodium 100 mls @ 200 mls/hr 07/01/20 12:00 07/03/20 12:17 Chloride IV Infused Q12H [facility] Infusion Isosorbide Mononitrate 60 mg 06/23/20 08:00 07/03/20 07:45 Isosorbide Mononitrate 60 Mg Tab.Er.24h PO 60 mg DAILY@08 [facility] Administration Protocol Labetalol HCl 20 mg 06/28/20 17:36 Labetalol Hcl 100 Mg/20 Ml Vial IVPUSH Q20M PRN SBP > 160 Metoprolol Succinate 100 mg 06/23/20 20:00 07/02/20 20:32 Metoprolol Succinate Er 100 Mg Tab.Er.24h PO 100 mg DAILY@1999 [facility] Administration Protocol Multivitamins/Vitamin C 1 tab 06/23/20 15:00 07/03/20 14:33 Multivitamin Tablet PO 1 tab DAILY@1500 [facility] Administration Nitroglycerin 0.4 mg 06/20/20 19:52 Nitroglycerin 0.4 Mg Tab.Subl SUBLINGUAL Q5M PRN Chest Pain Patient Own 24 each 06/25/20 17:00 07/03/20 07:46 Medication Novolog SUBCUT 24 each Mix 70/30 DAILY@0800,1700 [facility] Administration Nystatin 1 appl 06/27/20 21:00 07/03/20 08:36 Nystatin Ointment 15 Gm Tube TOPICAL 1 appl BID [facility] Administration Protocol Omeprazole 40 mg 06/21/20 06:30 07/03/20 05:33 Omeprazole 40 Mg Capsule.Dr PO 40 mg DAILY@0630 [facility] Administration Ondansetron HCl 4 mg 06/23/20 17:43 06/23/20 18:11 Ondansetron Hcl 4 Mg/2 Ml Vial IVPUSH 4 mg Q6H PRN Administration nausea Ondansetron HCl 4 mg 06/28/20 17:32 Ondansetron Hcl 4 Mg/2 Ml Vial IVPUSH ONCE PRN Nausea and Vomiting Ondansetron HCl 4 mg 06/29/20 13:35 Ondansetron Hcl 4 Mg/2 Ml Vial IVPUSH ONCE PRN Nausea and Vomiting Pharmacy Consult 1 each 06/20/20 16:44 Consult Rx Perform Med Rec MISCELLANE ONCE PRN Consult order Prednisolone Acetate 1 drop 06/20/20 21:00 07/03/20 14:36 Prednisolone Acetate 1 % Oph Susp 5 Ml Drpbtl EYE-RIGHT 1 drop TID [facility] Administration Ropinirole HCl 0.25 mg 07/02/20 14:15 07/03/20 14:33 Ropinirole Hcl 0.25 Mg Tablet PO 0.25 mg DAILY@1400 [facility] Administration Sodium Chloride 3 ml 06/21/20 00:00 07/03/20 14:36 0.9 % Sodium Chloride Flush 3 Ml Syringe IVFLUSH 3 ml QSHIFT [facility] Administration Vitamin D 50 mcg 06/23/20 15:00 07/03/20 14:33 Cholecalciferol (Vitamin D3) 25 Mcg Tablet PO 50 mcg DAILY@1500 [facility] Administration Labs CBC & Chem 7: 07/03/20 05:47 07/03/20 05:47 Microbiology Microbiology Results: Microbiology 06/23/20 17:16 Blood - Venous Blood Culture - Final No growth after 5 days. 06/23/20 17:10 Blood - Venous Blood Culture - Final No growth after 5 days. 06/21/20 Unknown Urine clean catch - Clean Catch Midstream Urine Culture - Final Escherichia coli Assessment and Plan (1) KAIN (acute kidney injury): Problem details: REsolved Shall stop following actively Thanks you Status: Acute (2) Hydronephrosis: Problem details: As above Status: Acute (3) UTI due to extended-spectrum beta lactamase (ESBL) producing Escherichia coli: Problem details: She has resistant UTI She has current symptoms of discomfort and lethargy but is improving Status: Acute (4) Chronic diastolic heart failure: Status: Acute (5) Bladder mass: Problem details: TURBT Dr. Burks 06/2020 Status: Acute (6) Status post surgical removal and fulguration of bladder neoplasm: Status: Acute (7) S/P CABG (coronary artery bypass graft): Problem details: 2013 Status: Acute (8) Chronic systolic CHF (congestive heart failure): Problem details: recovered EF Status: Acute Assessment and Plan: 79F presented with generalized weakness UTI patient offers no urinary symptoms,urine culture grew ESBL ecoli, blood culture No growth on IV meropenem D will discuss with ID regarding 10 versus 14 days of treatment. Bladder mass with hydronephrosis status post TURBT with partial resection of tumor, status post nephrostomy tube on right side for hydronephrosis on 06/29/2020, hematuria resolved renal function normalized, pathology pending, will discuss treatment plan with Dr. Velásquez once pathology report is available, case discussed with Dr. Burks he recommend follow-up in 1 week to internalize the right nephrostomy tube, chest pain in the setting on known CAD and chronic systolic chf with recovered EF repeat troponin stable will continue medical management with statin, nitrate, beta vish KAIN on CKD resolved was likely related to obstructive uropathy, creatinine now at baseline hypomagnesemia replaced and resolved DM blood sugar 159 this a.m. Patient has allergy to Humalog therefore will hold insulin sliding scale continue diabetic diet will resume home medication no Will ox mix units daily upon discharge afib continue metoprolol, case discussed with Dr. Burks he agrees to resume Eliquis. htn continue amlodipine dose change to 5 mg daily Noted to have few high blood pressure readings will adjust medications if BP remains elevated right thigh pain likely musculoskeletal code range of motion at right hip will apply hot pack. DVT prophylaxis resume Eliquis disposition to rehab facility on will obtain COVID test prior to discharge , case discussed with patient's 2 daughters at bedside and answered all their questions. case discussed with Dr. Velásquez and Dr. Burks as mentioned above.
[2020-07-03 16:36] LABS: Glucose, Whole Blood 152 mg/dL (60-115)
[2020-07-03 20:33] LABS: Glucose, Whole Blood 91 mg/dL (60-115)
[2020-07-03] MEDS: amLODIPine Besylate 5 MG TABLET PO (21:09)
[2020-07-03] MEDS: Apixaban 5 MG TABLET PO (21:09)
[2020-07-03] MEDS: Metoprolol Succinate ER 100 MG TAB.ER.24H PO (21:09)
[2020-07-03] MEDS: Atorvastatin Calcium 80 MG TABLET PO (21:10)
[2020-07-04] VITALS (8 sets, daily range): BP systolic 139–152; BP diastolic 59–75; PULSE 62–74; RESP 18–20; TEMP 36–36.7; O2SAT 95–97
[2020-07-04] MEDS: 0.9 % Sodium Chloride Flush 3 ML SYRINGE IVFLUSH ×4 (00:05→20:57)
[2020-07-04] MEDS: Omeprazole 40 MG CAPSULE.DR PO (06:01)
[2020-07-04 07:11] LABS: Glucose, Whole Blood 100 mg/dL (60-115)
[2020-07-04] MEDS: Isosorbide Mononitrate 60 MG TAB.ER.24H PO (07:53)
[2020-07-04] MEDS: Gabapentin 300 MG CAPSULE PO ×3 (07:54→19:23)
[2020-07-04] MEDS: Apixaban 5 MG TABLET PO ×2 (07:54→20:54)
[2020-07-04] MEDS: prednisoLONE Acetate 1 % Oph Susp 5 ML DRPBTL 1 DROP EYE-RIGHT ×3 (07:54→20:55)
[2020-07-04] MEDS: Fluticasone/Vilanterol 100/25 BLST.W.DEV 1 PUFF INHALE ×2 (07:55→08:06)
[2020-07-04] MEDS: Nystatin Ointment 15 GM TUBE 1 APPL TOPICAL ×2 (07:55→20:54)
--- NOTE | 2020-07-04 08:35 | MHC.CM.PN ---
dc plan is to [facility]. cm to cont. to follow.
[2020-07-04] MEDS: HYDROmorphone HCl 2 MG TABLET 0.5 MG PO ×3 (08:36→19:28)
[2020-07-04 11:11] LABS: Glucose, Whole Blood 205 mg/dL (60-115)
--- NOTE | 2020-07-04 15:03 | HO.PM.IMPN ---
Subjective Subjective Date of Service: 07/04/20 Interval History: patient complaining of pain with urination, denies urinary burning, no hematuria noted, patient is incontinent of urine , denies fever, no chills. Review of Systems General feels not doing well due discomfort with urination. CVS no chest pain, no palpitation. Respiratory no cough , no respiratory distress. Gastrointestinal no nausea, no vomiting, no abdominal pain Physical Exam Vital Signs: Vital Signs: Vital Signs Temp Pulse Resp BP Pulse Ox 07/04/20 11:17 98.1 F 68 20 141/59 H 96 07/04/20 10:20 62 152/75 H 95 07/04/20 07:30 97.2 F 62 20 152/75 H 95 07/04/20 03:13 96.8 F 69 19 141/67 H 97 07/03/20 22:59 96.1 F L 79 19 140/68 H 100 07/03/20 19:25 98.1 F 74 18 140/65 H 96 07/03/20 17:00 98 07/03/20 15:33 97.1 F 76 20 150/76 H 95 Body Mass Index 31.0 General in bed with no acute distress. Neck is supple no JVD. CVS regular rate rhythm, Respiratory lungs clear to auscultation, no respiratory distress, no wheeze, no rhonchi. Gastrointestinal abdomen soft, nontender, bowel sounds audible, no no guarding , no rigidity. Extremities no clubbing cyanosis or edema. Neuro nonfocal Skin no rash right nephrostomy tube with clear urine Objective Data Current Medications Generic Name Dose Route Start Last Admin Trade Name Jeromeq PRN Reason Stop Dose Admin Acetaminophen 325 mg 06/20/20 19:52 06/29/20 09:55 Acetaminophen 325 Mg Tablet PO 325 mg QID PRN Administration Pain Albuterol Sulfate 1 puff 06/20/20 20:18 Albuterol Sulfate 90 Mcg 18 Gm Inhaler INHALE Q4H PRN Shortness Of Breath Albuterol/Ipratropium 3 ml 07/02/20 16:36 Albuterol/Iprat 2.5/0.5mg 3 Ml Ampul.Neb INHALE RQ6H PRN Shortness of Breath/Wheezing Amlodipine Besylate 5 mg 06/23/20 20:00 07/03/20 21:09 Amlodipine Besylate 5 Mg Tablet PO 5 mg DAILY@1999 [facility] Administration Protocol Apixaban 5 mg 07/03/20 21:00 07/04/20 07:54 Apixaban 5 Mg Tablet PO 5 mg BID [facility] Administration Atorvastatin Calcium 80 mg 06/23/20 20:00 07/03/20 21:10 Atorvastatin Calcium 80 Mg Tablet PO 80 mg DAILY@1999 [facility] Administration Cyanocobalamin 2,000 mcg 06/23/20 15:00 07/03/20 14:33 Cyanocobalamin (Vitamin B-12) 1,000 Mcg Tablet PO 2,000 mcg DAILY@1500 [facility] Administration Fluticasone/Vilanterol 1 puff 06/21/20 08:00 07/04/20 08:06 Fluticasone/Vilanterol 100/25 Blst.W.Dev INHALE 1 puff RDAILY [facility] Administration Folic Acid 1 mg 06/23/20 15:00 07/03/20 14:33 Folic Acid 1 Mg Tablet PO 1 mg DAILY@1500 [facility] Administration Gabapentin 300 mg 06/22/20 20:00 07/04/20 07:54 Gabapentin 300 Mg Capsule PO 300 mg TID@0800,1499,1999 [facility] Administration Hydromorphone HCl 0.5 mg 07/01/20 11:35 07/04/20 12:46 Hydromorphone Hcl 2 Mg Tablet PO 0.5 mg Q4H PRN Administration Pain, Moderate (Pain Scale 4-6 Meropenem 500 mg/ Sodium 100 mls @ 200 mls/hr 07/01/20 12:00 07/04/20 12:31 Chloride IV Infused Q12H [facility] Infusion Vancomycin HCl 750 mg/ Sodium 265 mls @ 265 mls/hr 07/04/20 16:00 Chloride IV Q24H [facility] Isosorbide Mononitrate 60 mg 06/23/20 08:00 07/04/20 07:53 Isosorbide Mononitrate 60 Mg Tab.Er.24h PO 60 mg DAILY@08 [facility] Administration Protocol Labetalol HCl 20 mg 06/28/20 17:36 Labetalol Hcl 100 Mg/20 Ml Vial IVPUSH Q20M PRN SBP > 160 Metoprolol Succinate 100 mg 06/23/20 20:00 07/03/20 21:09 Metoprolol Succinate Er 100 Mg Tab.Er.24h PO 100 mg DAILY@1999 [facility] Administration Protocol Multivitamins/Vitamin C 1 tab 06/23/20 15:00 07/03/20 14:33 Multivitamin Tablet PO 1 tab DAILY@1500 [facility] Administration Nitroglycerin 0.4 mg 06/20/20 19:52 Nitroglycerin 0.4 Mg Tab.Subl SUBLINGUAL Q5M PRN Chest Pain Patient Own 24 each 06/25/20 17:00 07/04/20 07:54 Medication Novolog SUBCUT 24 each Mix 70/30 DAILY@0800,1700 [facility] Administration Nystatin 1 appl 06/27/20 21:00 07/04/20 07:55 Nystatin Ointment 15 Gm Tube TOPICAL 1 appl BID [facility] Administration Protocol Omeprazole 40 mg 06/21/20 06:30 07/04/20 06:01 Omeprazole 40 Mg Capsule.Dr PO 40 mg DAILY@0630 [facility] Administration Ondansetron HCl 4 mg 06/23/20 17:43 06/23/20 18:11 Ondansetron Hcl 4 Mg/2 Ml Vial IVPUSH 4 mg Q6H PRN Administration nausea Ondansetron HCl 4 mg 06/28/20 17:32 Ondansetron Hcl 4 Mg/2 Ml Vial IVPUSH ONCE PRN Nausea and Vomiting Ondansetron HCl 4 mg 06/29/20 13:35 Ondansetron Hcl 4 Mg/2 Ml Vial IVPUSH ONCE PRN Nausea and Vomiting Pharmacy Consult 1 each 06/20/20 16:44 Consult Rx Perform Med Rec MISCELLANE ONCE PRN Consult order Prednisolone Acetate 1 drop 06/20/20 21:00 07/04/20 07:54 Prednisolone Acetate 1 % Oph Susp 5 Ml Drpbtl EYE-RIGHT 1 drop TID [facility] Administration Ropinirole HCl 0.25 mg 07/02/20 14:15 07/03/20 14:33 Ropinirole Hcl 0.25 Mg Tablet PO 0.25 mg DAILY@1400 [facility] Administration Sodium Chloride 3 ml 06/21/20 00:00 07/04/20 07:53 0.9 % Sodium Chloride Flush 3 Ml Syringe IVFLUSH 3 ml QSHIFT [facility] Administration Vitamin D 50 mcg 06/23/20 15:00 07/03/20 14:33 Cholecalciferol (Vitamin D3) 25 Mcg Tablet PO 50 mcg DAILY@1500 [facility] Administration Labs CBC & Chem 7: 07/03/20 05:47 07/03/20 05:47 Microbiology Microbiology Results: Microbiology 06/23/20 17:16 Blood - Venous Blood Culture - Final No growth after 5 days. 06/23/20 17:10 Blood - Venous Blood Culture - Final No growth after 5 days. 06/21/20 Unknown Urine clean catch - Clean Catch Midstream Urine Culture - Final Escherichia coli Assessment and Plan (1) UTI due to extended-spectrum beta lactamase (ESBL) producing Escherichia coli: Problem details: She has resistant UTI She has current symptoms of discomfort and lethargy but is improving Status: Acute (2) Bladder mass: Problem details: TURBT Dr. Burks 06/2020 Status: Acute (3) Status post surgical removal and fulguration of bladder neoplasm: Status: Acute (4) Chronic systolic CHF (congestive heart failure): Problem details: recovered EF Status: Acute (5) Atrial fibrillation: Status: Acute Assessment and Plan: 79F presented with generalized weakness UTI patient complaining of dysuria,,urine culture grew ESBL ecoli, blood culture No growth, urine culture obtained by IR during right nephrostomy tube placement grew Enterococcus faecium 50 to [id number] colony case discussed with Dr. 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 Velásquez will talk to family today, Dr. Burks recommend follow-up in 1 week to internalize the right nephrostomy tube, chest pain in the setting on known CAD and chronic systolic chf with recovered EF no new chest pains, troponin stable will continue medical management with statin, nitrate, beta vish KAIN on CKD resolved was likely related to obstructive uropathy, creatinine now at baseline hypomagnesemia replaced and resolved DM blood sugar stable,Patient has allergy to Humalog therefore will hold insulin sliding scale continue diabetic diet will resume home medication no Will ox mix units daily upon discharge afib continue metoprolol, and Eliquis htn continue amlodipine dose change to 5 mg daily Noted to have few high blood pressure readings will adjust medications if BP remains elevated right thigh pain likely musculoskeletal improved. DVT prophylaxis Eliquis disposition to rehab facility on will obtain COVID test prior to discharge , case discussed with patient's 2 daughters at bedside and answered all their questions. case discussed with Dr. Velásquez she will update family about treatment plan for her bladder CA
[2020-07-04] MEDS: Folic Acid 1 MG TABLET PO (15:24)
[2020-07-04] MEDS: Cholecalciferol (Vitamin D3) 25 MCG TABLET 50 MCG PO (15:24)
[2020-07-04] MEDS: Multivitamin TABLET 1 TAB PO (15:24)
[2020-07-04] MEDS: Cyanocobalamin (Vitamin B-12) 1,000 MCG TABLET 2000 MCG PO (15:24)
[2020-07-04] MEDS: rOPINIRole HCL 0.25 MG TABLET PO (15:24)
--- NOTE | 2020-07-04 15:24 | MHC.CM.PN ---
dc [place] [facility] [place] given in the a.m. - day of dc, prior to leaving. pt will have two remaining days of iv abx bid via peripheral site at [facility]. this was confirmed to be o.k. c [facility] via [employer]. elijah is aware of these finding.
[2020-07-04] MEDS: vancomycin HCL 750 MG in 0.9 % Sodium Chloride 250 ML 265 MG IV (15:25)
[2020-07-04 16:27] LABS: Glucose, Whole Blood 218 mg/dL (60-115)
[2020-07-04] MEDS: Metoprolol Succinate ER 100 MG TAB.ER.24H PO (19:23)
[2020-07-04] MEDS: Atorvastatin Calcium 80 MG TABLET PO (19:24)
[2020-07-04] MEDS: amLODIPine Besylate 5 MG TABLET PO (19:24)
[2020-07-04 20:51] LABS: Glucose, Whole Blood 128 mg/dL (60-115)
[2020-07-04] MEDS: Acetaminophen 325 MG TABLET PO (20:56)
[2020-07-05] VITALS (8 sets, daily range): BP systolic 128–168; BP diastolic 62–70; PULSE 68–88; RESP 16–20; TEMP 36.4–37; O2SAT 95–98
[2020-07-05] MEDS: Omeprazole 40 MG CAPSULE.DR PO (06:11)
[2020-07-05 06:29] LABS: Basophils Absolute Auto 0.1 X10*3/uL (0.0-0.2); Basophils Percent Auto 0.5 % (0-2); Eosinophils Absolute Auto 0.3 X10*3/uL (0.0-0.4); Eosinophils Percent Auto 1.7 % (0-4); Hematocrit 31.4 % (37-47); Hemoglobin 9.8 g/dl (12.0-16.0); Imm Gran Abs Auto 0.31 X10*3/uL (0.00-0.03); Imm Gran Pct Auto 1.6 % (0.0-0.4); Lymphocytes Percent Auto 5.1 % (20-40); MANUAL DIFF FLAG SCAN; Mean Corpuscular HGB Conc 31.2 g/dl (31.0-35.0); Mean Corpuscular Hemoglobin 27.5 pg (27.0-33.0); Mean Platelet Volume 10.1 fL (9.4-12.3); Monocytes Absolute Auto 1.6 X10*3/uL (0.1-1.2); Monocytes Percent Auto 8.4 % (2-11); Neutrophils Percent Auto 82.7 % (45-73); Platelet Count 372 X10*3/uL (160-400); Red Blood Count 3.57 X10*6/uL (4.20-5.50); SCAN SMEAR FLAG 1; White Blood Count 19.3 X10*3/uL (4.8-10.8)
[2020-07-05 07:01] LABS: Anion Gap 15 (12-20); Blood Urea Nitrogen 18 mg/dL (9-16); Calcium 8.4 mg/dL (8.4-10.2); Carbon Dioxide 27 mmol/L (22-29); Chloride 100 mmol/L (96-108); Creatinine Clr Calc Pharmacy 36.2; Estimated Glomerular Filt Rate 54; Glucose Random 128 mg/dL (60-115); Potassium 3.6 mmol/l (3.3-5.1); Sodium 138 mmol/L (135-145)
[2020-07-05] MEDS: Fluticasone/Vilanterol 100/25 BLST.W.DEV 1 PUFF INHALE (08:05)
[2020-07-05 08:13] LABS: SLIDE REVIEW VERIFIED
[2020-07-05] MEDS: HYDROmorphone HCl 2 MG TABLET 0.5 MG PO (08:14)
[2020-07-05] MEDS: Apixaban 5 MG TABLET PO ×2 (08:15→20:19)
[2020-07-05] MEDS: Isosorbide Mononitrate 60 MG TAB.ER.24H PO (08:15)
[2020-07-05] MEDS: 0.9 % Sodium Chloride Flush 3 ML SYRINGE IVFLUSH ×2 (08:15→14:35)
[2020-07-05] MEDS: prednisoLONE Acetate 1 % Oph Susp 5 ML DRPBTL 1 DROP EYE-RIGHT ×3 (08:18→20:26)
[2020-07-05] MEDS: Gabapentin 300 MG CAPSULE PO ×3 (08:19→20:27)
[2020-07-05 08:24] LABS: Glucose, Whole Blood 163 mg/dL (60-115)
--- NOTE | 2020-07-05 10:46 | MHC.CLN ---
F/U PT INTAKE 100% DIET RX; 1500 2GM NA-APPROPRIATE FOLLOWING
[2020-07-05] MEDS: Nystatin Ointment 15 GM TUBE 1 APPL TOPICAL ×2 (11:09→20:22)
[2020-07-05 11:18] LABS: Glucose, Whole Blood 109 mg/dL (60-115)
--- NOTE | 2020-07-05 14:27 | P.PNIM_ITS ---
Subjective Subjective Date of Service: 07/05/20 Interval History: patient complaining of pain with urination, and also complaining of back and right hip pain , no hematuria noted, patient is incontinent of urine , denies fever, no chills. daughter at bedside feels the due to low blood sugar of 109 patient is slow to answer. Review of Systems General no headache no dizziness no fever chills. CVS no chest pain, no palpitation. Respiratory no cough , no respiratory distress. Gastrointestinal no nausea, no vomiting, no abdominal pain Physical Exam Vital Signs: Vital Signs: Vital Signs Temp Pulse Resp BP Pulse Ox 07/05/20 11:29 97.6 F 80 18 145/67 H 95 07/05/20 07:48 98.5 F 80 18 152/67 H 95 07/05/20 04:00 98.6 F 82 18 128/68 98 07/05/20 00:00 98.3 F 68 18 168/62 H 96 07/04/20 19:24 74 139/65 07/04/20 19:23 74 139/65 07/04/20 19:15 98.1 F 74 18 139/65 95 07/04/20 15:52 97.2 F 68 20 144/65 H 96 Body Mass Index 31.0 General in bed with no acute distress. Neck is supple no JVD. CVS regular rate rhythm, Respiratory lungs clear to auscultation, no respiratory distress, no wheeze, no rhonchi. Gastrointestinal abdomen soft, nontender, bowel sounds audible, no guarding , no rigidity. Extremities no clubbing cyanosis or edema. Neuro nonfocal Skin no rash right nephrostomy tube with clear urine Objective Data Current Medications Generic Name Dose Route Start Last Admin Trade Name Freq PRN Reason Stop Dose Admin Acetaminophen 325 mg 06/20/20 19:52 07/04/20 20:56 Acetaminophen 325 Mg Tablet PO 325 mg QID PRN Administration Pain Albuterol Sulfate 1 puff 06/20/20 20:18 Albuterol Sulfate 90 Mcg 18 Gm Inhaler INHALE Q4H PRN Shortness Of Breath Albuterol/Ipratropium 3 ml 07/02/20 16:36 Albuterol/Iprat 2.5/0.5mg 3 Ml Ampul.Neb INHALE RQ6H PRN Shortness of Breath/Wheezing Amlodipine Besylate 5 mg 06/23/20 20:00 07/04/20 19:24 Amlodipine Besylate 5 Mg Tablet PO 5 mg DAILY@1999 [facility] Administration Protocol Apixaban 5 mg 07/03/20 21:00 07/05/20 08:15 Apixaban 5 Mg Tablet PO 5 mg BID [facility] Administration Atorvastatin Calcium 80 mg 06/23/20 20:00 07/04/20 19:24 Atorvastatin Calcium 80 Mg Tablet PO 80 mg DAILY@1999 [facility] Administration Cyanocobalamin 2,000 mcg 06/23/20 15:00 07/04/20 15:24 Cyanocobalamin (Vitamin B-12) 1,000 Mcg Tablet PO 2,000 mcg DAILY@1500 [facility] Administration Fluticasone/Vilanterol 1 puff 06/21/20 08:00 07/05/20 08:05 Fluticasone/Vilanterol 100/25 Blst.W.Dev INHALE 1 puff RDAILY [facility] Administration Folic Acid 1 mg 06/23/20 15:00 07/04/20 15:24 Folic Acid 1 Mg Tablet PO 1 mg DAILY@1500 [facility] Administration Gabapentin 300 mg 06/22/20 20:00 07/05/20 08:19 Gabapentin 300 Mg Capsule PO 300 mg TID@0800,1499,1999 [facility] Administration Hydromorphone HCl 0.5 mg 07/05/20 14:26 Hydromorphone Hcl 2 Mg Tablet PO Q6H PRN Pain, Moderate (Pain Scale 4-6 Vancomycin HCl 750 mg/ Sodium 265 mls @ 265 mls/hr 07/04/20 16:00 07/04/20 16:49 Chloride IV Infused Q24H [facility] Infusion Meropenem 1,000 mg/ Sodium 100 mls @ 200 mls/hr 07/05/20 08:11 07/05/20 08:58 Chloride IV Infused Q12H [facility] In[facility] Isosorbide Mononitrate 60 mg 06/23/20 08:00 07/05/20 08:15 Isosorbide Mononitrate 60 Mg Tab.Er.24h PO 60 mg DAILY@0800 [facility] Administration Protocol Labetalol HCl 20 mg 06/28/20 17:36 Labetalol Hcl 100 Mg/20 Ml Vial IVPUSH Q20M PRN SBP > 160 Metoprolol Succinate 100 mg 06/23/20 20:00 07/04/20 19:23 Metoprolol Succinate Er 100 Mg Tab.Er.24h PO 100 mg DAILY@2000 [facility] Administration Protocol Multivitamins/Vitamin C 1 tab 06/23/20 15:00 07/04/20 15:24 Multivitamin Tablet PO 1 tab DAILY@1500 [facility] Administration Nitroglycerin 0.4 mg 06/20/20 19:52 Nitroglycerin 0.4 Mg Tab.Subl SUBLINGUAL Q5M PRN Chest Pain Patient Own 24 each 06/25/20 17:00 07/05/20 08:16 Medication Novolog SUBCUT 24 each Mix 70/30 DAILY@0800,1700 [facility] Administration Nystatin 1 appl 06/27/20 21:00 07/05/20 11:09 Nystatin Ointment 15 Gm Tube TOPICAL 1 appl BID [facility] Administration Protocol Omeprazole 40 mg 06/21/20 06:30 07/05/20 06:11 Omeprazole 40 Mg Capsule.Dr PO 40 mg DAILY@0630 [facility] Administration Ondansetron HCl 4 mg 06/23/20 17:43 06/23/20 18:11 Ondansetron Hcl 4 Mg/2 Ml Vial IVPUSH 4 mg Q6H PRN Administration nausea Ondansetron HCl 4 mg 06/28/20 17:32 Ondansetron Hcl 4 Mg/2 Ml Vial IVPUSH ONCE PRN Nausea and Vomiting Ondansetron HCl 4 mg 06/29/20 13:35 Ondansetron Hcl 4 Mg/2 Ml Vial IVPUSH ONCE PRN Nausea and Vomiting Oxycodone HCl 10 mg 07/05/20 21:00 Oxycodone Hcl Er 10 Mg Tab.Er.12h PO BID [facility] Pharmacy Consult 1 each 06/20/20 16:44 Consult Rx Perform Med Rec MISCELLANE ONCE PRN Consult order Prednisolone Acetate 1 drop 06/20/20 21:00 07/05/20 08:18 Prednisolone Acetate 1 % Oph Susp 5 Ml Drpbtl EYE-RIGHT 1 drop TID [facility] Administration Ropinirole HCl 0.25 mg 07/02/20 14:15 07/04/20 15:24 Ropinirole Hcl 0.25 Mg Tablet PO 0.25 mg DAILY@1400 [facility] Administration Sodium Chloride 3 ml 06/21/20 00:00 07/05/20 08:15 0.9 % Sodium Chloride Flush 3 Ml Syringe IVFLUSH 3 ml QSHIFT [facility] Administration Vitamin D 50 mcg 06/23/20 15:00 07/04/20 15:24 Cholecalciferol (Vitamin D3) 25 Mcg Tablet PO 50 mcg DAILY@1500 [facility] Administration Labs CBC & Chem 7: 07/05/20 05:34 07/05/20 05:34 Microbiology Microbiology Results: Microbiology 06/23/20 17:16 Blood - Venous Blood Culture - Final No growth after 5 days. 06/23/20 17:10 Blood - Venous Blood Culture - Final No growth after 5 days. 06/21/20 Unknown Urine clean catch - Clean Catch Midstream Urine Culture - Final Escherichia coli Assessment and Plan (1) UTI due to extended-spectrum beta lactamase (ESBL) producing Escherichia coli: Status: Acute (2) Bladder mass: Problem details: TURBT Dr. Burks 06/2020 Status: Acute (3) Status post surgical removal and fulguration of bladder neoplasm: Status: Acute (4) Chronic systolic CHF (congestive heart failure): Status: Acute (5) Atrial fibrillation: Status: Acute Assessment and Plan: 79F presented with generalized weakness UTI patient complaining of dysuria,,urine culture grew ESBL ecoli, blood culture No growth, urine culture obtained by IR during right nephrostomy tube placement grew Enterococcus faecium 50 to [id number] colony therefore patient placed on IV vancomycin daily 1, will follow Vanco trough and renal function closely, id recommend IV meropenem for total 14D patient now on d informed family that patient is at risk of recurrent urinary tr act infection and sepsis due to persistent tumor, patient noted to have worsening WBC count likely due to tumor versus Enterococcus infection follow CBC and clinical course closely Bladder mass with hydronephrosis status post TURBT with partial resection of tumor, status post nephrostomy tube on right side for hydronephrosis on 06/29/2020, hematuria resolved renal function normalized, 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 Velásquez spoke with family ordered few more testing and is planning on immunotherapy, patient will need outpatient follow-up with Dr. Burks in 1 week due to back pain and dysuria Dr. Velásquez recommend patient to place on longer- acting narcotic medication patient has prior history of hallucinations with Duragesic patch therefore will place on OxyContin 10 mg b.i.d. and will reduce the dose of hydromorphone 0.5 mg to every 6 hour as needed. chest pain in the setting on known CAD and chronic systolic chf with recovered EF no new chest pains, troponin stable will continue medical management with statin, nitrate, beta vish KAIN on CKD resolved was likely related to obstructive uropathy, creatinine now at baseline hypomagnesemia replaced and resolved DM blood sugar stable,Patient has allergy to Humalog therefore will hold insulin sliding scale continue diabetic diet will resume home medication novolog mix 70/30 26 units daily upon discharge afib continue metoprolol, and Eliquis htn continue amlodipine 5 mg daily will leave blood pressure at higher side DVT prophylaxis Eliquis disposition to rehab facility once medically stable
[2020-07-05] MEDS: Cholecalciferol (Vitamin D3) 25 MCG TABLET 50 MCG PO (14:34)
[2020-07-05] MEDS: Folic Acid 1 MG TABLET PO (14:34)
[2020-07-05] MEDS: Multivitamin TABLET 1 TAB PO (14:34)
[2020-07-05] MEDS: Cyanocobalamin (Vitamin B-12) 1,000 MCG TABLET 2000 MCG PO (14:34)
[2020-07-05] MEDS: rOPINIRole HCL 0.25 MG TABLET PO (14:35)
[2020-07-05] MEDS: vancomycin HCL 750 MG in 0.9 % Sodium Chloride 250 ML 265 MG IV (15:34)
[2020-07-05 16:24] LABS: Glucose, Whole Blood 211 mg/dL (60-115)
[2020-07-05] MEDS: amLODIPine Besylate 5 MG TABLET PO (20:19)
[2020-07-05] MEDS: Metoprolol Succinate ER 100 MG TAB.ER.24H PO (20:19)
[2020-07-05] MEDS: oxyCODONE HCl ER 10 MG TAB.ER.12H PO (20:19)
[2020-07-05] MEDS: Atorvastatin Calcium 80 MG TABLET PO (20:21)
[2020-07-05 20:51] LABS: Glucose, Whole Blood 123 mg/dL (60-115)
[2020-07-06] VITALS (8 sets, daily range): BP systolic 125–177; BP diastolic 56–73; PULSE 58–74; RESP 16–20; TEMP 35.9–37; O2SAT 95–97
[2020-07-06] MEDS: 0.9 % Sodium Chloride Flush 3 ML SYRINGE IVFLUSH ×4 (00:07→20:20)
[2020-07-06] MEDS: Acetaminophen 325 MG TABLET PO (00:13)
[2020-07-06 06:17] LABS: MANUAL DIFF FLAG NO
[2020-07-06 06:43] LABS: Basophils Absolute Auto 0.1 X10*3/uL (0.0-0.2); Basophils Percent Auto 0.6 % (0-2); Eosinophils Absolute Auto 0.3 X10*3/uL (0.0-0.4); Eosinophils Percent Auto 1.8 % (0-4); Hematocrit 29.5 % (37-47); Hemoglobin 9.3 g/dl (12.0-16.0); Imm Gran Abs Auto 0.22 X10*3/uL (0.00-0.03); Imm Gran Pct Auto 1.3 % (0.0-0.4); Lymphocytes Absolute Auto 1.6 X10*3/uL (1.2-4.9); Mean Corpuscular HGB Conc 31.5 g/dl (31.0-35.0); Mean Corpuscular Hemoglobin 27.5 pg (27.0-33.0); Mean Corpuscular Volume 87.3 fL (80-98); Mean Platelet Volume 10.3 fL (9.4-12.3); Monocytes Absolute Auto 1.5 X10*3/uL (0.1-1.2); Monocytes Percent Auto 8.5 % (2-11); Neutrophils Absolute Auto 13.7 X10*3/uL (2.0-8.3); Neutrophils Percent Auto 78.8 % (45-73); Platelet Count 344 X10*3/uL (160-400); Red Blood Count 3.38 X10*6/uL (4.20-5.50); Red Cell Distribution Width 14.1 % (11.0-16.0); White Blood Count 17.3 X10*3/uL (4.8-10.8)
[2020-07-06 07:04] LABS: Anion Gap 14 (12-20); Blood Urea Nitrogen 18 mg/dL (9-16); Calcium 7.7 mg/dL (8.4-10.2); Carbon Dioxide 25 mmol/L (22-29); Chloride 102 mmol/L (96-108); Creatinine Clr Calc Pharmacy 40.3; Estimated Glomerular Filt Rate > 60; Glucose Random 72 mg/dL (60-115); Potassium 3.4 mmol/l (3.3-5.1); Sodium 138 mmol/L (135-145)
[2020-07-06] MEDS: Omeprazole 40 MG CAPSULE.DR PO (07:51)
[2020-07-06] MEDS: Gabapentin 300 MG CAPSULE PO ×3 (07:52→20:19)
[2020-07-06] MEDS: Isosorbide Mononitrate 60 MG TAB.ER.24H PO (07:53)
[2020-07-06] MEDS: Fluticasone/Vilanterol 100/25 BLST.W.DEV 1 PUFF INHALE (08:09)
[2020-07-06 08:27] LABS: Glucose, Whole Blood 77 mg/dL (60-115)
[2020-07-06] MEDS: oxyCODONE HCl ER 10 MG TAB.ER.12H PO ×2 (08:57→20:21)
[2020-07-06] MEDS: Apixaban 5 MG TABLET PO ×2 (08:57→20:13)
[2020-07-06] MEDS: prednisoLONE Acetate 1 % Oph Susp 5 ML DRPBTL 1 DROP EYE-RIGHT ×3 (08:57→20:19)
[2020-07-06] MEDS: Nystatin Ointment 15 GM TUBE 1 APPL TOPICAL ×2 (08:59→20:19)
[2020-07-06] MEDS: HYDROmorphone HCl 2 MG TABLET 0.5 MG PO (09:49)
[2020-07-06 11:57] LABS: Glucose, Whole Blood 88 mg/dL (60-115)
--- NOTE | 2020-07-06 12:39 | P.PNIM_ITS ---
Subjective Subjective Interval History: patient complaining of pain with urination, no hematuria noted, patient is incontinent of urine , denies fever, no chills. patient noted to have low blood sugar 77 this a.m. patient awake alert answering questions appropriately. General no headache, no dizziness , no fever chills. CVS no chest pain, no palpitation. Respiratory no cough, no shortness of breath. Gastrointestinal no nausea, no vomiting, no abdominal pain Physical Exam Vital Signs: Vital Signs: Vital Signs Temp Pulse Resp BP Pulse Ox 07/06/20 09:41 61 136/64 95 07/06/20 08:00 97.7 F 61 20 136/64 95 07/06/20 04:00 98.6 F 58 20 132/63 97 07/05/20 23:08 98.6 F 88 20 138/66 98 07/05/20 20:19 73 155/69 H 07/05/20 20:01 98.5 F 73 16 155/69 H 97 07/05/20 15:11 97.6 F 86 20 156/70 H 95 Body Mass Index 31.0 General in bed with no acute distress. Neck is supple no JVD. CVS regular rate rhythm, Respiratory lungs clear to auscultation, no respiratory distress, no wheeze, no rhonchi. Gastrointestinal abdomen soft, nontender, bowel sounds audible, no guarding , no rigidity. Extremities no clubbing cyanosis or edema. Neuro nonfocal Skin no rash right nephrostomy tube with clear urine Objective Data Current Medications Generic Name Dose Route Start Last Admin Trade Name Freq PRN Reason Stop Dose Admin Acetaminophen 325 mg 06/20/20 19:52 07/06/20 00:13 Acetaminophen 325 Mg Tablet PO 325 mg QID PRN Administration Pain Albuterol Sulfate 1 puff 06/20/20 20:18 Albuterol Sulfate 90 Mcg 18 Gm Inhaler INHALE Q4H PRN Shortness Of Breath Albuterol/Ipratropium 3 ml 07/02/20 16:36 Albuterol/Iprat 2.5/0.5mg 3 Ml Ampul.Neb INHALE RQ6H PRN Shortness of Breath/Wheezing Amlodipine Besylate 5 mg 06/23/20 20:00 07/05/20 20:19 Amlodipine Besylate 5 Mg Tablet PO 5 mg DAILY@1999 REPLACED BY [facility] Administration Protocol Apixaban 5 mg 07/03/20 21:00 07/06/20 08:57 Apixaban 5 Mg Tablet PO 5 mg BID [facility] Administration Atorvastatin Calcium 80 mg 06/23/20 20:00 07/05/20 20:21 Atorvastatin Calcium 80 Mg Tablet PO 80 mg DAILY@1999 REPLACED BY [facility] Administration Cyanocobalamin 2,000 mcg 06/23/20 15:00 07/05/20 14:34 Cyanocobalamin (Vitamin B-12) 1,000 Mcg Tablet PO 2,000 mcg DAILY@1500 REPLACED BY [facility] Administration Fluticasone/Vilanterol 1 puff 06/21/20 08:00 07/06/20 08:09 Fluticasone/Vilanterol 100/25 Blst.W.Dev INHALE 1 puff RDAILY REPLACED BY [facility] Administration Folic Acid 1 mg 06/23/20 15:00 07/05/20 14:34 Folic Acid 1 Mg Tablet PO 1 mg DAILY@1499 REPLACED BY [facility] Administration Gabapentin 300 mg 06/22/20 20:00 07/06/20 07:52 Gabapentin 300 Mg Capsule PO 300 mg TID@08,1499,1999 REPLACED BY [facility] Administration Hydromorphone HCl 0.5 mg 07/05/20 14:26 07/06/20 09:49 Hydromorphone Hcl 2 Mg Tablet PO 0.5 mg Q6H PRN Administration Pain, Moderate (Pain Scale 4-6 Vancomycin HCl 750 mg/ Sodium 265 mls @ 265 mls/hr 07/04/20 16:00 07/05/20 16:46 Chloride IV Infused Q24H REPLACED BY [facility] Infusion Meropenem 1,000 mg/ Sodium 100 mls @ 200 mls/hr 07/05/20 08:11 07/06/20 08:59 Chloride IV Infused Q12H REPLACED BY [facility] Infusion Isosorbide Mononitrate 60 mg 06/23/20 08:00 07/06/20 07:53 Isosorbide Mononitrate 60 Mg Tab.Er.24h PO 60 mg DAILY@08 REPLACED BY [facility] Administration Protocol Labetalol HCl 20 mg 06/28/20 17:36 Labetalol Hcl 100 Mg/20 Ml Vial IVPUSH Q20M PRN SBP > 160 Metoprolol Succinate 100 mg 06/23/20 20:00 07/05/20 20:19 Metoprolol Succinate Er 100 Mg Tab.Er.24h PO 100 mg DAILY@1999 REPLACED BY [facility] Administration Protocol Multivitamins/Vitamin C 1 tab 10/17/20 15:00 07/05/20 14:34 Multivitamin Tablet PO 1 tab DAILY@1500 REPLACED BY [facility] Administration Nitroglycerin 0.4 mg 06/20/20 19:52 Nitroglycerin 0.4 Mg Tab.Subl SUBLINGUAL Q5M PRN Chest Pain Patient Own 24 each 06/25/20 17:00 07/06/20 08:57 Medication Novolog SUBCUT Not Given Mix 70/30 DAILY@0800,1700 REPLACED BY [facility] Nystatin 1 appl 06/27/20 21:00 07/06/20 08:59 Nystatin Ointment 15 Gm Tube TOPICAL 1 appl BID REPLACED BY [facility] Administration Protocol Omeprazole 40 mg 06/21/20 06:30 07/06/20 07:51 Omeprazole 40 Mg Capsule.Dr PO 40 mg DAILY@0630 REPLACED BY [facility] Administration Ondansetron HCl 4 mg 06/23/20 17:43 06/23/20 18:11 Ondansetron Hcl 4 Mg/2 Ml Vial IVPUSH 4 mg Q6H PRN Administration nausea Ondansetron HCl 4 mg 06/28/20 17:32 Ondansetron Hcl 4 Mg/2 Ml Vial IVPUSH ONCE PRN Nausea and Vomiting Ondansetron HCl 4 mg 06/29/20 13:35 Ondansetron Hcl 4 Mg/2 Ml Vial IVPUSH ONCE PRN Nausea and Vomiting Oxycodone HCl 10 mg 07/05/20 21:00 07/06/20 08:57 Oxycodone Hcl Er 10 Mg Tab.Er.12h PO 10 mg BID REPLACED BY [facility] Administration Pharmacy Consult 1 each 06/20/20 16:44 Consult Rx Perform Med Rec MISCELLANE ONCE PRN Consult order Prednisolone Acetate 1 drop 06/20/20 21:00 07/06/20 08:57 Prednisolone Acetate 1 % Oph Susp 5 Ml Drpbtl EYE-RIGHT 1 drop TID REPLACED BY [facility] Administration Ropinirole HCl 0.25 mg 07/02/20 14:15 07/05/20 14:35 Ropinirole Hcl 0.25 Mg Tablet PO 0.25 mg DAILY@1400 REPLACED BY [facility] Administration Sodium Chloride 3 ml 06/21/20 00:00 07/06/20 07:51 0.9 % Sodium Chloride Flush 3 Ml Syringe IVFLUSH 3 ml QSHIFT REPLACED BY [facility] Administration Vitamin D 50 mcg 06/23/20 15:00 07/05/20 14:34 Cholecalciferol (Vitamin D3) 25 Mcg Tablet PO 50 mcg DAILY@1500 [facility] Administration Labs CBC & Chem 7: 07/06/20 05:37 07/06/20 05:37 Microbiology Microbiology Results: Microbiology 06/23/20 17:16 Blood - Venous Blood Culture - Final No growth after 5 days. 06/23/20 17:10 Blood - Venous Blood Culture - Final No growth after 5 days. 06/21/20 Unknown Urine clean catch - Clean Catch Midstream Urine Culture - Final Escherichia coli Assessment and Plan (1) UTI due to extended-spectrum beta lactamase (ESBL) producing Escherichia coli: Status: Acute (2) Bladder mass: Problem details: TURBT Dr. Burks 06/2020 Status: Acute (3) Status post surgical removal and fulguration of bladder neoplasm: Status: Acute (4) Chronic systolic CHF (congestive heart failure): Status: Acute (5) Atrial fibrillation: Status: Acute Assessment and Plan: 79F presented with generalized weakness UTI patient complaining of pain with voiding,urine culture grew ESBL ecoli, blood culture No growth, urine culture obtained by IR during right nephrostomy tube placement grew Enterococcus faecium 50 to [id number] colony therefore patient placed on IV vancomycin day 2, will follow Vanco trough and renal function closely, id recommend IV meropenem for total 14D patient now on d 13 informed family that patient is at risk of recurrent urinary tract infection and sepsis due to persistent tumor, WBC trending down, follow CBC and clinical course closely Bladder mass with hydronephrosis status post TURBT with partial resection of tumor, status post nephrostomy tube on right side for hydronephrosis on 06/29/2020, hematuria resolved renal function normalized, 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 Velásquez spoke with family ordered few more testing and is planning on immunotherapy, patient will need outpatient follow-up with Dr. Burks in 1 week continue OxyContin 10 mg b.i.d. and hydromorphone 0.5 mg to every 6 hour as needed. will gradually increase dose of OxyContin. chest pain in the setting on known CAD and chronic systolic chf with recovered EF no new chest pains, troponin stable will continue medical management with statin, nitrate, beta vish KAIN on CKD resolved was likely related to obstructive uropathy, creatinine now at baseline hypomagnesemia replaced and resolved DM blood sugar noted to be low this morning, patient is receiving home medication novolog mix 70/30 24 units bid since blood sugar low will reduce dose. afib continue metoprolol, and Eliquis htn continue amlodipine 5 mg and metoprolol. DVT prophylaxis Eliquis disposition to rehab facility once medically stable
[2020-07-06] MEDS: vancomycin HCL 750 MG in 0.9 % Sodium Chloride 250 ML 265 MG IV (15:36)
[2020-07-06] MEDS: Multivitamin TABLET 1 TAB PO (15:40)
[2020-07-06] MEDS: Cholecalciferol (Vitamin D3) 25 MCG TABLET 50 MCG PO (15:40)
[2020-07-06] MEDS: Folic Acid 1 MG TABLET PO (15:40)
[2020-07-06] MEDS: rOPINIRole HCL 0.25 MG TABLET PO (15:40)
[2020-07-06] MEDS: Cyanocobalamin (Vitamin B-12) 1,000 MCG TABLET 2000 MCG PO (15:40)
[2020-07-06 16:48] LABS: Glucose, Whole Blood 156 mg/dL (60-115)
[2020-07-06] MEDS: Atorvastatin Calcium 80 MG TABLET PO (20:13)
[2020-07-06] MEDS: Metoprolol Succinate ER 100 MG TAB.ER.24H PO (20:16)
[2020-07-06] MEDS: amLODIPine Besylate 5 MG TABLET PO (20:17)
[2020-07-06 20:52] LABS: Glucose, Whole Blood 177 mg/dL (60-115)
[2020-07-07] VITALS (8 sets, daily range): BP systolic 110–145; BP diastolic 56–67; PULSE 63–78; RESP 18–20; TEMP 36.2–37.1; O2SAT 93–98
[2020-07-07] MEDS: Omeprazole 40 MG CAPSULE.DR PO (05:50)
[2020-07-07] MEDS: 0.9 % Sodium Chloride Flush 3 ML SYRINGE IVFLUSH ×3 (07:56→19:46)
[2020-07-07] MEDS: Fluticasone/Vilanterol 100/25 BLST.W.DEV 1 PUFF INHALE (07:56)
[2020-07-07 08:16] LABS: Glucose, Whole Blood 142 mg/dL (60-115)
[2020-07-07] MEDS: Isosorbide Mononitrate 60 MG TAB.ER.24H PO (08:56)
[2020-07-07] MEDS: Apixaban 5 MG TABLET PO ×2 (08:56→19:44)
[2020-07-07] MEDS: prednisoLONE Acetate 1 % Oph Susp 5 ML DRPBTL 1 DROP EYE-RIGHT ×3 (08:56→19:46)
[2020-07-07] MEDS: oxyCODONE HCl ER 10 MG TAB.ER.12H PO ×2 (08:57→19:45)
[2020-07-07] MEDS: Nystatin Ointment 15 GM TUBE 1 APPL TOPICAL ×2 (08:57→19:46)
[2020-07-07] MEDS: Gabapentin 300 MG CAPSULE PO ×3 (08:58→19:55)
[2020-07-07 11:59] LABS: Glucose, Whole Blood 209 mg/dL (60-115)
--- NOTE | 2020-07-07 13:16 | HO.PM.IMPN ---
Subjective Subjective Date of Service: 07/07/20 Interval History: patient complaining of right sided backpain and dysuria, no hematuria noted, patient is incontinent of urine , denies fever, no chills. patient blood sugar improved since yesterday, patient awake alert answering questions appropriately. General no headache, no dizziness , no fever chills. CVS no chest pain, no palpitation. Respiratory no cough, no shortness of breath. Gastrointestinal no nausea, no vomiting, no abdominal pain Physical Exam Vital Signs: Vital Signs: Vital Signs Temp Pulse Resp BP Pulse Ox 07/07/20 08:56 63 128/66 07/07/20 08:00 97.3 F 63 18 128/66 93 07/07/20 03:17 98.8 F 78 20 130/61 96 07/07/20 00:00 98.4 F 68 20 145/67 H 98 07/06/20 20:17 74 167/73 H 07/06/20 20:16 74 167/73 H 07/06/20 19:49 98.6 F 74 16 167/73 H 95 07/06/20 15:19 96.7 F L 69 18 177/72 H 97 Body Mass Index 31.0 General in bed with no acute distress. Neck is supple no JVD. CVS regular rate rhythm, Respiratory lungs clear to auscultation, no respiratory distress, no wheeze, no rhonchi. Gastrointestinal abdomen soft, nontender, bowel sounds audible, no guarding , no rigidity. Extremities no clubbing cyanosis or edema. Neuro nonfocal Skin no rash right nephrostomy tube with clear urine, site of right nephrostomy incision clean with no signs of infection. Objective Data Current Medications Generic Name Dose Route Start Last Admin Trade Name Freq PRN Reason Stop Dose Admin Acetaminophen 325 mg 06/20/20 19:52 07/06/20 00:13 Acetaminophen 325 Mg Tablet PO 325 mg QID PRN Administration Pain Albuterol Sulfate 1 puff 06/20/20 20:18 Albuterol Sulfate 90 Mcg 18 Gm Inhaler INHALE Q4H PRN Shortness Of Breath Albuterol/Ipratropium 3 ml 07/02/20 16:36 Albuterol/Iprat 2.5/0.5mg 3 Ml Ampul.Neb INHALE RQ6H PRN Shortness of Breath/Wheezing Amlodipine Besylate 5 mg 06/23/20 20:00 07/06/20 20:17 Amlodipine Besylate 5 Mg Tablet PO 5 mg DAILY@1999 [facility] Administration Protocol Apixaban 5 mg 07/03/20 21:00 07/07/20 08:56 Apixaban 5 Mg Tablet PO 5 mg BID [facility] Administration Atorvastatin Calcium 80 mg 06/23/20 20:00 07/06/20 20:13 Atorvastatin Calcium 80 Mg Tablet PO 80 mg DAILY@1999 [facility] Administration Cyanocobalamin 2,000 mcg 06/23/20 15:00 07/06/20 15:40 Cyanocobalamin (Vitamin B-12) 1,000 Mcg Tablet PO 2,000 mcg DAILY@1500 [facility] Administration Fluticasone/Vilanterol 1 puff 06/21/20 08:00 07/07/20 07:56 Fluticasone/Vilanterol 100/25 Blst.W.Dev INHALE 1 puff RDAILY [facility] Administration Folic Acid 1 mg 06/23/20 15:00 07/06/20 15:40 Folic Acid 1 Mg Tablet PO 1 mg DAILY@1500 [facility] Administration Gabapentin 300 mg 06/22/20 20:00 07/07/20 08:58 Gabapentin 300 Mg Capsule PO 300 mg TID@0800,1499,1999 [facility] Administration Hydromorphone HCl 0.5 mg 07/05/20 14:26 07/06/20 09:49 Hydromorphone Hcl 2 Mg Tablet PO 0.5 mg Q6H PRN Administration Pain, Moderate (Pain Scale 4-6 Vancomycin HCl 750 mg/ Sodium 265 mls @ 265 mls/hr 07/04/20 16:00 07/06/20 16:44 Chloride IV Infused Q24H [facility] Infusion Meropenem 1,000 mg/ Sodium 100 mls @ 200 mls/hr 07/05/20 08:11 07/07/20 09:26 Chloride IV Infused Q12H [facility] Infusion Isosorbide Mononitrate 60 mg 06/23/20 08:00 07/07/20 08:56 Isosorbide Mononitrate 60 Mg Tab.Er.24h PO 60 mg DAILY@0800 [facility] Administration Protocol Labetalol HCl 20 mg 06/28/20 17:36 Labetalol Hcl 100 Mg/20 Ml Vial IVPUSH Q20M PRN SBP > 160 Metoprolol Succinate 100 mg 06/23/20 20:00 07/06/20 20:16 Metoprolol Succinate Er 100 Mg Tab.Er.24h PO 100 mg DAILY@2000 [facility] Administration Protocol Multivitamins/Vitamin C 1 tab 06/23/20 15:00 07/06/20 15:40 Multivitamin Tablet PO 1 tab DAILY@1500 [facility] Administration Nitroglycerin 0.4 mg 06/20/20 19:52 Nitroglycerin 0.4 Mg Tab.Subl SUBLINGUAL Q5M PRN Chest Pain Nystatin 1 appl 06/27/20 21:00 07/07/20 08:57 Nystatin Ointment 15 Gm Tube TOPICAL 1 appl BID [facility] Administration Protocol Omeprazole 40 mg 06/21/20 06:30 07/07/20 05:50 Omeprazole 40 Mg Capsule.Dr PO 40 mg DAILY@0630 [facility] Administration Ondansetron HCl 4 mg 06/23/20 17:43 06/23/20 18:11 Ondansetron Hcl 4 Mg/2 Ml Vial IVPUSH 4 mg Q6H PRN Administration nausea Ondansetron HCl 4 mg 06/28/20 17:32 Ondansetron Hcl 4 Mg/2 Ml Vial IVPUSH ONCE PRN Nausea and Vomiting Ondansetron HCl 4 mg 06/29/20 13:35 Ondansetron Hcl 4 Mg/2 Ml Vial IVPUSH ONCE PRN Nausea and Vomiting Oxybutynin Chloride 5 mg 07/06/20 21:00 07/06/20 20:13 Oxybutynin Chloride Er 5 Mg Tab.Er.24 PO 5 mg BEDTIME [facility] Administration Oxycodone HCl 10 mg 07/05/20 21:00 07/07/20 08:57 Oxycodone Hcl Er 10 Mg Tab.Er.12h PO 10 mg BID [facility] Administration Pharmacy Consult 1 each 06/20/20 16:44 Consult Rx Perform Med Rec MISCELLANE ONCE PRN Consult order Prednisolone Acetate 1 drop 06/20/20 21:00 07/07/20 08:56 Prednisolone Acetate 1 % Oph Susp 5 Ml Drpbtl EYE-RIGHT 1 drop TID [facility] Administration Ropinirole HCl 0.25 mg 07/02/20 14:15 07/06/20 15:40 Ropinirole Hcl 0.25 Mg Tablet PO 0.25 mg DAILY@1400 [facility] Administration Sodium Chloride 3 ml 06/21/20 00:00 07/07/20 07:56 0.9 % Sodium Chloride Flush 3 Ml Syringe IVFLUSH 3 ml QSHIFT [facility] Administration Vitamin D 50 mcg 06/23/20 15:00 07/06/20 15:40 Cholecalciferol (Vitamin D3) 25 Mcg Tablet PO 50 mcg DAILY@1500 [facility] Administration Labs CBC & Chem 7: 07/06/20 05:37 07/06/20 05:37 Microbiology Microbiology Results: Microbiology 06/23/20 17:16 Blood - Venous Blood Culture - Final No growth after 5 days. 06/23/20 17:10 Blood - Venous Blood Culture - Final No growth after 5 days. 06/21/20 Unknown Urine clean catch - Clean Catch Midstream Urine Culture - Final Escherichia coli Assessment and Plan (1) UTI due to extended-spectrum beta lactamase (ESBL) producing Escherichia coli: Status: Acute (2) Bladder mass: Problem details: TURBT Dr. Burks 06/2020 Status: Acute (3) Status post surgical removal and fulguration of bladder neoplasm: Status: Acute (4) Chronic systolic CHF (congestive heart failure): Status: Acute (5) Atrial fibrillation: Status: Acute Assessment and Plan: 79F presented with generalized weakness UTI patient complaining of pain with voiding,urine culture grew ESBL ecoli, blood culture No growth, urine culture obtained by IR during right nephrostomy tube placement grew Enterococcus faecium 50 to [id number] colony therefore patient placed on IV vancomycin day 3, will follow Vanco trough and renal function closely, id recommend IV meropenem for total 14D patient now on d 14 /14 informed family that patient is at risk of recurrent urinary tract infection and sepsis due to persistent tumor, WBC trending down, follow CBC and clinical course closely Bladder mass with hydronephrosis status post TURBT with partial resection of tumor, status post nephrostomy tube on right side for hydronephrosis on 06/29/2020, hematuria resolved renal function normalized, 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 Velásquez spoke with family ordered few more testing and is planning on immunotherapy, patient will need outpatient follow-up with Dr. Burks in 1 week continue OxyContin 10 mg b.i.d. and hydromorphone 0.5 mg to every 6 hour as needed. will gradually increase dose of OxyContin. patient placed on oxybutynin low dose to prevent bladder spasm and pain. chest pain in the setting on known CAD and chronic systolic chf with recovered EF no new chest pains, troponin stable will continue medical management with statin, nitrate, beta vish KAIN on CKD resolved was likely related to obstructive uropathy, creatinine now at baseline hypomagnesemia replaced and resolved DM blood sugar Trending up from 142 this morning to 209 will resume low-dose novolog mix 70/30 14 units bid . afib continue metoprolol, and Eliquis htn continue amlodipine 5 mg and metoprolol. DVT prophylaxis Eliquis disposition to rehab facility once medically stable
[2020-07-07] MEDS: Cholecalciferol (Vitamin D3) 25 MCG TABLET 50 MCG PO (14:17)
[2020-07-07] MEDS: Multivitamin TABLET 1 TAB PO (14:18)
[2020-07-07] MEDS: rOPINIRole HCL 0.25 MG TABLET PO (14:18)
[2020-07-07] MEDS: Cyanocobalamin (Vitamin B-12) 1,000 MCG TABLET 2000 MCG PO (14:18)
[2020-07-07] MEDS: Folic Acid 1 MG TABLET PO (14:18)
[2020-07-07 15:40] LABS: Vancomycin Trough 13.4 mcg/mL (10.0-20.0)
[2020-07-07] MEDS: vancomycin HCL 750 MG in 0.9 % Sodium Chloride 250 ML 265 MG IV (15:53)
[2020-07-07 16:10] LABS: Glucose, Whole Blood 175 mg/dL (60-115)
[2020-07-07] MEDS: Atorvastatin Calcium 80 MG TABLET PO (19:44)
[2020-07-07] MEDS: Metoprolol Succinate ER 100 MG TAB.ER.24H PO (19:45)
[2020-07-07] MEDS: amLODIPine Besylate 5 MG TABLET PO (19:45)
[2020-07-07 20:42] LABS: Glucose, Whole Blood 225 mg/dL (60-115)
[2020-07-08] VITALS (9 sets, daily range): BP systolic 115–156; BP diastolic 53–68; PULSE 64–84; RESP 18–20; TEMP 36.3–36.8; O2SAT 95–98
[2020-07-08] MEDS: Omeprazole 40 MG CAPSULE.DR PO (05:47)
[2020-07-08 06:54] LABS: MANUAL DIFF FLAG NO
[2020-07-08 07:10] LABS: Basophils Absolute Auto 0.1 X10*3/uL (0.0-0.2); Eosinophils Absolute Auto 0.4 X10*3/uL (0.0-0.4); Eosinophils Percent Auto 3.5 % (0-4); Hematocrit 29.8 % (37-47); Hemoglobin 9.5 g/dl (12.0-16.0); Imm Gran Abs Auto 0.18 X10*3/uL (0.00-0.03); Imm Gran Pct Auto 1.6 % (0.0-0.4); Lymphocytes Absolute Auto 1.2 X10*3/uL (1.2-4.9); Lymphocytes Percent Auto 9.9 % (20-40); Mean Corpuscular HGB Conc 31.9 g/dl (31.0-35.0); Mean Corpuscular Hemoglobin 27.7 pg (27.0-33.0); Mean Corpuscular Volume 86.9 fL (80-98); Mean Platelet Volume 10.4 fL (9.4-12.3); Monocytes Absolute Auto 1.2 X10*3/uL (0.1-1.2); Monocytes Percent Auto 10.2 % (2-11); Neutrophils Absolute Auto 8.5 X10*3/uL (2.0-8.3); Neutrophils Percent Auto 73.8 % (45-73); Platelet Count 357 X10*3/uL (160-400); Red Blood Count 3.43 X10*6/uL (4.20-5.50); White Blood Count 11.6 X10*3/uL (4.8-10.8)
[2020-07-08 07:25] LABS: Anion Gap 12 (12-20); Blood Urea Nitrogen 23 mg/dL (9-16); Calcium 7.6 mg/dL (8.4-10.2); Carbon Dioxide 26 mmol/L (22-29); Chloride 104 mmol/L (96-108); Creatinine Clr Calc Pharmacy 36.2; Estimated Glomerular Filt Rate 54; Glucose Random 161 mg/dL (60-115); Potassium 4.1 mmol/l (3.3-5.1); Sodium 138 mmol/L (135-145)
[2020-07-08 07:48] LABS: Glucose, Whole Blood 172 mg/dL (60-115)
[2020-07-08] MEDS: Fluticasone/Vilanterol 100/25 BLST.W.DEV 1 PUFF INHALE (08:37)
[2020-07-08] MEDS: prednisoLONE Acetate 1 % Oph Susp 5 ML DRPBTL 1 DROP EYE-RIGHT ×3 (08:43→23:50)
[2020-07-08] MEDS: Isosorbide Mononitrate 60 MG TAB.ER.24H PO (08:44)
[2020-07-08] MEDS: oxyCODONE HCl ER 10 MG TAB.ER.12H PO ×2 (08:44→23:50)
[2020-07-08] MEDS: 0.9 % Sodium Chloride Flush 3 ML SYRINGE IVFLUSH ×2 (08:44→16:07)
[2020-07-08] MEDS: Apixaban 5 MG TABLET PO ×2 (08:44→21:42)
[2020-07-08] MEDS: Gabapentin 300 MG CAPSULE PO ×3 (08:44→23:52)
[2020-07-08] MEDS: Nystatin Ointment 15 GM TUBE 1 APPL TOPICAL ×2 (08:45→23:51)
[2020-07-08 11:34] LABS: Glucose, Whole Blood 226 mg/dL (60-115)
[2020-07-08] MEDS: Folic Acid 1 MG TABLET PO (14:57)
[2020-07-08] MEDS: Cholecalciferol (Vitamin D3) 25 MCG TABLET 50 MCG PO (14:57)
[2020-07-08] MEDS: rOPINIRole HCL 0.25 MG TABLET PO (14:57)
[2020-07-08] MEDS: Multivitamin TABLET 1 TAB PO (14:57)
[2020-07-08] MEDS: Cyanocobalamin (Vitamin B-12) 1,000 MCG TABLET 2000 MCG PO (14:58)
--- NOTE | 2020-07-08 15:25 | P.PNIM_ITS ---
Subjective Subjective Date of Service: 07/08/20 Interval History: patient feels better this morning do not complain of pain but noted to have rash underneath right breast, no acute issues overnight. Review of Systems General no headache no dizziness no fever chills. CVS no chest pain, no palpitation. Respiratory no cough,no sob. Gastrointestinal no nausea, no vomiting, no abdominal pain. Physical Exam Vital Signs: Vital Signs: Vital Signs Temp Pulse Resp BP Pulse Ox 07/08/20 11:00 97.4 F 84 18 121/53 L 95 07/08/20 08:44 64 156/68 H 07/08/20 07:00 97.7 F 64 18 156/68 H 98 07/08/20 03:53 98.2 F 72 18 142/65 H 96 07/08/20 00:00 97.5 F 84 18 130/65 96 07/07/20 19:53 97.1 F 71 18 124/59 L 96 07/07/20 19:45 71 124/59 L Body Mass Index 31.0 General in bed with no acute distress. Neck is supple no JVD. CVS regular rate rhythm, Respiratory lungs clear to auscultation, no respiratory distress, no wheeze, no rhonchi. Gastrointestinal abdomen soft, nontender, bowel sounds audible, no guarding , no rigidity. Extremities no clubbing cyanosis or edema. Neuro nonfocal Skin no rash right nephrostomy tube with clear urine, site of right nephrostomy incision clean with no signs of infection. Objective Data Current Medications Generic Name Dose Route Start Last Admin Trade Name Freq PRN Reason Stop Dose Admin Acetaminophen 325 mg 06/20/20 19:52 07/06/20 00:13 Acetaminophen 325 Mg Tablet PO 325 mg QID PRN Administration Pain Albuterol Sulfate 1 puff 06/20/20 20:18 Albuterol Sulfate 90 Mcg 18 Gm Inhaler INHALE Q4H PRN Shortness Of Breath Albuterol/Ipratropium 3 ml 07/02/20 16:36 Albuterol/Iprat 2.5/0.5mg 3 Ml Ampul.Neb INHALE RQ6H PRN Shortness of Breath/Wheezing Amlodipine Besylate 5 mg 06/23/20 20:00 07/07/20 19:45 Amlodipine Besylate 5 Mg Tablet PO 5 mg DAILY@1999 [facility] Administration Protocol Apixaban 5 mg 07/03/20 21:00 07/08/20 08:44 Apixaban 5 Mg Tablet PO 5 mg BID [facility] Administration Atorvastatin Calcium 80 mg 06/23/20 20:00 07/07/20 19:44 Atorvastatin Calcium 80 Mg Tablet PO 80 mg DAILY@1999 [facility] Administration Cyanocobalamin 2,000 mcg 06/23/20 15:00 07/08/20 14:58 Cyanocobalamin (Vitamin B-12) 1,000 Mcg Tablet PO 2,000 mcg DAILY@1500 [facility] Administration Fluticasone/Vilanterol 1 puff 06/21/20 08:00 07/08/20 08:37 Fluticasone/Vilanterol 100/25 Blst.W.Dev INHALE 1 puff RDAILY [facility] Administration Folic Acid 1 mg 06/23/20 15:00 07/08/20 14:57 Folic Acid 1 Mg Tablet PO 1 mg DAILY@1500 [facility] Administration Gabapentin 300 mg 06/22/20 20:00 07/08/20 15:04 Gabapentin 300 Mg Capsule PO 300 mg TID@0800,1499,1999 [facility] Administration Hydromorphone HCl 0.5 mg 07/05/20 14:26 07/06/20 09:49 Hydromorphone Hcl 2 Mg Tablet PO 0.5 mg Q6H PRN Administration Pain, Moderate (Pain Scale 4-6 Vancomycin HCl 750 mg/ Sodium 265 mls @ 265 mls/hr 07/04/20 16:00 07/07/20 16:53 Chloride IV Infused Q24H [facility] Infusion Isosorbide Mononitrate 60 mg 06/23/20 08:00 07/08/20 08:44 Isosorbide Mononitrate 60 Mg Tab.Er.24h PO 60 mg DAILY@08 [facility] Administration Protocol Labetalol HCl 20 mg 06/28/20 17:36 Labetalol Hcl 100 Mg/20 Ml Vial IVPUSH Q20M PRN SBP > 160 Metoprolol Succinate 100 mg 06/23/20 20:00 07/07/20 19:45 Metoprolol Succinate Er 100 Mg Tab.Er.24h PO 100 mg DAILY@1999 [facility] Administration Protocol Multivitamins/Vitamin C 1 tab 06/23/20 15:00 07/08/20 14:57 Multivitamin Tablet PO 1 tab DAILY@1500 [facility] Administration Nitroglycerin 0.4 mg 06/20/20 19:52 Nitroglycerin 0.4 Mg Tab.Subl SUBLINGUAL Q5M PRN Chest Pain Non-Formulary Medication 14 each 07/07/20 17:00 07/08/20 08:43 Patient Own Medication SUBCUT 14 each DAILY@0800,1700 [facility] Administration Nystatin 1 appl 06/27/20 21:00 07/08/20 08:45 Nystatin Ointment 15 Gm Tube TOPICAL 1 appl BID [facility] Administration Protocol Nystatin 1 appl 07/08/20 21:00 Nystatin Powder 15 Gm Bottle TOPICAL BID [facility] Protocol Omeprazole 40 mg 06/21/20 06:30 07/08/20 05:47 Omeprazole 40 Mg Capsule.Dr PO 40 mg DAILY@0630 [facility] Administration Ondansetron HCl 4 mg 06/23/20 17:43 06/23/20 18:11 Ondansetron Hcl 4 Mg/2 Ml Vial IVPUSH 4 mg Q6H PRN Administration nausea Ondansetron HCl 4 mg 06/28/20 17:32 Ondansetron Hcl 4 Mg/2 Ml Vial IVPUSH ONCE PRN Nausea and Vomiting Ondansetron HCl 4 mg 06/29/20 13:35 Ondansetron Hcl 4 Mg/2 Ml Vial IVPUSH ONCE PRN Nausea and Vomiting Oxybutynin Chloride 5 mg 07/06/20 21:00 07/07/20 19:44 Oxybutynin Chloride Er 5 Mg Tab.Er.24 PO 5 mg BEDTIME [facility] Administration Oxycodone HCl 10 mg 07/05/20 21:00 07/08/20 08:44 Oxycodone Hcl Er 10 Mg Tab.Er.12h PO 10 mg BID [facility] Administration Pharmacy Consult 1 each 06/20/20 16:44 Consult Rx Perform Med Rec MISCELLANE ONCE PRN Consult order Prednisolone Acetate 1 drop 06/20/20 21:00 07/08/20 15:04 Prednisolone Acetate 1 % Oph Susp 5 Ml Drpbtl EYE-RIGHT 1 drop TID [facility] Administration Ropinirole HCl 0.25 mg 07/02/20 14:15 07/08/20 14:57 Ropinirole Hcl 0.25 Mg Tablet PO 0.25 mg DAILY@1400 [facility] Administration Sodium Chloride 3 ml 06/21/20 00:00 07/08/20 08:44 0.9 % Sodium Chloride Flush 3 Ml Syringe IVFLUSH 3 ml QSHIFT [facility] Administration Vitamin D 50 mcg 06/23/20 15:00 07/08/20 14:57 Cholecalciferol (Vitamin D3) 25 Mcg Tablet PO 50 mcg DAILY@1500 [facility] Administration Labs CBC & Chem 7: 07/08/20 06:22 07/08/20 06:22 Microbiology Microbiology Results: Microbiology 06/23/20 17:16 Blood - Venous Blood Culture - Final No growth after 5 days. 06/23/20 17:10 Blood - Venous Blood Culture - Final No growth after 5 days. 06/21/20 Unknown Urine clean catch - Clean Catch Midstream Urine Culture - Final Escherichia coli Assessment and Plan (1) UTI due to extended-spectrum beta lactamase (ESBL) producing Escherichia coli: Status: Acute (2) Bladder mass: Problem details: TURBT Dr. Burks 06/2020 Status: Acute (3) Status post surgical removal and fulguration of bladder neoplasm: Status: Acute (4) Chronic systolic CHF (congestive heart failure): Status: Acute (5) Atrial fibrillation: Status: Acute Assessment and Plan: 79F presented with generalized weakness UTI no complaints of pain this a.m.urine culture grew ESBL ecoli, blood culture No growth, urine culture obtained by IR during right nephrostomy tube placement grew Enterococcus faecium 50 to [id number] colony therefore patient placed on IV vancomycin day 4, Vanco trough 13.4, stable renal function, patient finished course of meropenem for total 14D ,informed family that patient is at risk of recurrent urinary tract infection and sepsis due to persistent tumor, WBC trending down, follow CBC and clinical course closely Bladder mass with hydronephrosis status post TURBT with partial resection of tumor, status post nephrostomy tu be on right side for hydronephrosis on 06/29/2020, hematuria resolved renal function normalized, 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 Velásquez spoke with family ordered few more testing and is planning on immunotherapy, patient will need outpatient follow-up with Dr. Burks in 1 week continue OxyContin 10 mg b.i.d. and hydromorphone 0.5 mg every 6 hour as needed. will gradually increase dose of OxyContin if needed. patient placed on oxybutynin low dose to prevent bladder spasm and pain. chest pain in the setting on known CAD and chronic systolic chf with recovered EF no new chest pains, troponin stable will continue medical management with statin, nitrate, beta vish KAIN on CKD resolved was likely related to obstructive uropathy, creatinine now at baseline hypomagnesemia replaced and resolved DM blood sugar elevated during day will continue 14 units novolog mix 70/30 a.m. and 7 units at p.m. afib continue metoprolol, and Eliquis htn continue amlodipine 5 mg and metoprolol. Delia intertrigo will place patient on nystatin powder DVT prophylaxis Eliquis disposition to rehab facility tomorrow.
[2020-07-08] MEDS: vancomycin HCL 750 MG in 0.9 % Sodium Chloride 250 ML 265 MG IV (16:06)
[2020-07-08 16:31] LABS: Glucose, Whole Blood 150 mg/dL (60-115)
[2020-07-08 21:32] LABS: Glucose, Whole Blood 86 mg/dL (60-115)
[2020-07-08] MEDS: Atorvastatin Calcium 80 MG TABLET PO (21:40)
[2020-07-08] MEDS: Metoprolol Succinate ER 100 MG TAB.ER.24H PO (21:41)
[2020-07-08] MEDS: amLODIPine Besylate 5 MG TABLET PO (21:43)
[2020-07-08] MEDS: Nystatin Powder 15 GM BOTTLE 1 APPL TOPICAL (23:49)
[2020-07-09] VITALS (9 sets, daily range): BP systolic 106–193; BP diastolic 59–72; PULSE 62–79; RESP 18–20; TEMP 36.4–36.9; O2SAT 95–100
[2020-07-09] MEDS: 0.9 % Sodium Chloride Flush 3 ML SYRINGE IVFLUSH ×4 (00:05→23:45)
[2020-07-09] MEDS: Omeprazole 40 MG CAPSULE.DR PO (05:47)
[2020-07-09] MEDS: Fluticasone/Vilanterol 100/25 BLST.W.DEV 1 PUFF INHALE (07:13)
[2020-07-09 07:50] LABS: Glucose, Whole Blood 126 mg/dL (60-115)
[2020-07-09] MEDS: Isosorbide Mononitrate 60 MG TAB.ER.24H PO (08:26)
[2020-07-09] MEDS: Apixaban 5 MG TABLET PO (08:26)
[2020-07-09] MEDS: oxyCODONE HCl ER 10 MG TAB.ER.12H PO ×2 (08:26→20:30)
[2020-07-09] MEDS: Gabapentin 300 MG CAPSULE PO ×3 (08:26→20:29)
[2020-07-09] MEDS: prednisoLONE Acetate 1 % Oph Susp 5 ML DRPBTL 1 DROP EYE-RIGHT ×3 (08:32→20:32)
[2020-07-09] MEDS: Nystatin Powder 15 GM BOTTLE 1 APPL TOPICAL ×2 (08:33→20:32)
[2020-07-09] MEDS: Nystatin Ointment 15 GM TUBE 1 APPL TOPICAL ×2 (09:56→20:32)
[2020-07-09] MEDS: HYDROmorphone HCl 2 MG TABLET 0.5 MG PO (09:57)
[2020-07-09 11:41] LABS: Glucose, Whole Blood 198 mg/dL (60-115)
--- NOTE | 2020-07-09 12:37 | MHC.CM.PN ---
[facility] dc wed [facility] bed avlaiability
[2020-07-09] MEDS: HYDROmorphone HCl 0.5 MG/0.5 ML SYRINGE IVPUSH (12:40)
[2020-07-09] MEDS: rOPINIRole HCL 0.25 MG TABLET PO (12:40)
--- NOTE | 2020-07-09 12:57 | MHC.CM.PN ---
spoke max ambrosio at [facility] to have a bed for pt on thu pt will require a new covid test prior to dc as well
[2020-07-09] MEDS: Cholecalciferol (Vitamin D3) 25 MCG TABLET 50 MCG PO (14:48)
[2020-07-09] MEDS: Multivitamin TABLET 1 TAB PO (14:48)
[2020-07-09] MEDS: Cyanocobalamin (Vitamin B-12) 1,000 MCG TABLET 2000 MCG PO (14:48)
[2020-07-09] MEDS: Folic Acid 1 MG TABLET PO (14:48)
--- NOTE | 2020-07-09 15:19 | HO.PM.IMPN ---
Subjective Subjective Interval History: patient was feeling good this a.m. and was scheduled to be discharged but later in morning noted to have hematuria and bleeding from site of right nephrostomy tube, patient also complained of significant pain at the site of nephrostomy and bladder spasm. General no headache no dizziness no fever chills. CVS no chest pain, no palpitation. Respiratory no cough, no shortness of breath Gastrointestinal no nausea no vomiting, no abdominal pain, suprapubic discomfort . Physical Exam Vital Signs: Vital Signs: Vital Signs Temp Pulse Resp BP Pulse Ox 07/09/20 15:00 97.6 F 74 18 117/66 98 07/09/20 11:00 98.5 F 69 20 143/72 H 95 07/09/20 10:16 62 100 07/09/20 07:00 98.2 F 62 20 193/68 H 100 07/09/20 03:00 98 F 64 20 153/59 H 97 07/08/20 23:00 98.2 F 69 20 140/64 H 95 07/08/20 21:43 67 136/64 07/08/20 21:41 67 136/64 Body Mass Index 31.0 General patient appears to be in pain due to bladder spasm. Neck is supple no JVD. CVS regular rate rhythm, Respiratory lungs clear to auscultation, no respiratory distress, no wheeze, no rhonchi. Gastrointestinal abdomen soft, nontender, bowel sounds audible, Extremities no clubbing cyanosis or edema. Neuro nonfocal Skin no rash right nephrostomy tube with bloody urine, site of right nephrostomy bleeding. Objective Data Current Medications Generic Name Dose Route Start Last Admin Trade Name Jeromeq PRN Reason Stop Dose Admin Acetaminophen 325 mg 06/20/20 19:52 07/06/20 00:13 Acetaminophen 325 Mg Tablet PO 325 mg QID PRN Administration Pain Albuterol Sulfate 1 puff 06/20/20 20:18 Albuterol Sulfate 90 Mcg 18 Gm Inhaler INHALE Q4H PRN Shortness Of Breath Albuterol/Ipratropium 3 ml 07/02/20 16:36 Albuterol/Iprat 2.5/0.5mg 3 Ml Ampul.Neb INHALE RQ6H PRN Shortness of Breath/Wheezing Amlodipine Besylate 5 mg 06/23/20 20:00 07/08/20 21:43 Amlodipine Besylate 5 Mg Tablet PO 5 mg DAILY@1999 [facility] Administration Protocol Atorvastatin Calcium 80 mg 06/23/20 20:00 07/08/20 21:40 Atorvastatin Calcium 80 Mg Tablet PO 80 mg DAILY@1999 [facility] Administration Cyanocobalamin 2,000 mcg 06/23/20 15:00 07/09/20 14:48 Cyanocobalamin (Vitamin B-12) 1,000 Mcg Tablet PO 2,000 mcg DAILY@1500 [facility] Administration Fluticasone/Vilanterol 1 puff 06/21/20 08:00 07/09/20 07:13 Fluticasone/Vilanterol 100/25 Blst.W.Dev INHALE 1 puff RDAILY [facility] Administration Folic Acid 1 mg 06/23/20 15:00 07/09/20 14:48 Folic Acid 1 Mg Tablet PO 1 mg DAILY@1499 [facility] Administration Gabapentin 300 mg 06/22/20 20:00 07/09/20 14:50 Gabapentin 300 Mg Capsule PO 300 mg TID@0800,1499,1999 [facility] Administration Hydromorphone HCl 0.5 mg 07/05/20 14:26 07/09/20 09:57 Hydromorphone Hcl 2 Mg Tablet PO 0.5 mg Q6H PRN Administration Pain, Moderate (Pain Scale 4-6 Vancomycin HCl 750 mg/ Sodium 265 mls @ 265 mls/hr 07/04/20 16:00 07/08/20 17:14 Chloride IV Infused Q24H [facility] Infusion Isosorbide Mononitrate 60 mg 06/23/20 08:00 07/09/20 08:26 Isosorbide Mononitrate 60 Mg Tab.Er.24h PO 60 mg DAILY@08 [facility] Administration Protocol Labetalol HCl 20 mg 06/28/20 17:36 Labetalol Hcl 100 Mg/20 Ml Vial IVPUSH Q20M PRN SBP > 160 Metoprolol Succinate 100 mg 06/23/20 20:00 07/08/20 21:41 Metoprolol Succinate Er 100 Mg Tab.Er.24h PO 100 mg DAILY@1999 [facility] Administration Protocol Multivitamins/Vitamin C 1 tab 06/23/20 15:00 07/09/20 14:48 Multivitamin Tablet PO 1 tab DAILY@1500 [facility] Administration Nitroglycerin 0.4 mg 06/20/20 19:52 Nitroglycerin 0.4 Mg Tab.Subl SUBLINGUAL Q5M PRN Chest Pain Pt Own Novolog 70/30 14 each 07/09/20 08:00 07/09/20 08:28 SUBCUT 14 each DAILY@0800 [facility] Administration Pt Own Novolog 70/30 7 each 07/08/20 17:00 07/08/20 16:50 SUBCUT 7 each DAILY@1700 [facility] Administration Nystatin 1 appl 06/27/20 21:00 07/09/20 09:56 Nystatin Ointment 15 Gm Tube TOPICAL 1 appl BID [facility] Administration Protocol Nystatin 1 appl 07/08/20 21:00 07/09/20 08:33 Nystatin Powder 15 Gm Bottle TOPICAL 1 appl BID [facility] Administration Protocol Omeprazole 40 mg 06/21/20 06:30 07/09/20 05:47 Omeprazole 40 Mg Capsule.Dr PO 40 mg DAILY@0630 [facility] Administration Ondansetron HCl 4 mg 06/23/20 17:43 06/23/20 18:11 Ondansetron Hcl 4 Mg/2 Ml Vial IVPUSH 4 mg Q6H PRN Administration nausea Ondansetron HCl 4 mg 06/28/20 17:32 Ondansetron Hcl 4 Mg/2 Ml Vial IVPUSH ONCE PRN Nausea and Vomiting Ondansetron HCl 4 mg 06/29/20 13:35 Ondansetron Hcl 4 Mg/2 Ml Vial IVPUSH ONCE PRN Nausea and Vomiting Oxybutynin Chloride 5 mg 07/06/20 21:00 07/08/20 21:41 Oxybutynin Chloride Er 5 Mg Tab.Er.24 PO 5 mg BEDTIME [facility] Administration Oxycodone HCl 10 mg 07/05/20 21:00 07/09/20 08:26 Oxycodone Hcl Er 10 Mg Tab.Er.12h PO 10 mg BID [facility] Administration Pharmacy Consult 1 each 06/20/20 16:44 Consult Rx Perform Med Rec MISCELLANE ONCE PRN Consult order Prednisolone Acetate 1 drop 06/20/20 21:00 07/09/20 14:50 Prednisolone Acetate 1 % Oph Susp 5 Ml Drpbtl EYE-RIGHT 1 drop TID [facility] Administration Ropinirole HCl 0.25 mg 07/02/20 14:15 07/09/20 12:40 Ropinirole Hcl 0.25 Mg Tablet PO 0.25 mg DAILY@1400 [facility] Administration Sodium Chloride 3 ml 06/21/20 00:00 07/09/20 08:27 0.9 % Sodium Chloride Flush 3 Ml Syringe IVFLUSH 3 ml QSHIFT [facility] Administration Vitamin D 50 mcg 06/23/20 15:00 07/09/20 14:48 Cholecalciferol (Vitamin D3) 25 Mcg Tablet PO 50 mcg DAILY@1500 [facility] Administration Labs CBC & Chem 7: 07/08/20 06:22 07/08/20 06:22 Microbiology Microbiology Results: Microbiology 06/23/20 17:16 Blood - Venous Blood Culture - Final No growth after 5 days. 06/23/20 17:10 Blood - Venous Blood Culture - Final No growth after 5 days. 06/21/20 Unknown Urine clean catch - Clean Catch Midstream Urine Culture - Final Escherichia coli Assessment and Plan (1) UTI due to extended-spectrum beta lactamase (ESBL) producing Escherichia coli: Status: Acute (2) Bladder mass: Problem details: TURBT Dr. Burks 06/2020 Status: Acute (3) Status post surgical removal and fulguration of bladder neoplasm: Status: Acute (4) Chronic systolic CHF (congestive heart failure): Status: Acute (5) Atrial fibrillation: Status: Acute Assessment and Plan: 79F presented with generalized weakness UTI patient with intermittent bladder spasms, due to bladder tumor,urine culture grew ESBL ecoli, blood culture No growth, urine culture obtained by IR during right nephrostomy tube placement grew Enterococcus faecium 50 to [id number] colony therefore patient placed on IV vancomycin day 5, Vanco trough 13.4, stable renal function, patient finished course of meropenem for total 14D for E coli,informed family that patient is at risk of recurrent urinary tract infection and sepsis due to persistent tumor, WBC trending down, follow CBC and clinical course closely Bladder mass with hydronephrosis status post TURBT with partial resection of tumor, status post nephrostomy tube on right side for hydronephrosis on 06/29/2020, hematuria resolved but noted to have recurrent hematuria this morning and also bleeding from the right nephrostomy tube therefore case discussed with Dr. Burks he recommend to discontinue Eliquis and irrigate the right nephrostomy tube. 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 Velásquez spoke with family ordered few more testing and is planning on immunotherapy, patient will need outpatient follow-up with Dr. Burks upon discharge continue OxyContin 10 mg b.i.d. and hydromorphone 0.5 mg every 6 hour as needed. will gradually increase dose of OxyContin if needed. patient placed on oxybutynin low dose to prevent bladder spasm and pain. due to bladder spasm today patient received 1 dose of IV Dilaudid subsequent to that patient has appears to be somnolent but hemodynamically stable will continue to follow clinical course, will repeat CBC. chest pain in the setting on known CAD and chronic systolic chf with recovered EF no new chest pains, troponin stable will continue medical management with statin, nitrate,and beta vish KAIN on CKD resolved was likely related to obstructive uropathy, creatinine now at baseline. hypomagnesemia replaced and resolved DM blood sugar elevated during day will continue 14 units novolog mix 70/30 a.m. and 7 units at p.m. due to intermittently low blood sugars afib continue metoprolol, DC Eliquis due to hematuria htn continue amlodipine 5 mg and metoprolol. Delia intertrigo continue nystatin powder DVT prophylaxis Eliquis discontinued due to hematuria will place on compressions boots. disposition to rehab of after patient finishes vancomycin on Thursday
[2020-07-09 16:20] LABS: Glucose, Whole Blood 180 mg/dL (60-115)
[2020-07-09 16:59] LABS: Hematocrit 28.5 % (37-47); Hemoglobin 9.1 g/dl (12.0-16.0)
[2020-07-09] MEDS: vancomycin HCL 750 MG in 0.9 % Sodium Chloride 250 ML 265 MG IV (17:34)
[2020-07-09 20:14] LABS: Glucose, Whole Blood 147 mg/dL (60-115)
[2020-07-09] MEDS: Metoprolol Succinate ER 100 MG TAB.ER.24H PO (20:28)
[2020-07-09] MEDS: Atorvastatin Calcium 80 MG TABLET PO (20:30)
[2020-07-09] MEDS: amLODIPine Besylate 5 MG TABLET PO (20:31)
[2020-07-09 23:55] LABS: Basophils Absolute Auto 0.1 X10*3/uL (0.0-0.2); Basophils Percent Auto 0.8 % (0-2); Eosinophils Absolute Auto 0.3 X10*3/uL (0.0-0.4); Eosinophils Percent Auto 1.9 % (0-4); Hematocrit 28.3 % (37-47); Hemoglobin 9.1 g/dl (12.0-16.0); Imm Gran Abs Auto 0.19 X10*3/uL (0.00-0.03); Imm Gran Pct Auto 1.4 % (0.0-0.4); Lymphocytes Absolute Auto 1.3 X10*3/uL (1.2-4.9); MANUAL DIFF FLAG SCAN; Mean Corpuscular HGB Conc 32.2 g/dl (31.0-35.0); Mean Corpuscular Hemoglobin 28.2 pg (27.0-33.0); Mean Corpuscular Volume 87.6 fL (80-98); Mean Platelet Volume 9.8 fL (9.4-12.3); Monocytes Absolute Auto 1.5 X10*3/uL (0.1-1.2); Monocytes Percent Auto 11.6 % (2-11); Neutrophils Absolute Auto 9.7 X10*3/uL (2.0-8.3); Neutrophils Percent Auto 74.3 % (45-73); Platelet Count 339 X10*3/uL (160-400); Red Blood Count 3.23 X10*6/uL (4.20-5.50); Red Cell Distribution Width 13.9 % (11.0-16.0); SCAN SMEAR FLAG 1; White Blood Count 13.1 X10*3/uL (4.8-10.8)
[2020-07-10] VITALS (9 sets, daily range): BP systolic 113–144; BP diastolic 54–82; PULSE 60–80; RESP 16–20; TEMP 36.4–36.9; O2SAT 94–98
[2020-07-10 00:20] LABS: SLIDE REVIEW VERIFIED
[2020-07-10] MEDS: Omeprazole 40 MG CAPSULE.DR PO (05:29)
[2020-07-10 06:23] LABS: Basophils Absolute Auto 0.1 X10*3/uL (0.0-0.2); Basophils Percent Auto 0.8 % (0-2); Eosinophils Absolute Auto 0.3 X10*3/uL (0.0-0.4); Eosinophils Percent Auto 2.6 % (0-4); Hematocrit 29.6 % (37-47); Hemoglobin 9.3 g/dl (12.0-16.0); Imm Gran Abs Auto 0.22 X10*3/uL (0.00-0.03); Imm Gran Pct Auto 1.7 % (0.0-0.4); Lymphocytes Absolute Auto 1.3 X10*3/uL (1.2-4.9); Lymphocytes Percent Auto 10.1 % (20-40); MANUAL DIFF FLAG SCAN; Mean Corpuscular HGB Conc 31.4 g/dl (31.0-35.0); Mean Corpuscular Hemoglobin 27.2 pg (27.0-33.0); Mean Corpuscular Volume 86.5 fL (80-98); Mean Platelet Volume 10.2 fL (9.4-12.3); Monocytes Absolute Auto 1.5 X10*3/uL (0.1-1.2); Monocytes Percent Auto 11.7 % (2-11); Neutrophils Absolute Auto 9.5 X10*3/uL (2.0-8.3); Neutrophils Percent Auto 73.1 % (45-73); Platelet Count 385 X10*3/uL (160-400); Red Blood Count 3.42 X10*6/uL (4.20-5.50); SCAN SMEAR FLAG 1
[2020-07-10 06:51] LABS: Anion Gap 14 (12-20); Blood Urea Nitrogen 20 mg/dL (9-16); Carbon Dioxide 25 mmol/L (22-29); Chloride 101 mmol/L (96-108); Creatinine Clr Calc Pharmacy 35.9; Estimated Glomerular Filt Rate 53; Glucose Random 115 mg/dL (60-115); Potassium 3.8 mmol/l (3.3-5.1); Sodium 136 mmol/L (135-145)
[2020-07-10 07:19] LABS: Glucose, Whole Blood 118 mg/dL (60-115)
[2020-07-10] MEDS: Fluticasone/Vilanterol 100/25 BLST.W.DEV 1 PUFF INHALE (08:08)
[2020-07-10] MEDS: Isosorbide Mononitrate 60 MG TAB.ER.24H PO (08:15)
[2020-07-10] MEDS: Nystatin Powder 15 GM BOTTLE 1 APPL TOPICAL ×2 (08:15→21:06)
[2020-07-10] MEDS: oxyCODONE HCl ER 10 MG TAB.ER.12H PO (08:15)
[2020-07-10] MEDS: 0.9 % Sodium Chloride Flush 3 ML SYRINGE IVFLUSH ×2 (08:15→15:42)
[2020-07-10] MEDS: Gabapentin 300 MG CAPSULE PO ×3 (08:15→21:11)
[2020-07-10] MEDS: Nystatin Ointment 15 GM TUBE 1 APPL TOPICAL ×2 (08:15→21:13)
[2020-07-10] MEDS: prednisoLONE Acetate 1 % Oph Susp 5 ML DRPBTL 1 DROP EYE-RIGHT ×3 (08:16→21:06)
--- NOTE | 2020-07-10 10:45 | HO.PM.IMPN ---
Subjective Subjective Date of Service: 07/10/20 Interval History: no complaints Cardiovascular Cardiovascular: Reports no additional cardiovascular complaints Respiratory Respiratory: Reports no additional respiratory complaints Physical Exam Vital Signs: Vital Signs: Vital Signs Temp Pulse Resp BP Pulse Ox 07/10/20 10:22 69 140/82 H 07/10/20 08:15 69 140/82 H 07/10/20 07:00 98.0 F 69 20 140/82 H 96 07/10/20 03:00 97.6 F 60 19 131/58 L 98 07/09/20 23:27 97.5 F 63 19 127/60 99 07/09/20 20:31 79 106/64 07/09/20 20:28 79 106/64 07/09/20 19:00 97.6 F 79 18 106/64 96 07/09/20 15:00 97.6 F 74 18 117/66 98 07/09/20 11:00 98.5 F 69 20 143/72 H 95 Body Mass Index 31.0 General patient appears to be in pain due to bladder spasm. Neck is supple no JVD. CVS regular rate rhythm, Respiratory lungs clear to auscultation, no respiratory distress, no wheeze, no rhonchi. Gastrointestinal abdomen soft, nontender, bowel sounds audible, Extremities no clubbing cyanosis or edema. Neuro nonfocal Skin no rash right nephrostomy tube cleared Objective Data Current Medications Generic Name Dose Route Start Last Admin Trade Name Freq PRN Reason Stop Dose Admin Acetaminophen 325 mg 06/20/20 19:52 07/06/20 00:13 Acetaminophen 325 Mg Tablet PO 325 mg QID PRN Administration Pain Albuterol Sulfate 1 puff 06/20/20 20:18 Albuterol Sulfate 90 Mcg 18 Gm Inhaler INHALE Q4H PRN Shortness Of Breath Amlodipine Besylate 5 mg 06/23/20 20:00 07/09/20 20:31 Amlodipine Besylate 5 Mg Tablet PO 5 mg DAILY@1999 COUNTS INCLUDE 234 BEDS AT THE [facility] Administration Protocol Atorvastatin Calcium 80 mg 06/23/20 20:00 07/09/20 20:30 Atorvastatin Calcium 80 Mg Tablet PO 80 mg DAILY@1999 COUNTS INCLUDE 234 BEDS AT THE [facility] Administration Cyanocobalamin 2,000 mcg 06/23/20 15:00 07/09/20 14:48 Cyanocobalamin (Vitamin B-12) 1,000 Mcg Tablet PO 2,000 mcg DAILY@1500 COUNTS INCLUDE 234 BEDS AT THE [facility] Administration Fluticasone/Vilanterol 1 puff 06/21/20 08:00 07/10/20 08:08 Fluticasone/Vilanterol 100/25 Blst.W.Dev INHALE 1 puff RDAILY RODGER Administration Folic Acid 1 mg 06/23/20 15:00 07/09/20 14:48 Folic Acid 1 Mg Tablet PO 1 mg DAILY@1500 RODGER Administration Gabapentin 300 mg 06/22/20 20:00 07/10/20 08:15 Gabapentin 300 Mg Capsule PO 300 mg TID@0800,1499,1999 COUNTS INCLUDE 234 BEDS AT THE [facility] Administration Hydromorphone HCl 0.5 mg 07/05/20 14:26 07/09/20 09:57 Hydromorphone Hcl 2 Mg Tablet PO 0.5 mg Q6H PRN Administration Pain, Moderate (Pain Scale 4-6 Vancomycin HCl 750 mg/ Sodium 265 mls @ 265 mls/hr 07/04/20 16:00 07/09/20 19:21 Chloride IV Infused Q24H COUNTS INCLUDE 234 BEDS AT THE [facility] Infusion Isosorbide Mononitrate 60 mg 06/23/20 08:00 07/10/20 08:15 Isosorbide Mononitrate 60 Mg Tab.Er.24h PO 60 mg DAILY@08 COUNTS INCLUDE 234 BEDS AT THE [facility] Administration Protocol Labetalol HCl 20 mg 06/28/20 17:36 Labetalol Hcl 100 Mg/20 Ml Vial IVPUSH Q20M PRN SBP > 160 Metoprolol Succinate 100 mg 06/23/20 20:00 07/09/20 20:28 Metoprolol Succinate Er 100 Mg Tab.Er.24h PO 100 mg DAILY@1999 COUNTS INCLUDE 234 BEDS AT THE [facility] Administration Protocol Multivitamins/Vitamin C 1 tab 06/23/20 15:00 07/09/20 14:48 Multivitamin Tablet PO 1 tab DAILY@1500 COUNTS INCLUDE 234 BEDS AT THE [facility] Administration Nitroglycerin 0.4 mg 06/20/20 19:52 Nitroglycerin 0.4 Mg Tab.Subl SUBLINGUAL Q5M PRN Chest Pain Pt Own Novolog 70/30 14 each 07/09/20 08:00 07/09/20 08:28 SUBCUT 14 each DAILY@0800 COUNTS INCLUDE 234 BEDS AT THE [facility] Administration Pt Own Novolog 70/30 7 each 07/08/20 17:00 07/09/20 17:39 SUBCUT 7 each DAILY@1700 COUNTS INCLUDE 234 BEDS AT THE [facility] Administration Nystatin 1 appl 06/27/20 21:00 07/10/20 08:15 Nystatin Ointment 15 Gm Tube TOPICAL 1 appl BID RODGER Administration Protocol Nystatin 1 appl 07/08/20 21:00 07/10/20 08:15 Nystatin Powder 15 Gm Bottle TOPICAL 1 appl BID RODGER Administration Protocol Omeprazole 40 mg 06/21/20 06:30 07/10/20 05:29 Omeprazole 40 Mg Capsule.Dr PO 40 mg DAILY@0630 RODGER Administration Ondansetron HCl 4 mg 06/23/20 17:43 06/23/20 18:11 Ondansetron Hcl 4 Mg/2 Ml Vial IVPUSH 4 mg Q6H PRN Administration nausea Ondansetron HCl 4 mg 06/28/20 17:32 Ondansetron Hcl 4 Mg/2 Ml Vial IVPUSH ONCE PRN Nausea and Vomiting Ondansetron HCl 4 mg 06/29/20 13:35 Ondansetron Hcl 4 Mg/2 Ml Vial IVPUSH ONCE PRN Nausea and Vomiting Oxybutynin Chloride 5 mg 07/06/20 21:00 07/09/20 20:27 Oxybutynin Chloride Er 5 Mg Tab.Er.24 PO 5 mg BEDTIME RODGER Administration Oxycodone HCl 10 mg 07/05/20 21:00 07/10/20 08:15 Oxycodone Hcl Er 10 Mg Tab.Er.12h PO 10 mg BID COUNTS INCLUDE 234 BEDS AT THE [facility] Administration Pharmacy Consult 1 each 06/20/20 16:44 Consult Rx Perform Med Rec MISCELLANE ONCE PRN Consult order Prednisolone Acetate 1 drop 06/20/20 21:00 07/10/20 08:16 Prednisolone Acetate 1 % Oph Susp 5 Ml Drpbtl EYE-RIGHT 1 drop TID COUNTS INCLUDE 234 BEDS AT THE [facility] Administration Ropinirole HCl 0.25 mg 07/02/20 14:15 07/09/20 12:40 Ropinirole Hcl 0.25 Mg Tablet PO 0.25 mg DAILY@1400 COUNTS INCLUDE 234 BEDS AT THE [facility] Administration Sodium Chloride 3 ml 06/21/20 00:00 07/10/20 08:15 0.9 % Sodium Chloride Flush 3 Ml Syringe IVFLUSH 3 ml QSHIFT COUNTS INCLUDE 234 BEDS AT THE [facility] Administration Vitamin D 50 mcg 06/23/20 15:00 07/09/20 14:48 Cholecalciferol (Vitamin D3) 25 Mcg Tablet PO 50 mcg DAILY@1500 COUNTS INCLUDE 234 BEDS AT THE [facility] Administration Labs CBC & Chem 7: 07/10/20 05:30 11/03/20 05:30 Microbiology Microbiology Results: Microbiology 06/23/20 17:16 Blood - Venous Blood Culture - Final No growth after 5 days. 06/23/20 17:10 Blood - Venous Blood Culture - Final No growth after 5 days. 06/21/20 Unknown Urine clean catch - Clean Catch Midstream Urine Culture - Final Escherichia coli Assessment and Plan (1) UTI due to extended-spectrum beta lactamase (ESBL) producing Escherichia coli: Status: Acute (2) Bladder mass: Problem details: TURBT Dr. Burks 06/2020 Status: Acute (3) Status post surgical removal and fulguration of bladder neoplasm: Status: Acute (4) Chronic systolic CHF (congestive heart failure): Status: Acute (5) Atrial fibrillation: Status: Acute Assessment and Plan: 79F presented with generalized weakness UTI patient with intermittent bladder spasms, due to bladder tumor,urine culture grew ESBL ecoli, blood culture No growth, urine culture obtained by IR during right nephrostomy tube placement grew Enterococcus faecium 50 to [id number] colony therefore patient placed on IV vancomycin day /, Vanco trough 13.4, stable renal function, patient finished course of meropenem for total 14D for E coli,informed family that patient is at risk of recurrent urinary tract infection and sepsis due to persistent tumor, WBC trending down, follow CBC and clinical course closely Bladder mass with hydronephrosis status post TURBT with partial resection of tumor, status post nephrostomy tube on right side for hydronephrosis on 06/29/2020, hematuria resolved but noted to have recurrent hematuria this morning and also bleeding from the right nephrostomy tube therefore case discussed with Dr. Burks he recommend to discontinue Eliquis and irrigate the right nephrostomy tube. 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 Velásquez spoke with family ordered few more testing and is planning on immunotherapy, patient will need outpatient follow-up with Dr. Burks upon discharge continue OxyContin 10 mg b.i.d. and hydromorphone 0.5 mg every 6 hour as needed. will gradually increase dose of OxyContin if needed. patient placed on oxybutynin low dose to prevent bladder spasm and pain. due to bladder spasm today patient received 1 dose of IV Dilaudid subsequent to that patient has appears to be somnolent but hemodynamically stable will continue to follow clinical course chest pain in the setting on known CAD and chronic systolic chf with recovered EF no new chest pains, troponin stable will continue medical management with statin, nitrate,and beta vish KAIN on CKD resolved was likely related to obstructive uropathy, creatinine now at baseline. hypomagnesemia replaced and resolved DM blood sugar elevated during day will continue 14 units novolog mix 70/30 a.m. and 7 units at p.m. due to intermittently low blood sugars afib continue metoprolol, DC Eliquis due to hematuria, restart when ok with htn continue amlodipine 5 mg and metoprolol. Delia intertrigo continue nystatin powder DVT prophylaxis Eliquis discontinued due to hematuria will place on compressions boots. disposition to rehab of after patient finishes vancomycin on Thursday
[2020-07-10 11:10] LABS: Glucose, Whole Blood 294 mg/dL (60-115)
[2020-07-10] MEDS: Cholecalciferol (Vitamin D3) 25 MCG TABLET 50 MCG PO (14:41)
[2020-07-10] MEDS: Multivitamin TABLET 1 TAB PO (14:42)
[2020-07-10] MEDS: Folic Acid 1 MG TABLET PO (14:42)
[2020-07-10] MEDS: rOPINIRole HCL 0.25 MG TABLET PO (14:42)
[2020-07-10] MEDS: Cyanocobalamin (Vitamin B-12) 1,000 MCG TABLET 2000 MCG PO (14:42)
[2020-07-10] MEDS: vancomycin HCL 750 MG in 0.9 % Sodium Chloride 250 ML 265 MG IV (15:41)
[2020-07-10 16:24] LABS: Glucose, Whole Blood 251 mg/dL (60-115)
[2020-07-10 20:35] LABS: Glucose, Whole Blood 142 mg/dL (60-115)
[2020-07-10] MEDS: Atorvastatin Calcium 80 MG TABLET PO (21:04)
[2020-07-10] MEDS: Metoprolol Succinate ER 100 MG TAB.ER.24H PO (21:05)
[2020-07-10] MEDS: amLODIPine Besylate 5 MG TABLET PO (21:06)
[2020-07-11] MEDS: 0.9 % Sodium Chloride Flush 3 ML SYRINGE IVFLUSH ×2 (00:30→10:23)
[2020-07-11 03:00] VITALS: BP 126/59; PULSE 67; RESP 16; TEMP 36.8; O2SAT 96
[2020-07-11] MEDS: Acetaminophen 325 MG TABLET PO (05:11)
[2020-07-11] MEDS: Omeprazole 40 MG CAPSULE.DR PO (05:11)
[2020-07-11 07:00] VITALS: BP 140/57; PULSE 60; RESP 18; TEMP 36.9; O2SAT 98
[2020-07-11 07:02] LABS: Basophils Absolute Auto 0.1 X10*3/uL (0.0-0.2); Basophils Percent Auto 0.9 % (0-2); Eosinophils Absolute Auto 0.4 X10*3/uL (0.0-0.4); Eosinophils Percent Auto 3.2 % (0-4); Hematocrit 27.4 % (37-47); Hemoglobin 8.7 g/dl (12.0-16.0); Imm Gran Abs Auto 0.19 X10*3/uL (0.00-0.03); Imm Gran Pct Auto 1.6 % (0.0-0.4); Lymphocytes Absolute Auto 1.2 X10*3/uL (1.2-4.9); Lymphocytes Percent Auto 10.2 % (20-40); MANUAL DIFF FLAG SCAN; Mean Corpuscular HGB Conc 31.8 g/dl (31.0-35.0); Mean Corpuscular Hemoglobin 27.6 pg (27.0-33.0); Mean Platelet Volume 10.5 fL (9.4-12.3); Monocytes Absolute Auto 1.5 X10*3/uL (0.1-1.2); Monocytes Percent Auto 12.8 % (2-11); Neutrophils Absolute Auto 8.5 X10*3/uL (2.0-8.3); Neutrophils Percent Auto 71.3 % (45-73); Platelet Count 351 X10*3/uL (160-400); Red Blood Count 3.15 X10*6/uL (4.20-5.50); SCAN SMEAR FLAG 1; White Blood Count 11.9 X10*3/uL (4.8-10.8)
[2020-07-11 07:09] LABS: Anion Gap 13 (12-20); Blood Urea Nitrogen 16 mg/dL (9-16); Calcium 7.8 mg/dL (8.4-10.2); Carbon Dioxide 25 mmol/L (22-29); Chloride 103 mmol/L (96-108); Creatinine Clr Calc Pharmacy 39.4; Estimated Glomerular Filt Rate 59; Glucose Fasting 118 mg/dL (60-99); Potassium 3.8 mmol/l (3.3-5.1); Sodium 137 mmol/L (135-145)
[2020-07-11] MEDS: Fluticasone/Vilanterol 100/25 BLST.W.DEV 1 PUFF INHALE (07:24)
[2020-07-11 07:50] LABS: Glucose, Whole Blood 115 mg/dL (60-115)
[2020-07-11 08:34] LABS: SLIDE REVIEW VERIFIED
[2020-07-11] MEDS: Gabapentin 300 MG CAPSULE PO ×2 (08:48→14:10)
[2020-07-11] MEDS: Isosorbide Mononitrate 60 MG TAB.ER.24H PO (08:48)
[2020-07-11] MEDS: Nystatin Ointment 15 GM TUBE 1 APPL TOPICAL (08:52)
[2020-07-11] MEDS: prednisoLONE Acetate 1 % Oph Susp 5 ML DRPBTL 1 DROP EYE-RIGHT ×2 (08:52→14:10)
[2020-07-11] MEDS: Nystatin Powder 15 GM BOTTLE 1 APPL TOPICAL (08:52)
[2020-07-11 11:00] VITALS: BP 154/78; PULSE 62; RESP 20; TEMP 36.8; O2SAT 99
[2020-07-11 11:32] LABS: Glucose, Whole Blood 292 mg/dL (60-115)
--- NOTE | 2020-07-11 11:44 | MHC.CM.PN ---
pt to be n[facility]red to [facility] at 4;30 TODAY BY AGAPITO CRONIN AWARE and will go early to fioll out paperwork
[2020-07-11] MEDS: Flu Vacc QS2020-21(6mos up)/PF 0.5 ML SYRINGE IM (12:21)
--- NOTE | 2020-07-11 12:25 | PM.DS ---
DS: Providers Provider Date of admission: 06/20/20 17:05 Primary care physician: Micah Guerrier MD Consults: 06/21/20 09:38 Consult to Urology Routine Consulting Provider: Blair Guadarrama III Reason for consultation: daughter request 06/22/20 14:30 Consult to Infectious Diseases Routine Consulting Provider: Mavis Hoang Reason for consultation: daughter requesting Consult to Nephrology Routine Consulting Provider: Babatunde Ramirez Reason for consultation: daughter requesting 06/25/20 08:20 Consult to Infectious Diseases Routine Consulting Provider: Mavis Hoang Reason for consultation: follow up on duration of antibiotics esbl uti 06/27/20 11:11 Consult to Cardiology Routine Consulting Provider: Aleksandar Strauss Reason for consultation: preop clearance for bladder surgery 06/29/20 10:27 Consult to Hematology / Oncology Routine Consulting Provider: [facility] [place] Reason for consultation: bladder cancer 07/01/20 13:10 Consult to Urology Routine Consulting Provider: Roni Burks Reason for consultation: follow up on bladder cancer hematuria DS: Diagnosis Discharge Diagnosis (1) UTI due to extended-spectrum beta lactamase (ESBL) producing Escherichia coli: Status: Acute (2) Bladder mass: Status: Acute Problem details: TURBT Dr. Burks 06/2020 (3) Status post surgical removal and fulguration of bladder neoplasm: Status: Acute (4) Chronic systolic CHF (congestive heart failure): Status: Acute (5) Atrial fibrillation: Status: Acute DS: Summary Hospital Course Hospital Course: 79-year-old female initially admitted with chest pain and UTI and acute on chronic kidney injury for chest pain patient was admitted to telemetry, patient has mildly elevated troponin with flat trend likely demand mediated , chest pain resolved, ACS ruled out for acute on chronic kidney injury patient was started on IV fluids, creatinine was 2 on admission, creatinine improved with hydration and with nephrostomy tube CT abdomen on admission shows right-sided hydronephrosis and large bladder mass, urology was consulted, patient underwent TURBT with removal of some tumor but not complete removal , patient underwent right-sided nephrostomy tube, Tomer resolved, creatinine trended down to 1, pathology report from bladder mass high grade urothelial cancer with squamous differntitaion, oncology was consulted , patient will follow-up Oncology as outpatient, patient has hematuria postop , Eliquis was held , hematuria resolved, H&H remained stable For UTI initial urine culture grew ESBL E coli, patient completed 2 weeks of meropenem, urine culture from nephrostomy tube grew enterococcal , id recommended 7 days of vancomycin, patient completed 7 days of vancomycin, patient has risk of getting recurrent UTI given bladder mass patient was stable evaluated by Physical therapy recommended short-term recent rehab, patient was discharged to short-term rehab, eliquis was held on discharge for hematuria patient will follow-up urology Dr. Burks and oncology Dr. Velásquez as outpatient Time Spent with Patient Time attestation: Total time spent providing and/or coordinating discharge services: Physical Exam Vital Signs: Vital Signs: Vital Signs Temp Pulse Resp BP Pulse Ox 07/11/20 11:00 98.2 F 62 20 154/78 H 99 07/11/20 07:00 98.4 F 60 18 140/57 H 98 07/11/20 03:00 98.3 F 67 16 126/59 L 96 07/10/20 23:00 98.3 F 67 16 144/68 H 95 07/10/20 21:05 139/82 07/10/20 19:00 98.4 F 66 19 138/54 L 96 07/10/20 15:00 97.9 F 80 18 132/76 98 Body Mass Index 31.0 DS: Data Data Completed and Pending Labs on day of discharge: Labs from last 24 hours 07/11/20 07/11/20 07/11/20 11:25 11:22 07:37 WBC RBC Hgb Hct MCV MCH MCHC RDW Plt Count MPV Immature Gran % (Auto) Neut % (Auto) Lymph % (Auto) Hale % (Auto) Eos % (Auto) Baso % (Auto) Lymph # (Auto) Hale # (Auto) Eos # (Auto) Baso # (Auto) Abs Immat Gran (auto) Absolute Neuts (auto) Absolute Nucleated RBC Nucleated RBC % (auto) Smear Tech's Comments Sodium Potassium Chloride Carbon Dioxide Anion Gap BUN Creatinine Estim Creat Clear Calc Estimated GFR POC Glucose 292 H 115 Fasting Glucose Calcium Coronavirus (PCR) Pending 07/11/20 07/11/20 07/10/20 05:42 05:42 20:24 WBC 11.9 H RBC 3.15 L Hgb 8.7 L Hct 27.4 L MCV 87.0 MCH 27.6 MCHC 31.8 RDW 14.0 Plt Count 351 MPV 10.5 Immature Gran % (Auto) 1.6 H Neut % (Auto) 71.3 Lymph % (Auto) 10.2 L Hale % (Auto) 12.8 H Eos % (Auto) 3.2 Baso % (Auto) 0.9 Lymph # (Auto) 1.2 Hale # (Auto) 1.5 H Eos # (Auto) 0.4 Baso # (Auto) 0.1 Abs Immat Gran (auto) 0.19 H Absolute Neuts (auto) 8.5 H Absolute Nucleated RBC 0.000 Nucleated RBC % (auto) 0.0 Smear Tech's Comments VERIFIED Sodium 137 Potassium 3.8 Chloride 103 Carbon Dioxide 25 Anion Gap 13 BUN 16 Creatinine 0.91 Estim Creat Clear Calc 39.4 Estimated GFR 59 POC Glucose 142 H Fasting Glucose 118 H D Calcium 7.8 L Coronavirus (PCR) 07/10/20 16:15 WBC RBC Hgb Hct MCV MCH MCHC RDW Plt Count MPV Immature Gran % (Auto) Neut % (Auto) Lymph % (Auto) Hale % (Auto) Eos % (Auto) Baso % (Auto) Lymph # (Auto) Hale # (Auto) Eos # (Auto) Baso # (Auto) Abs Immat Gran (auto) Absolute Neuts (auto) Absolute Nucleated RBC Nucleated RBC % (auto) Smear Tech's Comments Sodium Potassium Chloride Carbon Dioxide Anion Gap BUN Creatinine Estim Creat Clear Calc Estimated GFR POC Glucose 251 H Fasting Glucose Calcium Coronavirus (PCR) Discharge Plan Discharge Patient Disposition: Xfer SNF Referrals: [facility] [Outside] Fareed,Micah Parker MD [Primary Care Provider] - 1 Week (Please call and schedule a follow up appointment.) Discharge Medications: New fluconazole 50 mg tablet 50 mg PO DAILY Qty: 7 RF: 0 Continued metoprolol succinate 100 mg Tablet Extended Release 24 Hr 100 mg PO DAILY@1999 RF: 0 gabapentin 300 mg Capsule 300 mg PO TID@0800,1500,1999 RF: 0 atorvastatin 80 mg Tablet 80 mg PO DAILY@1999 RF: 0 acetaminophen [Tylenol] 325 mg Tablet 325 mg PO QID PRN (Reason: Pain) RF: 0 amlodipine 5 mg Tablet 5 mg PO Q2D@1999 RF: 0 isosorbide mononitrate 60 mg Tablet Extended Release 24 Hr 60 mg PO DAILY@799 RF: 0 ropinirole 0.25 mg Tablet 0.25 mg PO DAILY@1999 RF: 0 pantoprazole 40 mg Tablet,Delayed Release (Dr/Ec) 40 mg PO DAILY@06 RF: 0 albuterol 90 mcg/actuation Aerosol 1 mcg INHALATION Q4H PRN (Reason: Shortness Of Breath) RF: 0 fluticasone propion-salmeterol [Advair Diskus] 100-50 mcg/dose Blister With Device 1 inh INHALATION BID RF: 0 amlodipine 2.5 mg Tablet 2.5 mg PO Q2D@1999 RF: 0 multivitamin Tablet 1 tab PO DAILY@1499 RF: 0 cyanocobalamin (vitamin B-12) [Vitamin B-12] 1,000 mcg Tablet 2,000 mcg PO DAILY@1499 RF: 0 cholecalciferol (vitamin D3) 50 mcg (2,000 unit) Tablet 50 mcg PO DAILY@1499 RF: 0 prednisolone acetate 1 % Drops,Suspension 1 drp ophthalmic-Right TID RF: 0 methenamine hippurate 1 gram Tablet 1 g PO BID@799,1999 RF: 0 Combivent Respimat 20-100 mcg/actuation Mist 1 puff INHALATION QID PRN (Reason: Shortness Of Breath) RF: 0 Novolog Mix 70-30FlexPen U-100 24 units subcut BEDTIME RF: 0 folic acid 0.8 mg Capsule 0.4 mg PO DAILY@1499 RF: 0 insulin asp prt-insulin aspart [Novolog Mix 70-30FlexPen U-100] 100 unit/mL (70-30) Insulin Pen 26 unit SUBCUT DAILY RF: 0 oxycodone 5 mg Tablet 5 mg PO BID@799,1999 RF: 0 Discontinued Eliquis 5 mg Tablet 5 mg PO BID@ RF: 0 cefpodoxime 100 mg Tablet 50 mg PO DAILY RF: 0 Discharge Orders: Discharge Order (Routine); Ordered 07/11/20 Ordered By: Luis Fernando Frias Activity on Discharge: As tolerated Visit Report Forms: Patient Portal Discharge page Care Plan Goals: treat uti Health Concerns: bladder mass recurrent uti Plan of Treatment: completed antibiotics
[2020-07-11 12:30] LABS: SARS COV2 PCR INHOUSE NEGATIVE (Negative)
[2020-07-11] MEDS: Multivitamin TABLET 1 TAB PO (13:51)
[2020-07-11] MEDS: rOPINIRole HCL 0.25 MG TABLET PO (13:51)
[2020-07-11] MEDS: Cyanocobalamin (Vitamin B-12) 1,000 MCG TABLET 2000 MCG PO (13:51)
[2020-07-11] MEDS: Folic Acid 1 MG TABLET PO (13:52)
[2020-07-11] MEDS: Cholecalciferol (Vitamin D3) 25 MCG TABLET 50 MCG PO (13:52)
[2020-07-11] MEDS: vancomycin HCL 750 MG in 0.9 % Sodium Chloride 250 ML 265 MG IV (14:10)
[2020-07-11 14:13] LABS: Vancomycin Trough 18.3 mcg/mL (10.0-20.0)
--- NOTE | 2020-07-11 14:18 | MHC.INPTTRAN ---
received IV a/b therapy for UTI. Follows with Dr Gray, hx of bladder CA and has right nephrostomy tube in place. it is draining clear yellow , Flushed with N/S without diff. voids on commode, occ incont. Also needs to follwo up with Dr Velásquez, for oncology. Hematuria resolved. Eliquis on hold. (hx of A Fib) VSS. is weak, i-2 assist OOB, walker helpful. jose roberto diet. takes meds whole. Has fungal rash under allison breasts and buttocks red. Had Lge BM yesterday. Covid neg. Had flu shot today, right deltoid. Is alert, forgetful at times. Labs stable. H&H is 8.7 and 27.4 thanks.
[2020-07-11 15:00] VITALS: BP 161/59; PULSE 67; RESP 18; TEMP 36.8; O2SAT 98
[2020-07-11 16:30] LABS: Glucose, Whole Blood 173 mg/dL (60-115)
== END 2020-07-11 16:50 | disposition skilled nursing facility (03) | DRG 669 ==
LOC: HO.ED 16:31 → HO.IMC 18:02
PROVIDERS: Hospitalist; Internal Medicine; Internal Medicine Nephrology; Physician Assistant; Admitting Provider Internal Medicine; Emergency Provider Emergency Medicine; PCP Internal Medicine; Visit Provider Internal Medicine
DX: C67.6 Malignant neoplasm of ureteric orifice (principal); N17.9 Acute kidney failure, unspecified; N13.6 Pyonephrosis; Z16.12 Extended spectrum beta lactamase (ESBL) resistance; I50.22 Chronic systolic (congestive) heart failure; I13.0 Hypertensive heart and chronic kidney disease with heart failure and stage 1 through stage 4 chronic kidney disease, or unspecified chronic kidney disease; E83.42 Hypomagnesemia; I25.10 Atherosclerotic heart disease of native coronary artery without angina pectoris; Z20.828 Contact with and (suspected) exposure to other viral communicable diseases; Z86.73 Personal history of transient ischemic attack (TIA), and cerebral infarction without residual deficits; R06.81 Apnea, not elsewhere classified; I48.91 Unspecified atrial fibrillation; Z95.1 Presence of aortocoronary bypass graft; Z23 Encounter for immunization; E11.22 Type 2 diabetes mellitus with diabetic chronic kidney disease; B96.20 Unspecified Escherichia coli [E. coli] as the cause of diseases classified elsewhere; R31.9 Hematuria, unspecified; B95.2 Enterococcus as the cause of diseases classified elsewhere; N18.30 Chronic kidney disease, stage 3 unspecified; Z87.891 Personal history of nicotine dependence; Z88.2 Allergy status to sulfonamides; Z88.6 Allergy status to analgesic agent; Z79.4 Long term (current) use of insulin; Z79.51 Long term (current) use of inhaled steroids; Z79.891 Long term (current) use of opiate analgesic; Z79.899 Other long term (current) drug therapy
CPT/HCPCS: 36415; 50432; 71045; 76942; 78306; 80048; 80076; 80202; 81001; 82947; 83690; 83735; 83880; 84484; 85014; 85018; 85025; 85610; 87040; 87086; 87088; 87186; 88307; 90686; 93005; 96361; 96365; 97110; 97116; 97162; 99214; 99225; 99231; 99232; 99285; A9503; C1729; C1769; C1887; C1892; C1894; J1170; J2185; J2405; J3010; J3370; J3475; U0003

== ENCOUNTER 2020-07-24 11:30 | Outpatient (RCR) | payer MEDICARE, OTHER, SELFPAY ==
[2020-07-24 11:41] VITALS: BP 142/61; PULSE 70; RESP 12; TEMP 36.6; O2SAT 100
[2020-07-24 11:55] LABS: MANUAL DIFF FLAG NO
[2020-07-24 12:03] LABS: Basophils Absolute Auto 0.1 X10*3/uL (0.0-0.2); Basophils Percent Auto 0.6 % (0-2); Eosinophils Absolute Auto 0.4 X10*3/uL (0.0-0.4); Hemoglobin 10.2 g/dl (12.0-16.0); Imm Gran Abs Auto 0.17 X10*3/uL (0.00-0.03); Imm Gran Pct Auto 1.4 % (0.0-0.4); Mean Corpuscular HGB Conc 31.9 g/dl (31.0-35.0); Mean Corpuscular Hemoglobin 27.3 pg (27.0-33.0); Mean Corpuscular Volume 85.8 fL (80-98); Mean Platelet Volume 9.8 fL (9.4-12.3); Monocytes Absolute Auto 1.1 X10*3/uL (0.1-1.2); Monocytes Percent Auto 8.6 % (2-11); Neutrophils Absolute Auto 9.7 X10*3/uL (2.0-8.3); Neutrophils Percent Auto 78.4 % (45-73); Platelet Count 418 X10*3/uL (160-400); Red Blood Count 3.73 X10*6/uL (4.20-5.50); Red Cell Distribution Width 14.3 % (11.0-16.0); White Blood Count 12.3 X10*3/uL (4.8-10.8)
--- NOTE | 2020-07-24 12:24 | P.PNHO_ITS ---
Medical Summary - Medical Summary Chief complaint: Follow-up Medical Summary: Diagnosis: Bladder cancer 06/2020. Patient was admitted with complaints of pelvic pain and acute kidney injury in June 2020. CT abdomen on admission shows right-sided hydronephrosis and large bladder mass, urology was consulted, TURBT with partial resection of tumor and right nephrostomy tube placement. On cystoscopy tumor appeared to be invasive bladder cancer into the sidewall. The sidewall contained bladder cancer running from the 7 o'clock position up to the 11 o'clock position. Interval History Interval history: Patient was discharged to a halfway. She is here today in follow-up, accompanied by her daughter. She has declined considerably. She is bed or wheelchair bound all the time. She cannot move without assistance. Her appetite is very poor and she has lost a significant amount of weight. She is in constant pain and is on [id number] OxyContin/oxycodone for breakthrough pain. There has been some lethargy noted with OxyContin twice a day. No reports of fever or chills. She has nephrostomy tube draining murky yellow urine. Review of Systems - Constitutional Reports no additional constitutional complaints, Reports poor appetite, Reports weakness PMFSH Medical History: Medical History (Last Reviewed 07/02/20 @ 14:58 by Tamela Kaminski PT) Afib Bladder mass CAD (coronary artery disease) Chronic diastolic heart failure COPD (chronic obstructive pulmonary disease) CVA (cerebral vascular accident) GERD (gastroesophageal reflux disease) Hypercholesteremia Hypertension Leg swelling Obesity Toxic metabolic encephalopathy Family History: Family History (Last Reviewed 07/24/20 @ 13:51 by RADHA Angela) Father CVD (cardiovascular disease) Heart disease Mother Cancer Ulcer Surgical History: Surgical History (Last Reviewed 07/24/20 @ 13:51 by RADHA Angela) History of bilateral cataract extraction History of carpal tunnel release History of cholecystectomy History of laparotomy History of tonsillectomy Hx of CABG S/P CABG (coronary artery bypass graft) Status post surgical removal and fulguration of bladder neoplasm Oncology Screenings - ECOG Performance Status ECOG Performance Status: 4 Home Medications and Allergies Home Medications Medication Instructions Recorded Confirmed Type Combivent Respimat 1 puff INHALATION QID PRN 06/12/20 07/24/20 History Novolog Mix 70-30FlexPen U-100 24 units SUBCUT BEDTIME 06/12/20 07/24/20 History acetaminophen [Tylenol] 325 mg PO QID PRN 06/12/20 07/24/20 History albuterol 1 mcg INHALATION Q4H PRN 06/12/20 07/24/20 History amlodipine 2.5 mg PO Q2D@199906/12/20 07/24/20 History amlodipine 5 mg PO Q2D@199906/12/20 07/24/20 History atorvastatin 80 mg PO DAILY@199906/12/20 07/24/20 History cholecalciferol (vitamin D3) 50 mcg PO DAILY@1500 06/12/20 07/24/20 History cyanocobalamin (vitamin B-12) 2,000 mcg PO DAILY@1500 06/12/20 07/24/20 History [Vitamin B-12] fluticasone propion-salmeterol 1 inh INHALATION BID 06/12/20 07/24/20 History [Advair Diskus] gabapentin 300 mg PO TID@0800,1500,199906/12/20 07/24/20 History isosorbide mononitrate 60 mg PO DAILY@0800 06/12/20 07/24/20 History methenamine hippurate 1 g PO BID@0800,199906/12/20 07/24/20 History metoprolol succinate 100 mg PO DAILY@199906/12/20 07/24/20 History multivitamin 1 tab PO DAILY@1500 06/12/20 07/24/20 History pantoprazole 40 mg PO DAILY@0630 06/12/20 07/24/20 History prednisolone acetate 1 drp OPHTHALMIC-RIGHT TID 06/12/20 07/24/20 History ropinirole 0.25 mg PO DAILY@199906/12/20 07/24/20 History folic acid 0.4 mg PO DAILY@1500 06/22/20 07/24/20 History insulin asp prt-insulin aspart 26 unit SUBCUT DAILY 06/22/20 07/24/20 History [Novolog Mix 70-30FlexPen U-100] Allergies Allergy/AdvReac Type Severity Reaction Status Date / Time phenobarbital [PHENOBARBITAL] Allergy Mild HIVES Verified 07/11/20 10:36 fentanyl [FENTANYL] Allergy Unknown HALLUCINATI Verified 07/11/20 10:36 ONS insulin lispro [From HUMALOG] Allergy Unknown RASH Verified 06/11/20 21:44 morphine [MORPHINE] Allergy Unknown HALLUCINATI Verified 06/11/20 21:44 ON Sulfa (Sulfonamide Allergy Unknown Unknown Verified 06/11/20 21:44 Antibiotics) sulfamethoxazole Allergy Unknown UNKNOWN Verified 07/11/20 10:36 [From BACTRIM] trimethoprim [From BACTRIM] Allergy Unknown UNKNOWN Verified 07/11/20 10:36 diazepam [DIAZEPAM] AdvReac Unknown CRY Verified 06/11/20 21:44 Exam Vital signs: Vital Signs Temp 97.8 F 07/24/20 11:41 Pulse 70 07/24/20 11:41 Resp 12 07/24/20 11:41 BP 142/61 H 07/24/20 11:41 Pulse Ox 100 07/24/20 11:41 - Constitutional Present: chronically ill appearing - Routine HEENT Exam Head: Present: normal inspection - Routine Neck Exam Present: normal inspection - Routine Respiratory Exam Absent: accessory muscle use, rhonchi, stridor - Routine Cardiovascular Exam Cardiovascular: Present: S1, S2 - Routine Abdominal Exam Present: soft Data - Labs CBC & Chem 7: 07/24/20 11:43 07/24/20 11:43 Labs: 07/24/20 11:43 Complete Blood Count Auto Diff Routine Laboratory Last Values WBC 12.3 X10*3/uL (4.8-10.8) H 07/24/20 11:43 RBC 3.73 X10*6/uL (4.20-5.50) L 07/24/20 11:43 Hgb 10.2 g/dl (12.0-16.0) L 07/24/20 11:43 Hct 32.0 % (37-47) L 07/24/20 11:43 MCV 85.8 fL (80-98) 07/24/20 11:43 MCH 27.3 pg (27.0-33.0) 07/24/20 11:43 MCHC 31.9 g/dl (31.0-35.0) 07/24/20 11:43 RDW 14.3 % (11.0-16.0) 07/24/20 11:43 Plt Count 418 X10*3/uL (160-400) H 07/24/20 11:43 MPV 9.8 fL (9.4-12.3) 07/24/20 11:43 Immature Gran % (Auto) 1.4 % (0.0-0.4) H 07/24/20 11:43 Neut % (Auto) 78.4 % (45-73) H 07/24/20 11:43 Lymph % (Auto) 8.0 % (20-40) L 07/24/20 11:43 [place] % (Auto) 8.6 % (2-11) 07/24/20 11:43 Eos % (Auto) 3.0 % (0-4) 07/24/20 11:43 Baso % (Auto) 0.6 % (0-2) 07/24/20 11:43 Lymph # (Auto) 1.0 X10*3/uL (1.2-4.9) L 07/24/20 11:43 [place] # (Auto) 1.1 X10*3/uL (0.1-1.2) 07/24/20 11:43 Eos # (Auto) 0.4 X10*3/uL (0.0-0.4) 07/24/20 11:43 Baso # (Auto) 0.1 X10*3/uL (0.0-0.2) 07/24/20 11:43 Abs Immat Gran (auto) 0.17 X10*3/uL (0.00-0.03) H 07/24/20 11:43 Absolute Neuts (auto) 9.7 X10*3/uL (2.0-8.3) H 07/24/20 11:43 Absolute Nucleated RBC 0.000 X10*3/uL (0.0-0.012) 07/24/20 11:43 Nucleated RBC % (auto) 0.0 /100WBC (0.0-0.2) 07/24/20 11:43 Progress Note: A/P (1) Bladder cancer Status: Acute Assessment and plan: 1. 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 PD L1 expression negative. She presented with right hydroureteronephrosis and acute kidney injury. Right nephrostomy tube was placed by intervention Radiology on 07/02/2020. Her her already poor performance status has declined considerably further in the last few weeks. She is essentially bed-bound and has anorexia along with significant weight loss. She is not a candidate for any palliative treatment such as radiotherapy or palliative chemo or immunotherapy. Goals of care is best supportive care and comfort measures. Patient's daughter who is her healthcare proxy is in agreement. For her pain control I have asked them to decrease OxyContin to 10 mg at bedtime only, oxycodone 5 mg Q 4-6 p.r.n. for breakthrough pain. Discontinue b.i.d. OxyContin. For her anemia I am starting her on ferrous of 325 mg once a day along with mild laxatives as needed. Today we had a discussion about institution of hospice care. They are interested in having further discussion which will be arranged in the following days. All her questions were answered to her satisfaction. - Time Spent With Patient Total time spent is greater than 50% in coordination of care (as documented) at patient's floor/unit and/or counseling patient: 25 - 35 minutes
[2020-07-24 12:37] LABS: Alanine Aminotransferase 15 U/L (0-31); Albumin Level 3.3 g/dL (3.5-5.0); Alkaline Phosphatase 121 U/L (39-117); Anion Gap 14 (12-20); Aspartate Amino Transferase 18 U/L (5-31); Bilirubin Total 0.4 mg/dL (0.0-1.0); Blood Urea Nitrogen 21 mg/dL (9-16); Calcium 8.8 mg/dL (8.4-10.2); Carbon Dioxide 26 mmol/L (22-29); Chloride 101 mmol/L (96-108); Estimated Glomerular Filt Rate 41; Glucose Random 149 mg/dL (60-115); Potassium 4.1 mmol/l (3.3-5.1); Sodium 137 mmol/L (135-145); Total Protein 6.9 g/dL (6.5-8.0)
--- NOTE | 2020-07-27 17:59 | MHC.HEMONC ---
HOSPICE REFERRAL made to [facility], spoke w Roxane Wilson there. Pt is currently at [facility]. Per Roxane, she spoke w the daughter Cory. She will contact Hospice when Karuna will be transferred back home to her assisted living apartment at [facility].
== END 2020-08-23 | disposition home or self-care (01) ==
LOC: HO.ONC 11:30
PROVIDERS: PCP Internal Medicine; Visit Provider Internal Medicine
DX: C67.9 Malignant neoplasm of bladder, unspecified (principal); D64.9 Anemia, unspecified; Z79.891 Long term (current) use of opiate analgesic; Z93.6 Other artificial openings of urinary tract status
CPT/HCPCS: 36415; 80053; 85025; 99214